=== PATIENT | male | born 1945 | race Caucasian/White ===

== ENCOUNTER → 2018-01-12 08:51 | Outpatient (CLI) | payer MEDICARE, OTHER, SELFPAY ==
[2018-01-12 14:06] LABS: Absolute Lymphocyte Count 1.49 X10^3/ul (0.83-4.51); Absolute Neutrophil Count 2.4 X10^3/uL (2.0-7.7); Basophil# 0.03 X10^3/uL; Basophil% 0.7 % (0-1); Eosinophil# 0.06 X10^3/uL; Eosinophils% 1.3 % (0-5); Hematocrit 48.1 % (40-54); Hemoglobin 16.6 g/dl (13.0-16.5); Lymphocyte # 1.49 X10^3/ul (4.0); Lymphocyte % 32.8 % (19-41); Mean Corp Hgb Conc 34.5 g/gl (32-36); Mean Corpuscular Hgb 32.9 pg (27.0-32.0); Mean Corpuscular Volume 95.4 fL (80-94); Mean Platelet Vol. 11.1 fl (6.2-12.0); Monocyte# 0.53 X10^3/uL; Monocyte% 11.7 % (0-10); Neutrophil # 2.42 X10^3/uL (2.7-7.7); Neutrophil % 53.3 % (47-70); Platelet Count 230 K/mm3 (150-450); RBC Distribution Width CV 13.4 % (11.6-14.6); RBC Distribution Width SD 45.7 fl (35.1-43.9); Red Blood Count 5.04 M/mm3 (4.6-6.2); White Blood Count 4.5 K/mm3 (4.4-11.0)
[2018-01-12 14:14] LABS: POSITIVE COUNT NO; POSITIVE DIFFERENTIAL NO; POSITIVE MORPHOLOGY NO
[2018-01-12 14:41] LABS: ALB/GLOB Ratio 0.8 RATIO (0.9-2.4); AST(SGOT) 24 U/L (15-37); Alanine Aminotransfer ALT/SGPT 36 U/L (16-61); Albumin, Serum 3.5 g/dL (3.2-5.0); Alkaline Phosphatase 57 U/L (45-117); Anion Gap 5 (5-15); BUN 15 mg/dL (7-18); BUN/Creat Ratio 14.9 RATIO (10-20); Calcium,Total 8.5 mg/dL (8.5-10.1); Chloride 102 mmol/L (98-107); Creatinine, Serum 1.01 mg/dL (0.70-1.30); EST Glomerular Filtration Rate 78 mL/min (>60); Est Glom Filt Rate - Afr Amer 94 mL/min (>60); Globulin 4.2 g/dL (2.2-4.2); Glucose 104 mg/dL (74-106); Protein, Total 7.7 g/dL (6.4-8.2); Sodium Level 138 mmol/L (136-145); Thyroid Stim Hormone (TSH) 1.85 uIU/mL (0.358-3.74)
== END ==
PROVIDERS: Family Provider Family Medicine Geriatric Medicine; PCP Family Medicine Geriatric Medicine; Visit Provider Family Medicine Geriatric Medicine
DX: R53.83 Other fatigue (principal); F52.8 Other sexual dysfunction not due to a substance or known physiological condition
CPT/HCPCS: 36415; 80053; 84403; 84443; 85025

== ENCOUNTER → 2018-02-25 12:36 | Outpatient (CLI) | payer MEDICARE, OTHER, SELFPAY ==
--- NOTE | 2018-02-25 12:40 | CDU_ITS ---
Reason For Study: DIZZINESS Rt. Velocities/BP Lt. Velocities/BP Prox CCA 79/14 cm/sec. Prox CCA 75/14 cm/sec. Mid CCA 83/16 cm/sec. Mid CCA 76/13 cm/sec. Dist CCA 84/22 cm/sec. Dist CCA 69/16 cm/sec. Prox ICA 55/13 cm/sec. Prox ICA 111/30 cm/sec. Mid ICA 56/16 cm/sec. Mid ICA 98/15 cm/sec. Dist ICA 71/20 cm/sec. Dist ICA 73/18 cm/sec. Rt. ICA/CCA = .9. Lt. ICA/CCA = 1.5. Prox ECA 78/15 cm/sec. Prox ECA 70/11 cm/sec. Rt. Vert. 32/7 cm/sec. Lt. Vert. 34/11 cm/sec. Right Extracranial There is homogeneous, smooth atherosclerotic plaque noted in the right common carotid artery. There is heterogeneous, irregular atherosclerotic plaque noted in the right internal carotid artery. There is homogeneous, smooth atherosclerotic plaque noted in the right external carotid artery. Antegrade flow is noted in the right vertebral artery. There is heterogeneous, irregular atherosclerotic plaque noted in the right bulb. Left Extracranial There is homogeneous, smooth atherosclerotic plaque noted in the left common carotid artery. There is homogeneous, smooth atherosclerotic plaque noted in the left internal carotid artery. There is homogeneous, smooth atherosclerotic plaque noted in the left external carotid artery. Antegrade flow is noted in the left vertebral artery. There is homogeneous, smooth atherosclerotic plaque noted in the left bulb. Procedure Carotid Duplex [id number]. Exam performed in department. Interpretation Summary Mild (<50%) stenosis right extracranial internal carotid. Mild (<50%) stenosis left extracranial internal carotid. Flow within the vertebral arteries is antegrade bilaterally. Ordering Physician: Carlos Fitzpatrick Referring Physician: MORAIMA REY CHI Performed By: AletaRose paniagua RDCS, RVT
== END ==
PROVIDERS: Family Provider Family Medicine Geriatric Medicine; PCP Family Medicine Geriatric Medicine; Visit Provider Surgery Vascular Surgery
DX: R42 Dizziness and giddiness (principal); G43.909 Migraine, unspecified, not intractable, without status migrainosus; G47.30 Sleep apnea, unspecified; I65.23 Occlusion and stenosis of bilateral carotid arteries; E07.9 Disorder of thyroid, unspecified; H53.9 Unspecified visual disturbance
CPT/HCPCS: 93880

== ENCOUNTER 2018-03-09 11:23 | Day surgery (SDC) | payer MEDICARE, OTHER, SELFPAY ==
--- NOTE | 2018-03-04 15:44 | RAD_ITS ---
STUDY: X-RAY CHEST REASON FOR EXAM: Male, 72 years old. Have a pacer inserted Friday. TECHNIQUE: PA and lateral views of the chest. COMPARISON: April 08, 2017 FINDINGS: The lungs are clear and expanded. There is no demonstrated pleural abnormality. Normal size heart. Normal mediastinum and rajesh. Normal visualized pulmonary arteries. Normal visualized aortic arch and descending thoracic aorta. There are diffuse degenerative changes of the visualized thoracic spine. There are postsurgical changes of the lower cervical spine. Normal visualized ribs, clavicles, and shoulders. There is no demonstrated abnormality of the visualized soft tissue structures of the upper abdomen. RAD/Chest PA and Lateral IMPRESSION: No acute cardiopulmonary process. Electronically Signed: Dinora Yousif MD at 23:22 EDT Tel , Service support ,
[2018-03-04 16:06] LABS: Bacteria 0 SEEN /hpf (None Seen); Mucous, Urine 0 SEEN /hpf (<or=2+); Red Blood Cells-Urine 0 SEEN /hpf (0-5)
[2018-03-04 16:47] LABS: Hematocrit 48.2 % (40-54); Hemoglobin 16.7 g/dl (13.0-16.5); Mean Corp Hgb Conc 34.6 g/gl (32-36); Mean Corpuscular Hgb 32.9 pg (27.0-32.0); Mean Corpuscular Volume 95.1 fL (80-94); Mean Platelet Vol. 10.3 fl (6.2-12.0); Platelet Count 255 K/mm3 (150-450); RBC Distribution Width CV 13.6 % (11.6-14.6); RBC Distribution Width SD 46.6 fl (35.1-43.9); Red Blood Count 5.07 M/mm3 (4.6-6.2); Scan Indicated on CBC? Y/N NO; White Blood Count 6.3 K/mm3 (4.4-11.0)
[2018-03-04 16:51] LABS: Color, Urine Yellow (Yellow); Glucose, Dipstick Normal (Normal); Ketone-Dipstick Negative (Negative); Leukocyte Esterase-Dipstick 25 /ul (Negative); Nitrite-Dipstick Negative (Negative); Occult Blood-Urine Negative /ul (Negative); Protein-Dipstick Negative (Negative); Specific Gravity, Urine 1.015 (1.002-1.030); Urine Bilirubin Dipstick Negative (Negative); Urine Clarity Clear (Clear); Urine Urobilinogen Normal (Normal); Urine pH 6.5 (5.0 - 8.0)
[2018-03-04 17:05] LABS: BUN 14 mg/dL (7-18); BUN/Creat Ratio 14.8 RATIO (10-20); Calcium,Total 8.7 mg/dL (8.5-10.1); Chloride 102 mmol/L (98-107); Creatinine, Serum 0.94 mg/dL (0.70-1.30); EST Glomerular Filtration Rate 84 mL/min (>60); Est Glom Filt Rate - Afr Amer 102 mL/min (>60); Glucose 83 mg/dL (74-106); Potassium 4.2 mmol/L (3.5-5.1); Sodium Level 140 mmol/L (136-145)
[2018-03-04 17:06] LABS: Anion Gap 6 (5-15)
[2018-03-04 18:08] LABS: Squamous Epithelial Cells - UA 0-5 SEEN /hpf (0-5)
[2018-03-04 18:09] LABS: White Blood Cells 0-5 SEEN /hpf (0-5)
[2018-03-06 09:38] VITALS: BMI 27.8
[2018-03-09] VITALS (13 sets, daily range): BP systolic 130–161; BP diastolic 61–95; PULSE 60; RESP 16–18; TEMP 36.2–37.1; O2SAT 94–100
[2018-03-09] MEDS: Acetaminophen 325 MG Tablet PO (15:56)
[2018-03-10] MEDS: Acetaminophen 325 MG Tablet PO ×2 (00:28→10:11)
[2018-03-10 02:20] VITALS: BP 128/74; PULSE 61; RESP 16; TEMP 37.1; O2SAT 95
[2018-03-10 03:11] VITALS: PULSE 60
--- NOTE | 2018-03-10 04:30 | RAD_ITS ---
STUDY: X-RAY CHEST REASON FOR EXAM: Male, 72 years old. Pacemaker insertion TECHNIQUE: Single frontal view of the chest. COMPARISON: 03/10/2018 FINDINGS: There is a RIGHT-sided pacemaker. The leads are in the RIGHT age and RIGHT ventricle. There is suboptimal inspiration. There are NO infiltrates. There is NO pleural effusion or pneumothorax. Normal size heart. Normal mediastinum and rajesh. Normal visualized pulmonary arteries. Normal visualized aortic arch and descending thoracic aorta. Normal visualized thoracic spine. Normal visualized ribs, clavicles, and shoulders. There is no demonstrated abnormality of the visualized soft tissue structures of the upper abdomen. RAD/Chest 1 View IMPRESSION: There is a RIGHT-sided pacemaker. The leads are in the RIGHT age and RIGHT ventricle. There is suboptimal inspiration. There are NO infiltrates. There is NO pleural effusion or pneumothorax. Normal size heart. Electronically Signed: Daniel Fleming MD at 5:14 EDT , Service support ,
[2018-03-10 05:25] VITALS: BP 141/88; PULSE 60; RESP 20; TEMP 36.6; O2SAT 94
--- NOTE | 2018-03-10 05:55 | RAD_ITS ---
STUDY: X-RAY CHEST REASON FOR EXAM: Male, 72 years old. Pacemaker insertion TECHNIQUE: PA and lateral COMPARISON: 03/04/2018 FINDINGS: Pacemaker leads are in proper position. The lungs are clear and expanded. There is NO pneumothorax. Normal size heart. Normal mediastinum and rajesh. Normal visualized pulmonary arteries. Normal visualized aortic arch and descending thoracic aorta. Normal visualized thoracic spine. Normal visualized ribs, clavicles, and shoulders. There is no demonstrated abnormality of the visualized soft tissue structures of the upper abdomen. RAD/Chest PA and Lateral IMPRESSION: Pacemaker leads are in proper position. The lungs are clear and expanded. There is NO pneumothorax. Normal size heart. Electronically Signed: Daniel Fleming MD at 5:18 EDT , Service support ,
[2018-03-10 07:00] VITALS: PULSE 60
--- NOTE | 2018-03-10 08:54 | RAD_ITS ---
STUDY: X-RAY CHEST REASON FOR EXAM: Male, 72 years old. Lead placement verification. TECHNIQUE: AP and lateral views of the chest. COMPARISON: Comparison is made with prior study dated March 10, 2018 at 4:48 AM. FINDINGS: EKG electrodes are seen. A right-sided dual-chamber pacemaker is in situ. One lead is in the right right ventricle and the other lead is in the left ventricle these are unchanged. Minimal increased markings at the lung bases suggestive of bibasilar linear atelectasis. There is no demonstrated pleural abnormality. There is mild cardiac enlargement. A loop recorder device is seen overlying the left upper quadrant. Normal mediastinum and rajesh. Normal visualized pulmonary arteries. There is atherosclerotic tortuosity of the aortic arch and descending thoracic aorta. Normal visualized thoracic spine. Normal visualized ribs, clavicles, and shoulders. There is no demonstrated abnormality of the visualized soft tissue structures of the upper abdomen. RAD/Chest PA and Lateral IMPRESSION: Stable position of the pacemaker leads. Electronically Signed: Lenny Shields MD at 9:17 EDT Tel [phone], Service support ,
[2018-03-10 10:11] VITALS: BP 130/81; PULSE 60; RESP 18; TEMP 36.7; O2SAT 97
--- NOTE | 2018-03-10 11:02 | PCM.DC.PACE ---
Discharge Diet: No Restrictions Discharge Activity: May Not Drive Call your doctor if your incision/area has: Continuous Slow Oozing, Sudden Increased Bleeding, Increased Pain/ Swelling, Increased Redness, Foul Smelling Discharge, Swelling at the incision site Call your doctor if you observe: Fever of 101 or Higher, Shortness of breath, Dizziness, Fainting spells, Swelling in the ankles, Chest pain, Prolonged hiccoughing, Increased palpitations (irregular heartbeat) Change Dressing in (Days):: 3 Remove Dressing in (days):: 3 Cleanse incision/area with: Do not get Incision Wet, Keep Dressing Clean & Dry Additional Dressing/Incision Instructions:: When dressing is removed, wash and dry incision. Keep covered with a light bandage if it is rubbing against your clothing. Do not cover the incision with an airtight bandage. Change the bandage daily. Do not remove steri strips. The strips will fall off on their own. Additional Instructions: Signs and Symptoms to Report to Your Doctor at Once - call your doctor's office or Doctor's Registry ([phone]) Call 911 or go to the nearest Emergency Department if you feel you need urgent care. *Infection (fever, increased redness or swelling at the incision site, drainage from the incision increased pain at the pacemaker site) *Shortness of breath *Dizziness *Fainting spells *Swelling in the ankles *Chest pain *Prolonged hiccoughing *Increased palpitaitons (irregular heartbeat) Medications: Take your pain medication as directed. Refer to your discharge instruction sheet for a list of medications you are to take. Allergies/Adverse Reactions: Allergies Anesthetics - Amide Type Allergy (Verified 04/18/17 15:12) Unknown Medications to take at Discharge Levothyroxine [Synthroid] 125 mcg PO DAILY 09/08/13 Mometasone Furoate [Asmanex 220 mcg Twisthaler] 220 mcg INHALATION BID 03/11/16 Sildenafil Citrate [Viagra] 12.5 mg PO PRN PRN 02/14/17 Aspirin E.C. [Ecotrin] 81 mg PO DAILY@0800 04/21/17 temazepam 15 mg capsule 15 mg PO QHS PRN 03/04/18 testosterone cypionate 100 mg/mL intramuscular oil 100 mg IM Q3W ml 03/04/18 Primary Care Physician: Jose Cisse Chi, MD [Primary Care Provider] - Please Follow Up With: follow up with pacer clinic - see Geri gee Proposed Discharge Date: 03/10/18
--- NOTE | 2018-03-10 11:05 | PCM.PN.CARD ---
Subjectve: Patient seen and evaluated. Appears to be stable. Objective: Vital Signs Temp Pulse Resp BP Pulse Ox 98.1 F 60 18 130/81 H 97 03/10/18 10:11 03/10/18 10:11 03/10/18 10:11 03/10/18 10:11 03/10/18 10:11 Oxygen Delivery Method Room Air Weight: 194 lb Body Mass Index (BMI) 27.8 Intake and Output for Last 24 Hours 03/08/18 03/09/18 03/10/18 23:59 23:59 23:59 Intake Total 330 / 330 325 / 325 Output Total 1000 / 1000 Balance 330 / 330 -675 / -675 General: Awake, Alert, Oriented x 3 HEENT: PERRL, EOMI, Sclera Non Icteric Neck: Supple, Good ROM, No Lymph Node Enlargement Lungs: Clear to auscultation Cardiovascular: Regular Rhythm, Normal S1, Normal S2, No Murmurs, No Rubs, No Gallops Rhythm: EKG: ECHO: Stress Test: Cardiac Cath: PCI: CT Surgery: Holter monitor: EPS: PPM: CXR: Chest CT Scan: Medical Necessity - Tobacco Use Smoking Status: Never smoker Assessment/Plan 1. Status post dual-chamber pacemaker implantation. Pacemaker was interrogated today and is noted to be functioning well. The chest x-ray also demonstrated no evidence of pneumothorax. The ventricular lead was in good position and the atrial lead appeared to have retracted mildly but was noted to be in the atrium with good position. Will discharge patient for outpatient follow-up.
--- NOTE | 2018-03-10 13:10 | PCM.PACRNU ---
Pacer Nurse Hospital Visit Notes: Dual Chamber Pacemaker Evaluation: 1st day post PPM implant check completed at bedside PCU #[id number]. Interrogation shows no MS or VT episodes since implant. Left pectoral pocket/incision DSD intact w/o drainage noted or hematoma noted. Prresenting rhythm shows AAI pacing @ 60 ppm. PRODUCT SCIENTIST=2%, AP=95%. Battery longevity approx >8 yrs. Lead impedances, sensing and pace/sense thresholds remain stable. Programmed rate response on since AP=95%. No other parameter changes made. Counters cleared. Wound Care instructions and left arm restrictions given to pt and . All questions answered. Dr. Aldridge notified of above. Wound check scheduled for . 03/17 @ 2:30pm. Logan Guaman RN - Pacer Check Procedure Procedures: [id number] PM Eval Dual
--- NOTE | 2018-03-13 15:02 | CL.IE_ITS ---
Patient: FAVIAN PHILLIP Study Date: 03/09/2018 Performing: Cecilio Aldridge MD : 1945 Age: 72 Gender: male PROCEDURES PERFORMED [id number] PACER INSERT+DUAL LEADS INDICATIONS Sinoatrial node dysfunction/Sick sinus syndrome PROCEDURE DETAILS The patient was brought to the Catheterization Lab in the postabsorptive nonsedated state. Informed consent was obtained prior to the procedure. . Instrument, sponge, and needle counts were noted to be normal.Local anesthetic was given subcutaneously to the right upper chest area with Lidocaine 2%. Ac cess was achieved and a guidewire was advanced into the right subclavian vein. Incision was made to t he right subclavicular area. A peel-away sheath was inserted into the right subclavian vein 9Fr.. PPM ventricular lead was inserted / positioned to right ventricular. The sheath was then remove d. PPM ventricular lead testing performed. PPM ventricular lead testing performed. A peel-away sheath was inserted into the right subclavian vein 7Fr.. PPM atrial lead was inserted / positioned to the r ight atrial appendage. The sheath was then removed. PPM atrial lead testing performed. The Atrial danae d sutured in place with 3-0 Silk. The Ventricular PM lead sutured in place with 3-0 Silk. Device pock et was irrigated with antibiotic. PPM generator was attached to the lead(s) and inserted into the poc ket. Subcutaneous closure was completed with 3-0 Vicryl. Skin closure was completed with 4-0 Vicryl. Steri-strips applied to right subclavicular incision Estimated Blood Loss: 30 ml's IMPLANTED / EX-PLANTED DEVICES IMPLANTED DEVICE(S): PPM Ventricular lead - Street Sweeper Operator: [employer] Model # 7741 , Serial # [id number] PPM Atrial lead - Street Sweeper Operator: [employer] Model # 7740 , Serial # [id number] PPM Generator - Street Sweeper Operator: [employer] Model # L111 , Serial # [id number] DEVICE PARAMETERS ATRIAL LEAD PARAMETERS: Current- 2.1 (mA) threshold- 1.3 (V) impedence- 635 (OHMS) P wave- 2 (mV) 10V test, no diaphragmatic capture VENTRICULAR LEAD PARAMETERS: R wave- 16.1 (mV) Current- 0.6 (mA) threshold- 0.5 (V) impedence- 848 (OHMS) 10V test, no diaphragmatic capture DEVICE PARAMETERS: Mode- DDD CONCLUSIONS / RECOMMENDATIONS Device Conclusions: Successful implantation of a dual chamber pacemaker Device Recommendations: Follow up with Primary Care Physician PROCEDURE MEDICATIONS Fentanyl 50 mcg IV Versed 1 mg IV Versed 1 mg IV Fentanyl 25 mcg IV Fentanyl 25 mcg IV Versed 1 mg IV Fentanyl 25 mcg IV Oxygen: 2 L/min via nasal cannula Oxygen: 3 L/min via nasal cannula Antibiotic given in appropriate timeframe. Ancef 2 Gm IV @ 03/09/2018 12:51:21 Signed By Cecilio Aldridge MD On 03/13/2018 15:01:42 Cecilio Aldridge MD
== END 2018-03-10 12:00 | disposition home or self-care (01) ==
LOC: CLSP 11:24 → PCU 15:03
PROVIDERS: Family Provider Family Medicine Geriatric Medicine; PCP Family Medicine Geriatric Medicine; Visit Provider Internal Medicine Cardiovascular Disease
DX: I49.5 Sick sinus syndrome (principal); Q23.1 Congenital insufficiency of aortic valve; E78.5 Hyperlipidemia, unspecified; R42 Dizziness and giddiness; E03.9 Hypothyroidism, unspecified; N40.0 Benign prostatic hyperplasia without lower urinary tract symptoms; Z95.818 Presence of other cardiac implants and grafts; Z79.82 Long term (current) use of aspirin
CPT/HCPCS: 33208; 36415; 71045; 71046; 80048; 81001; 85027; 85610; 99152; 99153; J3010; J7030; J7050; C1894

== ENCOUNTER → 2018-03-27 13:06 | Outpatient (CLI) | payer MEDICARE, OTHER, SELFPAY ==
--- NOTE | 2018-03-27 13:08 | RAD_ITS ---
STUDY: SWALLOWING STUDY REASON FOR EXAM: Male, 72 years old. Difficulty swallowing TECHNIQUE: The examination was performed with Speech Pathology in attendance. Under fluoroscopic observation, the patient ingested thin barium, thick barium, barium pudding, and barium coated cracker. Cine loop was created for the exam FLUOROSCOPY TIME: 1:15 minutes/seconds RADIOLOGIST INVOLVEMENT: Radiologist was not present during the procedure, but did review the images. COMPARISON: None. FINDINGS: The following was observed during swallowing of the various mixtures of barium: Thin Barium: There was no evidence of aspiration or laryngeal penetration. Thick Barium: There was no evidence of aspiration or laryngeal penetration. Barium Pudding: There was no evidence of aspiration or laryngeal penetration. Barium Coated Cracker: There was no evidence of aspiration or laryngeal penetration. Though no early pharyngeal penetration was noted on initial swallows, there was some early pharyngeal penetration with sequential swallows. RAD/Swallowing Function w/Video IMPRESSION: No demonstrated early pharyngeal penetration or rima aspiration with individual swallows There was some evidence of early pharyngeal penetration with sequential swallowing The swallow study findings were discussed with the patient by the speech pathologist at the conclusion of the examination. Please see speech pathology report for more information and recommendations. The procedure was performed under the direct supervision of speech therapy Electronically Signed: Aditya Jenkins MD at 8:14 EDT , Service support ,
--- NOTE | 2018-03-27 13:30 | SP.MBSS_ITS ---
PRIMARY / SECONDARY DIAGNOSIS: dysphagia (R13.10) REFERRING PHYSICIAN: Edith Mccann DRY CHARGE PROCESS ATTENDANT-C CURRENT DIET: regular textures, thin liquids DENTITION: WFL MENTAL STATUS: WNL RESPIRATORY STATUS: O2 via room air PREVIOUS MODIFIED BARIUM SWALLOW STUDY: none REASON FOR REFERRAL: Patient is a 72 year old male referred for a modified barium swallow (MBS) study to objectively assess the Patients oropharyngeal swallow function under fluoroscopy secondary to reported intermittent dysphagia during intake of liquids. Patient reports intermittent choking during ingestion of thin liquids, without consistent presentation, reports most recent events occurring during ingestion of larger bolus volumes. Patient reports prior MBS completed following [id number] anterior cervical fusion, with results within normal limits , per Patient report (MBS report not present within EMR). 03/10/2018 CXR revealed stable position of the pacemaker leads. 01/07/2017 MRI revealed involutional changes of the brain, as described above; essentially normal MRI of the brain for patient's age; mild bilateral otomastoiditis. MEDICAL HISTORY: Cryptogenic stroke, status post anterior cervical fusion (C-4 to C-6), obstructive sleep apnea with BiPAP use, bicuspid aortic valve, left carotid artery stenosis, sinus pause, sick sinus syndrome, status post pacemaker placement (3 weeks prior), hyperlipidemia, asthma, benign prostatic hyperplasia , hypothyroidism STUDY FINDINGS: Patient participated in a Modified Barium Swallow (MBS) study on 03/27/2018. Dr. Sanchez was the radiologist present for this evaluation. This study was recorded in the lateral view and images were sent to PACs for storage. The following consistencies were presented to this patient for analysis of oropharyngeal swallow function: thin liquids, pudding, and a regular textured, Stephanie Doone cookie. Results of the MBS are as follows: PENETRATION / ASPIRATION SCALE (KAY): 1 = does not enter airway 2 = enters airway/above vocal folds/ejected 3 = enters airway/above vocal folds/not ejected 4 = enters airway/contacts vocal folds/ejected 5 = enters airway/contacts vocal folds/not ejected 6 = enters airway/below vocal folds/ejected 7 = enters airway/below vocal folds/not ejected despite effort 8 = enters airway/below vocal folds/no effort PENETRATION / ASPIRATION SCALE (SCORE) WITH VIDEOFLOROSCOPIC SCALE SCORE: Thin liquid - 5 mL tsp.: 1 Thin liquids via cup (single sip): 1 Thin liquids via cup (single sip): 1 Thin liquids via cup (single sip): 1 Thin liquids via cup (sequential swallows): 1 Thin liquids via straw (single sip): 1 Pudding via spoon: 1 Regular textured cookie: 1 Thin liquids via straw (sequential swallows): 3 IMPRESSION: DIAGNOSIS: swallow function grossly within functional limits ORAL PHASE CHARACTERIZED BY: LABIAL SEAL: no labial escape TONGUE CONTROL DURING BOLUS MANIPULATION: intermittent posterior escape of less than half of bolus BOLUS PREPARATION / MASTICATION: timely and efficient chewing and mashing BOLUS TRANSPORT / LINGUAL MOTION: brisk tongue motion ORAL RESIDUE: complete oral clearance PHARYNGEAL PHASE CHARACTERIZED BY: INITIATION OF PHARYNGEAL SWALLOW: bolus head in valleculae at first hyoid excursion SOFT PALATE ELEVATION: no bolus between soft palate and pharyngeal wall LARYNGEAL ELEVATION: complete superior movement of thyroid cartilage with complete approximation of arytenoids cartilage to epiglottic petiole ANTERIOR HYOID EXCURSION: complete anterior movement EPIGLOTTIC MOVEMENT: complete epiglottic inversion LARYNGEAL VESTIBULE CLOSURE AT HEIGHT OF SWALLOW: complete laryngeal vestibule closure with no air/contrast in laryngeal vestibule PHARYNGEAL STRIPPING WAVE: pharyngeal stripping wave present / complete PHARYNGOESOPHAGEAL SEGMENT OPENING: complete distension and complete duration with no obstruction of flow TONGUE BASE RETRACTION: no contrast between tongue base and posterior pharyngeal wall PHARYNGEAL RESIDUE: trace residue within or on pharyngeal structures ESOPHAGEAL PHASE CHARACTERIZED BY: ESOPHAGEAL BOLUS CLEARANCE IN THE UPRIGHT POSITION: could not view EFFECTS OF TREATMENT STRATEGIES ATTEMPTED: Reduced bolus size = effective DIET TEXTURE RECOMMENDATIONS: Will recommend a regular textured, thin liquid diet. COMPENSATORY STRATEGIES RECOMMENDED: Reduced bolus volume, seated upright at 90 degrees during PO intake, INTERPRETATION OF RESULTS: Patient presents with swallow function grossly within functional limits. Noted intermittent posterior bolus loss (occurring on 1 occasion) and mild delay in swallow onset timing not wholly uncommon in age matched peers, with findings considered clinically insignificant. Reported intake concerns very likely attributed to bolus volume overload during ingestion of thin liquids, with the likelihood of similar occurrences likely within the non-dysphasic population. RECOMMENDATIONS: Patient able to comprehend and express recommended intake precautions detailed above with sufficient detail to suggest high likelihood of compliance. Provided brief overview of signs and symptoms of aspiration, with recommendations for the Patient to further discuss symptoms with PCP. No further skilled speech- language services warranted at this time targeting dysphagia. ADDITIONAL COMMENTS/RECOMMENDATIONS: Results and recommendations were discussed with the Patient immediately following MBS completion, with the Patient verbalizing understanding and agreement with all recommendations and education provided. IMAGE COUNT: 1120 G-CODES: SWALLOWING G8996 Current Status: SWALLOWING G8997 Goal Status: SWALLOWING G8998 Discharge Status:
== END ==
PROVIDERS: Family Provider Family Medicine Geriatric Medicine; PCP Family Medicine Geriatric Medicine; Visit Provider Nurse Practitioner Acute Care
DX: R13.10 Dysphagia, unspecified (principal)
CPT/HCPCS: 74230; 92611; G8996; G8997; G8998

== ENCOUNTER 2018-05-25 07:54 | Day surgery (SDC) | payer MEDICARE, OTHER, SELFPAY ==
[2018-05-22 10:27] VITALS: BMI 27.8
--- NOTE | 2018-05-25 09:00 | CL.IE_ITS ---
Patient: FAVIAN PHILLIP Study Date: 05/25/2018 Performing: Cecilio Aldridge MD : 1945 Age: 72 Gender: male PROCEDURES PERFORMED [id number] OF LOOP RECORDER INDICATIONS Sinoatrial node dysfunction/Sick sinus syndrome PROCEDURE DETAILS The patient was brought to the Catheterization Lab in the postabsorptive nonsedated state. Informed consent was obtained prior to the procedure. Local anesthetic was given subcutaneously to the left gupta bclavian region with Lidocaine 2%. Incision was made to the left subclavicular area. ICM Reveal LINQ was removed. Skin closure was completed with 3-0 Vicryl. The patient tolerated the procedure well. Estimated Blood Loss: 0 ml's IMPLANTED / EX-PLANTED DEVICES EXPLANTED DEVICE(S): ICM Reveal LINQ - [id number] DEVICE PARAMETERS CONCLUSIONS / RECOMMENDATIONS Device Conclusions: Successful removal of a patient activated loop recorder. Device Recommendations: Follow up with Primary Care Physician PROCEDURE MEDICATIONS Versed 1 mg IV Oxygen: 2 L/min via nasal cannula Signed By Cecilio Aldridge MD On 05/25/2018 08:59:36 Cecilio Aldridge MD
--- NOTE | 2018-05-25 09:03 | PCM.HP.CAR ---
History of Present Illness Date of Admission: 05/25/18 Chief Complaint: Preop evaluation. The patient is a 72 year old M with a previous history of sick sinus syndrome documented after the patient had an implantable loop recorder placed. He had presented with dizziness and previous syncope and this was being investigated. After this was confirmed he had a permanent pacemaker placed. He is now coming in for the loop recorder to be explanted. He has had no symptomatology he denies any neck arm or jaw discomfort suggest angina. [] Past Medical History Allergies/Adverse Reactions: Allergies Anesthetics - Amide Type Allergy (Verified 05/22/18 10:28) Unknown Home Medications: Ambulatory Orders Medication Instructions Recorded Levothyroxine [Synthroid] 125 mcg PO DAILY 09/08/13 Mometasone Furoate [Asmanex 220 220 mcg INHALATION BID 03/11/16 mcg Twisthaler] Sildenafil Citrate [Viagra] 12.5 mg PO PRN PRN 02/14/17 Aspirin E.C. [Ecotrin] 81 mg PO DAILY@0800 04/21/17 temazepam 15 mg capsule 15 mg PO QHS PRN 03/04/18 testosterone cypionate 100 mg/mL 100 mg IM Q3W ml 03/04/18 intramuscular oil Past Medical History (Chronic Problems): Chronic Problems (Last Updated 03/11/18 @ 16:37 by Vandana Guaman) Presence of cardiac pacemaker (Chronic) Hyperlipidemia (Chronic) Bicuspid aortic valve (Chronic) Left carotid artery stenosis (Chronic) MRI 01/07/2017 Hemodynamically significant stenosis of the left carotid bulb with at least 80% diameter narrowing. Sinus pause (Chronic) Sick sinus syndrome (Chronic) Cryptogenic stroke (Chronic) Surgical History: cholecystectomy, - - carpal tunnel, rotator cuff, cervical spinal surgery, turp, tigger finger,colonoscopy - *Family History Maternal History Items: Hypertension, - - crohns colitis, unkown lung disease Paternal History Items: COPD Smoking Status: Never smoker Alcohol: None Drugs: None Review of Systems - Review of Systems General: Denies: Fever, Night Sweats, Fatigue Cardiovascular: Denies: Chest Discomfort, Shortness of Breath, Orthopnea, PND, Peripheral Edema, Palpitations, Lightheadedness, Dizziness, Near Syncope, Syncope Respiratory: Denies: Cough, Sputum Production, Hemoptysis Gastrointestinal: Denies: Hematemesis, Hematochezia, Melena Genitourinary: Denies: Dysuria, Hematuria Skin: Denies: Rash Subjectve: Pleasant gentleman in no apparent distress Objective: Weight: 194 lb Body Mass Index (BMI) 27.8 General: Awake, Alert, Oriented x 3 HEENT: PERRL, EOMI, Sclera Non Icteric Neck: Supple, Good ROM, No Lymph Node Enlargement Lungs: Clear to auscultation Cardiovascular: Regular Rhythm, Normal S1, Normal S2, No Murmurs, No Rubs, No Gallops VTE Information - Inpt Only VTE Present on Admission: No Rhythm: EKG: ECHO: Stress Test: Cardiac Cath: PCI: CT Surgery: Holter monitor: EPS: PPM: CXR: Chest CT Scan: Assessment/Plan 1. Sick sinus syndrome. Status post pacemaker implantation. Patient has a loop recorder implanted and the plan would be to remove the above. The risk benefits alternatives have been explained to him he understands and agrees to proceed. Thank you for allowing me to participate in the care of your patient. Please don't hesitate to call if any issues arise
== END 2018-05-25 11:00 | disposition home or self-care (01) ==
LOC: CLSP 07:55
PROVIDERS: Family Provider Family Medicine Geriatric Medicine; PCP Family Medicine Geriatric Medicine; Visit Provider Internal Medicine Cardiovascular Disease
DX: I49.5 Sick sinus syndrome (principal); Z79.899 Other long term (current) drug therapy; Z79.82 Long term (current) use of aspirin; E78.5 Hyperlipidemia, unspecified; I65.22 Occlusion and stenosis of left carotid artery
CPT/HCPCS: 33284; 99152; J7040

== ENCOUNTER → 2018-07-15 09:26 | Outpatient (CLI) | payer MEDICARE, OTHER, SELFPAY ==
[2018-07-15 12:31] LABS: Absolute Lymphocyte Count 1.76 X10^3/ul (0.83-4.51); Absolute Neutrophil Count 2.5 X10^3/uL (2.0-7.7); Basophil# 0.02 X10^3/uL; Basophil% 0.4 % (0-1); Hematocrit 49.3 % (40-54); Hemoglobin 16.7 g/dl (13.0-16.5); Lymphocyte # 1.76 X10^3/ul (4.0); Lymphocyte % 35.2 % (19-41); Mean Corp Hgb Conc 33.9 g/gl (32-36); Mean Corpuscular Hgb 32.1 pg (27.0-32.0); Mean Corpuscular Volume 94.6 fL (80-94); Mean Platelet Vol. 10.7 fl (6.2-12.0); Monocyte# 0.57 X10^3/uL; Monocyte% 11.4 % (0-10); Neutrophil # 2.54 X10^3/uL (2.7-7.7); Neutrophil % 50.8 % (47-70); Platelet Count 220 K/mm3 (150-450); RBC Distribution Width CV 13.2 % (11.6-14.6); RBC Distribution Width SD 45.9 fl (35.1-43.9); Red Blood Count 5.21 M/mm3 (4.6-6.2)
[2018-07-15 12:40] LABS: POSITIVE COUNT NO; POSITIVE DIFFERENTIAL NO; POSITIVE MORPHOLOGY NO
[2018-07-15 12:50] LABS: Vitamin D,25 Hydroxy 28.7 ng/mL (29.95-100.01)
[2018-07-15 12:54] LABS: ALB/GLOB Ratio 0.9 RATIO (0.9-2.4); AST(SGOT) 38 U/L (15-37); Alanine Aminotransfer ALT/SGPT 61 U/L (16-61); Albumin, Serum 3.6 g/dL (3.2-5.0); Alkaline Phosphatase 72 U/L (45-117); Anion Gap 10 (5-15); BUN 18 mg/dL (7-18); BUN/Creat Ratio 15.9 RATIO (10-20); Calcium,Total 8.5 mg/dL (8.5-10.1); Chloride 105 mmol/L (98-107); Creatinine, Serum 1.13 mg/dL (0.70-1.30); EST Glomerular Filtration Rate 68 mL/min (>60); Est Glom Filt Rate - Afr Amer 82 mL/min (>60); Globulin 4.2 g/dL (2.2-4.2); Glucose 132 mg/dL (74-106); PSA,Total - Annual Screen 1.87 ng/mL (0.00-4.00); Protein, Total 7.8 g/dL (6.4-8.2); Sodium Level 144 mmol/L (136-145); Thyroid Stim Hormone (TSH) 1.56 uIU/mL (0.358-3.74)
[2018-07-16 10:54] LABS: Hep C Antibodies 0.1 s/co ratio (0.0-0.9)
== END ==
PROVIDERS: Family Provider Family Medicine Geriatric Medicine; PCP Family Medicine Geriatric Medicine; Visit Provider Family Medicine Geriatric Medicine
DX: E55.9 Vitamin D deficiency, unspecified (principal); F52.8 Other sexual dysfunction not due to a substance or known physiological condition; R53.83 Other fatigue; Z12.5 Encounter for screening for malignant neoplasm of prostate; Z13.89 Encounter for screening for other disorder
CPT/HCPCS: 36415; 80053; 82306; 84153; 84403; 84443; 85025; 86803; A4216; G0103

== ENCOUNTER → 2018-12-04 11:11 | Outpatient (CLI) | payer MEDICARE, OTHER, SELFPAY ==
[2018-10-08 15:22] VITALS: BMI 27.8
== END ==
PROVIDERS: Family Provider Family Medicine Geriatric Medicine; PCP Family Medicine Geriatric Medicine; Visit Provider Family Medicine Geriatric Medicine
DX: N39.0 Urinary tract infection, site not specified (principal)
CPT/HCPCS: 87077; 87086; 87088; 87186

== ENCOUNTER → 2019-01-13 14:58 | Outpatient (CLI) | payer MEDICARE, OTHER, SELFPAY ==
[2018-10-08 15:22] VITALS: BMI 27.8
[2019-01-13 16:25] LABS: Absolute Lymphocyte Count 1.64 X10^3/ul (0.83-4.51); Absolute Neutrophil Count 2.8 X10^3/uL (2.0-7.7); Basophil# 0.01 X10^3/uL; Basophil% 0.2 % (0-1); Eosinophil# 0.06 X10^3/uL; Eosinophils% 1.2 % (0-5); Hematocrit 48.6 % (40-54); Hemoglobin 16.1 g/dl (13.0-16.5); Lymphocyte # 1.64 X10^3/ul (4.0); Lymphocyte % 32.5 % (19-41); Mean Corp Hgb Conc 33.1 g/gl (32-36); Mean Corpuscular Hgb 31.9 pg (27.0-32.0); Mean Corpuscular Volume 96.2 fL (80-94); Monocyte# 0.54 X10^3/uL; Monocyte% 10.7 % (0-10); Neutrophil # 2.78 X10^3/uL (2.7-7.7); Neutrophil % 55.2 % (47-70); Platelet Count 228 K/mm3 (150-450); RBC Distribution Width CV 13.8 % (11.6-14.6); RBC Distribution Width SD 48.6 fl (35.1-43.9); Red Blood Count 5.05 M/mm3 (4.6-6.2)
[2019-01-13 16:35] LABS: POSITIVE COUNT NO; POSITIVE DIFFERENTIAL NO; POSITIVE MORPHOLOGY NO
[2019-01-13 16:45] LABS: Vitamin D,25 Hydroxy 25.3 ng/mL (29.95-100.01)
[2019-01-13 16:50] LABS: ALB/GLOB Ratio 0.8 RATIO (0.9-2.4); AST(SGOT) 28 U/L (15-37); Alanine Aminotransfer ALT/SGPT 38 U/L (16-61); Albumin, Serum 3.5 g/dL (3.2-5.0); Alkaline Phosphatase 57 U/L (45-117); Anion Gap 7 (5-15); BUN 15 mg/dL (7-18); BUN/Creat Ratio 13.8 RATIO (10-20); Calcium,Total 8.5 mg/dL (8.5-10.1); Chloride 105 mmol/L (98-107); Creatinine, Serum 1.09 mg/dL (0.70-1.30); EST Glomerular Filtration Rate 71 mL/min (>60); Est Glom Filt Rate - Afr Amer 86 mL/min (>60); Globulin 4.2 g/dL (2.2-4.2); Glucose 122 mg/dL (74-106); Potassium 4.2 mmol/L (3.5-5.1); Protein, Total 7.7 g/dL (6.4-8.2); Sodium Level 140 mmol/L (136-145); Thyroid Stim Hormone (TSH) 0.31 uIU/mL (0.358-3.74)
== END ==
PROVIDERS: Family Provider Family Medicine Geriatric Medicine; PCP Family Medicine Geriatric Medicine; Visit Provider Family Medicine Geriatric Medicine
DX: E23.6 Other disorders of pituitary gland (principal); E55.9 Vitamin D deficiency, unspecified; F52.8 Other sexual dysfunction not due to a substance or known physiological condition; R53.83 Other fatigue
CPT/HCPCS: 36415; 80053; 82306; 84403; 84443; 85025

== ENCOUNTER → 2019-01-22 11:27 | Outpatient (CLI) | payer MEDICARE, OTHER, SELFPAY ==
[2018-10-08 15:22] VITALS: BMI 27.8
[2019-01-22 13:29] LABS: T3 Uptake 44 % (33-40); T4 Free Direct 1.37 ng/dL (0.76-1.46)
== END ==
PROVIDERS: Family Provider Family Medicine Geriatric Medicine; PCP Family Medicine Geriatric Medicine; Visit Provider Family Medicine Geriatric Medicine
DX: E03.9 Hypothyroidism, unspecified (principal)
CPT/HCPCS: 36415; 84439; 84479

== ENCOUNTER → 2019-03-23 13:54 | Outpatient (CLI) | payer MEDICARE, OTHER, SELFPAY ==
[2018-10-08 15:22] VITALS: BMI 27.8
--- NOTE | 2019-03-23 13:56 | RAD_ITS ---
STUDY: X-RAY - RIGHT SHOULDER REASON FOR EXAM: Male, 73 years old. Pain, decreased range of motion TECHNIQUE: 4 view(s) of the shoulder. COMPARISON: None. FINDINGS: There is moderate degenerative arthrosis of the glenohumeral articulation. There is degenerative arthrosis of the acromioclavicular joint without inferior osseous spur formation. Normal acromion. Evidence of previous rotator cuff repair with surgical hardware noted in the humeral head. The soft tissue structures are unremarkable. Normal visualized pulmonary apex. RAD/Shoulder min 2 Views IMPRESSION: Degenerative and postsurgical changes, no demonstrated fracture or suspicious osseous lesion. Electronically Signed: Aditya Jenkins MD at 18:00 EDT , Service support ,
--- NOTE | 2019-03-23 13:56 | RAD_ITS ---
STUDY: X-RAY - RIGHT FOOT CLINICAL: Male, 73 years old. Second digit pain. TECHNIQUE: 3 view(s) of the foot. COMPARISON: None. FINDINGS: Normal talus, calcaneus, and tarsal bones. Normal visualized subtalar, talonavicular, calcaneocuboid, tarsal and tarsometatarsal articulations. Normal metatarsi. Normal metatarsophalangeal joint of the great toe. Normal tibial and fibular sesamoid bones. Normal interphalangeal joint of the great toe. Normal phalanges of the great toe. Normal second through fifth metatarsophalangeal joints. Normal interphalangeal joints and phalanges of the lesser toes. The soft tissue structures are unremarkable. RAD/Foot min 3 Views IMPRESSION: Normal x-ray examination of the foot. Electronically Signed: Mehdi Sanchez MD at 15:57 EDT , Service support ,
== END ==
PROVIDERS: Family Provider Family Medicine Geriatric Medicine; PCP Family Medicine Geriatric Medicine; Referring Provider Family Medicine Geriatric Medicine; Visit Provider Family Medicine Geriatric Medicine
DX: M25.519 Pain in unspecified shoulder (principal); M79.609 Pain in unspecified limb
CPT/HCPCS: 73030; 73630

== ENCOUNTER → 2019-04-12 09:48 | Outpatient (CLI) | payer MEDICARE, OTHER, SELFPAY ==
--- NOTE | 2019-04-12 09:52 | CDU_ITS ---
Reason For Study: DIZZINESS Rt. Velocities/BP Lt. Velocities/BP Prox CCA 94/15 cm/sec. Prox CCA 109/16 cm/sec. Mid CCA 71/13 cm/sec. Mid CCA 94/17 cm/sec. Dist CCA 72/16 cm/sec. Dist CCA 72/16 cm/sec. Prox ICA 64/15 cm/sec. Prox ICA 178/51 cm/sec. Mid ICA 72/20 cm/sec. Mid ICA 126/20 cm/sec. Dist ICA 72/21 cm/sec. Dist ICA 72/20 cm/sec. Rt. ICA/CCA = .8. Lt. ICA/CCA = 1.6. Prox ECA 77/0 cm/sec. Lt. Vert. 52/15 cm/sec. Right Extracranial There is homogeneous, smooth atherosclerotic plaque noted in the right common carotid artery. There is heterogeneous, irregular atherosclerotic plaque noted in the right internal carotid artery. There is no significant atherosclerotic plaque noted in the right external carotid artery. Antegrade flow is noted in the right vertebral artery. Left Extracranial There is homogeneous, smooth atherosclerotic plaque noted in the left common carotid artery. There is homogeneous, irregular atherosclerotic plaque noted in the left internal carotid artery. There is no significant atherosclerotic plaque noted in the left external carotid artery. Antegrade flow is noted in the left vertebral artery. Procedure Carotid Duplex [id number]. Exam performed in department. Interpretation Summary Mild (<50%) stenosis right extracranial internal carotid. Moderate (50-69%) stenosis left extracranial internal carotid. Flow within the vertebral arteries is antegrade bilaterally. Ordering Physician: Carlos Fitzpatrick Referring Physician: MORAIMA REY CHI Performed By: [place], RDCS, RVT
== END ==
PROVIDERS: Family Provider Family Medicine Geriatric Medicine; PCP Family Medicine Geriatric Medicine; Referring Provider Surgery Vascular Surgery; Visit Provider Surgery Vascular Surgery
DX: I65.23 Occlusion and stenosis of bilateral carotid arteries (principal); R42 Dizziness and giddiness; G43.909 Migraine, unspecified, not intractable, without status migrainosus; G47.30 Sleep apnea, unspecified; E07.9 Disorder of thyroid, unspecified; H53.9 Unspecified visual disturbance
CPT/HCPCS: 93880

== ENCOUNTER → 2019-07-22 09:50 | Outpatient (CLI) | payer MEDICARE, OTHER, SELFPAY ==
[2018-10-08 15:22] VITALS: BMI 27.8
[2019-07-22 18:04] LABS: Absolute Lymphocyte Count 1.29 X10^3/uL (0.83-4.51); Absolute Neutrophil Count 3.9 X10^3/uL (2.0-7.7); Basophil# 0.02 X10^3/uL; Basophil% 0.3 % (0-1); Eosinophil# 0.03 X10^3/uL; Eosinophils% 0.5 % (0-5); Hematocrit 46.4 % (40-54); Lymphocyte # 1.29 X10^3/ul (4.0); Lymphocyte % 21.9 % (19-41); Mean Corp Hgb Conc 32.3 g/dL (32-36); Mean Corpuscular Hgb 32.5 pg (27.0-32.0); Mean Corpuscular Volume 100.7 fL (80-94); Mean Platelet Vol. 10.2 fl (6.2-12.0); Monocyte# 0.67 X10^3/uL; Monocyte% 11.4 % (0-10); NRBC Flagged by Analyzer 0 % (0-5); Neutrophil # 3.86 X10^3/uL (2.7-7.7); Neutrophil % 65.7 % (47-70); Platelet Count 266 K/mm3 (150-450); RBC Distribution Width CV 14.2 % (11.6-14.6); RBC Distribution Width SD 52.7 fl (35.1-43.9); Red Blood Count 4.61 M/mm3 (4.6-6.2); White Blood Count 5.9 K/mm3 (4.4-11.0)
[2019-07-22 18:12] LABS: AST(SGOT) 28 U/L (15-37); Alanine Aminotransfer ALT/SGPT 35 U/L (16-61); Albumin, Serum 3.8 g/dL (3.2-5.0); Alkaline Phosphatase 62 U/L (45-117); Anion Gap 5 (5-15); BUN 20 mg/dL (7-18); Calcium,Total 8.6 mg/dL (8.5-10.1); Chloride 107 mmol/L (98-107); Creatinine, Serum 1.05 mg/dL (0.70-1.30); EST Glomerular Filtration Rate 74 mL/min (>60); Est Glom Filt Rate - Afr Amer 89 mL/min (>60); Glucose 84 mg/dL (74-106); PSA,Total - Annual Screen 2.96 ng/mL (0.00-4.00); Potassium 4.2 mmol/L (3.5-5.1); Protein, Total 7.8 g/dL (6.4-8.2); Sodium Level 142 mmol/L (136-145); Thyroid Stim Hormone (TSH) 3.12 uIU/mL (0.358-3.74); Vitamin D,25 Hydroxy 21.7 ng/mL (29.95-100.01)
== END ==
PROVIDERS: Family Provider Family Medicine Geriatric Medicine; PCP Family Medicine Geriatric Medicine; Visit Provider Family Medicine Geriatric Medicine
DX: R53.83 Other fatigue (principal); F52.8 Other sexual dysfunction not due to a substance or known physiological condition; E55.9 Vitamin D deficiency, unspecified; Z12.5 Encounter for screening for malignant neoplasm of prostate
CPT/HCPCS: 36415; 80053; 82306; 84153; 84403; 84443; 85025; G0103

== ENCOUNTER → 2019-08-30 14:39 | Outpatient (CLI) | payer MEDICARE, OTHER, SELFPAY ==
[2019-08-12 15:31] VITALS: BMI 24.2
--- NOTE | 2019-08-30 14:42 | CT_ITS ---
STUDY: CT BRAIN WITHOUT CONTRAST REASON FOR EXAM: Male, 73 years old. 5 week history of headaches and dizziness. RADIATION DOSAGE (If Supplied By Facility): CTDIvol = ( 44.99 ) mGy, DLP = ( 863.60 ) mGycm TECHNIQUE: Transaxial CT imaging of the brain was performed without administration of intravenous contrast material. Individualized dose optimization techniques were used for this CT. COMPARISON: Comparison is made with prior study dated April 26, 2016. FINDINGS: Normal soft tissue structures. Normal calvarium. Normal size ventricles and extra-axial spaces for the patient's age. Normal white matter tracts of the cerebral hemispheres. Normal basal ganglia and thalami. Normal brainstem. Normal cerebellum. There is no intracranial hemorrhage. There are no findings of an acute ischemic infarction. Atherosclerotic calcification of the cavernous portions of the internal carotid arteries bilaterally. Normal visualized paranasal sinuses. CT/Brain/Head without Contrast IMPRESSION: Normal unenhanced CT scan of the brain. Electronically Signed: Lenny Shields, at 15:42 EDT , Service support ,
== END ==
PROVIDERS: Family Provider Family Medicine Geriatric Medicine; PCP Family Medicine Geriatric Medicine; Referring Provider Family Medicine Geriatric Medicine; Visit Provider Family Medicine Geriatric Medicine
DX: R51 Headache (principal)
CPT/HCPCS: 70450

== ENCOUNTER → 2019-09-01 13:56 | Outpatient (CLI) | payer MEDICARE, OTHER, SELFPAY ==
[2019-08-12 15:31] VITALS: BMI 24.2
--- NOTE | 2019-09-01 14:00 | ECHOD_ITS ---
Reason For Study: BICUSPID AV Procedure This was a 2D Doppler, Color Flow transthoracic echocardiogram. Exam performed in department. Left Ventricle Normal left ventricle. Left ventricular systolic function is normal. The estimated ejection fraction is 60 %. Stage 1 diastolic dysfunction. No regional wall motion abnormalities noted. Right Ventricle Normal RV size. ICD or pacer leads identified within the right ventricle. Normal systolic function. Atria Normal left atrium. Normal right atrium. Mitral Valve Normal mitral valve. Tricuspid Valve Normal tricuspid valve. Mild tricuspid valve insufficiency. Aortic Valve Bicuspid aortic valve. with a raphe. There is no aortic stenosis. Pulmonic Valve Normal pulmonic valve. Great Vessels Normal aortic root. The pulmonary artery is normal size. Normal inferior vena cava. Pericardium/Pleural No pericardial effusion. MMode/2D Measurements & Calculations LVIDd: 4.3 cm IVSd: 1.1 cm LVOT diam: 2.4 cm LVIDs: 3.1 cm LVPWd: 1.1 cm LVOT area: 4.5 cm2 RVDd: 3.2 cm FS: 29.2 % Ao root diam: 4.2 cm LAV(MOD-bp): 45.8 ml LA A4 area: 18.7 cm2 LAV(MOD-bp) Indexed: 23.8 ml/m2 LAV(MOD-sp2): 39.5 ml LAV(MOD-sp4): 52.8 ml LA dimension(2D): 4.0 cm RA A4 area: 13.0 cm2 Time Measurements MV dec time: 0.30 sec Doppler Measurements & Calculations MV E max paulo: 54.4 cm/sec Lat Peak E' Paulo: 4.7 cm/sec Med Peak E' Paulo: 2.1 cm/sec MV A max paulo: 98.1 cm/sec E/E' lat: 11.6 E/E' med: 25.8 MV E/A: 0.55 Ao V2 max: 180.8 cm/sec LV V1 max: 87.6 cm/sec SV(LVOT): 81.9 ml Ao max P.1 mmHg LV V1 max P.1 mmHg Ao V2 mean: 128.2 cm/sec LV V1 mean P.9 mmHg Ao mean P.4 mmHg LV V1 mean: 65.7 cm/sec Ao V2 VTI: 34.4 cm LV V1 VTI: 18.2 cm JESSICA(I,D): 2.4 cm2 JESSICA(V,D): 2.2 cm2 PA V2 max: 107.7 cm/sec TR max paulo: 181.6 cm/sec TR max P.3 mmHg Interpretation Summary Normal left ventricle. Left ventricular systolic function is normal. The estimated ejection fraction is 60 %. Stage 1 diastolic dysfunction. Bicuspid aortic valve. with a raphe There is no aortic stenosis. Ordering Physician: Cecilio Aldridge Referring Physician: MORAIMA REY CHI Performed By: [place], YENY, RVT
== END ==
PROVIDERS: Family Provider Family Medicine Geriatric Medicine; PCP Family Medicine Geriatric Medicine; Referring Provider Internal Medicine Cardiovascular Disease; Visit Provider Internal Medicine Cardiovascular Disease
DX: Q23.1 Congenital insufficiency of aortic valve (principal)
CPT/HCPCS: 93306

== ENCOUNTER → 2019-10-08 13:23 | Outpatient (CLI) | payer MEDICARE, OTHER, SELFPAY ==
[2019-08-12 15:31] VITALS: BMI 24.2
--- NOTE | 2019-10-08 13:26 | CT_ITS ---
STUDY: CTA HEAD AND NECK WITH CONTRAST REASON FOR EXAM: Male, 73 years old. Disease, prior cervical fusion and pacemaker placement. RADIATION DOSAGE (If Supplied By Facility): CTDIvol = ( 29.52 ) mGy, DLP = ( 1558.89 ) mGycm TECHNIQUE: CT angiography was performed with a multi-detector CT scanner. Data acquisition was obtained from the skull base through the vertex following intravenous administration of IV Isovue 370 100mL. MIP images were reconstructed from the axial data set. Post-processing of the angiographic images was performed, with multiplanar reformation and 3D reconstruction. Individualized dose optimization techniques were used for this CT. COMPARISON: No relevant priors. FINDINGS: Normal bilateral petrous carotid arteries. Normal right cavernous carotid artery with a normal supraclinoid bifurcation. Normal left cavernous carotid artery with a normal supraclinoid bifurcation. Normal right A1 segments of the anterior cerebral artery. Normal left A1 segments of the anterior cerebral artery. Normal intact anterior communicating artery (ACOM). Normal bilateral A2 segments of the anterior cerebral arteries. Normal right M1 and M2 segments of the middle cerebral arteries, with a normal M1 bifurcation. Normal left M1 and M2 segments of the middle cerebral arteries, with a normal M1 bifurcation. Normal right posterior communicating artery (PCOM). Normal left posterior communicating artery (PCOM). Normal bilateral vertebral arteries. Normal basilar artery with a normal basilar bifurcation. The visualized bilateral superior cerebellar (SCA) arteries are normal. Normal bilateral P1, P2 and visualized P3 segments of the posterior cerebral arteries. There is no demonstrated aneurysm of the [place]. There is no demonstrated abnormality of the visualized brain. AORTIC ARCH: Normal visualized aortic arch. Normal origins of the brachiocephalic, left common carotid, and left subclavian arteries. RIGHT CAROTID ARTERIES: Normal right common carotid artery (CCA). There is mild to moderate atherosclerotic plaque formation with minimal narrowing of the right carotid bulb. There is mild atherosclerotic plaque formation of the origin of the right internal carotid artery with less than 50% cross sectional diameter stenosis. Normal visualized cervical portion of the right internal carotid artery. Normal origin of the right external carotid artery (ECA). LEFT CAROTID ARTERIES: Normal left common carotid artery (CCA). Mild noncalcified atherosclerotic plaque at the level of the bulb. Normal origin of the left internal carotid (ICA) artery without a hemodynamically significant stenosis. Normal visualized cervical portion of the left internal carotid artery. Normal origin of the left external carotid artery (ECA). VERTEBRAL ARTERIES: Normal bilateral vertebral arteries. CT/CTA Head AND Neck W/ Contrast IMPRESSION: Mild calcified atherosclerosis in the region of the bulb with mild stenosis (less than 50%). Otherwise normal CTA Head and neck with contrast. Electronically Signed: Unique Albert MD at 7:47 EST , Service support ,
== END ==
PROVIDERS: Family Provider Family Medicine Geriatric Medicine; PCP Family Medicine Geriatric Medicine; Referring Provider Surgery Vascular Surgery; Visit Provider Surgery Vascular Surgery
DX: R42 Dizziness and giddiness (principal); I65.23 Occlusion and stenosis of bilateral carotid arteries; H53.9 Unspecified visual disturbance
CPT/HCPCS: 70496; 70498; Q9967

== ENCOUNTER → 2020-01-25 14:48 | Outpatient (CLI) | payer MEDICARE, OTHER, SELFPAY ==
[2019-08-12 15:31] VITALS: BMI 24.2
[2020-01-25 15:30] LABS: Absolute Lymphocyte Count 1.93 X10^3/uL (0.83-4.51); Basophil# 0.04 X10^3/uL; Basophil% 0.7 % (0-1); Eosinophil# 0.06 X10^3/uL; Hematocrit 45.3 % (40-54); Hemoglobin 14.8 g/dL (13.0-16.5); Lymphocyte # 1.93 X10^3/ul (4.0); Lymphocyte % 33.2 % (19-41); Mean Corp Hgb Conc 32.7 g/dL (32-36); Mean Corpuscular Hgb 31.6 pg (27.0-32.0); Mean Corpuscular Volume 96.6 fL (80-94); Mean Platelet Vol. 11.1 fl (6.2-12.0); Monocyte% 13.7 % (0-10); NRBC Flagged by Analyzer 0 % (0-5); Neutrophil # 2.98 X10^3/uL (2.7-7.7); Neutrophil % 51.2 % (47-70); Platelet Count 225 K/mm3 (150-450); RBC Distribution Width CV 13.6 % (11.6-14.6); Red Blood Count 4.69 M/mm3 (4.6-6.2); White Blood Count 5.8 K/mm3 (4.4-11.0)
[2020-01-25 16:12] LABS: ALB/GLOB Ratio 0.9 RATIO (0.9-2.4); AST(SGOT) 28 U/L (15-37); Alanine Aminotransfer ALT/SGPT 38 U/L (16-61); Albumin, Serum 3.6 g/dL (3.2-5.0); Alkaline Phosphatase 59 U/L (45-117); Anion Gap 4 (5-15); BUN 13 mg/dL (7-18); BUN/Creat Ratio 13.1 RATIO (10-20); Calcium,Total 8.7 mg/dL (8.5-10.1); Chloride 106 mmol/L (98-107); EST Glomerular Filtration Rate 79 mL/min (>60); Est Glom Filt Rate - Afr Amer 95 mL/min (>60); Globulin 3.9 g/dL (2.2-4.2); Glucose 87 mg/dL (74-106); Protein, Total 7.5 g/dL (6.4-8.2); Sodium Level 139 mmol/L (136-145); Thyroid Stim Hormone (TSH) 5.06 uIU/mL (0.358-3.74); Vitamin D,25 Hydroxy 28.2 ng/mL
== END ==
PROVIDERS: PCP Family Medicine Geriatric Medicine; Visit Provider Family Medicine Geriatric Medicine
DX: E23.6 Other disorders of pituitary gland (principal); E55.9 Vitamin D deficiency, unspecified; F52.8 Other sexual dysfunction not due to a substance or known physiological condition; R53.83 Other fatigue
CPT/HCPCS: 36415; 80053; 82306; 84403; 84443; 85025

== ENCOUNTER → 2020-07-27 14:23 | Outpatient (CLI) | payer MEDICARE, OTHER, SELFPAY ==
[2019-08-12 15:31] VITALS: BMI 24.2
[2020-07-27 16:07] LABS: Absolute Lymphocyte Count 1.51 X10^3/uL (0.83-4.51); Absolute Neutrophil Count 1.8 X10^3/uL (2.0-7.7); Basophil# 0.02 X10^3/uL; Basophil% 0.5 % (0-1); Eosinophil# 0.05 X10^3/uL; Eosinophils% 1.2 % (0-5); Hematocrit 41.2 % (40-54); Hemoglobin 13.5 g/dL (13.0-16.5); Lymphocyte # 1.51 X10^3/ul (4.0); Lymphocyte % 36.9 % (19-41); Mean Corp Hgb Conc 32.8 g/dL (32-36); Mean Corpuscular Hgb 31.5 pg (27.0-32.0); Mean Platelet Vol. 10.4 fl (6.2-12.0); Monocyte# 0.71 X10^3/uL; Monocyte% 17.4 % (0-10); NRBC Flagged by Analyzer 0 % (0-5); Neutrophil # 1.79 X10^3/uL (2.7-7.7); Neutrophil % 43.8 % (47-70); Platelet Count 231 K/mm3 (150-450); RBC Distribution Width CV 12.6 % (11.6-14.6); RBC Distribution Width SD 44.8 fl (35.1-43.9); Red Blood Count 4.29 M/mm3 (4.6-6.2); White Blood Count 4.1 K/mm3 (4.4-11.0)
[2020-07-27 16:33] LABS: ALB/GLOB Ratio 0.9 RATIO (0.9-2.4); AST(SGOT) 27 U/L (15-37); Alanine Aminotransfer ALT/SGPT 31 U/L (16-61); Albumin, Serum 3.5 g/dL (3.2-5.0); Alkaline Phosphatase 67 U/L (45-117); Anion Gap 3 (5-15); BUN 15 mg/dL (7-18); BUN/Creat Ratio 14.9 RATIO (10-20); Calcium,Total 8.8 mg/dL (8.5-10.1); Chloride 109 mmol/L (98-107); Creatinine, Serum 1.01 mg/dL (0.70-1.30); EST Glomerular Filtration Rate 77 mL/min (>60); Est Glom Filt Rate - Afr Amer 93 mL/min (>60); Globulin 3.7 g/dL (2.2-4.2); Glucose 85 mg/dL (74-106); Potassium 4.3 mmol/L (3.5-5.1); Protein, Total 7.2 g/dL (6.4-8.2); Sodium Level 144 mmol/L (136-145); Thyroid Stim Hormone (TSH) 0.03 uIU/mL (0.358-3.74)
[2020-07-28 12:39] LABS: Vitamin D,25 Hydroxy 34.5 ng/mL
== END ==
PROVIDERS: PCP Family Medicine Geriatric Medicine; Visit Provider Family Medicine Geriatric Medicine
DX: E03.9 Hypothyroidism, unspecified (principal); R53.83 Other fatigue; E55.9 Vitamin D deficiency, unspecified; F52.8 Other sexual dysfunction not due to a substance or known physiological condition
CPT/HCPCS: 36415; 80053; 82306; 84403; 84443; 85025

== ENCOUNTER → 2020-08-30 | Outpatient (CLI) | payer MEDICARE, OTHER, SELFPAY ==
[2020-08-24 12:50] VITALS: BMI 26.1
--- NOTE | 2020-08-30 08:20 | CT_ITS ---
STUDY: CT CHEST WITH CONTRAST REASON FOR EXAM: Male, 74 years old. DILATED ROOT. HX OF PACER AND ASTHMA RADIATION DOSAGE (If Supplied By Facility): CTDIvol = ( 8.83 ) mGy, DLP = ( 380.34 ) mGycm TECHNIQUE: Transaxial imaging was performed following intravenous administration of IV 100mL Isovue-300. Multiplanar coronal and sagittal images were reformatted. Individualized dose optimization techniques were used for this CT. COMPARISON: None. FINDINGS: Minimal increased markings at the right lung base suggestive of scarring. There is no demonstrated pleural abnormality. There are calcifications of the coronary arteries. A right-sided dual-chamber pacemaker is seen. Normal mediastinum. Normal hilar regions. Normal enhanced pulmonary arteries. There is dilatation of the aortic root measuring 41.1 mm. There are mild degenerative changes of the thoracic spine. There is a 1.5 cm cyst in the left lobe of the liver. Small hiatal hernia. CT/Chest WITH Contrast IMPRESSION: Dilatation of the aortic root measuring 41.1 mm. Mild scarring at the right lung base. Small cyst in the left lobe of the liver. Electronically Signed: Lenny Shields, at 10:30 EDT , Service support ,
[2020-08-30 09:24] LABS: Anion Gap 0 (5-15); BUN 18 mg/dL (7-18); BUN/Creat Ratio 19.3 RATIO (10-20); Calcium,Total 8.6 mg/dL (8.5-10.1); Chloride 104 mmol/L (98-107); Creatinine, Serum 0.94 mg/dL (0.70-1.30); EST Glomerular Filtration Rate 84 mL/min (>60); Est Glom Filt Rate - Afr Amer 102 mL/min (>60); Glucose 82 mg/dL (74-106); Sodium Level 138 mmol/L (136-145)
== END | disposition home or self-care (01) ==
PROVIDERS: PCP Family Medicine Geriatric Medicine; Referring Provider Internal Medicine Cardiovascular Disease; Visit Provider Internal Medicine Cardiovascular Disease
DX: I77.810 Thoracic aortic ectasia (principal)
CPT/HCPCS: 36415; 71260; 80048; Q9967

== ENCOUNTER → 2020-09-21 11:06 | Outpatient (CLI) | payer MEDICARE, OTHER, SELFPAY ==
[2019-08-12 15:31] VITALS: BMI 24.2
[2020-08-24 12:50] VITALS: BMI 26.1
== END ==
PROVIDERS: PCP Family Medicine Geriatric Medicine; Visit Provider Family Medicine Geriatric Medicine
DX: E03.9 Hypothyroidism, unspecified (principal)
CPT/HCPCS: 36415; 84443

== ENCOUNTER → 2020-10-19 17:35 | Outpatient (CLI) | payer MEDICARE, OTHER, SELFPAY ==
[2020-08-24 12:50] VITALS: BMI 26.1
== END ==
PROVIDERS: PCP Family Medicine Geriatric Medicine; Referring Provider Family Medicine Geriatric Medicine; Visit Provider Family Medicine Geriatric Medicine
DX: U07.1 COVID-19 (principal)
CPT/HCPCS: 87633; 87635; C9803; U0003

== ENCOUNTER → 2020-12-14 08:55 | Outpatient (CLI) | payer MEDICARE, OTHER, SELFPAY ==
[2020-08-24 12:50] VITALS: BMI 26.1
--- NOTE | 2020-12-14 08:59 | CDU_ITS ---
Reason For Study: carotid stenosis Rt. Velocities/BP Lt. Velocities/BP Prox CCA 86.5/25.2 cm/sec. Prox CCA 103.4/19.9 cm/sec. Mid CCA 73.4/21.3 cm/sec. Mid CCA 90.3/22.6 cm/sec. Dist CCA 59.1/9.5 cm/sec. Dist CCA 63.0/18.6 cm/sec. Prox ICA 57.8/21.3 cm/sec. Prox ICA 143.3/48.9 cm/sec. Mid ICA 74.7/30.4 cm/sec. Mid ICA 141.1/38.0 cm/sec. Dist ICA 77.3/27.8 cm/sec. Dist ICA 97.4/29.8 cm/sec. Rt. ICA/CCA = 1.1. Lt. ICA/CCA = 1.6. Prox ECA 57.8/8.2 cm/sec. Prox ECA 56.4/10.8 cm/sec. Rt. Vert. 33.0/14.7 cm/sec. Lt. Vert. 53.5/20.6 cm/sec. Right Extracranial There is homogeneous, smooth atherosclerotic plaque noted in the right common carotid artery. There is heterogeneous, irregular atherosclerotic plaque noted in the right internal carotid artery. The right internal carotid artery is very tortuous. There is intimal thickening but no significant atherosclerotic plaque noted in the right external carotid artery. Antegrade flow is noted in the right vertebral artery. Left Extracranial There is homogeneous, smooth atherosclerotic plaque noted in the left common carotid artery. There is heterogeneous, smooth atherosclerotic plaque noted in the left internal carotid artery. There is intimal thickening but no significant atherosclerotic plaque noted in the left external carotid artery. Antegrade flow is noted in the left vertebral artery. Procedure Carotid Duplex [id number]. This is a Carotid Duplex examination using B-mode, color flow and specral Doppler. The exam was diagnostic. Exam performed in department. Interpretation Summary Mild (<50%) stenosis right extracranial internal carotid. Moderate (50-69%) stenosis left extracranial internal carotid. Flow within the vertebral arteries is antegrade bilaterally. Ordering Physician: Carlos Fitzpatrick Performed By: Rogelio Jamison RVT
== END ==
PROVIDERS: PCP Family Medicine Geriatric Medicine; Visit Provider Surgery Vascular Surgery
DX: I65.23 Occlusion and stenosis of bilateral carotid arteries (principal)
CPT/HCPCS: 93880

== ENCOUNTER → 2021-01-25 13:37 | Outpatient (CLI) | payer MEDICARE, OTHER, SELFPAY ==
[2020-08-24 12:50] VITALS: BMI 26.1
[2021-01-25 18:04] LABS: Absolute Lymphocyte Count 1.94 X10^3/uL (0.83-4.51); Absolute Neutrophil Count 2.1 X10^3/uL (2.0-7.7); Basophil# 0.03 X10^3/uL; Basophil% 0.6 % (0-1); Eosinophil# 0.08 X10^3/uL; Eosinophils% 1.6 % (0-5); Hematocrit 42.7 % (40-54); Hemoglobin 14.3 g/dL (13.0-16.5); Lymphocyte # 1.94 X10^3/ul (4.0); Mean Corp Hgb Conc 33.5 g/dL (32-36); Mean Corpuscular Hgb 31.4 pg (27.0-32.0); Mean Corpuscular Volume 93.6 fL (80-94); Mean Platelet Vol. 10.4 fl (6.2-12.0); Monocyte% 16.1 % (0-10); NRBC Flagged by Analyzer 0 % (0-5); Neutrophil # 2.11 X10^3/uL (2.7-7.7); Neutrophil % 42.5 % (47-70); Platelet Count 255 K/mm3 (150-450); RBC Distribution Width CV 13.1 % (11.6-14.6); RBC Distribution Width SD 44.8 fl (35.1-43.9); Red Blood Count 4.56 M/mm3 (4.6-6.2)
[2021-01-25 18:26] LABS: AST(SGOT) 27 U/L (15-37); Alanine Aminotransfer ALT/SGPT 33 U/L (16-61); Albumin, Serum 3.8 g/dL (3.2-5.0); Alkaline Phosphatase 76 U/L (45-117); Anion Gap 6 (5-15); BUN 15 mg/dL (7-18); Chloride 105 mmol/L (98-107); Creatinine, Serum 1.15 mg/dL (0.70-1.30); EST Glomerular Filtration Rate 66 mL/min (>60); Est Glom Filt Rate - Afr Amer 80 mL/min (>60); Globulin 3.9 g/dL (2.2-4.2); Glucose 83 mg/dL (74-106); Potassium 4.5 mmol/L (3.5-5.1); Protein, Total 7.7 g/dL (6.4-8.2); Sodium Level 140 mmol/L (136-145); Thyroid Stim Hormone (TSH) 0.78 uIU/mL (0.358-3.74)
== END ==
PROVIDERS: PCP Family Medicine Geriatric Medicine; Visit Provider Family Medicine Geriatric Medicine
DX: I10 Essential (primary) hypertension (principal); E55.9 Vitamin D deficiency, unspecified; F52.8 Other sexual dysfunction not due to a substance or known physiological condition
CPT/HCPCS: 36415; 80053; 82306; 84403; 84443; 85025

== ENCOUNTER → 2021-02-23 12:29 | Outpatient (CLI) | payer MEDICARE, OTHER, SELFPAY ==
[2020-08-24 12:50] VITALS: BMI 26.1
--- NOTE | 2021-02-23 13:00 | MRI_ITS ---
STUDY: MRI LEFT FOREFOOT WITHOUT CONTRAST REASON FOR EXAM: Ganglion cysts at the medial aspect of the first metatarsophalangeal joint, previously drained. TECHNIQUE: Standardized fat and water weighted pulse sequences were obtained in all 3 orthogonal planes. COMPARISON: None. FINDINGS: Normal metatarsophalangeal joint of the hallux. There is mild bone edema of the tibial sesamoid (inversion recovery sagittal images 6) and fibular sesamoid (inversion recovery sagittal image 9) suggestive of sesamoiditis. There is a bipartite fibular sesamoid. Normal interphalangeal joint of the hallux. Normal proximal and visualized distal phalanges of the great toe. Normal medial and lateral heads of the flexor hallucis brevis tendons. There is mild flexor hallucis longus tenosynovitis (inversion recovery sagittal image 8). Normal second through fifth metatarsophalangeal (MTP) joints. Normal interphalangeal joints of the second through fifth toes. Normal proximal, middle and visualized distal phalanges of the second through fifth toes. There is a small intermetatarsal neuroma at the plantar aspect of the second webspace (T1 series 6 image 11) measuring 0.35 cm in transverse dimension. Normal flexor and extensor tendons of the second through fifth toes. Normal visualized metatarsi. Normal intrinsic muscles of the forefoot. There is a lobulated ganglion cyst at the medial aspect of the joint capsule of the first metatarsophalangeal joint at the level of the distal metatarsal (T2 series 8 images 13-16) measuring 1.0 x 0.6 x 2.5 cm (AP x transverse x length). There is also a small ganglion cyst plantar to the distal first metatarsal diaphysis (inversion recovery sagittal image 7; T2 series 7 image 20) measuring 0.5 cm in AP dimension. There is a ganglion cyst dorsal to the distal talus (inversion recovery sagittal images 13, 14) measuring 1.3 cm in length. There is a pressure lesion in the subcutis adipose space plantar to the first metatarsophalangeal joint (T1 sagittal images 7, 8). There is a pressure lesion in the subcutis adipose space plantar to the fifth metatarsophalangeal joint (T1 sagittal images 24, 25). MRI/Lower Ext/No Jt/w/o IMPRESSION: Ganglion cyst at the medial aspect of the first metatarsophalangeal joint. Small ganglion cyst plantar to the distal first metatarsal diaphysis. Small intermetatarsal neuroma of the second webspace. Mild flexor hallucis longus tenosynovitis. Mild bone edema of the tibial and fibular sesamoids suggestive of sesamoiditis. Ganglion cyst dorsal to the distal talus. Pressure lesions plantar to the first and fifth metatarsophalangeal joints. Electronically Signed: Alfa Rg MD at 14:18 EDT Tel , Service support ,
[2021-02-23 13:10] VITALS: BP 130/84; PULSE 80; RESP 16; O2SAT 94
[2021-02-23 13:24] VITALS: BP 126/85; PULSE 80; RESP 18; O2SAT 93
[2021-02-23 13:35] VITALS: BP 129/90; PULSE 79; RESP 14; O2SAT 94
== END ==
PROVIDERS: PCP Family Medicine Geriatric Medicine; Referring Provider Podiatrist; Visit Provider Podiatrist
DX: M79.9 Soft tissue disorder, unspecified (principal)
CPT/HCPCS: 73718

== ENCOUNTER → 2021-03-06 13:33 | Outpatient (CLI) | payer MEDICARE, OTHER, SELFPAY ==
[2020-08-24 12:50] VITALS: BMI 26.1
[2021-03-06 15:05] LABS: Absolute Lymphocyte Count 1.16 X10^3/uL (0.83-4.51); Absolute Neutrophil Count 3.5 X10^3/uL (2.0-7.7); Basophil# 0.03 X10^3/uL; Basophil% 0.5 % (0-1); Eosinophils% 1.8 % (0-5); Hematocrit 38.7 % (40-54); Lymphocyte # 1.16 X10^3/ul (4.0); Mean Corp Hgb Conc 33.6 g/dL (32-36); Mean Corpuscular Hgb 31.3 pg (27.0-32.0); Mean Platelet Vol. 10.3 fl (6.2-12.0); Monocyte# 0.73 X10^3/uL; Monocyte% 13.2 % (0-10); NRBC Flagged by Analyzer 0 % (0-5); Neutrophil # 3.48 X10^3/uL (2.7-7.7); Neutrophil % 63.1 % (47-70); Platelet Count 213 K/mm3 (150-450); RBC Distribution Width CV 13.1 % (11.6-14.6); RBC Distribution Width SD 44.6 fl (35.1-43.9); Red Blood Count 4.16 M/mm3 (4.6-6.2); White Blood Count 5.5 K/mm3 (4.4-11.0)
[2021-03-06 15:19] LABS: ALB/GLOB Ratio 0.9 RATIO (0.9-2.4); AST(SGOT) 24 U/L (15-37); Alanine Aminotransfer ALT/SGPT 34 U/L (16-61); Albumin, Serum 3.5 g/dL (3.2-5.0); Alkaline Phosphatase 81 U/L (45-117); Anion Gap 4 (5-15); BUN 19 mg/dL (7-18); BUN/Creat Ratio 17.8 RATIO (10-20); Calcium,Total 8.9 mg/dL (8.5-10.1); Chloride 109 mmol/L (98-107); Creatinine, Serum 1.07 mg/dL (0.70-1.30); EST Glomerular Filtration Rate 72 mL/min (>60); Est Glom Filt Rate - Afr Amer 87 mL/min (>60); Globulin 3.9 g/dL (2.2-4.2); Glucose 130 mg/dL (74-106); Potassium 3.8 mmol/L (3.5-5.1); Protein, Total 7.4 g/dL (6.4-8.2); Sodium Level 140 mmol/L (136-145)
== END ==
PROVIDERS: PCP Family Medicine Geriatric Medicine; Visit Provider Family Medicine Geriatric Medicine
DX: Z01.810 Encounter for preprocedural cardiovascular examination (principal)
CPT/HCPCS: 36415; 80053; 85025

== ENCOUNTER 2021-03-30 09:08 | Day surgery (SDC) | payer MEDICARE, OTHER, SELFPAY ==
[2020-08-24 12:50] VITALS: BMI 26.1
[2021-03-30] VITALS (9 sets, daily range): BP systolic 131–162; BP diastolic 73–93; PULSE 57–68; RESP 16–18; TEMP 36.2–36.8; O2SAT 94–100; BMI 27.3
[2021-03-30] MEDS: Lactated Ringers 1,000 ML 100 ML IV (09:52)
--- NOTE | 2021-03-30 10:45 | GANG_PTH ---
PATIENT: FAVIAN PHILLIP LOC: [facility] [place][id number] AGE/SX: 75/M ROOM: RE03/30/[address]: Dr. Elliott Streeter DPM : 1945 BED: DIS: 03/30/2021 SPEC #: [id number] RECD: 03/30/21 14:22 STATUS: VISHAL REBinh #: [id number] GEORGINA: 03/30/21 10:[address]: Elliott Streeter DEPT: SURGICAL PATHOLOGY RECD BY: Ariane Jaramillo ENTERED: 04/02/21 08:02 SP TYPE: GANGLION OTHR DR: Dr. Jose Cisse MD Tissues: GANGLION CYST Procedures: Surgery Specimen Level III HEADER OPERATION: Excision left ankle and foot masses PRE-OP DIAGNOSIS: Ganglion cyst left foot and ankle TISSUE SUBMITTED: Ganglion cysts left foot and ankle MICROSCOPIC DIAGNOSIS Ganglion cysts left foot/ankle, excision: Consistent with ganglion cyst with reactive changes. SJ:chance 04/03/2021 COMMENT Case has been reviewed in consultation with Dr. Coleman who concurs with the above diagnosis. IDC:AM MICROSCOPIC DESCRIPTION Slides are reviewed. GROSS DESCRIPTION Received in fixative is one container labeled with the patient's name and designated ganglion cyst, left foot/ankle. The specimen consists of multiple irregular fragments of light savage soft tissue that in aggregate measure 2.2 x 2 x 0.2 cm. The specimen is totally submitted in one cassette. / AM:chance 04/02/21 TC:5 CPT: 45537
--- NOTE | 2021-03-30 10:48 | PCM.DC ---
Discharge Instructions Outpatient Procedure Reason For Visit: EXCISION MASS ANKLE& FOOT LT Procedure: Podiatry Diet Discharge Diet: Light diet - advance as tolerated Activity Discharge Activity: May Not Drive (until instructed by your surgeon) and Use Crutches Weight Bearing Status: Partial weight bearing (Ok to put weight on heel,but do not put weight on toes on right foot.) Keep extremity elevated above heart level: Operative Extremity Additional Activity Instructions:: Keep the operated foot ELEVATED above the chest at least 50 minutes of every hour using pillows. This will help keep swelling down and will decrease pain. Remain non-weightbearing to the surgical foot at all times. Use walker/crutches as directed. Dressing / Incision Call your doctor if your incision/area has: Continuous Slow Oozing, Sudden Increased Bleeding and Foul Smelling Discharge Call your doctor if you observe: Fever of 101 or Higher, Shortness of breath, Dizziness, Fainting spells, Chest pain, Calf discomfort and Uncontrolled pain Change Dressing in: do not change dressing Remove Dressing in: do not remove dressing Cleanse incision/area with: Do not get Incision Wet and Keep Dressing Clean & Dry Additional Dressing/Incision Instructions:: Keep dressing clean and dry. DO NOT REMOVE THE DRESSING. You may adjust the elastic (Khurram) bandage for comfort. A small amount of spotting of blood is normal and this should not alarm you. Follow Up Care Please Follow Up With: Elliott Streeter DPM When: 1 week, sooner if needed Test Results: Please call Dr. Streeter sooner if needed. You may page or call Dr. Streeter over the weekend. Page through Physician Registry at [phone]. Discharge Plan Admission Attending Provider: Elliott Streeter Primary Care Provider: Jose Cisse Chi Discharge Orders/Prescriptions Prescriptions: New hydrocodone-acetaminophen 5-325 mg tablet 1 tab PO Q8H PRN (Reason: pain (scale score 6-10)) 3 Days Qty: 10 RF: 0 Continued sertraline 100 mg tablet 100 mg PO QHS RF: 0 levothyroxine 137 mcg capsule 137 mcg capsule 125 mcg PO DAILY RF: 0 sildenafil [Viagra] 100 mg tablet 100 mg PO DAILY PRN (Reason: ed) RF: 0 doxepin 75 mg capsule 100 mg PO QHS RF: 0 mometasone 220 MCG inhaler 1 puff INHALATION DAILY RF: 0 omeprazole 40 MG capsule,delayed release(DR/EC) 40 mg PO DAILY RF: 0 albuterol sulfate 1 INHALER inhaler 1 puff INHALATION Q4H PRN PRN (Reason: Sob &/Or Wheezing) RF: 0 metoprolol tartrate 25 mg tablet 12.5 mg PO BID Qty: 90 RF: 4 Referrals: Elliott Streeter DPM [STAFF PHYSICIAN] - In 1 Week (Follow sooner if needed.) Jose Cisse Chi, MD [Primary Care Provider] - Disposition Patient Disposition: Home, self care
--- NOTE | 2021-03-30 10:50 | PCM.DC ---
Discharge Instructions Outpatient Procedure Reason For Visit: EXCISION MASS ANKLE& FOOT LT Diet Discharge Diet: No restrictions Activity Discharge Activity: May Not Drive (until instructed by your surgeon), May not drive while taking narcotic pain medications. and Use Crutches Keep extremity elevated above heart level: Operative Extremity Additional Activity Instructions:: Keep the operated foot ELEVATED above the chest at least 50 minutes of every hour using pillows. This will help keep swelling down and will decrease pain. Remain non-weightbearing to the surgical foot at all times. Use walker/crutches as directed. Dressing / Incision Call your doctor if your incision/area has: Continuous Slow Oozing, Sudden Increased Bleeding and Foul Smelling Discharge Call your doctor if you observe: Fever of 101 or Higher, Shortness of breath, Dizziness, Fainting spells, Chest pain, Calf discomfort and Uncontrolled pain Additional Dressing/Incision Instructions:: Keep dressing clean and dry. DO NOT REMOVE THE DRESSING. You may adjust the elastic (Khurram) bandage for comfort. A small amount of spotting of blood is normal and this should not alarm you. Follow Up Care Please Follow Up With: Elliott Streeter DPM Test Results: Please page Dr. Streeter sooner if needed over weekend at [phone]. Discharge Plan Admission Attending Provider: Elliott Streeter Primary Care Provider: Jose Cisse Chi Instructions Patient Instructions: ED Chest Pain, Noncardiac Discharge Orders/Prescriptions Prescriptions: No Action sertraline 100 mg tablet 100 mg PO QHS RF: 0 levothyroxine 137 mcg capsule 137 mcg capsule 125 mcg PO DAILY RF: 0 sildenafil [Viagra] 100 mg tablet 100 mg PO DAILY PRN (Reason: ed) RF: 0 doxepin 75 mg capsule 100 mg PO QHS RF: 0 mometasone 220 MCG inhaler 1 puff INHALATION DAILY RF: 0 omeprazole 40 MG capsule,delayed release(DR/EC) 40 mg PO DAILY RF: 0 albuterol sulfate 1 INHALER inhaler 1 puff INHALATION Q4H PRN PRN (Reason: Sob &/Or Wheezing) RF: 0 metoprolol tartrate 25 mg tablet 12.5 mg PO BID Qty: 90 RF: 4 Referrals: Jose Cisse Chi, MD [Primary Care Provider] -
[2021-03-30] MEDS: Cefazolin 2 GM in 0.9% Normal Saline 100 ML IV (11:00)
[2021-03-30] MEDS: Bupivacaine Mpf 0.5% 30 ML VIAL (12:00)
--- NOTE | 2021-03-30 12:33 | OP.PCM_ITS ---
Problems Associated Problem List Diagnoses (1) Ganglion cyst of left foot: Report of Operation Date of Procedure: 03/30/21 Pre-Operative Diagnosis: Ganglion cyst, left foot and ankle Post-Operative Diagnosis: Same Surgery/Procedure Performed:: Excision of ganglion cyst from left foot and ankle supervisor hide house: Dr. Martin Type of Anesthesia: Local and MAC Specimen's removed: Excised ganglion cyst from left foot and ankle sent to pathology Estimated Blood Loss (mL): 10mL Description of Procedure: Indications: This is a 75 year-old gentleman, who has masses to the left foot and ankle consistent with ganglion cysts.? Preoperative MRI confirmed the presence of a ganglion cyst to the dorsal talus and also medial and plantar 1st metatarsal phalangeal joint on the left foot.? He has undergone conservative management, however the masses and the symptoms persist.? The cyst at the level of the medial 1st metatarsal phalangeal joint returned after the aspiration and corticosteroid injection. He would like to proceed forward with surgical excision of the cysts. All the risks and potential com plications were discussed with her in great detail.? The procedure was reviewed with him in great detail, reviewing the goals and expectations.? Advised him of all the risks as well as the typical postoperative course, all of his questions were answered and he wanted to proceed forward with surgical intervention as noted above.? The consent forms were reviewed with him and he freely signed them. No guarantees were given nor implied. Operative Procedure: The patient was brought back into the operating room and was placed on to the operating table in the supine position.? The patient was carefully secured to the operating room table with the safety belt around their waist.? A time-out was performed and the patient was properly identified and the surgical plan was confirmed.? The patient did receive 2 mg of intravenous cefazolin for antibiotic prophylaxis.? The patient did receive MAC anesthesia per the anesthesiologist and after the skin was cleansed with 70% isopropyl alcohol, 10 mL of 0.5% bupivacaine plain was given as a regional infiltrative nerve block around the cyst at the level of the left foot 1st metatarsal phalangeal joint and dorsal talus as well.? A well-padded pneumatic tourniquet was applied around the left ankle.? The left foot was scrubbed, prepped, and draped in the usual aseptic fashion. The left foot was exsanguinated using an Esmarch bandage and the pneumatic tourniquet was inflated to 250mmHg. Left 1st metatarsal phalangeal joint mass: There was noted to be a palpable cyst overlying the area.? A linear skin incision was carefully made overlying the the cyst using a 15 blade. Careful blunt dissection was completed down to the cyst.? The cyst was visualized.?It was noted the cyst was growing around the nerves of the medial 1st metatarsal phalangeal joint. The cyst was carefully dissected out. It was noted to be multilobular. It did rupture and there was noted to be a yellow jelly-like synovial fluid consistent with ganglion cyst.? The fluid and the sac of the cyst were carefully removed.? The sac of the cyst was carefully tracked down to its stalk which tracked to the plantar 1st metatarsal at level of the flexor hallucis longus tendon. The cyst and the stalk were excised, passed from the surgical site and sent to pathology.? The joint of the first metatarsal cuboid otherwise was noted to be healthy, viable and all remaining tissue to the area appeared to be healthy and viable as well.? There are no other abnormalities.? The site was flushed out with copious amounts of normal saline solution.?The remaining tissues appeared to be healthy and viable and no further evidence of cyst remained to the site.?The skin was carefully reapproximated using 3-0 Nylon.? Left dorsal talus mass: There was noted to be a cyst to the dorsal talus on MRI. A linear skin incision was carefully made overlying the the cyst using a 15 blade. Careful blunt dissection was completed down to the cyst.? The cyst was visualized, it was small. The cyst was carefully dissected out, it did rupture and there was noted to be a yellow jelly-like synovial fluid consistent with ganglion cyst.? The fluid and the sac of the cyst were carefully removed.? The sac of the cyst was carefully tracked down to its stalk which was to the dorsal talonavicular joint. The cyst was resected, passed from the surgical site and sent to pathology.?All remaining tissue to the area appeared to be healthy and viable as well.? There are no other abnormalities.? The site was flushed out with copious amounts of normal saline solution.?The remaining tissues appeared to be healthy and viable and no further evidence of cyst remained to the site.?The skin was carefully reapproximated using 3-0 Nylon.? An additional 13 mL of 0.5% Bupivacaine plain was given as a local block around the surgical sites for pain control. A dressing was applied, which consisted of Betadine-soaked adaptic, 4 x 4 gauze, Kerlix, and Khurram bandage.? The tourniquet was deflated (total tourniquet time was 37 minutes) and there was immediate return of warmth and perfusion to the foot and to all 5 toes in the foot.? Capillary refill time was less than 2 seconds to all 5 toes with normal temperature gradient present.? Bleeding was controlled. The patient tolerated the above procedure well and the anesthesia well with no complications.? Postoperative orders were placed.? Postoperative instructions were given.? Keep the dressing clean, dry, and intact.? Weightbear on heel with crutch or walker assistance; however, limit weightbearing as much as possible and keep the foot elevated for at least 50 minutes of every hour.? Reviewed mechanical DVT prophylaxis.? Prescription for [place] 1 tablet of the 5 mg/325 mg tablets every 8 hours as needed for pain by mouth was given.?Reviewed possible adverse reactions. He is also going to use extra strength 650mg Tylenol PO q 6 hours prn pain. He is to follow up within 1 week or sooner if needed. Grafts/Implants Used: None Complications None
== END 2021-03-30 13:43 | disposition home or self-care (01) ==
LOC: SDC 09:09 → AC 09:10
PROVIDERS: PCP Family Medicine Geriatric Medicine; Referring Provider Podiatrist; Visit Provider Podiatrist
PROC: (CPT 28090; principal; 2021-03-30 10:30)
DX: M67.472 Ganglion, left ankle and foot (principal); R49.1 Aphonia; J45.909 Unspecified asthma, uncomplicated; Z95.0 Presence of cardiac pacemaker
CPT/HCPCS: 28090; 88304; J2405

== ENCOUNTER 2021-05-28 09:00 | Outpatient (RCR) | payer MEDICARE, OTHER, SELFPAY ==
[2021-03-30 09:36] VITALS: BMI 27.3
--- NOTE | 2021-05-21 13:21 | HP.SP.AD_ITS ---
History - History Date of Eval: 05/21/21 Medical Diagnosis (from RX): Dysphonia (R49.0) Previous speech therapy: No Results: Pt has not received formal speech therapy, however has participated in 3 MBS studies to assess swallowing function 2/2 fusion of C3 and C4 vertebrae. All studies have reported swallowing function to be WFL. Other Relevant Medical History/Diagnoses/Surgery: PMH: asthma, hearing loss, heart attack (pacemaker), sleep apnea (uses BIPAP), thyroid. Pt seen on this date for skilled voice evaluation, referred from Dr. Sofy MD (ENT). Pt reporting hoarseness and vocal fatigue. Results from consultation with ENT revealed a WFL laryngeal exam, however was remarkable for excessive constriction of the supraglottis with false vocal fold adduction suggesting this may account for his voice complaints. Pt also presented with vocal bowing which was described as a potential compensatory mechanism for volume support. 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 Pt reports his hoarseness has been present for about a year, however it seems to have worsen within the past 6 months, following no significant event. Pt reported having COVID-19 in October 2020 where he was not hospitalized or intubated, however is still experiencing loss of taste and smell. Pt reports chronically clearing his throat d/t sensation of phlegm. His voice will become weaker in the evenings, even after a day of not extensively talking (e.g., working outside alone); however Pt did report instances of weakness in the mornings as well. Pt reports lack of breath support and need for increased musculature effort for speech. Medications related to this diagnosis: Levothyroxine, metoprolol, omeprazole, sertraline, asmanex for asthma Smoking Status: Never smoker Hx Smoking: No Hx Tobacco Use: No Hx Smoking Exposure: No - Pain Is pain an issue with your current prescribed condition?: No - Personal Education History: Associate Degree Occupation: Retired Left Hearing Abillity: Use of Hearing Aid Visual Assistive Devices: None Patients Living Arrangements: With Significant Other Patient Allergies - Allergies Allergies No Known Allergies Allergy (Unverified 03/30/21 09:34) Voice Handicap Index (VHI) - VHI VHI Administered: Yes VHI: Patient completed the Voice Handicap Index, which is a 30 item, self administered questionnaire that asks an individual to describe their voice and the effects of their voice on their life. Three subscales cover the areas of functional, emotional, and physical aspects of the voice disorders. Points from the questions can be combined to assign a total score, or they can be combined by subscale. Results for the VHI are as follows: Date: 05/21/21 - VHI Test Functional: Score: 8. Most remarkable responses include speaking with others less often because of his voice (sometimes) and that he feels left out of conversations because of his voice (sometimes). Physical: Score: 33. Most remarkable responses include running out of air when talking (always), sound of voice varying throughout day (always), voice appears creaky and dry (always), straining to produce voice (always), clarity of voice is unpredictable (almost always), uses a great deal of effort to speak (always), voice worsens in the evening (always), and his voice giving out on him in the middle of speaking (almost always). Emotional: Score: 16. Most remarkable responses include his voice problem upsets him (always), he is less outgoing because of his voice problem (almost always), and feeling annoyed when people ask him to repeat himself (always). Total Severity Rating: Moderate (31-60) Subjective Clinical Impression - Adult Clinical Impression Dysphonia: any 'abnormal' vocal quality suggesting an interruption of normal production: Present Hoarseness: excessive 'noise' in the signal creating an unpleasant, rough vocal quality: Present Vocal fatigue: a 'tired' voice or feeling of excessive effort to phonate: Present Voice deterioration: reduction of volume or vocal quality with prolonged use: Present Vocal tension: a tightness of the laryngeal musculature during voicing: Present - Non-Phonatory Behaviors/Respiration Reduced loudness or vocal weakness: Present Limited breath support for speech: Present Clavicular breathing: excessive movement of the chest and shoulders during inspiration: Present Stridor upon inhalation: noise or vibration heard upon inhalation: Present Throat clearing/coughing: Present Objective Voice - Objective data Objective Data: Objective data: Sound pressure level (SPL acoustic correlation of vocal loudness) was measured with a sound level meter at a distance of 40 cm from the patient's mouth. Average conversational loudness is 70-80 dB and sustained phonation duration is 15 to 20 seconds for a typical adult. Sustained Phonatin duration (seconds): 7 seconds - Observational Assessment S/Z Ratio: 0.85 Sustained /s/: 11 Sustained /z/: 13 Greater than 1:4 (indicates dysfunction): No Plan - Plan Plan: Will rx Pt for skilled outpatient speech therapy to address mild-moderate deficits in vocal function characterized by dysphonia, vocal tension, and impaired volitional control of respiration. Pt would benefit from training in identifying instances of vocal abuse, providing vocal hygiene solutions, training in diaphragmatic breathing, and voice facilitation training. Without skilled speech therapy Pt is at risk for continued vocal abuse and feelings of isolation in a variety of social situations. - Recommendations MBS: No Treatment Warranted: Yes - Frequency Frequency: 1x/Week Duration: 4 Weeks - Prognosis Prognosis: Excellent - Goals that are Established: Determination:: Goals will be added/modified as deemed necessary and appropriate. Therapy will be discontinued when results of re-evaluation indicate therapy is no longer needed or lack of progress has been documented. - Goal #1-5 Goal #1: Duayne will establish volitional control of respiration evidenced by utilization of diaphragmatic breathing to sustain ah for 15-20 seconds within 4 weeks with 100% accuracy independently. Goal #2: Duayne will utilize voice facilitation and resonance training to reduce hoarseness occurrences to 15% of the time at the short conversation level with fading cues within 4 weeks. Goal #3: Duayne will demonstrate understanding of behaviors that impact vocal hygiene by charting frequency of instances of unhealthy vocal behaviors (loud talking, throat clearing) as they occur throughout the session/day with 90% acc independently. Education - Patient has Indicated that the Following Identified Educational Needs: None The Patient has indicated that they have no educational or learning abilities that may effect their care.: Yes - Patient Instruction Patient Education: Treatment Plan, Goals Person Taught: Patient Teaching Method: Discussion Response to teaching: Return demonstration, Verbalize understanding
--- NOTE | 2021-09-07 13:18 | HP.SP.DC ---
ST Discharge Summary - Discharged: Discharge: Pt was seen for initial voice evaluation at [facility] on 05/21/21 s/p referral from ENT, Dr. Ham Goetz. Results from consultation with ENT revealed a WFL laryngeal exam, however was remarkable for excessive constriction of the supraglottis with false vocal fold adduction suggesting this may account for his voice complaints. Pt also presented with vocal bowing which was described as a potential compensatory mechanism for volume support. Pt attended 1 additional session to target diaphragmatic breathing, resonance training to reduce hoarseness, and participate in cont?d education and demonstration of vocal hygiene prior to canceling remaining visits. Pt has not rescheduled with this therapist or another for 3 months. Pt discharged from speech therapy caseload on this date, 09/07/21. Thank you for allowing me to participate the care of your Pt. Will reevaluate at Pt?s request following script from physician.
== END 2021-05-28 19:00 | disposition home or self-care (01) ==
LOC: SP 09:00
PROVIDERS: PCP Family Medicine Geriatric Medicine; Referring Provider Otolaryngology; Visit Provider Otolaryngology
DX: R49.0 Dysphonia (principal)
CPT/HCPCS: 92507; 92524

== ENCOUNTER → 2021-07-30 09:47 | Outpatient (CLI) | payer MEDICARE, OTHER, SELFPAY ==
[2021-07-30 10:22] LABS: Absolute Lymphocyte Count 1.45 X10^3/uL (0.83-4.51); Absolute Neutrophil Count 2.4 X10^3/uL (2.0-7.7); Basophil# 0.03 X10^3/uL; Basophil% 0.6 % (0-1); Eosinophil# 0.09 X10^3/uL; Eosinophils% 1.9 % (0-5); Hematocrit 43.3 % (40-54); Hemoglobin 14.3 g/dL (13.0-16.5); Lymphocyte # 1.45 X10^3/ul (0.83-4.51); Lymphocyte % 31.3 % (19-41); Mean Corpuscular Hgb 31.2 pg (27.0-32.0); Mean Corpuscular Volume 94.3 fL (80-94); Mean Platelet Vol. 9.6 fl (6.2-12.0); Monocyte# 0.68 X10^3/uL; Monocyte% 14.7 % (0-10); NRBC Flagged by Analyzer 0 % (0-5); Neutrophil # 2.37 X10^3/uL (2.7-7.7); Neutrophil % 51.3 % (47-70); Platelet Count 234 K/mm3 (150-450); RBC Distribution Width CV 13.1 % (11.6-14.6); RBC Distribution Width SD 45.4 fl (35.1-43.9); Red Blood Count 4.59 M/mm3 (4.6-6.2); White Blood Count 4.6 K/mm3 (4.4-11.0)
[2021-07-30 10:55] LABS: Vitamin D,25 Hydroxy 31.6 ng/mL
[2021-07-30 11:02] LABS: ALB/GLOB Ratio 0.9 RATIO (0.9-2.4); AST(SGOT) 24 U/L (15-37); Alanine Aminotransfer ALT/SGPT 34 U/L (16-61); Albumin, Serum 3.6 g/dL (3.2-5.0); Alkaline Phosphatase 79 U/L (45-117); Anion Gap 3 (5-15); BUN 15 mg/dL (7-18); BUN/Creat Ratio 15.9 RATIO (10-20); Chloride 107 mmol/L (98-107); Creatinine, Serum 0.94 mg/dL (0.70-1.30); EST Glomerular Filtration Rate 83 mL/min (>60); Est Glom Filt Rate - Afr Amer 100 mL/min (>60); Globulin 4.1 g/dL (2.2-4.2); Glucose 92 mg/dL (74-106); Potassium 4.2 mmol/L (3.5-5.1); Protein, Total 7.7 g/dL (6.4-8.2); Sodium Level 141 mmol/L (136-145); Thyroid Stim Hormone (TSH) 0.82 uIU/mL (0.358-3.74)
== END ==
PROVIDERS: PCP Family Medicine Geriatric Medicine; Referring Provider Family Medicine Geriatric Medicine; Visit Provider Family Medicine Geriatric Medicine
DX: E55.9 Vitamin D deficiency, unspecified (principal); F52.8 Other sexual dysfunction not due to a substance or known physiological condition; I10 Essential (primary) hypertension
CPT/HCPCS: 36415; 80053; 82306; 84403; 84443; 85025

== ENCOUNTER → 2021-08-14 11:44 | Outpatient (CLI) | payer MEDICARE, OTHER, SELFPAY ==
--- NOTE | 2021-08-14 09:40 | LES_PTH ---
PATIENT: FAVIAN PHILLIP LOC: [facility] U#:[id number] AGE/SX: 79/M ROOM: RE08/14/[address]: Dr. Jose Cisse MD : 1945 BED: DIS: SPEC #: [id number] RECD: 08/14/21 17:26 STATUS: VISHAL ORELLANA #: [id number] GEORGINA: 08/14/21 09:[address]: Jose Cisse Chi DEPT: SURGICAL PATHOLOGY RECD BY: Ariane Jaramillo Tissues: A - Skin of face, NOS B - Skin of face, NOS Procedures: Surgery Specimen Level IV HEADER OPERATION: Shave biopsies PRE-OP DIAGNOSIS: Lesion of right and left cheek TISSUE SUBMITTED: A ? Right cheek, B ? Left cheek MICROSCOPIC DIAGNOSIS A. Skin lesion of right cheek, shave biopsy: Seborrheic keratosis, mildly inflamed. Solar elastosis. Demodex folliculorum. B. Skin lesion of left cheek, shave biopsy: Basal cell carcinoma. See comment. AM:chance 08/16/2021 COMMENT B. The lesion extends to the deep margins of excision. Clinical correlation is suggested. MICROSCOPIC DESCRIPTION Slides are reviewed. GROSS DESCRIPTION A - Received in fixative is one container labeled with the patient's name and designated right cheek. The specimen consists of a shave biopsy of savage-white skin measuring 0.8 x 0.5 x 0.1 cm. A savage-brown lesion is noted on the surface measuring 0.5 x 0.5 cm. The specimen is inked, serially sectioned and submitted entirely in one cassette. B - Received in fixative is one container labeled with the patient's name and designated left cheek. The specimen consists of a round piece of savage-white skin measuring 0.6 x 0.6 x 0.1 cm. The specimen is inked, bisected and submitted entirely in one cassette. / SJ:chance 08/15/21 TC:0 [facility]: [id number] x2
== END ==
PROVIDERS: PCP Family Medicine Geriatric Medicine; Visit Provider Family Medicine Geriatric Medicine
DX: L98.9 Disorder of the skin and subcutaneous tissue, unspecified (principal)
CPT/HCPCS: 88305

== ENCOUNTER 2021-09-09 10:05 | Emergency (ER) | payer MEDICARE, OTHER, SELFPAY ==
[2021-09-09 10:06] VITALS: BP 170/110; PULSE 61; RESP 15; TEMP 36.8; O2SAT 97; BMI 27.6
[2021-09-09 10:11] VITALS: BP 170/110; PULSE 61; RESP 15; TEMP 36.8; O2SAT 97
--- NOTE | 2021-09-09 10:28 | CT_ITS ---
STUDY: CT ABDOMEN AND PELVIS WITH CONTRAST REASON FOR EXAM: Male, 75 years old. Right lower quadrant abdominal pain -- IV PO Contrast RADIATION DOSAGE (If Supplied By Facility): CTDIvol = ( 16.76 ) mGy, DLP = ( 1141.30 ) mGycm TECHNIQUE: Transaxial images were obtained from the dome of the diaphragm to the symphysis pubis with oral contrast. Oral and amp; IV Gastrografin and amp; 100mL Isovue-300 was administered. Sagittal and coronal images were reconstructed. Individualized dose optimization techniques were used for this CT. COMPARISON: 12/09/2012 FINDINGS: The visualized lung bases are unremarkable. The visualized portions of the heart are within normal limits. 1.2 cm cyst in the lateral segment left lobe of the liver. There is non-visualization of the gallbladder, which may be secondary to either contraction or a prior cholecystectomy. Normal spleen. 1 cm cyst in the tail of the pancreas. Normal bilateral adrenal glands. 3 mm obstructing stone of the mid right ureter with moderate ureteral dilatation, hydronephrosis, and perinephric edema. 5 cm exophytic cyst in the upper pole the left kidney. Normal visualized stomach. Normal small intestine. There are multiple colonic diverticula consistent with diverticulosis. The appendix is visualized and appears normal. Normal abdominal aorta. Normal inferior vena cava. Normal retroperitoneum. Normal urinary bladder. Normal abdominal wall. Normal osseous structures. CT/Abdomen/Pelvis WITH Contrast IMPRESSION: 3 mm obstructing stone of the mid right ureter with moderate ureteral dilatation, hydronephrosis, and perinephric edema. Electronically Signed: Faisal Galindo MD at 12:57 EDT Tel , Service support ,
--- NOTE | 2021-09-09 10:30 | EDS_ITS ---
HPI HPI - GI History of Present Illness Chief Complaint: Abd Pain Abdominal Pain/Flank Pain Onset: Days (2-3) Context: Gradual Onset Timing: Continuous Quality: Aching and Sharp Location: RLQ Worsened by: Nothing Relieved by: Nothing Nausea/Vomiting/Emesis GI Symptom: Positive for Nausea; Negative for Vomiting Diarrhea/Melena/Hematochezia GI Symptom: Negative for Diarrhea, Melena and Hematochezia Associated Symptoms Associated Symptoms: Negative for Dysuria and Hematuria Narrative Narrative: Patient presents with right lower quadrant abdominal pain that became worse this morning. Patient states he has had some vague abdominal pain for the past couple days. Patient states that when he woke up today he noted some aching and sharp pain in his right lower quadrant. Patient states nothing makes it better nothing makes it worse. Patient denies any fevers or chills. Patient admits to nausea but denies any vomiting. Patient denies any diarrhea, melena, or hematochezia. Patient denies any dysuria or hematuria. PFSH PFS Medical History Asthma Bicuspid aortic valve BPH (benign prostatic hyperplasia) Cryptogenic stroke Dilated aortic root Ganglion cyst of left foot Hypothyroidism Left carotid artery stenosis Sick sinus syndrome Sinus pause Home Medications sertraline 100 mg tablet 100 mg PO QHS 08/12/19 [History Last Taken Unknown] doxepin 75 mg capsule 100 mg PO QHS cap 08/24/20 [History Last Taken Unknown] sildenafil 100 mg tablet 100 mg PO DAILY PRN 08/24/20 [History Last Taken Unknown] albuterol sulfate 1 puff INHALATION Q4H PRN PRN 03/23/21 [History Last Taken Unknown] levothyroxine 125 mcg tablet 125 mcg PO DAILY tab 08/23/21 [History Last Taken Unknown] metoprolol tartrate 25 mg tablet 12.5 mg PO BID #90 tab 08/23/21 [Rx Last Taken Unknown] mometasone 1 inh INHALATION BID ea 08/23/21 [History Last Taken Unknown] oxycodone-acetaminophen 1 tab PO Q6H PRN PRN 5 Days #20 tablet 09/09/21 [Rx Last Taken Unknown] Allergy/AdvReac Type Severity Reaction Status Date / Time No Known Allergies Allergy Verified 09/09/21 10:06 Surgical History History of left heart catheterization (04/21/17) History of loop recorder (01/2017) 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) Hx of cholecystectomy Social History Smoking Status: Never smoker ROS ROS ED Constitutional Constitutional ED: Denies chills or fever(s) Eyes Eyes: Denies blurry vision or change in vision ENT ENT ED: Denies rhinorrhea or sore throat Cardiovascular Cardiovascular: Denies chest pain or palpitations Respiratory/Chest Respiratory/Chest: Denies cough or dyspnea Gastrointestinal Gastrointestinal: Reports abdominal pain and nausea; Denies diarrhea or vomiting Genitourinary Genitourinary ED: Denies dysuria or hematuria Musculoskeletal Musculoskeletal: Denies back pain or neck pain Integumentary Denies abscess or rash Neurologic Neurologic: Denies headache(s) or weakness Allergic/Immunologic Allergic/Immunologic ED: Denies mouth swelling or urticaria EXAM Physical Exam Const Vital Signs: 09/09/21 10:06 09/09/21 10:11 09/09/21 12:09 Temperature 98.3 F 98.3 F Temperature Source Temporal Temporal Pulse Rate 61 61 60 Respiratory Rate 15 15 16 Blood Pressure 170/110 H 170/110 H 185/94 H Blood Pressure Mean 130 130 124 Pulse Ox 97 97 96 Oxygen Delivery Method Room Air Room Air Room Air 09/09/21 13:36 Temperature Temperature Source Pulse Rate 60 Respiratory Rate Blood Pressure Blood Pressure Mean Pulse Ox 96 Oxygen Delivery Method Positive well nourished and well developed General Appearance ED: well developed HEENT Reports moist mucous membranes Neck supple and no JVD Resp normal respiratory effort and clear to auscultation bilaterally Cardio regular rate, regular rhythm and no murmurs GI normal to inspection, nondistended, normoactive bowel sounds and non-distended Auscultation: normoactive bowel sounds Palpation: soft and tender RLQ; Negative for guarding Extremity normal to inspection General Extremety ED: Negative for edema or tenderness General Extremity: Negative for edema Neuro oriented x3, CN's II-XII intact bilaterally and no sensory deficits noted Sensorium / Orientation: alert Motor Exam: strength 5/5 throughout Psych mental status grossly normal Skin no rashes or lesions noted MDM MDM MDM Narrative Medical decision making narrative: Patient was given IV fluids, morphine, and Zofran initially. Patient states he is pain returned after this. Patient was given a dose of Dilaudid. CBC was within normal limits. Comprehensive metabolic profile was obtained and was essentially within normal limits. Urinalysis does not show any evidence of urinary tract infection. CT scan of the abdomen and pelvis was obtained. There is a 3 mm obstructing stone of the mid right ureter with moderate hydronephrosis and hydroureter. This was interpreted by the radiologist and reviewed by myself. Patient was given a prescription for Percocet. Patient was instructed drink plenty of fluids. Patient was given referral for urology. Patient was instructed return if worse in any way. Patient understood and was agreeable with the plan. All questions were answered. Lab Data Attestation: I reviewed the patient's lab results. Labs: Laboratory Results - last 24 hr 09/09/21 09/09/21 09/09/21 10:35 10:35 11:03 WBC 6.1 RBC 4.48 L Hgb 14.3 Hct 41.8 MCV 93.3 MCH 31.9 MCHC 34.2 RDW Std Deviation 45.6 H RDW Coeff of Jolene 13.2 Plt Count 240 MPV 9.5 Immature Gran % (Auto) 0.200 Neut % (Auto) 51.3 Lymph % (Auto) 31.6 Marshall % (Auto) 15.3 H Eos % (Auto) 1.1 Baso % (Auto) 0.5 Absolute Neuts (auto) 3.2 Absolute Lymphs (auto) 1.94 Nucleated RBC % 0 Sodium 141 Potassium 4.2 Chloride 109 H Carbon Dioxide 28.0 Anion Gap 4 L BUN 18 Creatinine 1.13 Estim Creat Clear Calc 60.12 Est GFR (MDRD) Af Amer 82 Est GFR (MDRD) Non-Af 68 BUN/Creatinine Ratio 15.9 Glucose 94 Calcium 8.6 Total Bilirubin 0.70 AST 26 ALT 26 Alkaline Phosphatase 75 Total Protein 7.9 Albumin 3.4 Globulin 4.5 H Albumin/Globulin Ratio 0.8 L Lipase 124 Urine Color Yellow Urine Clarity Clear Urine pH 6.0 Ur Specific [place] 1.020 Urine Protein Negative Urine Glucose (UA) Normal Urine Ketones Negative Urine Occult Blood 25 H Urine Nitrite Negative Urine Bilirubin Negative Urine Urobilinogen Normal Ur Leukocyte Esterase Negative Urine RBC 0-5 SEEN Urine WBC 0 SEEN Ur Squamous Epith Cells 5-10 SEEN Urine Bacteria RARE Urine Mucus 0 SEEN Radiography Diagnostic Testing: Clinical Impression(s) from Imaging Studies Abdomen/Pelvis CT 09/09/21 10:28 IMPRESSION: 3 mm obstructing stone of the mid right ureter with moderate ureteral dilatation, hydronephrosis, and perinephric edema. Electronically Signed: Faisal Galindo MD at 12:57 EDT Tel , Service support , Discharge Plan Triage Chief Complaint: Abd Pain ED Provider: Ham Corona Dx/Rx/DC Orders Clinical Impression: Right ureteral calculus Instructions: ED Kidney Stone w/ Colic Prescriptions: New oxycodone-acetaminophen [oxycodone-acetaminophen] 1 TABLET tablet 1 tab PO Q6H PRN PRN (Reason: pain) 5 Days Qty: 20 RF: 0 No Action sertraline 100 mg tablet 100 mg PO QHS RF: 0 sildenafil [Viagra] 100 mg tablet 100 mg PO DAILY PRN (Reason: ed) RF: 0 doxepin 75 mg capsule 100 mg PO QHS RF: 0 levothyroxine 125 mcg tablet 125 mcg PO DAILY RF: 0 metoprolol tartrate 25 mg tablet 12.5 mg PO BID Qty: 90 RF: 4 mometasone 220 mcg/ actuation (60) aerosol powdr breath activated 1 inh INHALATION BID RF: 0 albuterol sulfate 1 INHALER inhaler 1 puff INHALATION Q4H PRN PRN (Reason: Sob &/Or Wheezing) RF: 0 Primary Care Provider: Jose Cisse Chi Referrals: Lior John MD [STAFF PHYSICIAN] - 3-5 Days Jose Cisse Chi, MD [Primary Care Provider] - 5-7 Days Disposition Disposition: Home, Self Care Discharge Date/Time: 09/09/21 13:37
[2021-09-09] MEDS: Ondansetron 4 MG/2 ML Vial IV (10:43)
[2021-09-09] MEDS: Morphine 4 MG/ML Syringe IV (10:43)
[2021-09-09] MEDS: 0.9% Normal Saline 1,000 ML 1000 ML IV (10:43)
[2021-09-09 10:45] LABS: Absolute Lymphocyte Count 1.94 X10^3/uL (0.83-4.51); Absolute Neutrophil Count 3.2 X10^3/uL (2.0-7.7); Basophil# 0.03 X10^3/uL; Basophil% 0.5 % (0-1); Eosinophil# 0.07 X10^3/uL; Eosinophils% 1.1 % (0-5); Hematocrit 41.8 % (40-54); Hemoglobin 14.3 g/dL (13.0-16.5); Lymphocyte # 1.94 X10^3/ul (0.83-4.51); Lymphocyte % 31.6 % (19-41); Mean Corp Hgb Conc 34.2 g/dL (32-36); Mean Corpuscular Hgb 31.9 pg (27.0-32.0); Mean Corpuscular Volume 93.3 fL (80-94); Mean Platelet Vol. 9.5 fl (6.2-12.0); Monocyte# 0.94 X10^3/uL; Monocyte% 15.3 % (0-10); NRBC Flagged by Analyzer 0 % (0-5); Neutrophil # 3.15 X10^3/uL (2.7-7.7); Neutrophil % 51.3 % (47-70); Platelet Count 240 K/mm3 (150-450); RBC Distribution Width CV 13.2 % (11.6-14.6); RBC Distribution Width SD 45.6 fl (35.1-43.9); Red Blood Count 4.48 M/mm3 (4.6-6.2); White Blood Count 6.1 K/mm3 (4.4-11.0)
[2021-09-09 11:02] LABS: ALB/GLOB Ratio 0.8 RATIO (0.9-2.4); AST(SGOT) 26 U/L (15-37); Alanine Aminotransfer ALT/SGPT 26 U/L (16-61); Albumin, Serum 3.4 g/dL (3.2-5.0); Alkaline Phosphatase 75 U/L (45-117); Anion Gap 4 (5-15); BUN 18 mg/dL (7-18); BUN/Creat Ratio 15.9 RATIO (10-20); Calcium,Total 8.6 mg/dL (8.5-10.1); Chloride 109 mmol/L (98-107); Creatinine, Serum 1.13 mg/dL (0.70-1.30); EST Glomerular Filtration Rate 68 mL/min (>60); Est Glom Filt Rate - Afr Amer 82 mL/min (>60); Estimated Creatinine Clearance 60.12 ml/min; Globulin 4.5 g/dL (2.2-4.2); Glucose 94 mg/dL (74-106); Lipase 124 U/L (73-393); Potassium 4.2 mmol/L (3.5-5.1); Protein, Total 7.9 g/dL (6.4-8.2); Sodium Level 141 mmol/L (136-145)
[2021-09-09 11:11] LABS: Mucous, Urine 0 SEEN /hpf (<or=2+); White Blood Cells 0 SEEN /hpf (0-5)
[2021-09-09 11:13] LABS: Color, Urine Yellow (Yellow); Glucose, Dipstick Normal (Normal); Ketone-Dipstick Negative (Negative); Leukocyte Esterase-Dipstick Negative /ul (Negative); Nitrite-Dipstick Negative (Negative); Occult Blood-Urine 25 /ul (Negative); Protein-Dipstick Negative (Negative); Urine Bilirubin Dipstick Negative (Negative); Urine Clarity Clear (Clear); Urine Urobilinogen Normal (Normal)
[2021-09-09 11:21] LABS: Red Blood Cells-Urine 0-5 SEEN /hpf (0-5); Squamous Epithelial Cells - UA 5-10 SEEN /hpf (0-5)
[2021-09-09 11:22] LABS: Bacteria RARE /hpf (None Seen)
[2021-09-09] MEDS: HYDROmorphone 1 MG/ML Syringe 0.5 MG IV (11:41)
[2021-09-09 12:09] VITALS: BP 185/94; PULSE 60; RESP 16; O2SAT 96
[2021-09-09 13:36] VITALS: PULSE 60; O2SAT 96
== END 2021-09-09 13:37 | disposition home or self-care (01) ==
PROVIDERS: Emergency Provider Emergency Medicine; PCP Family Medicine Geriatric Medicine
DX: N13.2 Hydronephrosis with renal and ureteral calculous obstruction (principal); E03.9 Hypothyroidism, unspecified; I77.810 Thoracic aortic ectasia; J45.909 Unspecified asthma, uncomplicated; N40.0 Benign prostatic hyperplasia without lower urinary tract symptoms; Q23.1 Congenital insufficiency of aortic valve; Z79.51 Long term (current) use of inhaled steroids; Z90.49 Acquired absence of other specified parts of digestive tract
CPT/HCPCS: 74177; 80053; 81001; 83690; 85025; 96361; 96374; 96375; 99283; J7030; Q9967; A4216; J2405

== ENCOUNTER → 2021-09-19 10:58 | Outpatient (CLI) | payer MEDICARE, OTHER, SELFPAY ==
--- NOTE | 2021-09-19 11:01 | EKG12_ITS ---
Test Reason : PREOP Blood Pressure : / mmHG Vent. Rate : 060 BPM Atrial Rate : 060 BPM P-R Int : 256 ms QRS Dur : 204 ms QT Int : 506 ms P-R-T Axes : 060 -59 109 degrees QTc Int : 506 ms AV dual-paced rhythm with prolonged AV conduction Abnormal ECG Confirmed by FRANCOISE SHIELDS, CALIN ([id number]), social media editor MARY ANNE PARK ([id number]) on 09/20/2021 7:46:25 AM Referred By: Lior John Confirmed By:CALIN OWUSU MD
[2021-09-19 12:02] LABS: Hematocrit 43.1 % (40-54); Hemoglobin 14.3 g/dL (13.0-16.5); Mean Corp Hgb Conc 33.2 g/dL (32-36); Mean Corpuscular Hgb 31.5 pg (27.0-32.0); Mean Corpuscular Volume 94.9 fL (80-94); Mean Platelet Vol. 10.1 fl (6.2-12.0); Platelet Count 273 K/mm3 (150-450); RBC Distribution Width CV 13.2 % (11.6-14.6); RBC Distribution Width SD 46.2 fl (35.1-43.9); Red Blood Count 4.54 M/mm3 (4.6-6.2); White Blood Count 4.5 K/mm3 (4.4-11.0)
[2021-09-19 12:33] LABS: Anion Gap 3 (5-15); BUN 22 mg/dL (7-18); BUN/Creat Ratio 19.6 RATIO (10-20); Calcium,Total 9.2 mg/dL (8.5-10.1); Chloride 106 mmol/L (98-107); Creatinine, Serum 1.12 mg/dL (0.70-1.30); EST Glomerular Filtration Rate 68 mL/min (>60); Est Glom Filt Rate - Afr Amer 83 mL/min (>60); Glucose 130 mg/dL (74-106); Potassium 4.3 mmol/L (3.5-5.1); Sodium Level 141 mmol/L (136-145)
== END ==
PROVIDERS: PCP Family Medicine Geriatric Medicine; Referring Provider Urology; Visit Provider Urology
DX: Z01.812 Encounter for preprocedural laboratory examination (principal); I49.5 Sick sinus syndrome
CPT/HCPCS: 36415; 80048; 85027; 93005

== ENCOUNTER → 2021-09-21 12:15 | Outpatient (CLI) | payer MEDICARE, OTHER, SELFPAY ==
--- NOTE | 2021-09-21 12:20 | RAD_ITS ---
HISTORY: CALCULUS OF KIDNEY. TECHNIQUE: XR Abdomen 1 View. # of images incl. paperwork: 1. COMPARISON: CT 09/09/2021. FINDINGS: BOWEL GAS PATTERN: Mild gaseous distention and dilatation of small bowel with moderate stool in the colon. FREE AIR: Not assessed on supine view. CALCIFICATIONS: Faint 3 mm calculus at the right L4 level. Pelvic phleboliths again noted. OSSEOUS STRUCTURES: Unremarkable. RAD/Abdomen Single View IMPRESSION: Probable small calculus in the right mid ureter. Mildly dilated and distended small bowel loops with moderate stool in the colon, which can be seen with constipation and ileus. at 1019 Reported and signed by: Elinor Falcon MD Electronically Signed: Elinor Falcon MD at 10:18 EDT Tel , Service support ,
== END ==
PROVIDERS: PCP Family Medicine Geriatric Medicine; Referring Provider Urology; Visit Provider Urology
DX: N20.1 Calculus of ureter (principal)
CPT/HCPCS: 74018

== ENCOUNTER → 2021-09-24 | Outpatient (CLI) | payer MEDICARE, OTHER, SELFPAY ==
[2021-10-01 13:10] LABS: Source NOT PROVIDED
[2021-10-01 13:12] LABS: Ca Oxalate, Dihydrate 10; Ca Oxalate, Monohydrate 90
== END | disposition home or self-care (01) ==
PROVIDERS: PCP Family Medicine Geriatric Medicine; Referring Provider Urology; Visit Provider Urology
DX: N20.1 Calculus of ureter (principal)
CPT/HCPCS: 82360

== ENCOUNTER 2021-12-08 15:18 | Outpatient (CLI) | payer MEDICARE, OTHER, SELFPAY ==
[2021-12-08 15:27] VITALS: BP 128/80; PULSE 59; RESP 16; TEMP 36.4; O2SAT 98; BMI 27.1
[2021-12-08] MEDS: 0.9% Saline Lock 10 ML Syringe IV (15:30)
[2021-12-08 15:55] VITALS: BP 128/76; PULSE 59; RESP 16; TEMP 36.9; O2SAT 98
[2021-12-08 17:02] VITALS: BP 132/98; PULSE 79; RESP 16; TEMP 36.6; O2SAT 98
== END 2021-12-08 23:59 | disposition home or self-care (01) ==
LOC: MS3OUT 15:19 → MS3 15:20
PROVIDERS: PCP Family Medicine Geriatric Medicine; Visit Provider Nurse Practitioner Adult Health
DX: Z23 Encounter for immunization (principal); U07.1 COVID-19
CPT/HCPCS: J7050; M0243; A4216; Q0244

== ENCOUNTER 2022-01-04 11:20 | Emergency (ER) | payer MEDICARE, OTHER, SELFPAY ==
[2022-01-04 11:22] VITALS: BP 145/81; PULSE 59; RESP 14; TEMP 35.7; O2SAT 96; BMI 28.3
--- NOTE | 2022-01-04 11:54 | EX.ED.UPPERE ---
HPI History of Present Illness Chief Complaint: Laceration Informant: patient Narrative Narrative: 76-year-old male presenting to the emergency room chief complaint of finger laceration. Patient was trying to clear the shoot of a snowblower when he sustained a laceration to the left middle finger. He is left-hand dominant. He was wearing a thick wool army glove. Tetanus up-to-date. Not on any blood thinners. [facility] Medical History Asthma Bicuspid aortic valve BPH (benign prostatic hyperplasia) Cryptogenic stroke Dilated aortic root Ganglion cyst of left foot Hypothyroidism Left carotid artery stenosis Sick sinus syndrome Sinus pause Home Medications sertraline 100 mg tablet 100 mg PO QHS 08/12/19 [History Last Taken Unknown] doxepin 75 mg capsule 100 mg PO QHS cap 08/24/20 [History Last Taken Unknown] sildenafil 100 mg tablet 100 mg PO DAILY PRN 08/24/20 [History Last Taken Unknown] albuterol sulfate 1 puff INHALATION Q4H PRN PRN 03/23/21 [History Last Taken Unknown] levothyroxine 125 mcg tablet 125 mcg PO DAILY tab 08/23/21 [History Last Taken Unknown] metoprolol tartrate 25 mg tablet 12.5 mg PO BID #90 tab 08/23/21 [Rx Last Taken Unknown] mometasone 1 inh INHALATION BID ea 08/23/21 [History Last Taken Unknown] Allergy/AdvReac Type Severity Reaction Status Date / Time No Known Allergies Allergy Verified 01/04/22 11:22 Surgical History History of left heart catheterization (04/21/17) History of loop recorder (01/2017) 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) Hx of cholecystectomy Social History (Updated 01/04/22 @ 11:[address] Santy Paez DO) Smoking Status: Never smoker substance use type: does not use ROS ROS ED Constitutional Constitutional ED: Denies chills, fever(s) or weight loss Eyes Eyes: Denies change in vision or diplopia ENT ENT ED: Denies ear pain, rhinorrhea or sore throat Cardiovascular Cardiovascular: Denies chest pain, orthopnea, palpitations or racing heartbeat Respiratory/Chest Respiratory/Chest: Denies cough, dyspnea or orthopnea Gastrointestinal Gastrointestinal: Denies abdominal pain, diarrhea, nausea or vomiting Genitourinary Genitourinary ED: Denies dysuria, hematuria or urinary frequency Musculoskeletal Musculoskeletal: Denies arthralgias or myalgias Integumentary Reports other Details: See HPI ; Denies abscess or rash Neurologic Neurologic: Denies headache(s) or weakness Psychiatric Psychiatric: Denies anxiety, depression, suicidal ideation or suicidal thoughts Endocrine Endocrinology: Denies polydipsia, polyphagia or polyuria Allergic/Immunologic Allergic/Immunologic ED: Denies mouth swelling, tongue swelling or urticaria EXAM Physical Exam Const Vital Signs: 01/04/22 11:22 Temperature 96.2 F L Temperature Source Temporal Pulse Rate 59 L Respiratory Rate 14 Blood Pressure 145/81 H Blood Pressure Mean 102 Pulse Ox 96 Oxygen Delivery Method Room Air Positive well nourished and well developed General Appearance ED: well developed HEENT Reports normocephalic, head/scalp atraumatic and moist mucous membranes normocephalic and atraumatic Eyes PERRL and EOMs intact bilaterally Neck no lymphadenopathy, supple and no JVD Resp normal respiratory effort and clear to auscultation bilaterally Cardio regular rate, regular rhythm and no murmurs GI normal to inspection, nondistended, normoactive bowel sounds and non-tender Palpation: soft Back/Spine no CVA tenderness and normal ROM Extremity Extremity Narrative: There is a 2-1/2 cm linear laceration over the volar medial aspect of the distal left middle finger. No nail involvement. Tendon function normal. General Extremety ED: Negative for edema General Extremity: Negative for edema Neuro oriented x3 and CN's II-XII intact bilaterally Sensorium / Orientation: alert Motor Exam: strength 5/5 throughout Psych mental status grossly normal Mood & Affect: Negative for depressed or tearful Skin no rashes or lesions noted and no wounds Rashes: no rashes MDM MDM MDM Narrative Medical decision making narrative: The wound was contaminated with some of the wall from the glove. This was removed washed with Shur-Clens and explored. Digital block performed using a volar approach. Once adequate anesthesia was obtained the wound was sutured using 5 simple interrupted 4-0 Ethilon sutures dressed with bacitracin and Band-Aid and then Coban. Follow-up 10 days for suture removal Discharge Plan Triage Chief Complaint: Laceration ED Provider: Santy Paez Dx/Rx/DC Orders Clinical Impression: Finger laceration Instructions: ED Laceration, Hand: All Closures Prescriptions: No Action sertraline 100 mg tablet 100 mg PO QHS RF: 0 sildenafil [Viagra] 100 mg tablet 100 mg PO DAILY PRN (Reason: ed) RF: 0 doxepin 75 mg capsule 100 mg PO QHS RF: 0 levothyroxine 125 mcg tablet 125 mcg PO DAILY RF: 0 metoprolol tartrate 25 mg tablet 12.5 mg PO BID Qty: 90 RF: 4 mometasone 220 mcg/ actuation (60) aerosol powdr breath activated 1 inh INHALATION BID RF: 0 albuterol sulfate 1 INHALER inhaler 1 puff INHALATION Q4H PRN PRN (Reason: Sob &/Or Wheezing) RF: 0 Primary Care Provider: Jose Cisse Chi Referrals: Jose Cisse Chi, MD [Primary Care Provider] - 10 Day for suture removal Disposition Disposition: Home, Self Care
== END 2022-01-04 11:56 | disposition home or self-care (01) ==
PROVIDERS: Emergency Provider Emergency Medicine; PCP Family Medicine Geriatric Medicine; Visit Provider Emergency Medicine
DX: S61.213A Laceration without foreign body of left middle finger without damage to nail, initial encounter (principal); W29.8XXA Contact with other powered hand tools and household machinery, initial encounter; Z95.0 Presence of cardiac pacemaker; J45.909 Unspecified asthma, uncomplicated; E03.9 Hypothyroidism, unspecified; Q23.1 Congenital insufficiency of aortic valve
CPT/HCPCS: 12001; 99285

== ENCOUNTER 2022-01-28 08:51 | Outpatient (CLI) | payer MEDICARE, OTHER, SELFPAY ==
[2022-01-28 12:17] LABS: Absolute Lymphocyte Count 1.91 X10^3/uL (0.83-4.51); Absolute Neutrophil Count 2.7 X10^3/uL (2.0-7.7); Basophil# 0.03 X10^3/uL; Basophil% 0.5 % (0-1); Eosinophil# 0.18 X10^3/uL; Eosinophils% 3.1 % (0-5); Hematocrit 42.5 % (40-54); Lymphocyte # 1.91 X10^3/ul (0.83-4.51); Lymphocyte % 33.3 % (19-41); Mean Corp Hgb Conc 32.9 g/dL (32-36); Mean Corpuscular Hgb 30.8 pg (27.0-32.0); Mean Corpuscular Volume 93.4 fL (80-94); Mean Platelet Vol. 10.2 fl (6.2-12.0); Monocyte# 0.89 X10^3/uL; Monocyte% 15.5 % (0-10); NRBC Flagged by Analyzer 0 % (0-5); Neutrophil # 2.71 X10^3/uL (2.7-7.7); Neutrophil % 47.4 % (47-70); Platelet Count 281 K/mm3 (150-450); RBC Distribution Width CV 13.5 % (11.6-14.6); RBC Distribution Width SD 46.1 fl (35.1-43.9); Red Blood Count 4.55 M/mm3 (4.6-6.2); White Blood Count 5.7 K/mm3 (4.4-11.0)
[2022-01-28 12:36] LABS: Vitamin D,25 Hydroxy 31.2 ng/mL
[2022-01-28 12:56] LABS: ALB/GLOB Ratio 0.8 RATIO (0.9-2.4); AST(SGOT) 25 U/L (15-37); Alanine Aminotransfer ALT/SGPT 32 U/L (16-61); Albumin, Serum 3.6 g/dL (3.2-5.0); Alkaline Phosphatase 74 U/L (45-117); Anion Gap 4 (5-15); BUN 20 mg/dL (7-18); BUN/Creat Ratio 18.5 RATIO (10-20); Calcium,Total 9.2 mg/dL (8.5-10.1); Chloride 105 mmol/L (98-107); Creatinine, Serum 1.08 mg/dL (0.70-1.30); EST Glomerular Filtration Rate 71 mL/min (>60); Est Glom Filt Rate - Afr Amer 86 mL/min (>60); Globulin 4.3 g/dL (2.2-4.2); Glucose 94 mg/dL (74-106); Protein, Total 7.9 g/dL (6.4-8.2); Sodium Level 139 mmol/L (136-145); Thyroid Stim Hormone (TSH) 2.86 uIU/mL (0.358-3.74)
== END 2022-01-28 23:59 | disposition home or self-care (01) ==
LOC: POLAB3 08:52
PROVIDERS: PCP Family Medicine Geriatric Medicine; Visit Provider Family Medicine Geriatric Medicine
DX: I10 Essential (primary) hypertension (principal); E55.9 Vitamin D deficiency, unspecified; F52.8 Other sexual dysfunction not due to a substance or known physiological condition
CPT/HCPCS: 36415; 80053; 82306; 84403; 84443; 85025

== ENCOUNTER 2022-02-04 13:51 | Outpatient (CLI) | payer MEDICARE, OTHER, SELFPAY ==
--- NOTE | 2022-02-04 13:55 | ECHOD_ITS ---
Reason For Study: Murmur, Bicuspid AV Procedure This was a 2D Doppler, Color Flow transthoracic echocardiogram. Exam performed in department. Left Ventricle Normal LV size. Mild concentric left ventricular hypertrophy. Left ventricular systolic function is normal. The estimated ejection fraction is 60 %. Stage 1 diastolic dysfunction. No regional wall motion abnormalities noted. Right Ventricle Normal RV size. ICD or pacer leads identified within the right ventricle. Normal systolic function. Aortic Valve Bicuspid aortic valve. Peak aortic valve gradient 17 mmHg. Mean aortic valve gradient 9 mmHg. Mild (1+) aortic valve insufficiency. Great Vessels Normal aortic root. The pulmonary artery is normal size. Normal inferior vena cava. Pericardium/Pleural No pericardial effusion. MMode/2D Measurements & Calculations LVIDd: 3.9 cm IVSd: 1.3 cm LVOT diam: 2.3 cm LVIDs: 2.3 cm LVPWd: 1.3 cm RVDd: 3.6 cm FS: 41.2 % LVOT area: 4.3 cm2 Ao root diam: 4.1 cm LAV(MOD-bp): 38.3 ml LVAd ap4: 28.3 cm2 LAV(MOD-bp) Indexed: 18.5 ml/m2 LVLd ap4: 8.3 cm LAV(MOD-sp2): 47.4 ml EDV(MOD-sp4): 81.6 ml LAV(MOD-sp4): 31.9 ml EDV(sp4-el): 81.7 ml LVAs ap4: 16.0 cm2 LVLs ap4: 7.5 cm ESV(MOD-sp4): 29.5 ml ESV(sp4-el): 28.8 ml EF(MOD-sp4): 63.9 % EF(sp4-el): 64.8 % LVAd ap2: 21.7 cm2 SV(MOD-sp4): 52.2 ml SV(MOD-sp2): 31.2 ml LVLd ap2: 7.3 cm EDV(MOD-sp2): 54.2 ml EDV(sp2-el): 54.6 ml LVAs ap2: 13.3 cm2 LVLs ap2: 6.7 cm ESV(MOD-sp2): 23.0 ml ESV(sp2-el): 22.4 ml EF(MOD-sp2): 57.6 % SV(sp4-el): 52.9 ml LA dimension(2D): 3.4 cm LA A4 area: 14.3 cm2 RA A4 area: 11.3 cm2 Doppler Measurements & Calculations MV E max paulo: 37.4 cm/sec Lat Peak E' Paulo: 5.1 cm/sec Med Peak E' Paulo: 3.7 cm/sec MV A max paulo: 86.1 cm/sec E/E' lat: 7.3 E/E' med: 10.2 MV E/A: 0.43 Ao V2 max: 207.1 cm/sec AI max paulo: 338.0 cm/sec LV V1 max: 93.9 cm/sec Ao max P.2 mmHg AI max P.8 mmHg LV V1 max P.5 mmHg Ao V2 mean: 143.9 cm/sec LV V1 mean P.1 mmHg Ao mean P.2 mmHg AI dec slope: 111.3 cm/sec2 LV V1 mean: 68.9 cm/sec Ao V2 VTI: 37.6 cm AI P1/2t: 889.2 msec LV V1 VTI: 18.1 cm JESSICA(I,D): 2.1 cm2 JESSICA(V,D): 1.9 cm2 SV(LVOT): 77.2 ml PA V2 max: 109.4 cm/sec ECHO/Echo Complete Interpretation Summary Normal LV size. Mild concentric left ventricular hypertrophy. Left ventricular systolic function is normal. The estimated ejection fraction is 60 %. Stage 1 diastolic dysfunction. Bicuspid aortic valve. Mean aortic valve gradient 9 mmHg. Ordering Physician: Cecilio Aldridge Referring Physician: Jose Cisse Chi Performed By: Judy Brar RDCS
== END 2022-02-04 23:59 | disposition home or self-care (01) ==
LOC: CVS 13:54
PROVIDERS: PCP Family Medicine Geriatric Medicine; Referring Provider Internal Medicine Cardiovascular Disease; Visit Provider Internal Medicine Cardiovascular Disease
DX: Q23.1 Congenital insufficiency of aortic valve (principal)
CPT/HCPCS: 93306

== ENCOUNTER 2022-02-25 14:32 | Outpatient (CLI) | payer MEDICARE, OTHER, SELFPAY | END 2022-02-25 23:59 | disposition home or self-care (01) | LOC: LABSPEC 14:35 | PROVIDERS: PCP Family Medicine Geriatric Medicine; Visit Provider Family Medicine Geriatric Medicine | DX: N39.0 Urinary tract infection, site not specified (principal) | CPT/HCPCS: 87086 ==

== ENCOUNTER 2022-02-25 14:33 | Outpatient (CLI) | payer MEDICARE, OTHER, SELFPAY ==
--- NOTE | 2022-02-25 14:40 | RAD_ITS ---
STUDY: X-RAY - LUMBAR SPINE REASON FOR EXAM: Male, 76 years old. LOW BACK PAIN TECHNIQUE: 2 view(s) of the lumbar spine were obtained. COMPARISON: None FINDINGS: Normal lumbar lordosis. There is no substantial scoliosis. There is a normal alignment of the vertebrae from L1 to L4. There is a grade 1 spondylolisthesis at L4-5. There is anatomic alignment between L5 and S1.. There is multilevel endplate spondylosis of the lumbar vertebrae. There is multi-level degenerative disc disease with multi-level disc space narrowing. There is no demonstrated acute fracture. There is a chronic compression fracture affecting the inferior endplate of L3. The soft tissue structures are unremarkable. RAD/Lumbar Spine 2 or 3 Views IMPRESSION: Multilevel degenerative changes without acute abnormality. Chronic compression fracture affecting the inferior endplate of L3 Grade 1 spondylolisthesis at L4-5 Electronically Signed: Aditya Jenkins MD at 10:08 EDT ,
== END 2022-02-25 23:59 | disposition home or self-care (01) ==
PROVIDERS: PCP Family Medicine Geriatric Medicine; Referring Provider Family Medicine Geriatric Medicine; Visit Provider Family Medicine Geriatric Medicine
DX: M54.50 Low back pain, unspecified (principal); N39.0 Urinary tract infection, site not specified
CPT/HCPCS: 72100; 87077; 87086; 87088; 87186

== ENCOUNTER → 2022-07-31 | Outpatient (CLI) | payer MEDICARE, OTHER, SELFPAY ==
[2022-07-31 12:34] LABS: Absolute Lymphocyte Count 1.47 X10^3/uL (0.83-4.51); Absolute Neutrophil Count 2.6 X10^3/uL (2.0-7.7); Basophil# 0.03 X10^3/uL; Basophil% 0.6 % (0-1); Eosinophil# 0.09 X10^3/uL; Eosinophils% 1.7 % (0-5); Hematocrit 42.3 % (40-54); Lymphocyte # 1.47 X10^3/ul (0.83-4.51); Lymphocyte % 28.2 % (19-41); Mean Corp Hgb Conc 33.1 g/dL (32-36); Mean Corpuscular Hgb 31.3 pg (27.0-32.0); Mean Corpuscular Volume 94.4 fL (80-94); Mean Platelet Vol. 10.2 fl (6.2-12.0); Monocyte# 1.05 X10^3/uL; Monocyte% 20.1 % (0-10); NRBC Flagged by Analyzer 0 % (0-5); Neutrophil # 2.57 X10^3/uL (2.7-7.7); Neutrophil % 49.2 % (47-70); Platelet Count 268 K/mm3 (150-450); RBC Distribution Width CV 13.1 % (11.6-14.6); RBC Distribution Width SD 45.5 fl (35.1-43.9); Red Blood Count 4.48 M/mm3 (4.6-6.2); White Blood Count 5.2 K/mm3 (4.4-11.0)
[2022-07-31 12:49] LABS: Vitamin D,25 Hydroxy 37.4 ng/mL
[2022-07-31 13:00] LABS: ALB/GLOB Ratio 0.9 RATIO (0.9-2.4); AST(SGOT) 22 U/L (15-37); Alanine Aminotransfer ALT/SGPT 29 U/L (16-61); Albumin, Serum 3.5 g/dL (3.2-5.0); Alkaline Phosphatase 68 U/L (45-117); Anion Gap 6 (5-15); BUN 15 mg/dL (7-18); BUN/Creat Ratio 15.2 RATIO (10-20); Calcium,Total 8.9 mg/dL (8.5-10.1); Chloride 106 mmol/L (98-107); Creatinine, Serum 0.99 mg/dL (0.70-1.30); EST Glomerular Filtration Rate 79 mL/min (>60); Est Glom Filt Rate - Afr Amer 95 mL/min (>60); Globulin 4.1 g/dL (2.2-4.2); Glucose 91 mg/dL (74-106); Potassium 4.6 mmol/L (3.5-5.1); Protein, Total 7.6 g/dL (6.4-8.2); Sodium Level 141 mmol/L (136-145); Thyroid Stim Hormone (TSH) 0.98 uIU/mL (0.358-3.74)
== END | disposition home or self-care (01) ==
LOC: POLAB3 09:08
PROVIDERS: PCP Family Medicine Geriatric Medicine; Visit Provider Family Medicine Geriatric Medicine
DX: I10 Essential (primary) hypertension (principal); E55.9 Vitamin D deficiency, unspecified; F52.8 Other sexual dysfunction not due to a substance or known physiological condition
CPT/HCPCS: 36415; 80053; 82306; 84403; 84443; 85025

== ENCOUNTER → 2023-02-18 | Outpatient (CLI) | payer MEDICARE, OTHER, SELFPAY ==
--- NOTE | 2023-02-18 13:54 | CDU_ITS ---
Reason For Study: Stenosis Rt. Velocities/BP Lt. Velocities/BP Prox CCA 103.6/16.8 cm/sec. Prox CCA 74.3/14.7 cm/sec. Mid CCA 77.3/20.1 cm/sec. Mid CCA 72.1/17.3 cm/sec. Dist CCA 56.4/15.7 cm/sec. Dist CCA 63.6/17.3 cm/sec. Prox ICA 50.1/15.9 cm/sec. Prox ICA 153.7/55.5 cm/sec. Mid ICA 55.0/19.3 cm/sec. Mid ICA 128.6/29.5 cm/sec. Dist ICA 62.2/14.9 cm/sec. Dist ICA 141.2/44.6 cm/sec. Rt. ICA/CCA = 0.8. Lt. ICA/CCA = 2.1. Prox ECA 57.8/10.6 cm/sec. Prox ECA 74.9/9.7 cm/sec. Rt. Vert. 34.5/11.0 cm/sec. Lt. Vert. 37.4/11.2 cm/sec. Right Extracranial There is homogeneous, smooth atherosclerotic plaque noted in the right common carotid artery. There is heterogeneous, irregular atherosclerotic plaque noted in the right internal carotid artery. The right internal carotid artery is very tortuous. There is intimal thickening but no significant atherosclerotic plaque noted in the right external carotid artery. Antegrade flow is noted in the right vertebral artery. Left Extracranial There is homogeneous, smooth atherosclerotic plaque noted in the left common carotid artery. There is heterogeneous, irregular atherosclerotic plaque noted in the left internal carotid artery. The left internal carotid artery is very tortuous. There is intimal thickening but no significant atherosclerotic plaque noted in the left external carotid artery. Antegrade flow is noted in the left vertebral artery. Procedure Carotid Duplex 98111. This is a Carotid Duplex examination using B-mode, color flow and specral Doppler. The exam was diagnostic. Exam performed in department. VL/Carotid Duplex Ultrasound Interpretation Summary Mild (<50%) stenosis right extracranial internal carotid. Moderate (50-69%) anders nosis left extracranial internal carotid. Flow within the vertebral arteries is antegrade bilaterally. Ordering Physician: Carlos Fitzpatrick Referring Physician: Jose Cisse Chi Performed By: Kenn Avila RVT
== END | disposition home or self-care (01) ==
LOC: CVS 13:51
PROVIDERS: PCP Family Medicine Geriatric Medicine; Visit Provider Surgery Vascular Surgery
DX: I65.23 Occlusion and stenosis of bilateral carotid arteries (principal)
CPT/HCPCS: 93880

== ENCOUNTER → 2023-05-26 | Outpatient (CLI) | payer MEDICARE, OTHER, SELFPAY | END | disposition home or self-care (01) | PROVIDERS: PCP Family Medicine Geriatric Medicine; Visit Provider Family Medicine Geriatric Medicine | DX: N39.0 Urinary tract infection, site not specified (principal) | CPT/HCPCS: 87086 ==

== ENCOUNTER → 2023-08-06 | Outpatient (CLI) | payer MEDICARE, OTHER, SELFPAY ==
[2023-08-06 10:01] LABS: Absolute Lymphocyte Count 1.73 X10^3/uL (0.83-4.51); Basophil# 0.02 X10^3/uL; Basophil% 0.4 % (0-1); Eosinophil# 0.17 X10^3/uL; Eosinophils% 3.8 % (0-5); Hematocrit 40.4 % (40-54); Hemoglobin 13.8 g/dL (13.0-16.5); Lymphocyte # 1.73 X10^3/ul (0.83-4.51); Lymphocyte % 38.3 % (19-41); Mean Corp Hgb Conc 34.2 g/dL (32-36); Mean Corpuscular Hgb 32.4 pg (27.0-32.0); Mean Corpuscular Volume 94.8 fL (80-94); Monocyte# 0.57 X10^3/uL; Monocyte% 12.6 % (0-10); NRBC Flagged by Analyzer 0 % (0-5); Neutrophil # 2.02 X10^3/uL (2.7-7.7); Neutrophil % 44.7 % (47-70); Platelet Count 227 K/mm3 (150-450); RBC Distribution Width CV 13.5 % (11.6-14.6); Red Blood Count 4.26 M/mm3 (4.6-6.2); White Blood Count 4.5 K/mm3 (4.4-11.0)
[2023-08-06 10:34] LABS: ALB/GLOB Ratio 0.8 RATIO (0.9-2.4); AST(SGOT) 22 U/L (15-37); Alanine Aminotransfer ALT/SGPT 26 U/L (16-61); Albumin, Serum 3.4 g/dL (3.2-5.0); Alkaline Phosphatase 68 U/L (45-117); Anion Gap 6 (5-15); BUN 21 mg/dL (7-18); BUN/Creat Ratio 18.4 RATIO (10-20); Calcium,Total 8.6 mg/dL (8.5-10.1); Chloride 105 mmol/L (98-107); Creatinine, Serum 1.14 mg/dL (0.70-1.30); EST Glomerular Filtration Rate 66 mL/min (>60); Est Glom Filt Rate - Afr Amer 80 mL/min (>60); Globulin 4.1 g/dL (2.2-4.2); Glucose 176 mg/dL (74-106); Potassium 3.7 mmol/L (3.5-5.1); Protein, Total 7.5 g/dL (6.4-8.2); Sodium Level 140 mmol/L (136-145); Thyroid Stim Hormone (TSH) 8.97 uIU/mL (0.358-3.74)
[2023-08-06 10:35] LABS: Vitamin D,25 Hydroxy 30.3 ng/mL
== END | disposition home or self-care (01) ==
LOC: POLAB3 09:20
PROVIDERS: PCP Family Medicine Geriatric Medicine; Visit Provider Family Medicine Geriatric Medicine
DX: R53.83 Other fatigue (principal); E55.9 Vitamin D deficiency, unspecified
CPT/HCPCS: 36415; 80053; 82306; 84443; 85025

== ENCOUNTER → 2023-08-27 | Outpatient (CLI) | payer MEDICARE, OTHER, SELFPAY ==
[2023-08-27 17:32] LABS: Absolute Lymphocyte Count 1.65 X10^3/uL (0.83-4.51); Absolute Neutrophil Count 3.8 X10^3/uL (2.0-7.7); Basophil# 0.03 X10^3/uL; Basophil% 0.5 % (0-1); Eosinophil# 0.08 X10^3/uL; Eosinophils% 1.3 % (0-5); Hematocrit 39.9 % (40-54); Hemoglobin 13.6 g/dL (13.0-16.5); Lymphocyte # 1.65 X10^3/ul (0.83-4.51); Mean Corp Hgb Conc 34.1 g/dL (32-36); Mean Corpuscular Hgb 31.6 pg (27.0-32.0); Mean Corpuscular Volume 92.8 fL (80-94); Monocyte# 0.78 X10^3/uL; Monocyte% 12.3 % (0-10); NRBC Flagged by Analyzer 0 % (0-5); Neutrophil % 59.7 % (47-70); Platelet Count 219 K/mm3 (150-450); RBC Distribution Width CV 13.2 % (11.6-14.6); RBC Distribution Width SD 45.1 fl (35.1-43.9); White Blood Count 6.4 K/mm3 (4.4-11.0)
[2023-08-27 17:59] LABS: Erythrocyte Sedimentation Rate 13 mm/hr (0-20)
[2023-08-27 18:20] LABS: AST(SGOT) 28 U/L (15-37); Alanine Aminotransfer ALT/SGPT 34 U/L (16-61); Alkaline Phosphatase 76 U/L (45-117); BUN 11 mg/dL (7-18); BUN/Creat Ratio 9.2 RATIO (10-20); CRP 8.02 mg/L (0.0-3.0); Calcium,Total 9.1 mg/dL (8.5-10.1); Chloride 104 mmol/L (98-107); EST Glomerular Filtration Rate 63 mL/min (>60); Est Glom Filt Rate - Afr Amer 76 mL/min (>60); Glucose 107 mg/dL (74-106); Potassium 4.3 mmol/L (3.5-5.1); Sodium Level 135 mmol/L (136-145)
[2023-08-28 07:50] LABS: Albumin, Serum 3.8 g/dL (3.2-5.0)
[2023-08-28 07:51] LABS: ALB/GLOB Ratio 0.9 RATIO (0.9-2.4); Globulin 4.2 g/dL (2.2-4.2)
[2023-08-28 07:52] LABS: Anion Gap 6 (5-15)
[2023-08-28 13:27] LABS: Hemoglobin A1c 5.7 % (3.8-5.6)
== END | disposition home or self-care (01) ==
LOC: POLAB3 17:00
PROVIDERS: PCP Family Medicine Geriatric Medicine; Visit Provider Family Medicine Geriatric Medicine
DX: G50.9 Disorder of trigeminal nerve, unspecified (principal); R73.9 Hyperglycemia, unspecified
CPT/HCPCS: 36415; 80053; 83036; 85025; 85652; 86140

== ENCOUNTER → 2023-08-28 | Outpatient (CLI) | payer MEDICARE, OTHER, SELFPAY ==
[2023-08-28 17:16] LABS: PSA,Total- Diagnostic 2.17 ng/mL (0.0-4.0)
== END | disposition home or self-care (01) ==
LOC: LAB 15:42
PROVIDERS: PCP Family Medicine Geriatric Medicine; Referring Provider Urology; Visit Provider Urology
DX: N40.1 Benign prostatic hyperplasia with lower urinary tract symptoms (principal)
CPT/HCPCS: 36415; 84153

== ENCOUNTER 2023-11-05 17:26 | Observation (INO) | payer MEDICARE, OTHER, SELFPAY ==
[2023-10-21 09:13] LABS: Thyroid Stim Hormone (TSH) 3.07 uIU/mL (0.358-3.74)
[2023-11-05] VITALS (12 sets, daily range): BP systolic 127–171; BP diastolic 75–112; PULSE 58–65; RESP 16–18; TEMP 36–36.4; O2SAT 94–100; BMI 26.9
[2023-11-05] MEDS: Lactated Ringers 1,000 ML 15 ML IV ×2 (13:41→17:30)
--- NOTE | 2023-11-05 15:15 | PROS_PTH ---
PATIENT: FAVIAN PHILLIP LOC: MS3 U#:[id number] AGE/SX: 77/M [place] [facility] [place]11/05/[address]: Dr. Lior John MD : 1945 BED: 1 DIS: 11/06/2023 SPEC #: [id number] RECD: 11/05/23 18:23 STATUS: VISHAL ORELLANA #: [id number] GEORGINA: 11/05/23 15:[address]: Lior John DEPT: SURGICAL PATHOLOGY RECD BY: Ariane Jaramillo ENTERED: 11/06/23 08:51 SP TYPE: TURP OTHR DR: Dr. Jose Cisse MD Tissues: Prostate, NOS Procedures: Surgery Specimen Level IV HEADER OPERATION: Transurethral resection prostate PRE-OP DIAGNOSIS: Benign prostatic hyperplasia with obstruction TISSUE SUBMITTED: Prostate chips MICROSCOPIC DIAGNOSIS Prostate chips, transurethral resection: Benign prostatic hyperplasia, glandular and stromal type. Moderate chronic inflammation and mild acute inflammation. BETSY:chance 11/07/2023 MICROSCOPIC DESCRIPTION Slides are reviewed. GROSS DESCRIPTION Received is one container labeled with the patient's name and designated prostate chips. The specimen consists of multiple irregular fragments of pink-savage, rubbery, soft tissue that in aggregate weigh 4.6 gm and measure in aggregate 4.5 x 4.0 x 1.0 cm. The entire specimen is submitted in five cassettes. BETSY:chance 11/06/2023 TC:5 CPT: 98718
[2023-11-05] MEDS: Ipratropium/Albuterol Sulfate 3 ML AMPUL.NEB INHALATION (15:19)
--- NOTE | 2023-11-05 15:31 | PCM.HP.STD ---
HPI - General General Date of Admission: 11/05/23 Chief Complaint: BPH with obstruction HPI Narrative FAVIAN PHILLIP, is a 77 M who presents for transurethral resection of the prostate [facility], [facility] Medical History (Updated 10/20/23 @ 10:36 by Stephanie Melo) Alcohol use Anxiety Arthritis Asthma Bicuspid aortic valve BiPAP (biphasic positive airway pressure) dependence BPH (benign prostatic hyperplasia) Cancer Cardiology follow-up encounter COVID-19 (12/2021) Cryptogenic stroke Depression Dilated aortic root Ganglion cyst of left foot History of echocardiogram History of pain when walking History of stress test History of trigger finger History of trigger finger Hypertension Hypothyroidism Injury of head and neck Left carotid artery stenosis Migraine headache Non-smoker Prostate disease Sick sinus syndrome Sinus pause Syncope Wears glasses Wears hearing aid Home Medications sertraline 100 mg tablet 125 mg PO QHS 08/12/19 [History Last Taken Unknown] sildenafil 100 mg tablet (Viagra) 100 mg PO DAILY PRN ed 08/24/20 [History Last Taken Unknown] albuterol sulfate 90 mcg/actuation aerosol inhaler 1 puff inhalation Q4H PRN PRN Sob &/Or Wheezing 03/23/21 [History Last Taken Unknown] mometasone 220 mcg/actuation(60 doses) breath activated powder inhaler 1 inh inhalation BID 08/23/21 [History Last Taken Unknown] doxepin 50 mg capsule 50 mg PO QHS 08/22/22 [History Last Taken Unknown] finasteride 5 mg tablet 5 mg PO DAILY 09/04/23 [History Last Taken Unknown] levothyroxine 125 mcg tablet 137 mcg PO DAILY 09/04/23 [History Last Taken 11/05/23] metoprolol tartrate 25 mg tablet 12.5 mg (1/2 x 25 mg) PO BID #90 tabs 09/04/23 [Rx Last Taken 11/05/23] prazosin 2 mg capsule 2 mg PO QHS 10/20/23 [History Last Taken Unknown] Allergy/AdvReac Type Severity Reaction Status Date / Time No Known Allergies Allergy Verified 11/05/23 13:45 Surgical History (Updated 10/20/23 @ 10:36 by Stephanie Melo) History of carpal tunnel surgery of left wrist History of carpal tunnel surgery of right wrist History of left heart catheterization (04/21/17) History of loop recorder (01/2017) 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) Hx of arthroscopic knee surgery Hx of cholecystectomy Hx of foot surgery Hx of fusion of cervical spine Hx of repair of left rotator cuff Hx of repair of right rotator cuff Social History Smoking Status: Never smoker substance use type: does not use Vital Signs Vital Signs Vital Signs: 11/05/23 13:42 11/05/23 13:42 11/05/23 15:19 Temperature 96.9 F L Temperature Source Temporal Pulse Rate 58 L 60 Respiratory Rate 16 16 Respiratory Pattern Normal Normal Blood Pressure 154/94 H Blood Pressure Mean 114 Blood Pressure Source Monitor Blood Pressure Position Semi-Fowlers Blood Pressure Location Right Arm Pulse Ox 100 Oxygen Delivery Method Room Air Weight Weight: 85 kg Body Mass Index (BMI) 26.9
[2023-11-05] MEDS: Cefazolin 2 GM in 0.9% Normal Saline (100mL Bag) 100 ML IV (16:01)
--- NOTE | 2023-11-05 16:44 | DCINST_ITS ---
Discharge Instructions Diet Discharge Diet: No restrictions Activity Discharge Activity: Return to Normal Activity and May Not Drive (while taking narcotic pain medications.) Dressing / Incision Call your doctor if you observe: Fever of 101 or Higher Follow Up Care Please Follow Up With: Lior John MD When: Call [phone] for an appointment Test Results: Test results from this visit will be discussed in further detail at your follow- up appointment, if applicable. Discharge Plan Admission Attending Provider: Lior John Primary Care Provider: Jose Cisse Chi Discharge Orders/Prescriptions Prescriptions: No Action sertraline 100 mg tablet 125 mg PO QHS sildenafil [Viagra] 100 mg tablet 100 mg PO DAILY PRN (Reason: ed) Rx Instructions: administer 30 minutes to 4 hours before activity levothyroxine 125 mcg tablet 137 mcg PO DAILY doxepin 50 mg capsule 50 mg PO QHS finasteride 5 mg tablet 5 mg PO DAILY metoprolol tartrate 25 mg tablet 12.5 mg PO BID Qty: 90 4RF mometasone 220 mcg/ actuation (60) aerosol powdr breath activated 1 inh INHALATION BID albuterol sulfate 1 INHALER inhaler 1 puff INHALATION Q4H PRN PRN (Reason: Sob &/Or Wheezing) prazosin 2 mg capsule 2 mg PO QHS Other Ambulatory Orders: 12 Lead EKG (Routine) Timeframe: [id number] Location: None Selected Ordered By: Dr. Ham Abreu Referrals / Follow Up: Jose Cisse Chi, MD [Primary Care Provider] - Disposition Disposition (needs filled in before D/C Order can be placed): Home, Self Care
--- NOTE | 2023-11-05 16:44 | OP.PCM_ITS ---
Report of Operation Date of Procedure: 11/05/23 Pre-Operative Diagnosis: BPH with obstruction regrowth Post-Operative Diagnosis: Same Surgery/Procedure Performed:: Transurethral resection of the prostate and regrowth of tissue Description of Surgical Findings:: Patient was taken back to the operative room at the smooth induction of general anesthesia he was placed in dorsolithotomy position. The penis and testicles were prepped and draped in usual sterile fashion went in the bladder with a 24 [place] noncontinuous flow Olympus bipolar resectoscope identified the verumontanum he had significant bilateral hypertrophy causing obstruction I then used a resectoscope to resect the right lobe of the tissue left lobe of the tissue I then switched over to the Olympus bipolar button and smooth out the resection I then did a flow test he had an adequate flow looked back to the sphincter had a nice sphincter was intact got all the chips out of the bladder and then put a three-way catheter in the bladder for continuous irrigation we will keep him overnight for irrigation minimal blood loss and patient's anesthetic is currently being reversed. Surgeon: Lior John Type of Anesthesia: General Drains: 22fr [address] way Admit VTE Documentation VTE Present on Admission: No VTE Mechan Device Prophylaxis: SCD's VTE Pharm Prophylaxis ordered?: No
[2023-11-05] MEDS: Doxazosin 1 MG Tablet 2 MG PO (21:17)
[2023-11-05] MEDS: Ciprofloxacin 500 MG Tablet PO (21:17)
[2023-11-05] MEDS: Metoprolol Tartrate 25 MG Tablet 12.5 MG PO (21:18)
[2023-11-05] MEDS: Sertraline 50 MG Tablet 125 MG PO (21:18)
[2023-11-05] MEDS: 0.9% Normal Saline (1000mL) 1,000 ML 75 ML IV (21:19)
[2023-11-05] MEDS: DOXEPIN HCL 50 MG CAPSULE PO (21:19)
[2023-11-06 02:47] VITALS: BP 109/64; PULSE 64; RESP 16; TEMP 36.5; O2SAT 98
[2023-11-06] MEDS: Levothyroxine 137 MCG Tablet PO (05:32)
[2023-11-06 06:38] VITALS: BP 131/71; PULSE 60; RESP 16; TEMP 36.5; O2SAT 96
--- NOTE | 2023-11-06 07:26 | PCM.PN.GU ---
Subjective Subjective Status post transurethral resection of the prostate, doing well we can remove his Ayers catheter and he can go home today after he urinates Objective Data Objective Data Vital Signs: Vital Signs Temp Pulse Resp BP Pulse Ox O2 Del Method O2 Flow Rate 97.7 F L 60 16 131/71 H 96 Room Air 2 11/06/23 06:38 11/06/23 06:38 11/06/23 06:38 11/06/23 06:38 11/06/23 06:38 11/06/23 06:38 11/06/23 02:47 Oxygen Flow Rate (L/min) 2 Oxygen Delivery Method Room Air Weight: 85 kg Body Mass Index (BMI) 26.9 Intake & Output: Intake and Output for Last 24 Hours 11/04/23 11/05/23 11/06/23 23:59 23:59 23:59 Intake Total 1165.25 / 1165.25 300 / 300 Output Total 1100 / 1100 Balance 65.25 / 65.25 300 / 300
[2023-11-06 07:50] VITALS: BP 128/71; PULSE 61; RESP 18; TEMP 36.4; O2SAT 94
[2023-11-06 07:54] VITALS: PULSE 60
[2023-11-06] MEDS: Metoprolol Tartrate 25 MG Tablet 12.5 MG PO (07:54)
[2023-11-06] MEDS: Finasteride 5 MG Tablet PO (07:55)
[2023-11-06] MEDS: Ciprofloxacin 500 MG Tablet PO (10:36)
--- NOTE | 2023-11-06 11:04 | CASEMGMT ---
MAISHA PULIDO NOTE: Pt being discharged home. MAISHA PULIDO to room. Pt resting in bed. Introduced self and role. Pt states he lives w/his . He states he has been OOB and is ambulating well. He denies having any discharge planning needs or concerns. Maria De Jesus RIOSN MAISHA PULIDO
--- NOTE | 2023-11-06 11:10 | CASEMGMT ---
Social Work SW met with pt to discuss advance directives.? Pt confirms he has completed a living will and health care POA naming his Lala Morales.? Pt notified that documents are not on file at [facility] and SW requested they be brought in for scanning into the EMR.? JANNET Hernandez
[2023-11-06 12:10] VITALS: BP 114/62; PULSE 59; RESP 18; TEMP 36.6; O2SAT 96
--- NOTE | 2023-11-06 14:59 | PHA.DC.MR.R ---
Pharmacy [place] Med Reconciliation Pharmacy Service has performed discharge medication reconciliation for this patient. No new medications at time of discharge medication review. Medications reviewed are from previously reported home medications. The patient's discharge medication list was reviewed for discrepancies and discrepancies were resolved. Medications at Discharge Home Medications sertraline 100 mg tablet 125 mg PO QHS 08/12/19 sildenafil 100 mg tablet (Viagra) 100 mg PO DAILY PRN ed 08/24/20 albuterol sulfate 90 mcg/actuation aerosol inhaler 1 puff inhalation Q4H PRN PRN Sob &/Or Wheezing 03/23/21 mometasone 220 mcg/actuation(60 doses) breath activated powder inhaler 1 inh inhalation BID 08/23/21 doxepin 50 mg capsule 50 mg PO QHS 08/22/22 finasteride 5 mg tablet 5 mg PO DAILY 09/04/23 levothyroxine 125 mcg tablet 137 mcg PO DAILY 09/04/23 metoprolol tartrate 25 mg tablet 12.5 mg (1/2 x 25 mg) PO BID #90 tabs 09/04/23 prazosin 2 mg capsule 2 mg PO QHS 10/20/23
== END 2023-11-06 12:27 | disposition home or self-care (01) ==
LOC: SDC 11-06 02:56 → MS3 11-06 02:56
PROVIDERS: Anesthesiology; Admitting Provider Urology; PCP Family Medicine Geriatric Medicine; Referring Provider Urology; Visit Provider Urology
PROC: 0VT08ZZ Resection of Prostate, Via Natural or Artificial Opening Endoscopic (ICD-10-PCS; CPT 52601; principal; 2023-11-05 15:05)
DX: N40.1 Benign prostatic hyperplasia with lower urinary tract symptoms (principal); N13.8 Other obstructive and reflux uropathy; J45.909 Unspecified asthma, uncomplicated; I10 Essential (primary) hypertension; Z79.899 Other long term (current) drug therapy; Z79.890 Hormone replacement therapy; E03.9 Hypothyroidism, unspecified
CPT/HCPCS: 52601; 00914; 36415; 84443; 88305; 93005; 94640; 96360; 96361; 99221; J7030; J7120; G0378; J2405

== ENCOUNTER → 2024-03-03 | Outpatient (CLI) | payer MEDICARE, OTHER, SELFPAY ==
[2024-03-03 14:52] LABS: Absolute Lymphocyte Count 1.97 X10^3/uL (0.83-4.51); Absolute Neutrophil Count 2.9 X10^3/uL (2.0-7.7); Basophil# 0.04 X10^3/uL; Basophil% 0.7 % (0-1); Eosinophil# 0.08 X10^3/uL; Eosinophils% 1.4 % (0-5); Hematocrit 42.1 % (40-54); Hemoglobin 13.8 g/dL (13.0-16.5); Lymphocyte # 1.97 X10^3/ul (0.83-4.51); Lymphocyte % 33.5 % (19-41); Mean Corp Hgb Conc 32.8 g/dL (32-36); Mean Corpuscular Hgb 30.5 pg (27.0-32.0); Mean Corpuscular Volume 92.9 fL (80-94); Mean Platelet Vol. 10.1 fl (6.2-12.0); Monocyte# 0.92 X10^3/uL; Monocyte% 15.6 % (0-10); NRBC Flagged by Analyzer 0 % (0-5); Neutrophil # 2.86 X10^3/uL (2.7-7.7); Neutrophil % 48.6 % (47-70); Platelet Count 238 K/mm3 (150-450); RBC Distribution Width CV 13.2 % (11.6-14.6); Red Blood Count 4.53 M/mm3 (4.6-6.2); White Blood Count 5.9 K/mm3 (4.4-11.0)
[2024-03-03 15:14] LABS: AST(SGOT) 27 U/L (15-37); Alanine Aminotransfer ALT/SGPT 35 U/L (16-61); Albumin, Serum 3.8 g/dL (3.2-5.0); Alkaline Phosphatase 70 U/L (45-117); Anion Gap 5 (5-15); BUN 15 mg/dL (7-18); BUN/Creat Ratio 13.9 RATIO (10-20); Chloride 108 mmol/L (98-107); Creatinine, Serum 1.08 mg/dL (0.70-1.30); EST Glomerular Filtration Rate 71 mL/min (>60); Est Glom Filt Rate - Afr Amer 85 mL/min (>60); Glucose 72 mg/dL (74-106); Potassium 4.6 mmol/L (3.5-5.1); Protein, Total 7.8 g/dL (6.4-8.2); Sodium Level 142 mmol/L (136-145); Thyroid Stim Hormone (TSH) 1.24 uIU/mL (0.358-3.74)
== END | disposition home or self-care (01) ==
LOC: POLAB3 14:01
PROVIDERS: PCP Family Medicine Geriatric Medicine; Visit Provider Family Medicine Geriatric Medicine
DX: E03.9 Hypothyroidism, unspecified (principal); E55.9 Vitamin D deficiency, unspecified; R53.83 Other fatigue
CPT/HCPCS: 36415; 80053; 82306; 84443; 85025

== ENCOUNTER → 2024-06-29 | Outpatient (CLI) | payer MEDICARE, OTHER, SELFPAY ==
--- NOTE | 2024-06-29 12:51 | ST.MBS ---
Modified Barium Swallow Patient Information Study Date: 06/29/24 Study Time: 13:00 Direct Billable Minutes: 84 Total Minutes procedure & reportin Diagnosis: Dysphagia R13.10 Referring Physician: Jose Cisse Chi Reason for Referral: Objectively assess swallow function, assess risk for aspiration, and determine recommendations for least restrictive diet textures and compensatory strategies to improve safety of swallow. Medical History: PMH: Sick sinus syndrome, Hx of permanent cardiac pacemaker placement, L carotid artery stenosis, COVID 19, Cryptogenic stroke, Dizziness, Skin cancer, Alcohol use, Injury of head and neck, Non-smoker, SLY, BiPAP dependence, HTN, Asthma (See EMR for full PMH). Surgical History: Hx of fusion of cervical spine (See EMR for full surgical history). Patient was referred for MBSS by PCP due to sensation of food becoming caught in his throat and not wanting to go down, as well as occ coughing with food and drink. He also senses that food is trying to come up periodically, but he hasn't vomited. He also has had significant reflux symptoms, including heartburn, gagging, sensation of food coming up, and acid in his throat. He has been started on meds to manage GERD. Recent referral to GI; however, he has had difficulty getting in with Dr. Ambriz's office. Pt has hx of OP ST services at rehab to address dysphonia. He was seen for initial evaluation (05/21/2021) and 1 follow-up session prior to not returning for additional ST services. Of note, discharge summary described an ENT examination of the patient?s larynx, which was deemed WNL; however, he did have excessive constriction of the supraglottis with false vocal fold adduction, as well as vocal bowing. He was instructed in resonance training, diaphragmatic breathing, and education re: vocal hygiene strategies during brief ST POC. 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 [employer]OM[employer] C[employer] strongly encouraged follow-up ST to address continued dysphonia as the patient reports having continued strain speaking, as well as difficulty maintaining voice for extended conversation. Current Diet Ordered: Regular textures / Thin liquids Dentition: WNL and Natural Teeth Mental Status: WNL Respiratory Status: Oxygenating on Room Air Penetration-Aspiration Scale Penetration-Aspiration Scale: OBJECTIVE ASSESSMENT OF SWALLOW FUNCTION (QUANTITATIVE ? PER TRIAL): PENETRATION / ASPIRATION SCALE (KAY): 1 = does not enter airway 2 = enters airway/above vocal folds/ejected 3 = enters airway/above vocal folds/not ejected 4 = enters airway/contacts vocal folds/ejected 5 = enters airway/contacts vocal folds/not ejected 6 = enters airway/below vocal folds/ejected 7 = enters airway/below vocal folds/not ejected despite effort 8 = enters airway/below vocal folds/no effort VIDEOFLOROSCOPIC SCALE SCORE (KAY): Grade I = aspiration of material that has penetrated into the laryngeal vestibule, intact cough reflex Grade II = aspiration < 10 % of the bolus, intact cough reflex Grade III = aspiration of < 10 % of the bolus, reduced cough reflex or aspiration of > 10 % of the bolus, intact cough reflex Grade IV = aspiration of > 10 % of the bolus, reduced cough reflex Penetration-Aspiration Scale Score Thin Liquid via teaspoon: Result: 1= does not enter airway Thin Liquid via teaspoon Trial 2: Result: 1= does not enter airway Thin Liquid via large single sip: cup: Result: 1= does not enter airway [place] Thick Liquid via large single sip: cup: Result: 1= does not enter airway Pudding via teaspoon: Result: 1= does not enter airway Comment: Esophageal screen - Retention of pudding in the lower esophagus with retrograde flow. Thin Liquid via sequential sips:straw: Result: 1= does not enter airway Comment: Esophageal screen - Liquid wash fully cleared esophageal retention of pudding. 1/2 Cookie: Result: 1= does not enter airway Comment: Esophageal screen - Retention in the mid and lower esophagus with retrograde flow. Liquid wash provided during esophageal screen, which mostly cleared esophageal retention of cookie. Oral Phase Labial Seal: Interlabial escape, no progression to anterior lip Tongue Control During Bolus Hold: Posterior escape of greater than half of bolus Bolus Preparation/Mastication: Timely and efficient chewing and mashing Bolus Transport/Lingual Motion: Brisk tongue motion Oral Residue: Residue collection on oral structures Pharyngeal Phase Initiation of Pharyngeal Swallow: Bolus head in pyriforms Soft Palate Elevation: Trace column of contrast/air between soft palate and pharyngeal wall Laryngeal Elevation: Comp. Superior move thyroid cart w/comp. apprx arytenoid cart-epig pet Anterior Hyoid Excursion: Partial anterior movement Epiglottic Movement: Complete inversion Laryngeal Vestibule Closure at Height of Swallow: Complete; no air/contrast in laryngeal vestibule Pharyngeal Stripping Wave: Present - complete Pharyngoesophageal Segment Opening: Parital distension and partial duration; parital obstruction of flow Tongue Base Retraction: Trace column of contrast between tongue base & post. pharyngeal wall Pharyngeal Residue: Collection of residue within or on pharyngeal structures Esophageal Phase Esophageal Clearance: Esophageal retention w/ retrograde flow through pharyngoesophageal seg Diagnosis/Impression Diagnosis: Oropharyngeal swallow WNL; Esophageal dysphagia R13.14 Impression: Oropharyngeal swallow function grossly WNL. He did have posterior loss of >1/2 of liquid boluses and swallow onset in the pyriforms; however, this occurred with large and sequential sips. Also during these large and sequential sips he had small collections (trace-mild) oral and pharyngeal residues, which fully cleared with independent use of a second swallow as needed. AUT[employer] CUT [employer] SAW[employer]ER attributed these trace-mild residues to large bolus sizes. No laryngeal penetration or aspiration during the study. The esophageal phase is primarily marked by... -Retention of cookie and pudding with retrograde flow. Liquid washes effectively cleared majority of barium cookie and pudding from the esophagus. -Trace retention of liquids in the UES with retrograde flow to the pyriform sinuses. Recommendations Diet: Regular Textures and Thin Liquids Comment: If sensation of retention or regurgitation despite use of strategies, STOP meal and resume at a later time to allow time for esophageal clearance of food/drink. Compensatory Strategies: Small Bites, Small Sips, Slow Rate, Alternate bites/solids and sips/liquids (Take a sip after every 1-2 bites), Sitting upright and Remain sitting upright for 30 minutes after PO intake Recommend Repeat Modified Barium Swallow: No Need for Skilled Speech Therapy Services: Yes Comment: No dysphagia therapy recommended; however, [employer] C[employer] did recommend returning to OP ST to address persisting dysphonia. Recommended Referrals: GI Consult (AUTOMATIC LOG CUT [employer]WYER encouraged the patient to continue pursuing GI consult to manage esophageal dysphagia.) Education Completed: 1. Described result of evaluation. Status Active ST Patient: Active Contact Information [facility] Speech Therapy:: Kay Veronica M.A. [facility]-[employer]OM[employer] LOG CUT [employer]WYER? Speech-Language Pathologist?? [facility] [address] [place] [address]? [email or web address]?? [phone]
== END | disposition home or self-care (01) ==
PROVIDERS: PCP Family Medicine Geriatric Medicine; Referring Provider Family Medicine Geriatric Medicine; Visit Provider Family Medicine Geriatric Medicine
DX: K22.2 Esophageal obstruction (principal)
CPT/HCPCS: 74230; 92611

== ENCOUNTER → 2024-07-01 | Outpatient (CLI) | payer MEDICARE, OTHER, SELFPAY ==
--- NOTE | 2024-07-01 07:50 | RAD_ITS ---
STUDY: X-RAY - ESOPHAGUS (BARIUM SWALLOW) WITH FLUOROSCOPY REASON FOR EXAM: Male, 78 years old. Esophageal obstruction TECHNIQUE: 99 fluoroscopic view(s) of the esophagus were obtained following swallowing of barium. FLUOROSCOPY TIME (if supplied): (42 seconds) minutes/seconds. 7.9 mGy. COMPARISON: Comparison is made with prior study dated March 27, 2018. FINDINGS: There is no demonstrated esophageal foreign body. Mild narrowing in the midportion of the esophagus. Correlation with endoscopy is recommended. Normal gastroesophageal junction, without a demonstrated hiatal hernia. There is evidence of gastroesophageal reflux. The patient ingested a 12 mm tablet at bedtime without any difficulty. Normal visualized aortic arch and descending thoracic aorta. Normal visualized pulmonary parenchyma. Normal visualized osseous structures of the thorax. RAD/Esophagus Dual Contrast IMPRESSION: Gastroesophageal reflux. Mild narrowing in the midportion of the esophagus. Correlation with endoscopy is recommended. Electronically Signed: Lenny Shields MD at 10:44 EDT ,
== END | disposition home or self-care (01) ==
LOC: RAD 07:46
PROVIDERS: PCP Family Medicine Geriatric Medicine; Referring Provider Family Medicine Geriatric Medicine; Visit Provider Family Medicine Geriatric Medicine
DX: K22.2 Esophageal obstruction (principal)
CPT/HCPCS: 74221

== ENCOUNTER 2024-07-23 12:46 | Day surgery (SDC) | payer MEDICARE, OTHER, SELFPAY ==
[2024-07-23] VITALS (9 sets, daily range): BP systolic 83–152; BP diastolic 60–84; PULSE 60; RESP 14–18; TEMP 36–36.7; O2SAT 91–99; BMI 28.1
--- NOTE | 2024-07-23 12:45 | EGD_PTH ---
PATIENT: FAVIAN PHILLIP LOC: EN U#:[id number] AGE/SX: 78/M ROOM: RE07/23/[address]: Dr. Leonardo Corral DO : 1945 BED: DIS: 07/23/2024 SPEC #: [id number] RECD: 07/23/24 16:47 STATUS: VISHAL REBinh #: [id number] GEORGINA: 07/23/24 12:[address]: Leonardo Corral DEPT: SURGICAL PATHOLOGY RECD BY: Edgar Carrera ENTERED: 07/26/24 09:11 SP TYPE: EGD BIOPSY OT DR: Dr. Jose Cisse MD Tissues: Esophagus, NOS Procedures: Special Stain Group I Surgery Specimen Level IV Alcian Blue/PAS (control) HEADER OPERATION: EGD with biopsy, dilation PRE-OP DIAGNOSIS: Dysphagia TISSUE SUBMITTED: Distal esophagus biopsy MICROSCOPIC DIAGNOSIS Distal esophagus, biopsy: Gastroesophageal junction mucosa with mild chronic inflammation. Focal changes of reflux. No evidence of goblet cell metaplasia. See comment. JEANNA/ 07/27/2024 COMMENT Alcian blue/PAS stain with matched control is used in the evaluation of the specimen. MICROSCOPIC DESCRIPTION Slides are reviewed. GROSS DESCRIPTION Received in fixative is one container labeled with the patient's name and designated Distal esophagus biopsy. The specimen consists of multiple irregular fragments of light savage soft tissue that in aggregate measure 1.5 x 0.5 x 0.1 cm. The specimen is totally submitted in one cassette. 07/26/2024 TC:3 CPT:95182,75119
[2024-07-23] MEDS: Lactated Ringers 1,000 ML 15 ML IV (13:12)
--- NOTE | 2024-07-23 13:29 | HP.PCM_ITS ---
History and Physical Date of Admission: 07/23/24 nausea/ abdominal discomfort Details: FAVIAN PHILLIP, is a 78 M who presents to the office today for establishment with [facility] for nausea, dysphagia and abdominal discomfort. Over the past month he has had severe nausea with each time he is eating. He was seen by his PCP who put him on pantoprazole 40 mg daily which has relieved most of his discomfort. He denies ever having an EGD done in the past. 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 He also has diarrhea once every two weeks but this is not bothersome to him. He has not noticed any specific food triggers. Any food will cause nausea but he has not vomited. He has had colonoscopys with Dr. Ambriz which has says have been normal besides a few polyps in the past. His last one did not have any polyps. He denies weight loss, fevers, constipation, abdominal pain or melena. ROS Const Constitutional: Positive for fatigue, weakness and weight change; No fever(s) ENT ENT: Positive for difficulty swallowing Gastro GI: Positive for bloating, heartburn, difficulty swallowing, excessive flatus and nausea/dyspepsia; No abdominal pain, belching, change in bowel habits, change in stool character, coffee ground emesis, constipation, cramping, diarrhea, feeling full early, incontinent of stools, Vomiting blood/hematemesis, Blood in stool, loose stools, Black,tarry stools, pain with swallowing, vomiting or other Musc Musculoskeletal: Positive for numbness and tingling; No joint pain Skin Skin: No yellowing of the eye or itchy eyes Neuro Neurology: Positive for weakness, numbness and tingling Psych Psychiatric: No anxiety and Positive for depression Endo Endocrine: Positive for fatigue and weight change Aller/Imm Allergy/Immunologic: No itchy eyes Braden/Lymp Hematologic/Lymphatic: Positive for easy bruising; No easy bleeding Exam Const General: cooperative and comfortable Nutritional Appearance: average body habitus and well nourished [facility] Head: normal to inspection Ears: hearing grossly normal bilaterally Nose: external nose normal Face and sinus: normal facial exam Mouth: oral mucosae normal Throat: posterior oropharynx normal Eyes General: appearance normal, both eyes and all related structures Neck Neck: normal visual inspection Chest Chest palpation & inspection: normal inspection of the chest and normal palpation of entire chest wall Resp Effort & Inspection: normal respiratory effort Auscultation: Bilateral: Clear to Auscultation Cardio Palpation: normal PMI Rate: regular rate Rhythm: regular rhythm GI Inspection: normal to inspection Auscultation: normal bowel sounds Percussion: normal to percussion Palpation: no hepatosplenomegaly Skin General: no rashes or lesions noted Neuro General: patient alert Extrem General: normal to inspection Psych Affect: normal affect Assessment and Plan Assessment and Plan (1) Dysphagia: Status: Acute Plan: Patient is here to establish care for nausea and discomfort over the past month. Differential diagnosis for nausea includes GERD, esophagitis, or gastroparesis. -We will scheduled him for EGD -Ordered gastric emptying study to rule out a gastric motility issue -He will continue to take pantoprazole daily -He does not wish to take any other medications at this time -Recommended as needed famotidine -He will f/u after EGD Orders: Orders Gastric Emptying Study Today R11.0 - Nausea I have examined the patient and the H&P has been reviewed. There are no clinical changes since date of exam.
--- NOTE | 2024-07-23 13:34 | PRE.ANES_ITS ---
ASA Classification* ASA Classification ASA Classification: 3 Assessment & Plan Anesthesia* Anesthesia Assessment Anesthesia Assessment: Discussed sedation and/or anesthesia options, risks, benefits, and alternatives with patient/parents/legal guardian/POA. Questions invited. The patient/parents/legal guardian/POA seems to understand and agrees to proceed with anesthesia plan. Reviewed the physical assessment, medical history, allergy history and patient home medications list prior to surgery/procedure/anesthetic and documented any changes. Performed airway and anesthesia risk assessments. Anesthesia Type Anesthesia Type: MAC Anesthesia Focused Assessment* Temperature: 96.8 F Pulse Rate: 60 Blood Pressure: 152/84 Respiratory Rate: 18 Pulse Ox: 96 Airway Assessment Mouth opens: >3 cm Mallampati Score: II Focused Labs Anesthesia Preop lab: CBC WBC 5.9 K/mm3 (4.4-11.0) 03/03/24 14:02 RBC 4.53 M/mm3 (4.6-6.2) L 03/03/24 14:02 Hgb 13.8 g/dL (13.0-16.5) 03/03/24 14:02 Hct 42.1 % (40-54) 03/03/24 14:02 Plt Count 238 K/mm3 (150-450) 03/03/24 14:02 CHEMISTRY Potassium 4.6 mmol/L (3.5-5.1) 03/03/24 14:02 Sodium 142 mmol/L (136-145) 03/03/24 14:02 Magnesium 1.8 mg/dL (1.8-2.4) 03/10/16 23:55 BUN 15 mg/dL (7-18) 03/03/24 14:02 Creatinine 1.08 mg/dL (0.70-1.30) 03/03/24 14:02 Glucose 72 mg/dL (74-106) L 03/03/24 14:02 TSH 1.24 uIU/mL (0.358-3.74) 03/03/24 14:02 COAG PT 13.0 SECONDS (11.7-14.9) 03/04/18 16:05 Pre-Assessment Diagnosis/Proposed Procedure Planned Operative Procedure(s): EGD Anesthesia History 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 When Was Last Pacemaker Check 03/07/21 03/23/21 12:46 QUESTION #4 FULL TEXT: You/Your Family Experience fever (hyperthermia) with Anesthesia Last Oral Intake Last Oral intake: Last Oral Intake NPO since 00:00 07/23/24 13:13 Meds taken in AM with sips of Yes 07/23/24 13:13 water? Meds patient instructed to take am of surgery PONV PONV - chemical engineering technologist: PONV - chemical engineering technologist Female No 07/22/24 08:30 HX of Motion Sickness No 07/22/24 08:30 HX of N/V After Surgery No 07/22/24 08:30 Non-Smoker Yes 07/22/24 08:30 Duration of Surgery greater No 07/22/24 08:30 than 60 minutes Number of Risk Factors 1 07/22/24 08:30 PONV Score Low Risk 07/22/24 08:30 Height & Weight Height & Weight: Anesthesia: Height & Weight Height 5 ft 10 in 07/23/24 13:13 Weight: 88.904 kg 07/23/24 13:13 Body Mass Index (BMI) 28.1 07/23/24 13:13 Respiratory Assessment Respiratory Assessment - chemical engineering technologist: Respiratory Tract Infection Hx - chemical engineering technologist Hx Respiratory Tract Infection No 07/22/24 08:30 STOP Sleep Apnea STOP Sleep Apnea - chemical engineering technologist: STOP Sleep Apnea - chemical engineering technologist Hx Hypertension Yes: CONTROLLED WITH MED 07/22/24 08:30 Hx Sleep Apnea Yes 07/22/24 08:30 CPAP No 07/22/24 08:30 BIPAP Yes 07/22/24 08:30 Do you snore loudly (louder than talking or can be heard Do you often feel tired/ fatigued/ sleepy during daytime? Has anyone observed you stop breathing during sleep? STOP Results Positive 07/22/24 08:30 QUESTION #5 FULL TEXT : Do you snore loudly (louder than talking or can be heard through closed doors)? 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 Specify any problems Hx of Preganancy in last 3 N/A 07/22/24 08:30 Months Nurse Filling Out Transfusion DSCHRIBER 07/22/24 08:30 & Questions: Date: 07/22/24 07/22/24 08:30 Time: 08:32 07/22/24 08:30 Patient unable to answer at this time (ie. confused, unrespo /Reproduction History /Reproductive History - chemical engineering technologist: /Reproductive Hx- chemical engineering technologist Hx Now No 07/22/24 08:30 Gestational Age (in weeks): EDC: Hx Hx Para Hx Section SAB No 07/22/24 08:30 Active Medications Active Medications: Current Medications Generic Name Dose Route Start Last Admin Trade Name Freq PRN Reason Stop Dose Admin Lactated Ringer's 1,000 mls @ 15 mls/hr 07/23/24 13:00 07/23/24 13:12 IV 15 mls/hr .Q48H MICHELLE Administration PFSH Medical History (Updated 07/22/24 @ 08:37 by Stephanie Melo) Gastric reflux Shortness of breath on exertion Wears hearing aid Wears glasses Cancer Depression Anxiety Alcohol use Arthritis Injury of head and neck Syncope Non-smoker BiPAP (biphasic positive airway pressure) dependence History of pain when walking Hypertension History of stress test History of echocardiogram Cardiology follow-up encounter History of trigger finger History of trigger finger COVID-19 (12/2021) Ganglion cyst of left foot Dilated aortic root Bicuspid aortic valve Left carotid artery stenosis Hypothyroidism BPH (benign prostatic hyperplasia) Asthma Sinus pause Sick sinus syndrome Cryptogenic stroke Home Medications ?Medication ?Instructions ?Recorded ?Last Taken ?Type sertraline 100 mg tablet 150 mg PO QHS 08/12/19 07/22/24 History sildenafil 100 mg tablet (Viagra) 100 mg PO DAILY PRN ed 08/24/20 Unknown History albuterol sulfate 90 mcg/actuation 1 puff inhalation Q4H PRN PRN Sob 03/23/21 Unknown History aerosol inhaler &/Or Wheezing doxepin 50 mg capsule 50 mg PO QHS 08/22/22 07/22/24 History finasteride 5 mg tablet 5 mg PO DAILY 09/04/23 07/22/24 History levothyroxine 125 mcg tablet 137 mcg PO DAILY 09/04/23 07/23/24 History metoprolol tartrate 25 mg tablet 12.5 mg (1/2 x 25 mg) PO BID #90 09/04/23 07/23/24 Rx tabs prazosin 2 mg capsule 2 mg PO QHS 10/20/23 07/22/24 History fluticasone fur. 200 mcg-umeclid 1 inh inhalation QHS 07/22/24 07/23/24 History 62.5 mcg-vilant 25 mcg inhalat.powder (Trelegy Ellipta) pantoprazole 40 mg tablet,delayed 40 mg PO BID 07/22/24 07/23/24 History release Allergy/AdvReac Type Severity Reaction Status Date / Time No Known Allergies Allergy Verified 07/23/24 13:08 Surgical History (Updated 07/22/24 @ 08:37 by Stephanie Melo) Hx of transurethral resection of prostate Hx of foot surgery Hx of fusion of cervical spine Hx of arthroscopic knee surgery History of carpal tunnel surgery of right wrist History of carpal tunnel surgery of left wrist Hx of repair of right rotator cuff Hx of repair of left rotator cuff History of loop recorder (01/2017) 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
--- NOTE | 2024-07-23 14:31 | PCM.POST.ANE ---
Anesthesia: Postop Eval I Current Vital Signs Temperature: 97.2 F Pulse Rate: 60 Blood Pressure: 83/60 Respiratory Rate: 14 Pulse Ox: 94 Oxygen Delivery Method: Nasal Cannula Oxygen Flow Rate (L/min): 3 Assessment Airway patent: Yes Spontaneous unlabored respirations: Yes Mental status: Asleep nausea: No Vomiting: No Anesthesia Complication: No Fluid Hydration Crystalloid volume administer (ml): 400 Total IV fluid infused: 400 Progress Note Anesthesia document: Postop Eval 1 completed: Yes
--- NOTE | 2024-07-23 14:36 | OP.CCLET_ITS ---
07/23/2024 Jose Cisse MD [address] [place] [address] Re : Upper GI endoscopy procedure for Will Morales Dear Dr. Cisse This procedure was performed on Tuesday, July 23, 2024. My impressions and recommendations are as follows: Impressions : - LA Grade C reflux esophagitis with no bleeding. Biopsied. - Benign-appearing esophageal stenosis. Dilated. - Small hiatal hernia. - Bile gastritis. - Normal second portion of the duodenum. Recommendations : - Discharge patient to home. - Resume previous diet. - Continue present medications. - Await pathology results. - Gastric emptying study My findings are described in the full procedure note, which is enclosed. If I can be of further assistance, please feel free to contact me at . Sincerely, Leonardo Corral, 07/23/2024 2:36:08 PM This report has been signed electronically.
--- NOTE | 2024-07-23 14:36 | OP.EGD_ITS ---
Patient Name: Will Morales Procedure Date: 07/23/2024 2:02 PM Date of : 1945 Age: 78 Procedure: Upper GI endoscopy Indications: Dysphagia Providers: Leonardo Corral DO Medicines: Monitored Anesthesia Care Patient Profile: This is a 78 year old male. Refer to note in patient chart for documentation of history and physical. Patient has symptoms of dysphagia with both liquids and solids. Complications: No immediate complications. Procedure: Pre-Anesthesia Assessment: - Prior to the procedure, a History and Physical was performed, and patient medications and allergies were reviewed. The patient is competent. The risks and benefits of the procedure and the sedation options and risks were discussed with the patient. All questions were answered and informed consent was obtained. Patient identification and proposed procedure were verified by the physician in the pre-procedure area. Mental Status Examination: alert and oriented. Airway Examination: normal oropharyngeal airway and neck mobility. Respiratory Examination: clear to auscultation. CV Examination: normal. Prophylactic Antibiotics: The patient does not require prophylactic antibiotics. Prior Anticoagulants: The patient has taken no anticoagulant or antiplatelet agents. ASA Grade Assessment: III - A patient with severe systemic disease. After reviewing the risks and benefits, the patient was deemed in satisfactory condition to undergo the procedure. The anesthesia plan was to use monitored anesthesia care (MAC). Immediately prior to administration of medications, the patient was re-assessed for adequacy to receive sedatives. The heart rate, respiratory rate, oxygen saturations, blood pressure, adequacy of pulmonary ventilation, and response to care were monitored throughout the procedure. The physical status of the patient was re-assessed after the procedure. After obtaining informed consent, the endoscope was passed under direct vision. Throughout the procedure, the patient's blood pressure, pulse, and oxygen saturations were monitored continuously. The Endoscope was introduced through the mouth, and advanced to the second part of duodenum. The upper GI endoscopy was accomplished without difficulty. The patient tolerated the procedure well. Scope In: 2:13:31 PM Scope Out: 2:19:09 PM Total Procedure Duration Time 0 hours 5 minutes 38 seconds Findings: LA Grade C (one or more mucosal breaks continuous between tops of 2 or more mucosal folds, less than 75% circumference) esophagitis with no bleeding was found 38 to 42 cm from the incisors. Biopsies were taken with a cold forceps for histology. Verification of patient identification for the specimen was done. Estimated blood loss was minimal. One benign-appearing, intrinsic moderate stenosis was found 40 to 43 cm from the incisors. This stenosis measured 4 cm (in length). The stenosis was traversed. A guidewire was placed and the scope was withdrawn. Dilation was performed with a Savary dilator with no resistance at 60 Fr. The dilation site was examined and showed moderate improvement in luminal narrowing. Estimated blood loss was minimal. A small hiatal hernia was present. Diffuse mild inflammation characterized by erythema was found in the gastric body. The second portion of the duodenum was normal. Impression: - LA Grade C reflux esophagitis with no bleeding. Biopsied. - Benign-appearing esophageal stenosis. Dilated. - Small hiatal hernia. - Bile gastritis. - Normal second portion of the duodenum. Recommendation: - Discharge patient to home. - Resume previous diet. - Continue present medications. - Await pathology results. - Gastric emptying study Procedure Code(s): --- Professional --- 85566, Esophagogastroduodenoscopy, flexible, transoral; with insertion of guide wire followed by passage of dilator(s) through esophagus over guide wire 11437, 59,51, Esophagogastroduodenoscopy, flexible, transoral; with biopsy, single or multiple CPT copyright 2021 [employer]. All rights reserved. The codes documented in this report are preliminary and upon medical biller coder review may be revised to meet current compliance requirements. Leonardo Corral DO 07/23/2024 2:36:08 PM This report has been signed electronically. Number of Addenda: 0 Note Initiated On: 07/23/2024 2:02 PM
--- NOTE | 2024-07-23 17:21 | PCM.POSTANE2 ---
Anesthesia Postop Eval I Sum Postop Eval Completion status Anesthesia document: Postop Eval 1 completed: Yes Anesthesia Postop Eval I Summary Anesthesia Postop Eval I Summary: Anesthesia Postop Eval I: Assessment Summary Airway patent Yes 07/23/24 14:32 [email or web address] Spontaneous unlabored Yes 07/23/24 14:32 [email or web address] respirations Mental status Asleep 07/23/24 14:32 [email or web address] nausea No 07/23/24 14:32 [email or web address] Vomiting No 07/23/24 14:32 [email or web address] Anesthesia Postop Eval I: Fluid Summary Crystalloid volume administer 400 07/23/24 14:32 [email or web address] (ml) Colloids volume administered ( ml) Blood Product volume administered (ml) Total IV fluid infused 400 07/23/24 14:32 [email or web address] Anesthesia Postop Eval I: Summary Notes Anesthesia Complication No 07/23/24 14:32 [email or web address] Anesthesia Complication Comment: Post-operative progress note Anesthesia: Postop Eval II Evaluation Mental status: Awake and Calm Pain Level: 0 nausea: No Vomiting: No Complications Anesthesia Complication: No
== END 2024-07-23 15:24 | disposition home or self-care (01) ==
LOC: EN 12:46 → AC 12:47
PROVIDERS: PCP Family Medicine Geriatric Medicine; Referring Provider Internal Medicine Gastroenterology; Visit Provider Internal Medicine Gastroenterology
PROC: 0DJ08ZZ Inspection of Upper Intestinal Tract, Via Natural or Artificial Opening Endoscopic (ICD-10-PCS; CPT 43235; principal; 2024-07-23 12:40)
DX: K21.00 Gastro-esophageal reflux disease with esophagitis, without bleeding (principal); K44.9 Diaphragmatic hernia without obstruction or gangrene; K22.2 Esophageal obstruction; R13.10 Dysphagia, unspecified; K29.70 Gastritis, unspecified, without bleeding; R11.0 Nausea
CPT/HCPCS: 43248; 43239; 88305; 88312; C1769; J2405

== ENCOUNTER → 2024-07-27 | Outpatient (CLI) | payer MEDICARE, OTHER, SELFPAY ==
--- NOTE | 2024-07-27 11:33 | NM_ITS ---
CLINICAL: 78-year-old male with history of chronic nausea. SEMI-SOLID PHASE 99m Tc SULFUR COLLOID GASTRIC EMPTYING STUDY COMPARISON: None available FINDINGS: The patient was administered 1.1 mCi of 99m Tc sulfur colloid mixed with oatmeal and consumed per os. Image acquisitions in the anterior-posterior projections were obtained for 60 minutes. There is prompt visualization of the stomach. There is no gastroesophageal reflux identified. Zero kinetics are maintained throughout the duration of the acquisitions. The T ? raw data emptying was calculated to be 8.91 minutes, (Normal: 12-56 minutes). NM/Gastric Emptying Study IMPRESSION: 1. There is accelerated semi-solid phase gastric emptying compared to normal controls with zero order kinetics throughout all components of the examination. (Susana et al, J Nucl Med Tech 38: 186, 2010). Electronically Signed: Faisal Anne DO at 10:59 EDT ,
== END | disposition home or self-care (01) ==
LOC: NM 11:33
PROVIDERS: PCP Family Medicine Geriatric Medicine; Referring Provider Student in an Organized Health Care Education/Training Program; Visit Provider Student in an Organized Health Care Education/Training Program
DX: R11.0 Nausea (principal)
CPT/HCPCS: 78264; A9541

== ENCOUNTER → 2024-08-09 | Outpatient (CLI) | payer MEDICARE, OTHER, SELFPAY ==
[2024-08-09 13:39] LABS: Absolute Lymphocyte Count 1.78 X10^3/uL (0.83-4.51); Absolute Neutrophil Count 3.1 X10^3/uL (2.0-7.7); Basophil# 0.04 X10^3/uL; Basophil% 0.7 % (0-1); Eosinophil# 0.12 X10^3/uL; Eosinophils% 2.1 % (0-5); Hematocrit 41.5 % (40-54); Hemoglobin 13.6 g/dL (13.0-16.5); Lymphocyte # 1.78 X10^3/ul (0.83-4.51); Lymphocyte % 30.5 % (19-41); Mean Corp Hgb Conc 32.8 g/dL (32-36); Mean Corpuscular Hgb 30.2 pg (27.0-32.0); Mean Corpuscular Volume 92.2 fL (80-94); Mean Platelet Vol. 10.1 fl (6.2-12.0); Monocyte# 0.82 X10^3/uL; Monocyte% 14.1 % (0-10); NRBC Flagged by Analyzer 0 % (0-5); Neutrophil # 3.06 X10^3/uL (2.7-7.7); Neutrophil % 52.4 % (47-70); Platelet Count 245 K/mm3 (150-450); RBC Distribution Width SD 44.2 fl (35.1-43.9); White Blood Count 5.8 K/mm3 (4.4-11.0)
[2024-08-09 14:14] LABS: Vitamin D,25 Hydroxy 30.3 ng/mL
[2024-08-09 14:21] LABS: ALB/GLOB Ratio 0.8 RATIO (0.9-2.4); AST(SGOT) 28 U/L (15-37); Alanine Aminotransfer ALT/SGPT 27 U/L (16-61); Albumin, Serum 3.4 g/dL (3.2-5.0); Alkaline Phosphatase 82 U/L (45-117); Anion Gap 5 (5-15); BUN 14 mg/dL (7-18); BUN/Creat Ratio 12.7 RATIO (10-20); Calcium,Total 9.1 mg/dL (8.5-10.1); Chloride 107 mmol/L (98-107); EST Glomerular Filtration Rate 69 mL/min (>60); Est Glom Filt Rate - Afr Amer 84 mL/min (>60); Globulin 4.1 g/dL (2.2-4.2); Glucose 100 mg/dL (74-106); Potassium 4.1 mmol/L (3.5-5.1); Protein, Total 7.5 g/dL (6.4-8.2); Sodium Level 141 mmol/L (136-145)
== END | disposition home or self-care (01) ==
PROVIDERS: PCP Family Medicine Geriatric Medicine; Visit Provider Family Medicine Geriatric Medicine
DX: R53.83 Other fatigue (principal); E55.9 Vitamin D deficiency, unspecified
CPT/HCPCS: 36415; 80053; 82306; 84443; 85025

== ENCOUNTER → 2024-09-06 | Outpatient (CLI) | payer MEDICARE, OTHER, SELFPAY ==
--- NOTE | 2024-09-06 13:14 | CT_ITS ---
INDICATION: ASTHMA, SOB, DYSPNEA EXAMINATION: CT CHEST WITHOUT CONTRAST - CT Chest W/O Contrast Injection TECHNIQUE: Helically acquired images were obtained of the chest. The protocol utilizes one or more of the following dose reduction techniques: automated exposure control, adjustment of mA and/or kV according to patient size,and/or use of iterative reconstruction technique. IV Contrast dosage and agent: None. RADIATION DOSAGE (If Supplied By Facility): CTDIvol = ( 10.68 ) mGy, DLP = ( 318.24 ) mGycm COMPARISON: CT scan of the abdomen and pelvis of 09/09/2021 FINDINGS: LUNGS, PLEURA AND LARGE AIRWAYS: Mild stranding/scarring in the lower lungs and right middle lobe unchanged prior examination. The lungs are otherwise clear. No focal infiltrate is seen. No pleural effusion or thickening. No pneumothorax. THYROID: No thyroid lesions. HEART AND PERICARDIUM: Heart size is normal. No pericardial effusion. Right-sided cardiac pacer device wires are seen. CORONARY ARTERIES: Coronary artery calcification is seen. VESSELS: Borderline dilatation of the ascending thoracic aorta. Otherwise no evidence of aneurysm. MEDIASTINUM AND KAYLIE: No mediastinal or hilar adenopathy. Esophagus is unremarkable. No hiatal hernia. UPPER ABDOMEN: Liver cyst and partially visualized left renal cyst unchanged. No acute process BONES: No suspicious lytic or blastic abnormality. CT/Chest without Contrast IMPRESSION: 1. No mass, adenopathy or focal acute pulmonary infiltrate. 2. Mild lower lung stranding likely scarring. Electronically Signed: Jeremy Herron MD at 13:59 EDT ,
== END | disposition home or self-care (01) ==
LOC: CT 13:13
PROVIDERS: PCP Family Medicine Geriatric Medicine; Referring Provider Internal Medicine Pulmonary Disease; Visit Provider Internal Medicine Pulmonary Disease
DX: J45.40 Moderate persistent asthma, uncomplicated (principal); R06.02 Shortness of breath
CPT/HCPCS: 71250

== ENCOUNTER → 2024-11-26 | Outpatient (CLI) | payer MEDICARE, OTHER, SELFPAY ==
--- NOTE | 2024-11-26 10:45 | ECHOD_ITS ---
Reason For Study: SLEEP APNEA Procedure This was a 2D Doppler, Color Flow transthoracic echocardiogram. Myocardial strain analysis was performed in this exam to aid in the assessment of cardiac function. Exam performed in department. Left Ventricle Normal LV size. Moderate eccentric left ventricular hypertrophy. Left ventricular systolic function is normal. The estimated ejection fraction is 62 %. Right Ventricle Normal RV size. ICD or pacer leads identified within the right ventricle. Normal systolic function. Atria Normal left atrium. Normal right atrium. Mitral Valve Normal mitral valve. Tricuspid Valve Normal tricuspid valve. Aortic Valve Mild focal aortic valve calcification. Probable bicuspid. Peak aortic valve gradient 22 mmHg. Mean aortic valve gradient 13 mmHg. Mild (1+) aortic valve insufficiency. Pulmonic Valve Normal pulmonic valve. Great Vessels Calcified aortic root. Mildly dilated aortic root. The pulmonary artery is normal size. Normal inferior vena cava. Pericardium/Pleural No pericardial effusion. MMode/2D Measurements & Calculations LVIDd: 4.9 cm IVSd: 1.6 cm LVOT diam: 2.1 cm LVIDs: 3.4 cm LVPWd: 1.3 cm LVOT area: 3.3 cm2 RVDd: 3.9 cm FS: 31.1 % asc Aorta Diam: 4.0 cm LAV(MOD-bp): 55.8 ml LVAd ap4: 24.6 cm2 LAV(MOD-bp) Indexed: 26.8 ml/m2 LVLd ap4: 7.8 cm LAV(MOD-sp2): 56.7 ml EDV(MOD-sp4): 65.2 ml LAV(MOD-sp4): 46.9 ml EDV(sp4-el): 65.8 ml LVAs ap4: 14.3 cm2 LVLs ap4: 7.0 cm ESV(MOD-sp4): 25.0 ml ESV(sp4-el): 24.6 ml EF(MOD-sp4): 61.6 % EF(sp4-el): 62.6 % LVAd ap2: 22.1 cm2 SV(MOD-sp4): 40.2 ml SV(MOD-sp2): 31.5 ml LVLd ap2: 7.7 cm SI(MOD-sp4): 19.3 ml/m2 SI(MOD-sp2): 15.1 ml/m2 EDV(MOD-sp2): 54.2 ml EDV(sp2-el): 53.9 ml LVAs ap2: 12.5 cm2 LVLs ap2: 6.4 cm ESV(MOD-sp2): 22.7 ml ESV(sp2-el): 21.0 ml EF(MOD-sp2): 58.1 % SV(sp4-el): 41.2 ml Ao sinus diam: 4.[address] Junction: 3.7 cm LA dimension(2D): 4.2 cm LA A4 area: 16.9 cm2 RA A4 area: 11.2 cm2 TAPSE: 1.9 cm Time Measurements MV dec time: 0.31 sec Doppler Measurements & Calculations MV E max paulo: 47.2 cm/sec Lat Peak E' Paulo: 5.5 cm/sec Med Peak E' Paulo: 4.6 cm/sec MV A max paulo: 101.0 cm/sec E/E' lat: 8.5 E/E' med: 10.2 MV E/A: 0.47 MV dec slope: 151.2 cm/sec2 Ao V2 max: 237.8 cm/sec LV V1 max: 105.6 cm/sec Ao max P.7 mmHg LV V1 max P.5 mmHg Ao V2 mean: 176.8 cm/sec LV V1 mean P.7 mmHg Ao mean P.6 mmHg LV V1 mean: 77.0 cm/sec Ao V2 VTI: 48.7 cm LV V1 VTI: 25.4 cm AV (velocity ratio): 0.52 JESSICA(I,D): 1.7 cm2 JESSICA(V,D): 1.5 cm2 SV(LVOT): 84.7 ml PA V2 max: 91.6 cm/sec TR max paulo: 239.8 cm/sec TR max P.0 mmHg ECHO/Echo Complete Interpretation Summary Normal LV size. Left ventricular systolic function is normal. Mild focal aortic valve calcification. Mean aortic valve gradient 13 mmHg. The global longitudinal strain is moderately abnormal. The global longitudinal strain = -14.5% (abnormal). Ordering Physician: Pino Strange V Referring Physician: Jose Cisse Chi Performed By: Chika Hameed RDCS
== END | disposition home or self-care (01) ==
LOC: CVS 10:43
PROVIDERS: PCP Family Medicine Geriatric Medicine; Referring Provider Internal Medicine Pulmonary Disease; Visit Provider Internal Medicine Pulmonary Disease
DX: G47.31 Primary central sleep apnea (principal)
CPT/HCPCS: 93306

== ENCOUNTER → 2025-02-07 | Outpatient (CLI) | payer MEDICARE, OTHER, SELFPAY ==
[2025-02-07 13:40] LABS: Absolute Lymphocyte Count 1.81 X10^3/uL (0.83-4.51); Absolute Neutrophil Count 2.7 X10^3/uL (2.0-7.7); Basophil# 0.04 X10^3/uL; Basophil% 0.7 % (0-1); Eosinophil# 0.12 X10^3/uL; Eosinophils% 2.1 % (0-5); Hematocrit 42.9 % (40-54); Hemoglobin 14.5 g/dL (13.0-16.5); Lymphocyte # 1.81 X10^3/ul (0.83-4.51); Lymphocyte % 32.1 % (19-41); Mean Corp Hgb Conc 33.8 g/dL (32-36); Mean Corpuscular Hgb 30.7 pg (27.0-32.0); Mean Corpuscular Volume 90.9 fL (80-94); Monocyte# 0.92 X10^3/uL; Monocyte% 16.3 % (0-10); NRBC Flagged by Analyzer 0 % (0-5); Neutrophil # 2.73 X10^3/uL (2.7-7.7); Neutrophil % 48.4 % (47-70); Platelet Count 260 K/mm3 (150-450); RBC Distribution Width CV 13.1 % (11.6-14.6); RBC Distribution Width SD 43.7 fl (35.1-43.9); Red Blood Count 4.72 M/mm3 (4.6-6.2); White Blood Count 5.6 K/mm3 (4.4-11.0)
[2025-02-07 14:27] LABS: ALB/GLOB Ratio 1.1 RATIO (0.9-2.4); AST(SGOT) 28 U/L (<=37); Alanine Aminotransfer ALT/SGPT 23 U/L (<=46); Albumin, Serum 4.2 g/dL (3.4-4.8); Alkaline Phosphatase 84 U/L (40-129); Anion Gap 10 (5-15); BUN 17 mg/dL (4-19); BUN/Creat Ratio 16.5 RATIO (10-20); Calcium,Total 9.7 mg/dL (7.6-11.0); Carbon Dioxide 27.3 mmol/L (21.0-32.0); Chloride 105 mmol/L (98-108); Creatinine, Serum 1.05 mg/dL (0.70-1.20); EST Glomerular Filtration Rate 73 (>60); Globulin 3.7 g/dL (2.2-4.2); Glucose 74 mg/dL (70-99); Potassium 4.2 mmol/L (3.3-5.1); Protein, Total 7.8 g/dL (5.9-8.4); Sodium Level 142 mmol/L (133-145); Total Bilirubin 0.71 mg/dL (0.00-1.30)
[2025-02-07 14:29] LABS: Thyroid Stim Hormone (TSH) 0.537 uIU/mL (0.300-4.200); Vitamin D,25 Hydroxy 24.9 ng/mL (30-100)
== END | disposition home or self-care (01) ==
PROVIDERS: PCP Family Medicine Geriatric Medicine; Visit Provider Family Medicine Geriatric Medicine
DX: R53.83 Other fatigue (principal); E55.9 Vitamin D deficiency, unspecified
CPT/HCPCS: 36415; 80053; 82306; 84443; 85025

== ENCOUNTER → 2025-03-23 | Outpatient (CLI) | payer MEDICARE, OTHER, SELFPAY ==
--- NOTE | 2025-03-23 08:03 | CDU_ITS ---
Reason For Study Reason For Study: Stenosis Rt. Velocities/BP Lt. Velocities/BP Prox CCA 82.8/15.7 cm/sec. Prox CCA 75.3/15.1 cm/sec. Mid CCA 74.0/14.6 cm/sec. Mid CCA 67.9/16.3 cm/sec. Dist CCA 63.0/15.7 cm/sec. Dist CCA 53.1/15.7 cm/sec. Prox ICA 60.2/15.9 cm/sec. Prox ICA 304.8/101.2 cm/sec. Mid ICA 137.5/35.3 cm/sec. Mid ICA 109.1/27.8 cm/sec. Dist ICA 88.8/27.4 cm/sec. Dist ICA 61.7/17.1 cm/sec. Rt. ICA/CCA = 1.9. Lt. ICA/CCA = 4.9. Prox ECA 65.5/7.8 cm/sec. Prox ECA 66.3/9.1 cm/sec. Rt. Vert. 49.5/13.9 cm/sec. Lt. Vert. 55.6/11.4 cm/sec. Right Extracranial There is homogeneous, smooth atherosclerotic plaque noted in the right common carotid artery. There is heterogeneous, irregular atherosclerotic plaque noted in the right internal carotid artery. The atherosclerotic plaque causes acoustic shadowing. The right internal carotid artery is very tortuous. There is no significant atherosclerotic plaque noted in the right external carotid artery. Antegrade flow is noted in the right vertebral artery. Left Extracranial There is homogeneous, smooth atherosclerotic plaque noted in the left common carotid artery. There is heterogeneous, irregular atherosclerotic plaque noted in the left internal carotid artery. The left internal carotid artery is very tortuous. There is intimal thickening but no significant atherosclerotic plaque noted in the left external carotid artery. Procedure Carotid Duplex [id number]. This is a Carotid Duplex examination using B-mode, color flow and specral Doppler. Exam performed in department. Preliminary report given to Dr. Fitzpatrick. VL/Carotid Duplex Ultrasound Interpretation Summary Moderate (50-69%) stenosis right extracranial internal carotid. Severe (>70%) s tenosis left extracranial internal carotid. Patent and antegrade vertebrals bilaterally. Ordering Physician: Carlos Fitzpatrick Referring Physician: Jose Cisse Chi Performed By: Karolina Butt RVT
== END | disposition home or self-care (01) ==
LOC: CVS 08:02
PROVIDERS: PCP Family Medicine Geriatric Medicine; Referring Provider Surgery Vascular Surgery; Visit Provider Surgery Vascular Surgery
DX: I65.23 Occlusion and stenosis of bilateral carotid arteries (principal)
CPT/HCPCS: 93880

== ENCOUNTER → 2025-04-04 | Outpatient (CLI) | payer MEDICARE, OTHER, SELFPAY ==
[2025-04-04 11:22] LABS: PSA,Total- Diagnostic 0.54 ng/mL (0.00-4.00)
== END | disposition home or self-care (01) ==
LOC: LAB 09:23
PROVIDERS: PCP Family Medicine Geriatric Medicine; Referring Provider Nurse Practitioner; Visit Provider Nurse Practitioner
DX: Z12.5 Encounter for screening for malignant neoplasm of prostate (principal)
CPT/HCPCS: 36415; 84153

== ENCOUNTER → 2025-04-14 | Outpatient (CLI) | payer MEDICARE, OTHER, SELFPAY ==
--- NOTE | 2025-04-14 10:10 | PR.HP_ITS ---
History of Present Illness General Arrival date:: 04/14/25 Arrival time:: 10:10 Date of Referral:: 03/03/25 Date of Evaluation: 04/14/25 Referring Physician: Dr. Strange Primary Diagnosis: Dyspnea, asthma History of Present Pulmonary Event [facility] Breathless Scale: When is the patient short of breath? Y/N Grade: Description of Breathlessness: 0 I only get breathless with strenuous exercise. 1 I get short of breath when hurrying on level ground or walking up a slight hill. 2 On level ground, I walk slower than people of the same age because of breathless, or have to stop for breath when walking at my own pace. 3 I stop for breath after walking 100 yards or after a few minutes on level ground. 4 I am too breathless to leave the house or I am breathless when dressing. Respiratory Problems: Yes Retain Secretions, Fatigue, Wheezing, Hoarseness, Anxiety, Dyspnea with Activity and Cough with Secretions; No Limited Range of Motion, Chest Pain, Able to Speak in Full Sentences, Dizziness, Ankle Swelling, Panic, Dyspnea at Rest or Dyspnea Lying Down Flat Medications Home Medications sertraline 100 mg tablet 150 mg PO QHS 08/12/19 sildenafil 100 mg tablet (Viagra) 100 mg PO DAILY PRN ed 08/24/20 doxepin 50 mg capsule 50 mg PO QHS 08/22/22 fluticasone fur. 200 mcg-umeclid 62.5 mcg-vilant 25 mcg inhalat.powder (Trelegy Ellipta) 1 inh inhalation QHS 07/22/24 pantoprazole 40 mg tablet,delayed release 40 mg PO BID 07/22/24 metoprolol tartrate 25 mg tablet 12.5 mg (1/2 x 25 mg) PO BID Patient has been out of med, please fill FAHAD #90 tabs 10/05/24 levothyroxine 125 mcg tablet 150 mcg PO DAILY 10/15/24 Allergies Allergies No Known Allergies Allergy (Verified 10/15/24 10:32) Secretions Thick:: Yes Amount/Day:: 2 TSP Cough:: Yes AM: Yes Sleep Disorder Evaluation Hx of Sleep Apnea: Yes Do you snore loudly (louder than talking or can be heard through closed doors)?: No Do you often feel tired/ fatigued/ sleepy during daytime?: No Has anyone observed you stop breathing during sleep?: No History of Hypertension (for STOP score): No STOP Results: Negative Medical Utilization Medical Utilization Number of hospital visits in the last year?: 0 Do you see your physician on a regular schedule?: Yes Advanced Directives Advanced Directives 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 Living Will: Yes Advance Directives Information Provided: No Advance Directives on File: Yes DNR Order?:: No Past Medical History Covid-19 Screening Physicial Symptoms Other Clinical Concerns Exposure Risk Pertinent Comorbidities 65 years or older:: Yes Has a chronic lung disease or moderate to severe asthma:: Yes Medical History Medical History Alcohol use Anxiety Arthritis Asthma Bicuspid aortic valve BiPAP (biphasic positive airway pressure) dependence BPH (benign prostatic hyperplasia) Cancer Cardiology follow-up encounter COVID-19 (12/2021) Cryptogenic stroke Depression Dilated aortic root Ganglion cyst of left foot Gastric reflux History of echocardiogram History of pain when walking History of stress test History of trigger finger History of trigger finger Hypertension Hypothyroidism Injury of head and neck Left carotid artery stenosis Non-smoker Shortness of breath on exertion Sick sinus syndrome Sinus pause Syncope Wears glasses Wears hearing aid Surgical History Surgical History History of carpal tunnel surgery of left wrist History of carpal tunnel surgery of right wrist History of left heart catheterization (04/21/17) History of loop recorder (01/2017) 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) Hx of arthroscopic knee surgery Hx of cholecystectomy Hx of foot surgery Hx of fusion of cervical spine Hx of repair of left rotator cuff Hx of repair of right rotator cuff Hx of transurethral resection of prostate Social History Smoking History Smoking Status: Never smoker Hx Smoking Exposure: Yes (father smoked) Alcohol Use Alcohol Usage: Yes (occas.) Occupation Occupation (List type of work in comments):: Retired Functioning ADL/IADL Current Ability Current Ability: Independent: Self-Care (e.g.,grooming, dressing, & bathing), Independent: Ambulation, Independent: Transfer and Independent: Household tasks (e.g., light meal prep, laundry, shopping) Pt Functioning Prior to Problem Prior Functioning: Self-Care (e.g.,grooming, dressing, & bathing): Independent, Ambulation: Independent, Transfer: Independent and Household tasks (e.g., light meal prep, laundry, shopping): Independent Social Environment Status Marital Status: Current Living Arrangements Living Environment:: Spouse Children How many children do you have?: 2 Do any of your children live nearby?: Yes Safety Do you feel safe in your surroundings?: Yes Assistance Do you need any assistance at home?: no Review of Systems Review of Systems Review of Systems Respiratory: Reports Cough, SOB upon Exertion, Sputum production, Wheezing, Appetite, Normal, Fatigue, PVD and Sleep, Normal; Denies Hemoptysis, Pleuritic Pain, SOB at Rest, Dizziness/Lightheadedness or Sexual changes Pain Is Patient Pain Free?: No Pain Location: other (arthritis RLE) Pain Level: 01/10 Risk Factor Assessment Chief Complaint Chief Complaint: Dyspnea, Asthma Vital Signs Pulse Rate: 60 Pulse Rhythm: Regular Pulse Ox: 91 Blood Pressure: 160/84 Obesity Height: 5 ft 10 in Weight:: 195 lb Weight in Pounds: 195.0 lbs Body Mass Index (BMI): 27.9 Physical Activity Physical Inactivity: Recreational activity Risk Stratification Risk Guidelines: Lowest Risk: Risk Factor for Smoking, Moderate Risk: Risk Factor for Dyslipidemia, Risk Factor for Diabetes, Risk Factor for Obesity, Risk Factor for Hypertension and Risk Factor for Sedentary Lifestyle and Highest Risk: Risk Factor for Depression For Smoking Smoking Risk Guidelines For Dyslipidemia Dyslipidemia Risk Guidelines For Diabetes Mellitus Diabetes Risk Guidelines For Obesity/Overweight Obesity/Overweight Risk Guidelines For Hypertension Hypertension Risk Guidelines For Sedentary Lifestyle Sedentary Lifestyle Risk Guidelines For Depression Depression Risk Guidelines Motivation Motivation to Participate On a scale of 1 to 10, how prepared are you to commit to attending program?: 9 What do you see as barriers to successfully being able to complete the program?: nothing What do you see as the benefits of succesfully completing the program? In other words, what do you hope to get out of participating in the program?: nothing Are there issues you are dealing with that will interfere with completing the program?: no Do you have a spouse or signficant other, family or friends who will help support you to complete the program?: yes
--- NOTE | 2025-04-14 10:14 | PR.ITP_ITS ---
General Information2 General Information Admitting Diagnosis: Dyspnea, asthma Personal Learning Style/Barriers Personal Learning Style:: Audio/Visual Barriers to Learning: None Stage of change r/t lifestyle modifications: Contemplation Education/Goals CA Patient Goals: Increase muscle strength: Initial Assessment, Experience less dyspnea: Initial Assessment, Improve energy level: Initial Assessment, Participate in home exercise: Initial Assessment, Improve knowledge of lung disease: Initial Assessment and Improve my quality of life: Initial Assessment Exercise - Initial Assessment Visit Date of Eval: 04/14/25 (initial eval ) Problem/Goals Problems: Deconditioning Goals:: Aerobic exercise 30-60 mins x 12 weeks [36 sessions] Physician Prescribed Exercise Modalities: Treadmill, Rower, Schwinn Airdyne AD-7, SciFit Stepper, [employer] Pro- II Ergometer and IsogenicaFit Lateral Manager Image Frequency (days/week): 3 Duration (Minutes):: 30-45 Intensity: 60-80% of age predicted maximum heart rate reserve Current METSs:: 2 Target HR:: 114 (86-114) Resting Blood Pressure: 160/84 EKG Type: AV duel-paced rhythm w/ prolonged AV conduction Plan Plan and Plan to Review:: Benefits of exercise, Core components of exercise, How to measure dyspnea level, How to monitor dyspnea level, Exercise intensity, Exercise safety guideline, Home exercise guidelines and Carolyn: 3-4/11-13 Home Exercise Mode: Walking and Other Nutrition/Wt Mgmt - Initial Visit Date of Eval: 04/14/25 (initial eval ) Weight Management Admit Height:: 5 ft 10 in Admit Weight:: 195 lb Admit BMI:: 27.9 Intervention Referral to dietitian:: No Will attend diet classes:: Yes Intervention/Plan: Instruct on ideal BMI & set weight loss goal w/patient, Assist pt to ID & incorporate diet changes for weight loss by S9, Refer to Structured Weight Loss program as appropriate, Encourage goal of using 250- 300dcal per session for weight loss and Other additional plan/interventions Plan Nutrition Plan: Yes: Review BMI or WC & identify target wt & strategies for wt control, Yes: Nutrition education class:, Yes: Medication education class [Prednisone]:, Yes: Weight control education class:, Yes: Education re: Need for ongoing weight monitoring, Yes: Food diary: and Yes: Physical activity log: Nutrition/Wt Mgmt - 30-Day Weight Management Height: 5 ft 10 in Weight:: 195 lb BMI: 27.9 Nutrition/Wt Mgmt - 60-Day Weight Management Height: 5 ft 10 in Weight:: 195 lb BMI: 27.9 Nutrition/Wt Mgmt - 90-Day Weight Management Height: 5 ft 10 in Weight:: 195 lb BMI: 27.9 Nutrition/Wt Mgmt - Final Weight Management Height: 5 ft 10 in Weight:: 195 lb BMI: 27.9 Psychosocial - Initial Assess Visit Date of Eval: 04/14/25 (initial eval ) Problems/Goals History of Emotional Disorders: Depression (Pt is on meds and does to counseling at the [place]) Psychosocial Goals: 1. Patient is free from overwhelming symtoms of depression (or anxiety, 2. Identifies personal stressors & states the strategies for managing, 3. Identifies activities to decrease isolation and/or symptoms of, 4. Improved psychosocial coping skills., 5. Verbalizes coping strategies., 6. Adequate treatment of depression. and 7. Improved Q.O.L. Psychosocial Test Tool Used:: Pulmonary QOL and PHQ-9 Questionnaire PHQ-9 Score: 5 Referral to Behavioral Health PS - Interventions: Yes: Attend Stress Management Classes Intervention/Plan: See List Interventions/Plan:: Assess stressors,coping strategies & signs of derpression on admission, Instruct/assist pt to develop coping & personal stress Mgt strategies, Refer to Behavioral Health if appropriate, Refer to Physician if appropriate, Instruct patient to recognize signs & symptoms of depression, Instruct patient to recog and Other additional plan/intervention Psychosocial - 30-Day Problems/Goals History of Emotional Disorders: Depression (Pt is on meds and does to counseling at the [place]) Psychosocial Goals: 1. Patient is free from overwhelming symtoms of depression (or anxiety, 2. Identifies personal stressors & states the strategies for managing, 3. Identifies activities to decrease isolation and/or symptoms of, 4. Improved psychosocial coping skills., 5. Verbalizes coping strategies., 6. Adequate treatment of depression. and 7. Improved Q.O.L. Psychosocial Test Tool Used:: Pulmonary QOL and PHQ-9 Questionnaire PHQ-9 Score: 5 Referral to Behavioral Health PS - Interventions: Yes: Attend Stress Management Classes Plan Interventions/Plan:: Assess stressors,coping strategies & signs of derpression on admission, Instruct/assist pt to develop coping & personal stress Mgt st rategies, Refer to Behavioral Health if appropriate, Refer to Physician if appropriate, Instruct patient to recognize signs & symptoms of depression, Instruct patient to recog and Other additional plan/intervention Psychosocial - 60-Day Problems/Goals History of Emotional Disorders: Depression (Pt is on meds and does to counseling at the [place]) Psychosocial Goals: 1. Patient is free from overwhelming symtoms of depression (or anxiety, 2. Identifies personal stressors & states the strategies for kam ging, 3. Identifies activities to decrease isolation and/or symptoms of, 4. Improved psychosocial coping skills., 5. Verbalizes coping strategies., 6. Adequate treatment of depression. and 7. Improved Q.O.L. Psychosocial Test Tool Used:: Pulmonary QOL and PHQ-9 Questionnaire PHQ-9 Score: 5 Referral to Behavioral Health PS - Interventions: Yes: Attend Stress Management Classes Plan Interventions/Plan:: Assess stressors,coping strategies & signs of derpression on admission, Instruct/assist pt to develop coping & personal stress Mgt strategies, Refer to Behavioral Health if appropriate, Refer to Physician if appropriate, Instruct patient to recognize signs & symptoms of depression, Instruct patient to recog and Other additional plan/intervention Psychosocial - 90-Day Problems/Goals History of Emotional Disorders: Depression (Pt is on meds and does to counseling at the [place]) Psychosocial Goals: 1. Patient is free from overwhelming symtoms of depression (or anxiety, 2. Identifies personal stressors & states the strategies for managing, 3. Identifies activities to decrease isolation and/or symptoms of, 4. Improved psychosocial coping skills., 5. Verbalizes coping strategies., 6. Adequate treatment of depression. and 7. Improved Q.O.L. Psychosocial Test Tool Used:: Pulmonary QOL and PHQ-9 Questionnaire PHQ-9 Score: 5 Referral to Behavioral Health PS - Interventions: Yes: Attend Stress Management Classes Plan Interventions/Plan:: Assess stressors,coping strategies & signs of derpression on admission, Instruct/assist pt to develop coping & personal stress Mgt strategies, Refer to Behavioral Health if appropriate, Refer to Physician if appropriate, Instruct patient to recognize signs & symptoms of depression, Instruct patient to recog and Other additional plan/intervention Psychosocial - Final Assess Problems/Goals History of Emotional Disorders: Depression (Pt is on meds and does to counseling at the [place]) Psychosocial Goals: 1. Patient is free from overwhelming symtoms of depression (or anxiety, 2. Identifies personal stressors & states the strategies for managing, 3. Identifies activities to decrease isolation and/or symptoms of, 4. Improved psychosocial coping skills., 5. Verbalizes coping strategies., 6. Adequate treatment of depression. and 7. Improved Q.O.L. Psychosocial Test Tool Used:: Pulmonary QOL and PHQ-9 Questionnaire PHQ-9 Score: 5 Referral to Behavioral Health PS - Interventions: Yes: Attend Stress Management Classes Plan Interventions/Plan:: Assess stressors,coping strategies & signs of derpression on admission, Instruct/assist pt to develop coping & personal stress Mgt strategies, Refer to Behavioral Health if appropriate, Refer to Physician if appropriate, Instruct patient to recognize signs & symptoms of depression, Instruct patient to recog and Other additional plan/intervention Oxygen & Oxygen Titration Init Visit Date of Eval: 04/14/25 (initial eval ) Initial Assessment Oxygen on Admission: None Patient Reports:: Prod cough daily <1 Tbsp and Rare respiratory infections Goal Oxygen & Oxygen Tritration Goals: Effective hypoxemia control and Uses O2 as Rx'd/safely Plans Plan: Monitor SpO2 rest & with exercise, Recommend appropriate FiO2 to Pt/MD, Assist to contact DME for O2, Train appropriate O2 use at rest, Train appropriate O2 use with exercise and Train O2 safety & systems Reviewed prescribed medications:: Purpose, Schedule, Side effects and Importance of compliance Instruct correct technique/timing & care:: MDI, DPI, Nebulizer and Return demo use of inhaler Bronchial Hygiene Plan: Controlled cough, CPT, Vibratory PEP device, VEST, Role of exercise in secretion clearance, NS Nasal spray, Hydration, Hand hygiene, Evaluate sputum, When to call MD, Signs/symptoms to report:, Influenza/Pneumovax vaccines and Cleaning of respiratory equipment Core Components - Initial Visit Date of Eval: 04/14/25 (initial eval ) Hypertension BP: 160/84 [place] [employer] Hypertension Guidelines Outcomes/Goals: Able to verbalize/achieve optimal blood pressure <130/80 and Incorporates diet changes & exercise for blood pressure control by [place] Tobacco - Initial Assessment Tobacco Program Goals Tobacco Use: Non-smoker Exacerbation Mgmt & Airway Clearance Problems:: Poor knowledge of O2 use/safety Hypoxemia Goals:: Hypoxemia managed Bronchial Hygiene Problems:: Respiratory infection Prevention/Management Goals: Pt demonstrates effective cough, effective secretion clearance. and Pt describes signs and symptoms of infection. Patient Reports:: Prod cough daily <1 Tbsp and Rare respiratory infections Plan: Monitor SpO2 rest & with exercise, Recommend appropriate FiO2 to Pt/MD, Assist to contact DME for O2, Train appropriate O2 use at rest, Train appropriate O2 use with exercise and Train O2 safety & systems Instruct correct technique/timing & care:: MDI, DPI, Nebulizer and Return demo use of inhaler Bronchial Hygiene Plan: Controlled cough, CPT, Vibratory PEP device, VEST, Role of exercise in secretion clearance, NS Nasal spray, Hydration, Hand hygiene, Evaluate sputum, When to call MD, Signs/symptoms to report:, Influenza/Pneumovax vaccines and Cleaning of respiratory equipment Medication Interventions/plans: Instruct on medication effects & side effects, Review medication list w/patient every two weeks and Instruct importance of taking meds as ordered & assist problem solving Medication Goals: Adherence to prescribed medications and Correct tech nique/timing & care of MDI, DPI, nebulizer, and spacer. Does pt report taking home meds as prescribed?: Yes Medications: Yes: MDI and Yes: DPI Reviewed prescribed medications:: Purpose, Schedule, Side effects and Importance of compliance Diabetes Diabetes:: No Referral to dietitian:: No Will attend diet classes:: Yes Core Components - 30 DAYS Hypertension Resting Blood Pressure:: 160/84 [place] [employer] Hypertension Guidelines Outcomes/Goals: Able to verbalize/achieve optimal blood pressure <130/80 and Incorporates diet changes & exercise for blood pressure control by [place] Tobacco - 30-Day Tobacco Program Goals Tobacco Use: Non-smoker Diabetes Diabetes:: No Core Components - 60 DAYS Hypertension Resting Blood Pressure:: 160/84 [place] [employer] Hypertension Guidelines Outcomes/Goals: Able to verbalize/achieve optimal blood pressure <130/80 and Incorporates diet changes & exercise for blood pressure control by [place] Tobacco - 60-Day Tobacco Program Goals Tobacco Use: Non-smoker Diabetes Diabetes:: No Core Components - 90 DAYS Hypertension Resting Blood Pressure:: 160/84 [place] [employer] Hypertension Guidelines Outcomes/Goals: Able to verbalize/achieve optimal blood pressure <130/80 and Incorporates diet changes & exercise for blood pressure control by [place] Tobacco - 90-Day Tobacco Program Goals Tobacco Use: Non-smoker Diabetes Diabetes:: No Core Components - Final Hypertension Resting Blood Pressure:: 160/84 [place] [employer] Hypertension Guidelines Outcomes/Goals: Able to verbalize/achieve optimal blood pressure <130/80 and Incorporates diet changes & exercise for blood pressure control by [place] Tobacco - Final Tobacco Program Goals Tobacco Use: Non-smoker Diabetes Diabetes:: No Patient Health Questionnaire PHQ-9 Screening Initial Assessment: 1. Little interest or pleasure in doing things: Not at all 2. Feeling down, depressed, or hopeless: Not at all 3. Trouble falling or staying asleep, or sleeping too much: Not at all 4. Feeling tired or having little energy: More than half the days 5. Poor appetite or overeating: Several days 6. Feeling bad about yourself -- or that you are a failure or have let yourself or your family down: Not at all 7. Trouble concentrating on things, such as reading the newspaper or watching television: Several days 8. Moving or speaking so slowly that other people could have noticed. Or the opposite - being so fidgety or restless that you have been moving around a lot more than usual: Several days 9. Thoughts that you would be better off , or of hurting yourself in some way: Not at all How difficult have these problems made it for you to do your work, take care of things at home, or get along with other people?: Not difficult at all Total Score: 5 Knowledge Questionaire (BCKQ) Information Information: [place] COPD Knowledge Questionnaire (BCKQ) This questionnaire is designed to find out what you know about your lung problem. It should be completed without help form anyone else. This usually takes between 10 and 20 minutes. Your answers will help us to find out what information you need to help you to understand and manage your lung condition. [place] which you think is the correct answer. COPD Assessment Test [CAT] Questions Never cough = 0, Cough all the time = 5: 3 No phlegm = 0, Chest full of phlegm = 5: 3 No chest tightness = 0, Chest very tight = 5: 3 No breathless w/exertion = 0, Very breathless w/exertion = 5: 4 No limitations w/activity = 0, Very limited w/activity = 5: 1 Confident leaving home = 0, Not at all confident = 5: 0 Sleep soundly = 0, Don't sleep soundly = 5: 1 Lots of energy = 0, No energy at all = 5: 3 Total CAT score:: 18 Nutrition Survey Nutrition Survey Instructions Scoring Instructions Nutrition Survey Initial: Have you lost >10 lbs over the past 2 months without trying?: No Are you following a special diet at home for diabetes, low fat, or low salt?: No Are you interested in meeting with a dietitian for help understanding your diet?: No Do you eat less than 3 meals a day?: Yes Do you eat fatty meats (gore, sausage, ribs, etc), fried foods, desserts, large amounts of salad dressings, margarine, butter, or cheese most days?: Yes Do you have food allergies? [Enter types in comment field]: No Do you eat in restaurants more than 3 times a week?: Yes Do you season food with salt, seasoning salt, or garlic salt?: No Do you used canned, boxed, frozen meals, or soups, seasoning packets?: Yes Total Score:: 4
[2025-04-14 10:32] VITALS: BP 160/84; PULSE 60; O2SAT 91
[2025-04-14 11:22] VITALS: BP 160/84; BMI 27.9
[2025-04-14 11:23] VITALS: BMI 27.9
== END | disposition home or self-care (01) ==
PROVIDERS: PCP Family Medicine Geriatric Medicine; Referring Provider Internal Medicine Pulmonary Disease; Visit Provider Internal Medicine Pulmonary Disease
DX: R06.00 Dyspnea, unspecified (principal); J45.909 Unspecified asthma, uncomplicated

== ENCOUNTER 2025-04-22 10:00 | Outpatient (RCR) | payer MEDICARE, OTHER, SELFPAY ==
[2025-04-14 11:22] VITALS: BMI 27.9
== END 2025-04-30 23:59 ==
LOC: PR 10:00
PROVIDERS: PCP Family Medicine Geriatric Medicine; Referring Provider Internal Medicine Pulmonary Disease; Visit Provider Internal Medicine Pulmonary Disease
DX: R06.00 Dyspnea, unspecified (principal); J45.909 Unspecified asthma, uncomplicated
CPT/HCPCS: 97150; G0239

== ENCOUNTER 2025-05-27 10:00 | Outpatient (RCR) | payer MEDICARE, OTHER, SELFPAY ==
[2025-04-14 11:22] VITALS: BMI 27.9
--- NOTE | 2025-05-12 07:35 | PR.ITP_ITS ---
Exercise - Initial Assessment Visit Session Number:: 5 Physician Prescribed Exercise Modalities: Treadmill, [employer] Airdyne AD-7 and Sci[employer] Stepper Current METSs:: 3.4 Target HR:: 114 (86-114) Current RPD:: 2 Maximum Exercise HR:: 108 Resting Blood Pressure: 134/70 Maximum Exercise Blood Pressure: 140/70 Minimum SpO2 with exercise: 91 EKG Type: AV duel paced with prolonged AV conduction, rare PAC's Nutrition/Wt Mgmt - Initial Visit Session Number:: 5 Weight Management Admit Height:: 5 ft 10 in Admit Weight:: 195 lb Admit BMI:: 27.9 Nutrition/Wt Mgmt - 30-Day Visit Date of Eval: 05/12/25 Session Number:: 5 Weight Management Height: 5 ft 10 in Weight:: 195 lb BMI: 27.9 Weight Goals Progress:: Progressing (Pt will attend nutrition class. Low sodium heart healthy diet to be encourqed) Nutrition/Wt Mgmt - 60-Day Visit Session Number:: 5 Weight Management Height: 5 ft 10 in Weight:: 195 lb BMI: 27.9 Nutrition/Wt Mgmt - 90-Day Visit Session Number:: 5 Weight Management Height: 5 ft 10 in Weight:: 195 lb BMI: 27.9 Nutrition/Wt Mgmt - Final Visit Session Number:: 5 Weight Management Height: 5 ft 10 in Weight:: 195 lb BMI: 27.9 Psychosocial - Initial Assess Visit Session Number:: 5 Problems/Goals History of Emotional Disorders: Depression Psychosocial Goals: 1. Patient is free from overwhelming symtoms of depression (or anxiety, 2. Identifies personal stressors & states the strategies for managing, 3. Identifies activities to decrease isolation and/or symptoms of, 4. Improved psychosocial coping skills., 5. Verbalizes coping strategies., 6. Adequate treatment of depression. and 7. Improved Q.O.L. Psychosocial Test Tool Used:: PHQ-9 Questionnaire PHQ-9 Score: 5 Referral to Behavioral Health PS - Interventions: Yes: Attend Stress Management Classes Intervention/Plan: See List Interventions/Plan:: Assess stressors,coping strategies & signs of derpression on admission, Instruct/assist pt to develop coping & personal stress Mgt strategies, Refer to Behavioral Health if appropriate, Refer to Physician if appropriate, Instruct patient to recognize signs & symptoms of depression and Instruct patient to recog Comments:: Pt is on meds for depression and is in counseling at the [facility] - 30-Day Visit Date of Eval: 05/12/25 Session Number:: 5 Problems/Goals History of Emotional Disorders: Depression Psychosocial Goals: 1. Patient is free from overwhelming symtoms of depression (or anxiety, 2. Identifies personal stressors & states the strategies for managing, 3. Identifies activities to decrease isolation and/or symptoms of, 4. Improved psychosocial coping skills., 5. Verbalizes coping strategies., 6. Adequate treatment of depression. and 7. Improved Q.O.L. Psychosocial Test Tool Used:: PHQ-9 Questionnaire PHQ-9 Score: 5 Referral to [facility] PS - Interventions: Yes: Attend Stress Management Classes Plan Interventions/Plan:: Assess stressors,coping strategies & signs of derpression on admission, Instruct/assist pt to develop coping & personal stress Mgt strategies, Refer to Behavioral Health if appropriate, Refer to Physician if appropriate, Instruct patient to recognize signs & symptoms of depression and Instruct patient to recog Comments:: Pt is on meds for depression and is in counseling at the [facility] - 60-Day Visit Session Number:: 5 Problems/Goals History of Emotional Disorders: Depression Psychosocial Goals: 1. Patient is free from overwhelming symtoms of depression (or anxiety, 2. Identifies personal stressors & states the strategies for managi ng, 3. Identifies activities to decrease isolation and/or symptoms of, 4. Improved psychosocial coping skills., 5. Verbalizes coping strategies., 6. Adequate treatment of depression. and 7. Improved Q.O.L. Psychosocial Test Tool Used:: PHQ-9 Questionnaire PHQ-9 Score: 5 Referral to Behavioral Health PS - Interventions: Yes: Attend Stress Management Classes Plan Interventions/Plan:: Assess stressors,coping strategies & signs of derpression on admission, Instruct/assist pt to develop coping & personal stress Mgt strategies, Refer to Behavioral Health if appropriate, Refer to Physician if appropriate, Instruct patient to recognize signs & symptoms of depression and Instruct patient to recog Comments:: Pt is on meds for depression and is in counseling at the [facility] - 90-Day Visit Session Number:: 5 Problems/Goals History of Emotional Disorders: Depression Psychosocial Goals: 1. Patient is free from overwhelming symtoms of depression (or anxiety, 2. Identifies personal stressors & states the strategies for managing, 3. Identifies activities to decrease isolation and/or symptoms of, 4. Improved psychosocial coping skills., 5. Verbalizes coping strategies., 6. Adequate treatment of depression. and 7. Improved Q.O.L. Psychosocial Test Tool Used:: PHQ-9 Questionnaire PHQ-9 Score: 5 Referral to Behavioral Health PS - Interventions: Yes: Attend Stress Management Classes Plan Interventions/Plan:: Assess stressors,coping strategies & signs of derpression on admission, Instruct/assist pt to develop coping & personal stress Mgt strategies, Refer to Behavioral Health if appropriate, Refer to Physician if appropriate, Instruct patient to recognize signs & symptoms of depression and Instruct patient to recog Comments:: Pt is on meds for depression and is in counseling at [facility] - Final Assess Visit Session Number:: 5 Problems/Goals History of Emotional Disorders: Depression Psychosocial Goals: 1. Patient is free from overwhelming symtoms of depression (or anxiety, 2. Identifies personal stressors & states the strategies for managing, 3. Identifies activities to decrease isolation and/or symptoms of, 4. Improved psychosocial coping skills., 5. Verbalizes coping strategies., 6. Adequate treatment of depression. and 7. Improved Q.O.L. Psychosocial Test Tool Used:: PHQ-9 Questionnaire PHQ-9 Score: 5 Referral to Behavioral Health PS - Interventions: Yes: Attend Stress Management Classes Plan Interventions/Plan:: Assess stressors,coping strategies & signs of derpression on admission, Instruct/assist pt to develop coping & personal stress Mgt strategies, Refer to Behavioral Health if appropriate, Refer to Physician if appropriate, Instruct patient to recognize signs & symptoms of depression and In struct patient to recog Comments:: Pt is on meds for depression and is in counseling at [facility] Init Visit Session Number:: 5 Initial Assessment SpO2:: 91 Oxygen & Oxygen Titration 30D Visit Date of Eval: 05/12/25 Session Number:: 5 Reassessment Reassessment- 30 Days: Demonstrate knowledge of O2 Rx at rest & w/exercise Breath Sounds:: Clear SpO2:: 91 Oxygen & Oxygen Titration 60D Visit Date of Eval: 05/12/25 Session Number:: 5 Reassessment Breath Sounds:: Clear SpO2:: 91 Oxygen & Oxygen Titration 90D Visit Date of Eval: 05/12/25 Session Number:: 5 Reassessment Breath Sounds:: Clear SpO2:: 91 Oxygen & Oxygen Titration SHANNAN Visit Date of Eval: 05/12/25 Session Number:: 5 Reassessment Breath Sounds:: Clear SpO2:: 91 Core Components - Initial Visit Session Number:: 5 Hypertension BP: 134/70 [place] [employer] Hypertension Guidelines Blood Pressure: 140/70 Outcomes/Goals: Able to verbalize/achieve optimal blood pressure <130/80 and Incorporates diet changes & exercise for blood pressure control by DC Tobacco - Initial Assessment Tobacco Program Goals Tobacco Use: Non-smoker Diabetes Diabetes:: No Core Components - 30 DAYS Visit Date of Eval: 05/12/25 Session Number:: 5 Hypertension Resting Blood Pressure:: 134/70 [place] [employer] Hypertension Guidelines Peak Exercise Blood Pressure:: 140/70 Outcomes/Goals: Able to verbalize/achieve optimal blood pressure <130/80 and Incorporates diet changes & exercise for blood pressure control by DC Interventions/plan: Instruct on optimal blood pressure, hypertension & medicat ions, Instruct on effects of sodium, alcohol, stress, exercise &hypertension and Other additional plan/interventions 30 day Reassessments:: Progressing Reassessment Notes & Comments:: Pt's BP's are within AHA normal limits on some days. Will continue to monitor and report to pt's physician if necessary. Tobacco - 30-Day Tobacco Program Goals Tobacco Use: Non-smoker Exacerbation Mgmt & Airway Clearance Reassessment: Demonstrates knowledge of O2 Rx at rest and Demonstrates knowledge of O2 Rx with exercise Bronchial Hygiene Plan: Yes: Pt demonstrates correctly for effective cough Medication Medication list reviewed:: Yes Taking medications 100% of the time:: Met (Pt taking meds as prescribed.) Diabetes Diabetes:: No Core Components - 60 DAYS Visit Session Number:: 5 Hypertension Resting Blood Pressure:: 134/70 [place] [employer] Hypertension Guidelines Peak Exercise Blood Pressure:: 140/70 Outcomes/Goals: Able to verbalize/achieve optimal blood pressure <130/80 and Incorporates diet changes & exercise for blood pressure control by DC Interventions/plan: Instruct on optimal blood pressure, hypertension & medications, Instruct on effects of sodium, alcohol, stress, exercise &hypertension and Other additional plan/interventions 60 day Reassessments:: Progressing Reassessment Notes & Comments:: Pt's BP's are within AHA normal limits on some days. Will continue to monitor and report to pt's physician if necessary. Tobacco - 60-Day Tobacco Program Goals Tobacco Use: Non-smoker Exacerbation Mgmt & Airway Clearance Reassessment: Demonstrates knowledge of O2 Rx at rest and Demonstrates knowledge of O2 Rx with exercise Bronchial Hygiene Plan: Yes: Pt demonstrates correctly for effective cough Medication Taking medications 100% of the time:: Met (Pt taking meds as prescribed.) Diabetes Diabetes:: No Core Components - 90 DAYS Visit Session Number:: 5 Hypertension Resting Blood Pressure:: 134/70 [place] [employer] Hypertension Guidelines Peak Exercise Blood Pressure:: 140/70 Outcomes/Goals: Able to verbalize/achieve optimal blood pressure <130/80 and Incorporates diet changes & exercise for blood pressure control by DC Interventions/plan: Instruct on optimal blood pressure, hypertension & medications, Instruct on effects of sodium, alcohol, stress, exercise &hypertension and Other additional plan/interventions 90 day Reassessments:: Progressing Reassessment Notes & Comments:: Pt's BP's are within AHA normal limits on some days. Will continue to monitor and report to pt's physician if necessary. Tobacco - 90-Day Tobacco Program Goals Tobacco Use: Non-smoker Exacerbation Mgmt & Airway Clearance Bronchial Hygiene Plan: Yes: Pt demonstrates correctly for effective cough Diabetes Diabetes:: No Core Components - Final Visit Session Number:: 5 Hypertension Resting Blood Pressure:: 134/70 [place] [employer] Hypertension Guidelines Peak Exercise Blood Pressure:: 140/70 Outcomes/Goals: Able to verbalize/achieve optimal blood pressure <130/80 and Incorporates diet changes & exercise for blood pressure control by DC Tobacco - Final Tobacco Program Goals Tobacco Use: Non-smoker Exacerbation Mgmt & Airway Clearance Bronchial Hygiene Plan: Yes: Pt demonstrates correctly for effective cough Diabetes Diabetes:: No Patient Health Questionnaire PHQ-9 Screening 30-Day Re-eval Assessment: 1. Little interest or pleasure in doing things: Not at all 2. Feeling down, depressed, or hopeless: Not at all 3. Trouble falling or staying asleep, or sleeping too much: Not at all 4. Feeling tired or having little energy: More than half the days 5. Poor appetite or overeating: Several days 6. Feeling bad about yourself -- or that you are a failure or have let yourself or your family down: Not at all 7. Trouble concentrating on things, such as reading the newspaper or watch ing television: Several days 8. Moving or speaking so slowly that other people could have noticed. Or the opposite - being so fidgety or restless that you have been moving around a lot more than usual: Several days 9. Thoughts that you would be better off , or of hurting yourself in some way: Not at all How difficult have these problems made it for you to do your work, take care of things at home, or get along with other people?: Not difficult at all Total Score: 5 Knowledge Questionaire (BCKQ) Information Information: [facility] COPD Knowledge Questionnaire (BCKQ) This questionnaire is designed to find out what you know about your lung problem. It should be completed without help form anyone else. This usually takes between 10 and 20 minutes. Your answers will help us to find out what information you need to help you to understand and manage your lung condition. [place] [employer] [place] which you think is the correct answer. Self-Efficacy 6-Item Scale 30-Day Re-eval Assessment: We would like to know how confident you are in doing certain activities. Please select your confidence level for: Fatigue Select Number: 10 Physical Discomfort or Pain Select Number: 10 Emotional Distress Select Number: 10 Other Symptoms or Health Problems Select Number: 10 Different Tasks and Activities Select Number: 10 Medication Select Number: 10 Total Score:: 10 Nutrition Survey Nutrition Survey Instructions Scoring Instructions
[2025-05-12 07:46] VITALS: BP 134/70; BP 140/70; O2SAT 91; BMI 27.9
== END 2025-05-30 23:59 ==
LOC: PR 10:00
PROVIDERS: PCP Family Medicine Geriatric Medicine; Referring Provider Internal Medicine Pulmonary Disease; Visit Provider Internal Medicine Pulmonary Disease
DX: N39.0 Urinary tract infection, site not specified (principal)
CPT/HCPCS: 87077; 87086; 87088; 87186; 97150; G0239

== ENCOUNTER 2025-06-13 10:00 | Outpatient (RCR) | payer MEDICARE, OTHER, SELFPAY ==
[2025-05-12 07:46] VITALS: BMI 27.9
--- NOTE | 2025-06-09 08:34 | PR.ITP_ITS ---
Exercise - Initial Assessment Visit Session Number:: 15 Physician Prescribed Exercise Modalities: Treadmill, Rower, Schwinn Airdyne AD-7, SciFit Stepper, SciFit Pro- II Ergometer and SciFit Lateral Exit Booth Agent Target HR:: 114 Target RPE 12-16:: 12-16 Current RPD:: 11 Maximum Exercise HR:: 96 Resting Blood Pressure: 122/68 Maximum Exercise Blood Pressure: 140/80 Minimum SpO2 with exercise: 94 EKG Type: AV dual paced Nutrition/Wt Mgmt - Initial Visit Session Number:: 15 Weight Management Admit Height:: 5 ft 10 in Admit Weight:: 198 lb Admit BMI:: 28.4 Nutrition/Wt Mgmt - 30-Day Visit Date of Eval: 06/09/25 Session Number:: 15 Weight Management Height: 5 ft 10 in Weight:: 198 lb BMI: 28.4 Nutrition/Wt Mgmt - 60-Day Visit Date of Eval: 06/09/25 Session Number:: 15 Weight Management Weight Assessment:: WC <40 male and Wt stable Height: 5 ft 10 in Weight:: 198 lb BMI: 28.4 Weight Goals Progress:: Progressing (pt attending exercise classes and encouraged to follow healthy diet and exercise outside of class, pt weighing in every friday) Nutrition/Wt Mgmt - 90-Day Visit Session Number:: 15 Weight Management Weight Assessment:: WC <40 male and Wt stable Height: 5 ft 10 in Weight:: 198 lb BMI: 28.4 Weight Goals Progress:: Progressing (pt attending exercise classes and encouraged to follow healthy diet and exercise outside of class, pt weighing in every friday) Nutrition/Wt Mgmt - Final Visit Session Number:: 15 Weight Management Height: 5 ft 10 in Weight:: 198 lb BMI: 28.4 Psychosocial - Initial Assess Visit Session Number:: 15 Problems/Goals History of Emotional Disorders: Depression (Pt is taking medications and undergoes counseling [facility]) Psychosocial Goals: 1. Patient is free from overwhelming symtoms of depression (or anxiety, 2. Identifies personal stressors & states the strategies for managing, 3. Identifies activities to decrease isolation and/or symptoms of, 4. Improved psychosocial coping skills., 5. Verbalizes coping strategies., 6. Adequate treatment of depression. and 7. Improved Q.O.L. Psychosocial Test Tool Used:: Pulmonary QOL and PHQ-9 Questionnaire PHQ-9 Score: 5 Referral to Behavioral Health PS - Interventions: Yes: Attend Stress Management Classes Intervention/Plan: See List Interventions/Plan:: Assess stressors,coping strategies & signs of derpression on admission, Instruct/assist pt to develop coping & personal stress Mgt strategies, Refer to Behavioral Health if appropriate, Refer to Physician if appropriate and Instruct patient to recognize signs & symptoms of depression Psychosocial - 30-Day Visit Date of Eval: 06/09/25 Session Number:: 15 Problems/Goals History of Emotional Disorders: Depression (Pt is taking medications and undergoes counseling at [facility]) Psychosocial Goals: 1. Patient is free from overwhelming symtoms of depression (or anxiety, 2. Identifies personal stressors & states the strategies for managing, 3. Identifies activities to decrease isolation and/or symptoms of, 4. Improved psychosocial coping skills., 5. Verbalizes coping strategies., 6. Adequate treatment of depression. and 7. Improved Q.O.L. Psychosocial Test Tool Used:: Pulmonary QOL and PHQ-9 Questionnaire PHQ-9 Score: 5 Referral to Behavioral Health PS - Interventions: Yes: Attend Stress Management Classes Plan Interventions/Plan:: Assess stressors,coping strategies & signs of derpression on admission, Instruct/assist pt to develop coping & personal stress Mgt s trategies, Refer to Behavioral Health if appropriate, Refer to Physician if appropriate and Instruct patient to recognize signs & symptoms of depression Psychosocial - 60-Day Visit Date of Eval: 06/09/25 Session Number:: 15 Problems/Goals History of Emotional Disorders: Depression (Pt is taking medications and undergoes counseling at [facility]) Psychosocial Goals: 1. Patient is free from overwhelming symtoms of depression (or anxiety, 2. Identifies personal stressors & states the strategies for managing, 3. Identifies activities to decrease isolation and/or symptoms of, 4. Improved psychosocial coping skills., 5. Verbalizes coping strategies., 6. Adequate treatment of depression. and 7. Improved Q.O.L. Psychosocial Test Tool Used:: Pulmonary QOL and PHQ-9 Questionnaire PHQ-9 Score: 5 Referral to Behavioral Health PS - Interventions: Yes: Attend Stress Management Classes Plan Interventions/Plan:: Assess stressors,coping strategies & signs of derpression on admission, Instruct/assist pt to develop coping & personal stress Mgt strategies, Refer to Behavioral Health if appropriate, Refer to Physician if appropriate and Instruct patient to recognize signs & symptoms of depression Psychosocial - -Day Visit Session Number:: 15 Problems/Goals History of Emotional Disorders: Depression (Pt is taking medications and underg oes counseling [facility]) Psychosocial Goals: 1. Patient is free from overwhelming symtoms of depression (or anxiety, 2. Identifies personal stressors & states the strategies for managing, 3. Identifies activities to decrease isolation and/or symptoms of, 4. Improved psychosocial coping skills., 5. Verbalizes coping strategies., 6. Adequate treatment of depression. and 7. Improved Q.O.L. Psychosocial Test Tool Used:: Pulmonary QOL and PHQ-9 Questionnaire PHQ-9 Score: 5 Referral to Behavioral Health PS - Interventions: Yes: Attend Stress Management Classes Plan Interventions/Plan:: Assess stressors,coping strategies & signs of derpression on admission, Instruct/assist pt to develop coping & personal stress Mgt strategies, Refer to Behavioral Health if appropriate, Refer to Physician if appropriate and Instruct patient to recognize signs & symptoms of depression Psychosocial - Final Assess Visit Session Number:: 15 Problems/Goals History of Emotional Disorders: Depression (Pt is taking medications and undergoes counseling at [facility]) Psychosocial Goals: 1. Patient is free from overwhelming symtoms of depression (or anxiety, 2. Identifies personal stressors & states the strategies for managing, 3. Identifies activities to decrease isolation and/or symptoms of, 4. Improved psychosocial coping skills., 5. Verbalizes coping strategies., 6. Adequate treatment of depression. and 7. Improved Q.O.L. Psychosocial Test Tool Used:: Pulmonary QOL and PHQ-9 Questionnaire PHQ-9 Score: 5 Referral to Behavioral Health PS - Interventions: Yes: Attend Stress Management Classes Plan Interventions/Plan:: Assess stressors,coping strategies & signs of derpression on admission, Instruct/assist pt to develop coping & personal stress Mgt strategies, Refer to Behavioral Health if appropriate, Refer to Physician if appropriate and Instruct patient to recognize signs & symptoms of depression Oxygen & Oxygen Titration Init Visit Session Number:: 15 Initial Assessment SpO2:: 94 Oxygen & Oxygen Titration 30D Visit Date of Eval: 06/09/25 Session Number:: 15 Reassessment Breath Sounds:: Clear SpO2:: 94 Oxygen & Oxygen Titration 60D Visit Date of Eval: 06/09/25 Session Number:: 15 Reassessment Reassessment- 60 Days: Demonstrate knowledge of O2 Rx at rest & w/exercise Breath Sounds:: Clear SpO2:: 94 Oxygen & Oxygen Titration 90D Visit Date of Eval: 06/09/25 Session Number:: 15 Reassessment Breath Sounds:: Clear SpO2:: 94 Oxygen & Oxygen Titration SHANNAN Visit Date of Eval: 06/09/25 Session Number:: 15 Reassessment Breath Sounds:: Clear SpO2:: 94 Core Components - Initial Visit Session Number:: 15 Hypertension Hypertension Diagnosis:: Hypertension ICD-10 I10 BP: 142/78 [place] [employer] Hypertension Guidelines Blood Pressure: 140/80 Outcomes/Goals: Able to verbalize/achieve optimal blood pressure <130/80 and I ncorporates diet changes & exercise for blood pressure control by DC Tobacco - Initial Assessment Tobacco Program Goals Tobacco Use: Non-smoker Diabetes Diabetes:: No Core Components - 30 DAYS Visit Date of Eval: 06/09/25 Session Number:: 15 Hypertension Hypertension Diagnosis:: Hypertension ICD-10 I10 Resting Blood Pressure:: 142/78 [place] [employer] Hypertension Guidelines Peak Exercise Blood Pressure:: 140/80 Outcomes/Goals: Able to verbalize/achieve optimal blood pressure <130/80 and Incorporates diet changes & exercise for blood pressure control by DC Interventions/plan: Instruct on optimal blood pressure, hypertension & medications and Instruct on effects of sodium, alcohol, stress, exercise &hypertension 30 day Reassessments:: Progressing Reassessment Notes & Comments:: Pt taking medications as prescribed, pt trying to adhere to low sodium diet and healthy lifestyle Tobacco - 30-Day Tobacco Program Goals Tobacco Use: Non-smoker Exacerbation Mgmt & Airway Clearance Reassessment: Demonstrates knowledge of O2 Rx at rest and Demonstrates knowledge of O2 Rx with exercise Medication Taking medications 100% of the time:: Met (pt taking medications as prescribed) Diabetes Diabetes:: No Core Components - 60 DAYS Visit Date of Eval: 06/09/25 Session Number:: 15 Hypertension Hypertension Diagnosis:: Hypertension ICD-10 I10 Resting Blood Pressure:: 142/78 [place] [employer] Hypertension Guidelines Peak Exercise Blood Pressure:: 140/80 Outcomes/Goals: Able to verbalize/achieve optimal blood pressure <130/80 and Incorporates diet changes & exercise for blood pressure control by DC Interventions/plan: Instruct on optimal blood pressure, hypertension & medications and Instruct on effects of sodium, alcohol, stress, exercise &hypertension 60 day Reassessments:: Progressing Reassessment Notes & Comments:: Pt taking medications as prescribed, pt trying to adhere to low sodium diet and healthy lifestyle Tobacco - 60-Day Tobacco Program Goals Tobacco Use: Non-smoker Exacerbation Mgmt & Airway Clearance Reassessment: Demonstrates knowledge of O2 Rx at rest and Demonstrates knowledge of O2 Rx with exercise Medication Taking medications 100% of the time:: Met Taking medications 100% of the time:: Met (pt taking medications as prescribed) Diabetes Diabetes:: No Core Components - 90 DAYS Visit Session Number:: 15 Hypertension Hypertension Diagnosis:: Hypertension ICD-10 I10 Resting Blood Pressure:: 142/78 [place] [employer] Hypertension Guidelines Peak Exercise Blood Pressure:: 140/80 Outcomes/Goals: Able to verbalize/achieve optimal blood pressure <130/80 and Incorporates diet changes & exercise for blood pressure control by DC Interventions/plan: Instruct on optimal blood pressure, hypertension & medications and Instruct on effects of sodium, alcohol, stress, exercise &hypertension 90 day Reassessments:: Progressing Reassessment Notes & Comments:: Pt taking medications as prescribed, pt trying to adhere to low sodium diet and healthy lifestyle Tobacco - 90-Day Tobacco Program Goals Tobacco Use: Non-smoker Diabetes Diabetes:: No Core Components - Final Visit Session Number:: 15 Hypertension Hypertension Diagnosis:: Hypertension ICD-10 I10 Resting Blood Pressure:: 142/78 [place] [employer] Hypertension Guidelines Peak Exercise Blood Pressure:: 140/80 Outcomes/Goals: Able to verbalize/achieve optimal blood pressure <130/80 and Incorporates diet changes & exercise for blood pressure control by DC Tobacco - Final Tobacco Program Goals Tobacco Use: Non-smoker Diabetes Diabetes:: No Patient Health Questionnaire PHQ-9 Screening 60-Day Re-eval Assessment: 1. Little interest or pleasure in doing things: Not at all 2. Feeling down, depressed, or hopeless: Not at all 3. Trouble falling or staying asleep, or sleeping too much: Not at all 4. Feeling tired or having little energy: More than half the days 5. Poor appetite or overeating: Several days 6. Feeling bad about yourself -- or that you are a failure or have let yourself or your family down: Not at all 7. Trouble concentrating on things, such as reading the newspaper or watching television: Several days 8. Moving or speaking so slowly that other people could have noticed. Or the opposite - being so fidgety or restless that you have been moving around a lot more than usual: Several days 9. Thoughts that you would be better off , or of hurting yourself in some way: Not at all How difficult have these problems made it for you to do your work, take care of things at home, or get along with other people?: Not difficult at all Total Score: 5 Knowledge Questionaire (BCKQ) Information Information: [facility] COPD Knowledge Questionnaire (BCKQ) This questionnaire is designed to find out what you know about your lung problem. It should be completed without help form anyone else. This usually takes between 10 and 20 minutes. Your answers will help us to find out what information you need to help you to understand and manage your lung condition. Ernie the [place] which you think is the correct answer. Self-Efficacy 6-Item Scale 60-Day Re-eval Assessment: We would like to know how confident you are in doing certain activities. Please select your confidence level for: Fatigue Select Number: 10 Physical Discomfort or Pain Select Number: 10 Emotional Distress Select Number: 10 Other Symptoms or Health Problems Select Number: 10 Different Tasks and Activities Select Number: 10 Medication Select Number: 10 Total Score:: 10 Nutrition Survey Nutrition Survey Instructions Scoring Instructions
[2025-06-09 08:48] VITALS: BP 122/68; BP 140/80; BP 142/78; O2SAT 94; BMI 28.4
== END 2025-06-30 23:59 ==
LOC: PR 10:00
PROVIDERS: PCP Family Medicine Geriatric Medicine; Referring Provider Internal Medicine Pulmonary Disease; Visit Provider Internal Medicine Pulmonary Disease
DX: N39.0 Urinary tract infection, site not specified (principal)
CPT/HCPCS: 97150; G0239

== ENCOUNTER 2025-07-29 09:30 | Outpatient (RCR) | payer MEDICARE, OTHER, SELFPAY ==
[2025-06-09 08:48] VITALS: BMI 28.4
--- NOTE | 2025-07-08 07:12 | PCM.PR.TP ---
Exercise - Initial Assessment Visit Session Number:: 17 Physician Prescribed Exercise Modalities: Treadmill, Schwinn Airdyne AD-7 and SciFit Stepper Current METSs:: 4.4 Target HR:: 114 (86-114) Current RPD:: 2-3 Maximum Exercise HR:: 106 Resting Blood Pressure: 152/72 Maximum Exercise Blood Pressure: 154/68 Minimum SpO2 with exercise: 91 (room air) EKG Type: AV dual paced rhythm with prolonged AV conduction. Nutrition/Wt Mgmt - Initial Visit Session Number:: 17 Weight Management Admit Height:: 5 ft 10 in Admit Weight:: 198 lb Admit BMI:: 28.4 Nutrition/Wt Mgmt - 30-Day Visit Date of Eval: 07/08/25 Session Number:: 17 Weight Management Height: 5 ft 10 in Weight:: 198 lb BMI: 28.4 Nutrition/Wt Mgmt - 60-Day Visit Session Number:: 17 Weight Management Height: 5 ft 10 in Weight:: 198 lb BMI: 28.4 Weight Goals Progress:: Progressing (Pt will attend nutrition class. Heart healthy low sodium diet encouraged. Encourage pt to keep a food diary.) Nutrition/Wt Mgmt - 90-Day Visit Date of Eval: 07/08/25 Session Number:: 17 Weight Management Height: 5 ft 10 in Weight:: 198 lb BMI: 28.4 Weight Goals Progress:: Progressing (Pt will attend nutrition class. Heart healthy low sodium diet encouraged. Encourage pt to keep a food diary.) Nutrition/Wt Mgmt - Final Visit Session Number:: 17 Weight Management Height: 5 ft 10 in Weight:: 198 lb BMI: 28.4 Psychosocial - Initial Assess Visit Session Number:: 17 Problems/Goals History of Emotional Disorders: Depression (Pt is on meds for depression and in [facility]) Psychosocial Goals: 1. Patient is free from overwhelming symtoms of depression (or anxiety, 2. Identifies personal stressors & states the strategies for managing, 3. Identifies activities to decrease isolation and/or symptoms of, 4. Improved psychosocial coping skills., 5. Verbalizes coping strategies., 6. Adequate treatment of depression. and 7. Improved Q.O.L. Psychosocial Test Tool Used:: PHQ-9 Questionnaire PHQ-9 Score: 5 Referral to Behavioral Health PS - Interventions: Yes: Attend Stress Management Classes Intervention/Plan: See List Interventions/Plan:: Assess stressors,coping strategies & signs of derpression on admission, Instruct/assist pt to develop coping & personal stress Mgt strategies, Refer to Behavioral Health if appropriate, Refer to Physician if appropriate, Instruct patient to recognize signs & symptoms of depression and Instruct patient to recog Comments:: Pt to attend stress [facility] Psychosocial - 30-Day Visit Date of Eval: 07/08/25 Session Number:: 17 Problems/Goals History of Emotional Disorders: Depression (Pt is on meds for depression and in counseling at the [facility]) Psychosocial Goals: 1. Patient is free from overwhelming symtoms of depression (or anxiety, 2. Identifies personal stressors & states the strategies for managing, 3. Identifies activities to decrease isolation and/or symptoms of, 4. Improved psychosocial coping skills., 5. Verbalizes coping strategies., 6. Adequate treatment of depression. and 7. Improved Q.O.L. Psychosocial Test Tool Used:: PHQ-9 Questionnaire PHQ-9 Score: 5 Referral to Behavioral Health PS - Interventions: Yes: Attend Stress Management Classes Plan Interventions/Plan:: Assess stressors,coping strategies & signs of derpression on admission, Instruct/assist pt to develop coping & personal stress Mgt strategies, Refer to Behavioral Health if appropriate, Refer to Physician if appropriate, Instruct patient to recognize signs & symptoms of depression and Instruct patient to recog Comments:: Pt to attend [facility] Psychosocial - 60-Day Visit Session Number:: 17 Problems/Goals History of Emotional Disorders: Depression (Pt is on meds for depression and in counseling at [facility]) Psychosocial Goals: 1. Patient is free from overwhelming symtoms of depression (or anxiety, 2. Identifies personal stressors & states the strategies for managing, 3. Identifies activities to decrease isolation and/or symptoms of, 4. Improved psychosocial coping skills., 5. Verbalizes coping strategies., 6. Adequate treatment of depression. and 7. Improved Q.O.L. Psychosocial Test Tool Used:: PHQ-9 Questionnaire PHQ-9 Score: 5 Referral to Behavioral Health PS - Interventions: Yes: Attend Stress Management Classes Plan Interventions/Plan:: Assess stressors,coping strategies & signs of derpression on admission, Instruct/assist pt to develop coping & personal stress Mgt strategies, Refer to Behavioral Health if appropriate, Refer to Physician if appropriate, Instruct patient to recognize signs & symptoms of depression and Instruct patient to recog Comments:: Pt to attend stress [facility] Psychosocial - 90-Day Visit Date of Eval: 07/08/25 Session Number:: 17 Problems/Goals History of Emotional Disorders: Depression (Pt is on meds for depression and in counseling at [facility]) Psychosocial Goals: 1. Patient is free from overwhelming symtoms of depression (or anxiety, 2. Identifies personal stressors & states the strategies for managing, 3. Identifies activities to decrease isolation and/or symptoms of, 4. Improved psychosocial coping skills., 5. Verbalizes coping strategies., 6. Adequate treatment of depression. and 7. Improved Q.O.L. Psychosocial Test Tool Used:: PHQ-9 Questionnaire PHQ-9 Score: 5 Referral to Behavioral Health PS - Interventions: Yes: Attend Stress Management Classes Plan Interventions/Plan:: Assess stressors,coping strategies & signs of derpression on admission, Instruct/assist pt to develop coping & personal stress Mgt strategies, Refer to Behavioral Health if appropriate, Refer to Physician if appropriate, Instruct patient to recognize signs & symptoms of depression and Instruct patient to recog Comments:: Pt to attend stress management [facility] Psychosocial - Final Assess Visit Session Number:: 17 Problems/Goals History of Emotional Disorders: Depression (Pt is on meds for depression and in counseling at [facility]) Psychosocial Goals: 1. Patient is free from overwhelming symtoms of depression (or anxiety, 2. Identifies personal stressors & states the strategies for managing, 3. Identifies activities to decrease isolation and/or symptoms of, 4. Improved psychosocial coping skills., 5. Verbalizes coping strategies., 6. Adequate treatment of depression. and 7. Improved Q.O.L. Psychosocial Test Tool Used:: PHQ-9 Questionnaire PHQ-9 Score: 5 Referral to Behavioral Health PS - Interventions: Yes: Attend Stress Management Classes Plan Interventions/Plan:: Assess stressors,coping strategies & signs of derpression on admission, Instruct/assist pt to develop coping & personal stress Mgt strategies, Refer to Behavioral Health if appropriate, Refer to Physician if appropriate, Instruct patient to recognize signs & symptoms of depression and Instruct patient to recog Comments:: Pt to attend stress management [facility] Oxygen & Oxygen Titration Init Visit Session Number:: 17 Initial Assessment SpO2:: 91 (room air) Oxygen & Oxygen Titration 30D Visit Date of Eval: 07/08/25 Session Number:: 17 Reassessment SpO2:: 91 (room air) Oxygen & Oxygen Titration 60D Visit Date of Eval: 07/08/25 Session Number:: 17 Reassessment SpO2:: 91 (room air) Oxygen & Oxygen Titration 90D Visit Date of Eval: 07/08/25 Session Number:: 17 Reassessment Oxygen & Oxygen Titration 90 days: None SpO2:: 91 (room air) Oxygen & Oxygen Titration SHANNAN Visit Date of Eval: 07/08/25 Session Number:: 17 Reassessment SpO2:: 91 (room air) Core Components - Initial Visit Session Number:: 17 Hypertension BP: 152/72 [place] [employer] Hypertension Guidelines Blood Pressure: 154/68 Outcomes/Goals: Able to verbalize/achieve optimal blood pressure <130/80 and Incorporates diet changes & exercise for blood pressure control by DC Tobacco - Initial Assessment Tobacco Program Goals Tobacco Use: Non-smoker Gave Education Materials For:: Tobacco Triggers, Pulmonary Disease, Risk Factors, Breathing Techniques, Medical Compliance, Pulmonary A&P, Exacerbation Signs & Symptoms and Stress & Relaxation Diabetes Diabetes:: No Core Components - 30 DAYS Visit Date of Eval: 07/08/25 Session Number:: 17 Hypertension Resting Blood Pressure:: 152/72 [place] [employer] Hypertension Guidelines Peak Exercise Blood Pressure:: 154/68 Outcomes/Goals: Able to verbalize/achieve optimal blood pressure <130/80 and Incorporates diet changes & exercise for blood pressure control by DC Interventions/plan: Instruct on optimal blood pressure, hypertension & medications and Instruct on effects of sodium, alcohol, stress, exercise &hypertension 30 day Reassessments:: Progressing (Pt BP was more elevated than usual at his most recent session. Will continue to monitor.) Tobacco - 30-Day Tobacco Program Goals Tobacco Use: Non-smoker Gave Education Materials For:: Tobacco Triggers, Pulmonary Disease, Risk Factors, Breathing Techniques, Medical Compliance, Pulmonary A&P, Exacerbation Signs & Symptoms and Stress & Relaxation Exacerbation Mgmt & Airway Clearance Bronchial Hygiene Plan: Yes: Pt demonstrates correctly for effective cough, Yes: Pt demo correct for CPT, Yes: Pt demo correct for device, Yes: Pt demo correct for NS nasal spray, Yes: Pt demo correct for sputum management, Yes: Pt demo correct for improved hydration, Yes: Pt demo correct for hand hygiene, Yes: Pt demo correct for evalute sputum, Yes: Pt demo correct for verbalize when to call MD and Yes: Pt demo correct for cleaning of respiratory equipment Medication Medication reassessment: Yes: Pt demonstrates correct technique timing for MDI, Yes: Pt demonstrates correct technique timing for DPI, Yes: Pt demonstrates correct technique timing for NEB and Yes: Pt demonstrates correct technique timing for spacer Diabetes Diabetes:: No Core Components - 60 DAYS Visit Session Number:: 17 Hypertension Resting Blood Pressure:: 152/72 [place] [employer] Hypertension Guidelines Peak Exercise Blood Pressure:: 154/68 Outcomes/Goals: Able to verbalize/achieve optimal blood pressure <130/80 and Incorporates diet changes & exercise for blood pressure control by DC Interventions/plan: Instruct on optimal blood pressure, hypertension & medications and Instruct on effects of sodium, alcohol, stress, exercise &hypertension 60 day Reassessments:: Progressing (Pt BP was more elevated than usual at his most recent session. Will continue to monitor.) Tobacco - 60-Day Tobacco Program Goals Tobacco Use: Non-smoker Gave Education Materials For:: Tobacco Triggers, Pulmonary Disease, Risk Factors, Breathing Techniques, Medical Compliance, Pulmonary A&P, Exacerbation Signs & Symptoms and Stress & Relaxation Exacerbation Mgmt & Airway Clearance Bronchial Hygiene Plan: Yes: Pt demonstrates correctly for effective cough, Yes: Pt demo correct for CPT, Yes: Pt demo correct for device, Yes: Pt demo correct for NS nasal spray, Yes: Pt demo correct for sputum management, Yes: Pt demo correct for improved hydration, Yes: Pt demo correct for hand hygiene, Yes: Pt demo correct for evalute sputum, Yes: Pt demo correct for verbalize when to call MD and Yes: Pt demo correct for cleaning of respiratory equipment Medication Medication reassessment: Yes: Pt demonstrates correct technique timing for MDI, Yes: Pt demonstrates correct technique timing for DPI, Yes: Pt demonstrates correct technique timing for NEB and Yes: Pt demonstrates correct technique timing for spacer Diabetes Diabetes:: No Core Components - 90 DAYS Visit Date of Eval: 07/08/25 Session Number:: 17 Hypertension Resting Blood Pressure:: 152/72 [place] [employer] Hypertension Guidelines Peak Exercise Blood Pressure:: 154/68 Outcomes/Goals: Able to verbalize/achieve optimal blood pressure <130/80 and Incorporates diet changes & exercise for blood pressure control by DC Interventions/plan: Instruct on optimal blood pressure, hypertension & medications and Instruct on effects of sodium, alcohol, stress, exercise &hypertension 90 day Reassessments:: Progressing (Pt BP was more elevated than usual at his most recent session. Will continue to monitor.) Tobacco - 90-Day Tobacco Program Goals Tobacco Use: Non-smoker Gave Education Materials For:: Tobacco Triggers, Pulmonary Disease, Risk Factors, Breathing Techniques, Medical Compliance, Pulmonary A&P, Exacerbation Signs & Symptoms and Stress & Relaxation Exacerbation Mgmt & Airway Clearance Reassessment: Demonstrates knowledge of O2 Rx at rest and Demonstrates knowledge of O2 Rx with exercise Bronchial Hygiene Plan: Yes: Pt demonstrates correctly for effective cough, Yes: Pt demo correct for CPT, Yes: Pt demo correct for device, Yes: Pt demo correct for NS nasal spray, Yes: Pt demo correct for sputum management, Yes: Pt demo correct for improved hydration, Yes: Pt demo correct for hand hygiene, Yes: Pt demo correct for evalute sputum, Yes: Pt demo correct for verbalize when to call MD and Yes: Pt demo correct for cleaning of respiratory equipment Medication Medication list reviewed:: Yes Taking medications 100% of the time:: Met Medication reassessment: Yes: Pt demonstrates correct technique timing for MDI, Yes: Pt demonstrates correct technique timing for DPI, Yes: Pt demonstrates correct technique timing for NEB and Yes: Pt demonstrates correct technique timing for spacer Diabetes Diabetes:: No Core Components - Final Visit Session Number:: 17 Hypertension Resting Blood Pressure:: 152/72 [place] [employer] Hypertension Guidelines Peak Exercise Blood Pressure:: 154/68 Outcomes/Goals: Able to verbalize/achieve optimal blood pressure <130/80 and Incorporates diet changes & exercise for blood pressure control by DC Tobacco - Final Tobacco Program Goals Tobacco Use: Non-smoker Exacerbation Mgmt & Airway Clearance Bronchial Hygiene Plan: Yes: Pt demonstrates correctly for effective cough, Yes: Pt demo correct for CPT, Yes: Pt demo correct for device, Yes: Pt demo correct for NS nasal spray, Yes: Pt demo correct for sputum management, Yes: Pt demo correct for improved hydration, Yes: Pt demo correct for hand hygiene, Yes: Pt demo correct for evalute sputum, Yes: Pt demo correct for verbalize when to call MD and Yes: Pt demo correct for cleaning of respiratory equipment Medication Medication reassessment: Yes: Pt demonstrates correct technique timing for MDI, Yes: Pt demonstrates correct technique timing for DPI, Yes: Pt demonstrates correct technique timing for NEB and Yes: Pt demonstrates correct technique timing for spacer Diabetes Diabetes:: No Patient Health Questionnaire PHQ-9 Screening 90-Day Re-eval Assessment: 1. Little interest or pleasure in doing things: Not at all 2. Feeling down, depressed, or hopeless: Not at all 3. Trouble falling or staying asleep, or sleeping too much: Not at all 4. Feeling tired or having little energy: More than half the days 5. Poor appetite or overeating: Several days 6. Feeling bad about yourself -- or that you are a failure or have let yourself or your family down: Not at all 7. Trouble concentrating on things, such as reading the newspaper or watching television: Several days 8. Moving or speaking so slowly that other people could have noticed. Or the opposite - being so fidgety or restless that you have been moving around a lot more than usual: Several days 9. Thoughts that you would be better off , or of hurting yourself in some way: Not at all How difficult have these problems made it for you to do your work, take care of things at home, or get along with other people?: Not difficult at all Total Score: 5 Knowledge Questionaire (BCKQ) Information Information: [place] COPD Knowledge Questionnaire (BCKQ) This questionnaire is designed to find out what you know about your lung problem. It should be completed without help form anyone else. This usually takes between 10 and 20 minutes. Your answers will help us to find out what information you need to help you to understand and manage your lung condition. Ernie the egegik which you think is the correct answer. Nutrition Survey Nutrition Survey Instructions Scoring Instructions
--- NOTE | 2025-07-08 07:12 | PCM.PR.TP ---
Exercise - Initial Assessment Visit Session Number:: 17 Physician Prescribed Exercise Modalities: Treadmill, [employer] Airdyne AD-7 and Sci[employer] Stepper Current METSs:: 4.4 Target HR:: 114 (86-114) Current RPD:: 2-3 Maximum Exercise HR:: 106 Resting Blood Pressure: 152/72 Maximum Exercise Blood Pressure: 154/68 Minimum SpO2 with exercise: 91 (room air) EKG Type: AV dual paced rhythm with prolonged AV conduction. Nutrition/Wt Mgmt - Initial Visit Session Number:: 17 Weight Management Admit Height:: 5 ft 10 in Admit Weight:: 198 lb Admit BMI:: 28.4 Nutrition/Wt Mgmt - 30-Day Visit Date of Eval: 07/08/25 Session Number:: 17 Weight Management Height: 5 ft 10 in Weight:: 198 lb BMI: 28.4 Nutrition/Wt Mgmt - 60-Day Visit Session Number:: 17 Weight Management Height: 5 ft 10 in Weight:: 198 lb BMI: 28.4 Weight Goals Progress:: Progressing (Pt will attend nutrition class. Heart healthy low sodium diet encouraged. Encourage pt to keep a food diary.) Nutrition/Wt Mgmt - 90-Day Visit Date of Eval: 07/08/25 Session Number:: 17 Weight Management Height: 5 ft 10 in Weight:: 198 lb BMI: 28.4 Weight Goals Progress:: Progressing (Pt will attend nutrition class. Heart healthy low sodium diet encouraged. Encourage pt to keep a food diary.) Nutrition/Wt Mgmt - Final Visit Session Number:: 17 Weight Management Height: 5 ft 10 in Weight:: 198 lb BMI: 28.4 Psychosocial - Initial Assess Visit Session Number:: 17 Problems/Goals History of Emotional Disorders: Depression (Pt is on meds for depression and in counseling at the [facility]) Psychosocial Goals: 1. Patient is free from overwhelming symtoms of depression (or anxiety, 2. Identifies personal stressors & states the strategies for managing, 3. Identifies activities to decrease isolation and/or symptoms of, 4. Improved psychosocial coping skills., 5. Verbalizes coping strategies., 6. Adequate treatment of depression. and 7. Improved Q.O.L. Psychosocial Test Tool Used:: PHQ-9 Questionnaire PHQ-9 Score: 5 Referral to Behavioral Health PS - Interventions: Yes: Attend Stress Management Classes Intervention/Plan: See List Interventions/Plan:: Assess stressors,coping strategies & signs of derpression on admission, Instruct/assist pt to develop coping & personal stress Mgt strategies, Refer to Behavioral Health if appropriate, Refer to Physician if appropriate, Instruct patient to recognize signs & symptoms of depression and Instruct patient to recog Comments:: Pt to attend stress [facility] Psychosocial - 30-Day Visit Date of Eval: 07/08/25 Session Number:: 17 Problems/Goals History of Emotional Disorders: Depression (Pt is on meds for depression and in counseling at the [place]) Psychosocial Goals: 1. Patient is free from overwhelming symtoms of depression (or anxiety, 2. Identifies personal stressors & states the strategies for managing, 3. Identifies activities to decrease isolation and/or symptoms of, 4. Improved psychosocial coping skills., 5. Verbalizes coping strategies., 6. Adequate treatment of depression. and 7. Improved Q.O.L. Psychosocial Test Tool Used:: PHQ-9 Questionnaire PHQ-9 Score: 5 Referral to Behavioral Health PS - Interventions: Yes: Attend Stress Management Classes Plan Interventions/Plan:: Assess stressors,coping strategies & signs of derpression on admission, Instruct/assist pt to develop coping & personal stress Mgt strategies, Refer to Behavioral Health if appropriate, Refer to Physician if appropriate, Instruct patient to recognize signs & symptoms of depression and Instruct patient to recog Comments:: Pt to attend [facility] Psychosocial - 60-Day Visit Session Number:: 17 Problems/Goals History of Emotional Disorders: Depression (Pt is on meds for depression and in counseling at the [place]) Psychosocial Goals: 1. Patient is free from overwhelming symtoms of depression (or anxiety, 2. Identifies personal stressors & states the strategies for managing, 3. Identifies activities to decrease isolation and/or symptoms of, 4. Improved psychosocial coping skills., 5. Verbalizes coping strategies., 6. Adequate treatment of depression. and 7. Improved Q.O.L. Psychosocial Test Tool Used:: PHQ-9 Questionnaire PHQ-9 Score: 5 Referral to Behavioral Health PS - Interventions: Yes: Attend Stress Management Classes Plan Interventions/Plan:: Assess stressors,coping strategies & signs of derpression on admission, Instruct/assist pt to develop coping & personal stress Mgt strategies, Refer to Behavioral Health if appropriate, Refer to Physician if appropriate, Instruct patient to recognize signs & symptoms of depression and Instruct patient to recog Comments:: Pt to attend stress [facility] Psychosocial - 90-Day Visit Date of Eval: 07/08/25 Session Number:: 17 Problems/Goals History of Emotional Disorders: Depression (Pt is on meds for depression and in counseling at the [place]) Psychosocial Goals: 1. Patient is free from overwhelming symtoms of depression (or anxiety, 2. Identifies personal stressors & states the strategies for managing, 3. Identifies activities to decrease isolation and/or symptoms of, 4. Improved psychosocial coping skills., 5. Verbalizes coping strategies., 6. Adequate treatment of depression. and 7. Improved Q.O.L. Psychosocial Test Tool Used:: PHQ-9 Questionnaire PHQ-9 Score: 5 Referral to Behavioral Health PS - Interventions: Yes: Attend Stress Management Classes Plan Interventions/Plan:: Assess stressors,coping strategies & signs of derpression on admission, Instruct/assist pt to develop coping & personal stress Mgt strategies, Refer to Behavioral Health if appropriate, Refer to Physician if appropriate, Instruct patient to recognize signs & symptoms of depression and Instruct patient to recog Comments:: Pt to attend stress management [facility] Psychosocial - Final Assess Visit Session Number:: 17 Problems/Goals History of Emotional Disorders: Depression (Pt is on meds for depression and in counseling at the [place]) Psychosocial Goals: 1. Patient is free from overwhelming symtoms of depression (or anxiety, 2. Identifies personal stressors & states the strategies for managing, 3. Identifies activities to decrease isolation and/or symptoms of, 4. Improved psychosocial coping skills., 5. Verbalizes coping strategies., 6. Adequate treatment of depression. and 7. Improved Q.O.L. Psychosocial Test Tool Used:: PHQ-9 Questionnaire PHQ-9 Score: 5 Referral to Behavioral Health PS - Interventions: Yes: Attend Stress Management Classes Plan Interventions/Plan:: Assess stressors,coping strategies & signs of derpression on admission, Instruct/assist pt to develop coping & personal stress Mgt strategies, Refer to Behavioral Health if appropriate, Refer to Physician if appropriate, Instruct patient to recognize signs & symptoms of depression and Instruct patient to recog Comments:: Pt to attend stress management [facility] Oxygen & Oxygen Titration Init Visit Session Number:: 17 Initial Assessment SpO2:: 91 (room air) Oxygen & Oxygen Titration 30D Visit Date of Eval: 07/08/25 Session Number:: 17 Reassessment SpO2:: 91 (room air) Oxygen & Oxygen Titration 60D Visit Date of Eval: 07/08/25 Session Number:: 17 Reassessment SpO2:: 91 (room air) Oxygen & Oxygen Titration 90D Visit Date of Eval: 07/08/25 Session Number:: 17 Reassessment Oxygen & Oxygen Titration 90 days: None SpO2:: 91 (room air) Oxygen & Oxygen Titration SHANNAN Visit Date of Eval: 07/08/25 Session Number:: 17 Reassessment SpO2:: 91 (room air) Core Components - Initial Visit Session Number:: 17 Hypertension BP: 152/72 [place] [employer] Hypertension Guidelines Blood Pressure: 154/68 Outcomes/Goals: Able to verbalize/achieve optimal blood pressure <130/80 and Incorporates diet changes & exercise for blood pressure control by DC Tobacco - Initial Assessment Tobacco Program Goals Tobacco Use: Non-smoker Gave Education Materials For:: Tobacco Triggers, Pulmonary Disease, Risk Factors, Breathing Techniques, Medical Compliance, Pulmonary A&P, Exacerbation Signs & Symptoms and Stress & Relaxation Diabetes Diabetes:: No Core Components - 30 DAYS Visit Date of Eval: 07/08/25 Session Number:: 17 Hypertension Resting Blood Pressure:: 152/72 [place] [employer] Hypertension Guidelines Peak Exercise Blood Pressure:: 154/68 Outcomes/Goals: Able to verbalize/achieve optimal blood pressure <130/80 and Incorporates diet changes & exercise for blood pressure control by DC Interventions/plan: Instruct on optimal blood pressure, hypertension & medications and Instruct on effects of sodium, alcohol, stress, exercise &hypertension 30 day Reassessments:: Progressing (Pt BP was more elevated than usual at his most recent session. Will continue to monitor.) Tobacco - 30-Day Tobacco Program Goals Tobacco Use: Non-smoker Gave Education Materials For:: Tobacco Triggers, Pulmonary Disease, Risk Factors, Breathing Techniques, Medical Compliance, Pulmonary A&P, Exacerbation Signs & Symptoms and Stress & Relaxation Exacerbation Mgmt & Airway Clearance Bronchial Hygiene Plan: Yes: Pt demonstrates correctly for effective cough, Yes: Pt demo correct for CPT, Yes: Pt demo correct for device, Yes: Pt demo correct for NS nasal spray, Yes: Pt demo correct for sputum management, Yes: Pt demo correct for improved hydration, Yes: Pt demo correct for hand hygiene, Yes: Pt demo correct for evalute sputum, Yes: Pt demo correct for verbalize when to call MD and Yes: Pt demo correct for cleaning of respiratory equipment Medication Medication reassessment: Yes: Pt demonstrates correct technique timing for MDI, Yes: Pt demonstrates correct technique timing for DPI, Yes: Pt demonstrates correct technique timing for NEB and Yes: Pt demonstrates correct technique timing for spacer Diabetes Diabetes:: No Core Components - 60 DAYS Visit Session Number:: 17 Hypertension Resting Blood Pressure:: 152/72 [place] [employer] Hypertension Guidelines Peak Exercise Blood Pressure:: 154/68 Outcomes/Goals: Able to verbalize/achieve optimal blood pressure <130/80 and Incorporates diet changes & exercise for blood pressure control by DC Interventions/plan: Instruct on optimal blood pressure, hypertension & medications and Instruct on effects of sodium, alcohol, stress, exercise &hypertension 60 day Reassessments:: Progressing (Pt BP was more elevated than usual at his most recent session. Will continue to monitor.) Tobacco - 60-Day Tobacco Program Goals Tobacco Use: Non-smoker Gave Education Materials For:: Tobacco Triggers, Pulmonary Disease, Risk Factors, Breathing Techniques, Medical Compliance, Pulmonary A&P, Exacerbation Signs & Symptoms and Stress & Relaxation Exacerbation Mgmt & Airway Clearance Bronchial Hygiene Plan: Yes: Pt demonstrates correctly for effective cough, Yes: Pt demo correct for CPT, Yes: Pt demo correct for device, Yes: Pt demo correct for NS nasal spray, Yes: Pt demo correct for sputum management, Yes: Pt demo correct for improved hydration, Yes: Pt demo correct for hand hygiene, Yes: Pt demo correct for evalute sputum, Yes: Pt demo correct for verbalize when to call MD and Yes: Pt demo correct for cleaning of respiratory equipment Medication Medication reassessment: Yes: Pt demonstrates correct technique timing for MDI, Yes: Pt demonstrates correct technique timing for DPI, Yes: Pt demonstrates correct technique timing for NEB and Yes: Pt demonstrates correct technique timing for spacer Diabetes Diabetes:: No Core Components - 90 DAYS Visit Date of Eval: 07/08/25 Session Number:: 17 Hypertension Resting Blood Pressure:: 152/72 [place] [employer] Hypertension Guidelines Peak Exercise Blood Pressure:: 154/68 Outcomes/Goals: Able to verbalize/achieve optimal blood pressure <130/80 and Incorporates diet changes & exercise for blood pressure control by DC Interventions/plan: Instruct on optimal blood pressure, hypertension & medications and Instruct on effects of sodium, alcohol, stress, exercise &hypertension 90 day Reassessments:: Progressing (Pt BP was more elevated than usual at his most recent session. Will continue to monitor.) Tobacco - 90-Day Tobacco Program Goals Tobacco Use: Non-smoker Gave Education Materials For:: Tobacco Triggers, Pulmonary Disease, Risk Factors, Breathing Techniques, Medical Compliance, Pulmonary A&P, Exacerbation Signs & Symptoms and Stress & Relaxation Exacerbation Mgmt & Airway Clearance Reassessment: Demonstrates knowledge of O2 Rx at rest and Demonstrates knowledge of O2 Rx with exercise Bronchial Hygiene Plan: Yes: Pt demonstrates correctly for effective cough, Yes: Pt demo correct for CPT, Yes: Pt demo correct for device, Yes: Pt demo correct for NS nasal spray, Yes: Pt demo correct for sputum management, Yes: Pt demo correct for improved hydration, Yes: Pt demo correct for hand hygiene, Yes: Pt demo correct for evalute sputum, Yes: Pt demo correct for verbalize when to call MD and Yes: Pt demo correct for cleaning of respiratory equipment Medication Medication list reviewed:: Yes Taking medications 100% of the time:: Met Medication reassessment: Yes: Pt demonstrates correct technique timing for MDI, Yes: Pt demonstrates correct technique timing for DPI, Yes: Pt demonstrates correct technique timing for NEB and Yes: Pt demonstrates correct technique timing for spacer Diabetes Diabetes:: No Core Components - Final Visit Session Number:: 17 Hypertension Resting Blood Pressure:: 152/72 [place] [employer] Hypertension Guidelines Peak Exercise Blood Pressure:: 154/68 Outcomes/Goals: Able to verbalize/achieve optimal blood pressure <130/80 and Incorporates diet changes & exercise for blood pressure control by DC Tobacco - Final Tobacco Program Goals Tobacco Use: Non-smoker Exacerbation Mgmt & Airway Clearance Bronchial Hygiene Plan: Yes: Pt demonstrates correctly for effective cough, Yes: Pt demo correct for CPT, Yes: Pt demo correct for device, Yes: Pt demo correct for NS nasal spray, Yes: Pt demo correct for sputum management, Yes: Pt demo correct for improved hydration, Yes: Pt demo correct for hand hygiene, Yes: Pt demo correct for evalute sputum, Yes: Pt demo correct for verbalize when to call MD and Yes: Pt demo correct for cleaning of respiratory equipment Medication Medication reassessment: Yes: Pt demonstrates correct technique timing for MDI, Yes: Pt demonstrates correct technique timing for DPI, Yes: Pt demonstrates correct technique timing for NEB and Yes: Pt demonstrates correct technique timing for spacer Diabetes Diabetes:: No Patient Health Questionnaire PHQ-9 Screening 90-Day Re-eval Assessment: 1. Little interest or pleasure in doing things: Not at all 2. Feeling down, depressed, or hopeless: Not at all 3. Trouble falling or staying asleep, or sleeping too much: Not at all 4. Feeling tired or having little energy: More than half the days 5. Poor appetite or overeating: Several days 6. Feeling bad about yourself -- or that you are a failure or have let yourself or your family down: Not at all 7. Trouble concentrating on things, such as reading the newspaper or watching television: Several days 8. Moving or speaking so slowly that other people could have noticed. Or the opposite - being so fidgety or restless that you have been moving around a lot more than usual: Several days 9. Thoughts that you would be better off , or of hurting yourself in some way: Not at all How difficult have these problems made it for you to do your work, take care of things at home, or get along with other people?: Not difficult at all Total Score: 5 Knowledge Questionaire (BCKQ) Information Information: [place] COPD Knowledge Questionnaire (BCKQ) This questionnaire is designed to find out what you know about your lung problem. It should be completed without help form anyone else. This usually takes between 10 and 20 minutes. Your answers will help us to find out what information you need to help you to understand and manage your lung condition. [employer] [place] which you think is the correct answer. Nutrition Survey Nutrition Survey Instructions Scoring Instructions
[2025-07-08 07:26] VITALS: BP 152/72; BP 154/68; O2SAT 91; BMI 28.4
== END 2025-07-31 23:59 ==
LOC: PR 09:30
PROVIDERS: PCP Family Medicine Geriatric Medicine; Referring Provider Internal Medicine Pulmonary Disease; Visit Provider Internal Medicine Pulmonary Disease
DX: R06.00 Dyspnea, unspecified
CPT/HCPCS: 97150; G0239

== ENCOUNTER 2025-08-03 07:43 | Outpatient (RCR) | payer MEDICARE, OTHER, SELFPAY ==
[2025-07-08 07:26] VITALS: BMI 28.4
--- NOTE | 2025-08-05 08:08 | PR.ITP_ITS ---
Exercise - Initial Assessment Visit Session Number:: 24 Physician Prescribed Exercise Modalities: Treadmill, Schwinn Airdyne AD-7 and Sci[employer] Stepper Current METSs:: 5 Resting Blood Pressure: 124/70 Maximum Exercise Blood Pressure: 172/80 Minimum SpO2 with exercise: 95 EKG Type: AV dual paced with prolonged av conduction, rare ectopy Nutrition/Wt Mgmt - Initial Visit Session Number:: 24 Weight Management Admit Height:: 5 ft 10 in Admit Weight:: 189 lb Admit BMI:: 27.1 Nutrition/Wt Mgmt - 30-Day Visit Date of Eval: 08/05/25 Session Number:: 24 Weight Management Height: 5 ft 10 in Weight:: 189 lb BMI: 27.1 Nutrition/Wt Mgmt - 60-Day Visit Session Number:: 24 Weight Management Height: 5 ft 10 in Weight:: 189 lb BMI: 27.1 Nutrition/Wt Mgmt - 90-Day Visit Session Number:: 24 Weight Management Height: 5 ft 10 in Weight:: 189 lb BMI: 27.1 Nutrition/Wt Mgmt - Final Visit Date of Eval: 08/05/25 Session Number:: 24 Weight Management Final Weight Assessment: Wt stable Height: 5 ft 10 in Weight:: 189 lb BMI: 27.1 Weight Goals Progress:: Progressing (pt showing weight loss trend with weekly weigh ins during rehab) Psychosocial - Initial Assess Visit Session Number:: 24 Problems/Goals History of Emotional Disorders: Depression (PT is on medication for his depression and is in counseling [facility]) Psychosocial Goals: 1. Patient is free from overwhelming symtoms of depression (or anxiety, 2. Identifies personal stressors & states the strategies for managing, 3. Identifies activities to decrease isolation and/or symptoms of, 4. Improved psychosocial coping skills., 5. Verbalizes coping strategies., 6. Adequate treatment of depression. and 7. Improved Q.O.L. Psychosocial Test Tool Used:: PHQ-9 Questionnaire PHQ-9 Score: 5 Referral to Behavioral Health PS - Interventions: Yes: Attend Stress Management Classes Intervention/Plan: See List Interventions/Plan:: Assess stressors,coping strategies & signs of derpression on admission, Instruct/assist pt to develop coping & personal stress Mgt strategies, Refer to Behavioral Health if appropriate, Refer to Physician if duncan ropriate and Instruct patient to recognize signs & symptoms of depression Psychosocial - 30-Day Visit Date of Eval: 08/05/25 Session Number:: 24 Problems/Goals History of Emotional Disorders: Depression (PT is on medication for his depression and is in counseling at [facility]) Psychosocial Goals: 1. Patient is free from overwhelming symtoms of depression (or anxiety, 2. Identifies personal stressors & states the strategies for managing, 3. Identifies activities to decrease isolation and/or symptoms of, 4. Improved psychosocial coping skills., 5. Verbalizes coping strategies., 6. Adequate treatment of depression. and 7. Improved Q.O.L. Psychosocial Test Tool Used:: PHQ-9 Questionnaire PHQ-9 Score: 5 Referral to Behavioral [facility] PS - Interventions: Yes: Attend Stress Management Classes Plan Interventions/Plan:: Assess stressors,coping strategies & signs of derpression on admission, Instruct/assist pt to develop coping & personal stress Mgt strategies, Refer to Behavioral Health if appropriate, Refer to Physician if appropriate and Instruct patient to recognize signs & symptoms of depression Psychosocial - 60-Day Visit Session Number:: 24 Problems/Goals History of Emotional Disorders: Depression (PT is on medication for his depression and is in counseling at [facility]) Psychosocial Goals: 1. Patient is free from overwhelming symtoms of depression (or anxiety, 2. Identifies personal stressors & states the strategies for managing, 3. Identifies activities to decrease isolation and/or symptoms of, 4. Improved psychosocial coping skills., 5. Verbalizes coping strategies., 6. Adequate treatment of depression. and 7. Improved Q.O.L. Psychosocial Test Tool Used:: PHQ-9 Questionnaire PHQ-9 Score: 5 Referral to Behavioral Health PS - Interventions: Yes: Attend Stress Management Classes Plan Interventions/Plan:: Assess stressors,coping strategies & signs of derpression on admission, Instruct/assist pt to develop coping & personal stress Mgt strategies, Refer to Behavioral Health if appropriate, Refer to Physician if appropriate and Instruct patient to recognize signs & symptoms of depression Psychosocial - 90-Day Visit Session Number:: 24 Problems/Goals History of Emotional Disorders: Depression (PT is on medication for his depression and is in counseling at [facility]) Psychosocial Goals: 1. Patient is free from overwhelming symtoms of depression (or anxiety, 2. Identifies personal stressors & states the strategies for managing, 3. Identifies activities to decrease isolation and/or symptoms of, 4. Improved psychosocial coping skills., 5. Verbalizes coping strategies., 6. Adequate treatment of depression. and 7. Improved Q.O.L. Psychosocial Test Tool Used:: PHQ-9 Questionnaire PHQ-9 Score: 5 Referral to Behavioral Health PS - Interventions: Yes: Attend Stress Management Classes Plan Interventions/Plan:: Assess stressors,coping strategies & signs of derpression on admission, Instruct/assist pt to develop coping & personal stress Mgt strategies, Refer to Behavioral Health if appropriate, Refer to Physician if appropriate and Instruct patient to recognize signs & symptoms of depression Psychosocial - Final Assess Visit Date of Eval: 08/05/25 Session Number:: 24 Problems/Goals History of Emotional Disorders: Depression (PT is on medication for his depression and is in counseling at [facility]) Psychosocial Goals: 1. Patient is free from overwhelming symtoms of depression (or anxiety, 2. Identifies personal stressors & states the strategies for managing, 3. Identifies activities to decrease isolation and/or symptoms of, 4. Improved psychosocial coping skills., 5. Verbalizes coping strategies., 6. Adequate treatment of depression. and 7. Improved Q.O.L. Psychosocial Test Tool Used:: PHQ-9 Questionnaire PHQ-9 Score: 5 Referral to Behavioral Health PS - Interventions: Yes: Attend Stress Management Classes Plan Interventions/Plan:: Assess stressors,coping strategies & signs of derpression on admission, Instruct/assist pt to develop coping & personal stress Mgt strategies, Refer to Behavioral Health if appropriate, Refer to Physician if appropriate and Instruct patient to recognize signs & symptoms of depression Oxygen & Oxygen Titration Init Visit Session Number:: 24 Initial Assessment SpO2:: 95 Oxygen & Oxygen Titration 30D Visit Date of Eval: 08/05/25 Session Number:: 24 Reassessment SpO2:: 95 Oxygen & Oxygen Titration 60D Visit Date of Eval: 08/05/25 Session Number:: 24 Reassessment SpO2:: 95 Oxygen & Oxygen Titration 90D Visit Date of Eval: 08/05/25 Session Number:: 24 Reassessment SpO2:: 95 Oxygen & Oxygen Titration SHANNAN Visit Date of Eval: 08/05/25 Session Number:: 24 Reassessment Oxygen & Oxygen Titration Final: None SpO2:: 95 Core Components - Initial Visit Session Number:: 24 Hypertension BP: 124/70 [place] [employer] Hypertension Guidelines Blood Pressure: 172/80 Outcomes/Goals: Able to verbalize/achieve optimal blood pressure <130/80 and Incorporates diet changes & exercise for blood pressure control by DC Comment: BP WNL. Tobacco - Initial Assessment Tobacco Program Goals Tobacco Use: Non-smoker Diabetes Diabetes:: No Core Components - 30 DAYS Visit Date of Eval: 08/05/25 Session Number:: 24 Hypertension Resting Blood Pressure:: 124/70 [place] [employer] Hypertension Guidelines Peak Exercise Blood Pressure:: 172/80 Outcomes/Goals: Able to verbalize/achieve optimal blood pressure <130/80 and Incorporates diet changes & exercise for blood pressure control by DC Comment: BP WNL. Tobacco - 30-Day Tobacco Program Goals Tobacco Use: Non-smoker Exacerbation Mgmt & Airway Clearance Bronchial Hygiene Plan: Yes: Pt demonstrates correctly for effective cough, Yes: Pt demo correct for CPT, Yes: Pt demo correct for device, Yes: Pt demo correct for NS nasal spray, Yes: Pt demo correct for sputum management, Yes: Pt demo correct for improved hydration, Yes: Pt demo correct for hand hygiene, Yes: Pt demo correct for evalute sputum, Yes: Pt demo correct for verbalize when to call MD and Yes: Pt demo correct for cleaning of respiratory equipment Medication Medication reassessment: Yes: Pt demonstrates correct technique timing for MDI, Yes: Pt demonstrates correct technique timing for DPI, Yes: Pt demonstrates correct technique timing for NEB and Yes: Pt demonstrates correct technique timing for spacer Diabetes Diabetes:: No Core Components - 60 DAYS Visit Session Number:: 24 Hypertension Resting Blood Pressure:: 124/70 [place] [employer] Hypertension Guidelines Peak Exercise Blood Pressure:: 172/80 Outcomes/Goals: Able to verbalize/achieve optimal blood pressure <130/80 and Incorporates diet changes & exercise for blood pressure control by DC Comment: BP WNL. Tobacco - 60-Day Tobacco Program Goals Tobacco Use: Non-smoker Exacerbation Mgmt & Airway Clearance Bronchial Hygiene Plan: Yes: Pt demonstrates correctly for effective cough, Yes: Pt demo correct for CPT, Yes: Pt demo correct for device, Yes: Pt demo correct for NS nasal spray, Yes: Pt demo correct for sputum management, Yes: Pt demo correct for improved hydration, Yes: Pt demo correct for hand hygiene, Yes: Pt demo correct for evalute sputum, Yes: Pt demo correct for verbalize when to call MD and Yes: Pt demo correct for cleaning of respiratory equipment Medication Medication reassessment: Yes: Pt demonstrates correct technique timing for MDI, Yes: Pt demonstrates correct technique timing for DPI, Yes: Pt demonstrates correct technique timing for NEB and Yes: Pt demonstrates correct technique timing for spacer Diabetes Diabetes:: No Core Components - 90 DAYS Visit Session Number:: 24 Hypertension Resting Blood Pressure:: 124/70 [place] [employer] Hypertension Guidelines Peak Exercise Blood Pressure:: 172/80 Outcomes/Goals: Able to verbalize/achieve optimal blood pressure <130/80 and Incorporates diet changes & exercise for blood pressure control by DC Comment: BP WNL. Tobacco - 90-Day Tobacco Program Goals Tobacco Use: Non-smoker Exacerbation Mgmt & Airway Clearance Bronchial Hygiene Plan: Yes: Pt demonstrates correctly for effective cough, Yes: Pt demo correct for CPT, Yes: Pt demo correct for device, Yes: Pt demo correct for NS nasal spray, Yes: Pt demo correct for sputum management, Yes: Pt demo correct for improved hydration, Yes: Pt demo correct for hand hygiene, Yes: Pt demo correct for evalute sputum, Yes: Pt demo correct for verbalize when to call MD and Yes: Pt demo correct for cleaning of respiratory equipment Medication Medication reassessment: Yes: Pt demonstrates correct technique timing for MDI, Yes: Pt demonstrates correct technique timing for DPI, Yes: Pt demonstrates correct technique timing for NEB and Yes: Pt demonstrates correct technique timing for spacer Diabetes Diabetes:: No Core Components - Final Visit Date of Eval: 08/05/25 Session Number:: 24 Hypertension Resting Blood Pressure:: 124/70 [place] [employer] Hypertension Guidelines Peak Exercise Blood Pressure:: 172/80 Outcomes/Goals: Able to verbalize/achieve optimal blood pressure <130/80 and Incorporates diet changes & exercise for blood pressure control by DC Comment: BP WNL. Tobacco - Final Tobacco Program Goals Tobacco Use: Non-smoker Exacerbation Mgmt & Airway Clearance Final Assessment: Demonstrates knowledge of O2 Rx at rest, Demonstrates knowledge of O2 Rx with exercise and Using O2 as prescribed Bronchial Hygiene Plan: Yes: Pt demonstrates correctly for effective cough, Yes: Pt demo correct for CPT, Yes: Pt demo correct for device, Yes: Pt demo correct for NS nasal spray, Yes: Pt demo correct for sputum management, Yes: Pt demo correct for improved hydration, Yes: Pt demo correct for hand hygiene, Yes: Pt demo correct for evalute sputum, Yes: Pt demo correct for verbalize when to call MD and Yes: Pt demo correct for cleaning of respiratory equipment Medication Taking medications 100% of the time:: Met Medication reassessment: Yes: Pt demonstrates correct technique timing for MDI, Yes: Pt demonstrates correct technique timing for DPI, Yes: Pt demonstrates correct technique timing for NEB and Yes: Pt demonstrates correct technique timing for spacer Diabetes Diabetes:: No Patient Health Questionnaire PHQ-9 Screening Discharge Assessment: 1. Little interest or pleasure in doing things: Not at all 2. Feeling down, depressed, or hopeless: Not at all 3. Trouble falling or staying asleep, or sleeping too much: Not at all 4. Feeling tired or having little energy: More than half the days 5. Poor appetite or overeating: Several days 6. Feeling bad about yourself -- or that you are a failure or have let yourself or your family down: Not at all 7. Trouble concentrating on things, such as reading the newspaper or watching television: Several days 8. Moving or speaking so slowly that other people could have noticed. Or the opposite - being so fidgety or restless that you have been moving around a lot more than usual: Several days 9. Thoughts that you would be better off , or of hurting yourself in some way: Not at all How difficult have these problems made it for you to do your work, take care of things at home, or get along with other people?: Not difficult at all Total Score: 5 Knowledge Questionaire (BCKQ) Information Information: [place] COPD Knowledge Questionnaire (BCKQ) This questionnaire is designed to find out what you know about your lung problem. It should be completed without help form anyone else. This usually takes between 10 and 20 minutes. Your answers will help us to find out what information you need to help you to understand and manage your lung condition. Ernie the venetie which you think is the correct answer. Self-Efficacy 6-Item Scale Discharge Assessment: We would like to know how confident you are in doing certain activities. Please select your confidence level for: Fatigue Select Number: 10 Physical Discomfort or Pain Select Number: 10 Emotional Distress Select Number: 10 Other Symptoms or Health Problems Select Number: 10 Different Tasks and Activities Select Number: 10 Medication Select Number: 10 Total Score:: 10 Nutrition Survey Nutrition Survey Instructions Scoring Instructions Nutrition Survey Discharge: Have you lost >10 lbs over the past 2 months without trying?: No Are you following a special diet at home for diabetes, low fat, or low salt?: No Are you interested in meeting with a dietitian for help understanding your diet?: No Do you eat less than 3 meals a day?: Yes Do you eat fatty meats (gore, sausage, ribs, etc), fried foods, desserts, large amounts of salad dressings, margarine, butter, or cheese most days?: Yes Do you have food allergies? [Enter types in comment field]: No Do you eat in restaurants more than 3 times a week?: Yes Do you season food with salt, seasoning salt, or garlic salt?: No Do you used canned, boxed, frozen meals, or soups, seasoning packets?: Yes Total Score:: 4
[2025-08-05 08:18] VITALS: BP 124/70; BP 172/80; O2SAT 95; BMI 27.1
--- NOTE | 2025-08-15 08:58 | PCM.PR.TP ---
Exercise - Initial Assessment Visit Session Number:: 24 Physician Prescribed Exercise Modalities: Treadmill, [employer] Airdyne AD-7 and [employer] Stepper Current METSs:: 6.4 Resting Blood Pressure: 124/70 Maximum Exercise Blood Pressure: 172/80 Minimum SpO2 with exercise: 95 EKG Type: AV dual paced rhythm w/prolonged AV conduction and rare ectopy. Nutrition/Wt Mgmt - Initial Visit Session Number:: 24 Weight Management Admit Height:: 5 ft 10 in Admit Weight:: 189 lb Admit BMI:: 27.1 Nutrition/Wt Mgmt - 30-Day Visit Date of Eval: 08/15/25 Session Number:: 24 Weight Management Height: 5 ft 10 in Weight:: 189 lb BMI: 27.1 Nutrition/Wt Mgmt - 60-Day Visit Session Number:: 24 Weight Management Height: 5 ft 10 in Weight:: 189 lb BMI: 27.1 Nutrition/Wt Mgmt - 90-Day Visit Session Number:: 24 Weight Management Height: 5 ft 10 in Weight:: 189 lb BMI: 27.1 Nutrition/Wt Mgmt - Final Visit Date of Eval: 08/15/25 Session Number:: 24 Weight Management Height: 5 ft 10 in Weight:: 189 lb BMI: 27.1 Weight Goals Progress:: Goal met (Pt has attended nutrition class) Psychosocial - Initial Assess Visit Session Number:: 24 Problems/Goals History of Emotional Disorders: Depression (Pt is on meds for depression and in counseling at [facility]) Psychosocial Test Tool Used:: PHQ-9 Questionnaire PHQ-9 Score: 5 Referral to Behavioral Health PS - Interventions: Yes: Attend Stress Management Classes Intervention/Plan: See List Interventions/Plan:: Assess stressors,coping strategies & signs of derpression on admission, Instruct/assist pt to develop coping & personal stress Mgt strategies, Refer to Behavioral Health if appropriate, Refer to Physician if appropriate, Instruct patient to recognize signs & symptoms of depression and Instruct patient to recog Comments:: Pt has attended stress management class Psychosocial - 30-Day Visit Date of Eval: 08/15/25 Session Number:: 24 Problems/Goals History of Emotional Disorders: Depression (Pt is on meds for depression and in counseling at the [facility]) Psychosocial Test Tool Used:: PHQ-9 Questionnaire PHQ-9 Score: 5 Referral to Behavioral Health PS - Interventions: Yes: Attend Stress Management Classes Plan Interventions/Plan:: Assess stressors,coping strategies & signs of derpression on admission, Instruct/assist pt to develop coping & personal stress Mgt strategies, Refer to Behavioral Health if appropriate, Refer to Physician if appropriate, Instruct patient to recognize signs & symptoms of depression and Instruct patient to recog Comments:: Pt has attended stress management class Psychosocial - 60-Day Visit Session Number:: 24 Problems/Goals History of Emotional Disorders: Depression (Pt is on meds for depression and in counseling at the [facility]) Psychosocial Test Tool Used:: PHQ-9 Questionnaire PHQ-9 Score: 5 Referral to Behavioral Health PS - Interventions: Yes: Attend Stress Management Classes Plan Interventions/Plan:: Assess stressors,coping strategies & signs of derpression on admission, Instruct/assist pt to develop coping & personal stress Mgt strategies, Refer to Behavioral Health if appropriate, Refer to Physician if appropriate, Instruct patient to recognize signs & symptoms of depression and Instruct patient to recog Comments:: Pt has attended stress management class Psychosocial - 90-Day Visit Session Number:: 24 Problems/Goals History of Emotional Disorders: Depression (Pt is on meds for depression and in counseling at the [facility]) Psychosocial Test Tool Used:: PHQ-9 Questionnaire PHQ-9 Score: 5 Referral to Behavioral Health PS - Interventions: Yes: Attend Stress Management Classes Plan Interventions/Plan:: Assess stressors,coping strategies & signs of derpression on admission, Instruct/assist pt to develop coping & personal stress Mgt strategies, Refer to Behavioral Health if appropriate, Refer to Physician if appropriate, Instruct patient to recognize signs & symptoms of depression and Instruct patient to recog Comments:: Pt has attended stress management class Psychosocial - Final Assess Visit Date of Eval: 08/15/25 Session Number:: 24 Problems/Goals History of Emotional Disorders: Depression (Pt is on meds for depression and in counseling at the [facility]) Psychosocial Test Tool Used:: PHQ-9 Questionnaire PHQ-9 Score: 5 Referral to Behavioral Health PS - Interventions: Yes: Attend Stress Management Classes Plan Interventions/Plan:: Assess stressors,coping strategies & signs of derpression on admission, Instruct/assist pt to develop coping & personal stress Mgt strategies, Refer to Behavioral Health if appropriate, Refer to Physician if appropriate, Instruct patient to recognize signs & symptoms of depression and Instruct patient to recog Comments:: Pt has attended stress management class Oxygen & Oxygen Titration Init Visit Session Number:: 24 Initial Assessment SpO2:: 95 Oxygen & Oxygen Titration 30D Visit Date of Eval: 08/15/25 Session Number:: 24 Reassessment Breath Sounds:: Clear SpO2:: 95 Oxygen & Oxygen Titration 60D Visit Date of Eval: 08/15/25 Session Number:: 24 Reassessment Breath Sounds:: Clear SpO2:: 95 Oxygen & Oxygen Titration 90D Visit Date of Eval: 08/15/25 Session Number:: 24 Reassessment Breath Sounds:: Clear SpO2:: 95 Oxygen & Oxygen Titration SHANNAN Visit Date of Eval: 08/15/25 Session Number:: 24 Reassessment Oxygen & Oxygen Titration Final: None Breath Sounds:: Clear SpO2:: 95 Core Components - Initial Visit Session Number:: 24 Hypertension BP: 124/70 [employer] Hypertension Guidelines Blood Pressure: 172/80 Outcomes/Goals: Able to verbalize/achieve optimal blood pressure <130/80 and Incorporates diet changes & exercise for blood pressure control by DC Tobacco - Initial Assessment Tobacco Program Goals Do you have family support?: Yes Tobacco Use: Non-smoker Diabetes Diabetes:: No Core Components - 30 DAYS Visit Date of Eval: 08/15/25 Session Number:: 24 Hypertension Resting Blood Pressure:: 124/70 [employer] Hypertension Guidelines Peak Exercise Blood Pressure:: 172/80 Outcomes/Goals: Able to verbalize/achieve optimal blood pressure <130/80 and Incorporates diet changes & exercise for blood pressure control by DC Tobacco - 30-Day Tobacco Program Goals Do you have family support?: Yes Tobacco Use: Non-smoker Exacerbation Mgmt & Airway Clearance Bronchial Hygiene Plan: Yes: Pt demonstrates correctly for effective cough, Yes: Pt demo correct for CPT, Yes: Pt demo correct for device, Yes: Pt demo correct for NS nasal spray, Yes: Pt demo correct for sputum management, Yes: Pt demo correct for improved hydration, Yes: Pt demo correct for hand hygiene, Yes: Pt demo correct for evalute sputum, Yes: Pt demo correct for verbalize when to call MD and Yes: Pt demo correct for cleaning of respiratory equipment Medication Medication reassessment: Yes: Pt demonstrates correct technique timing for MDI, Yes: Pt demonstrates correct technique timing for DPI, Yes: Pt demonstrates correct technique timing for NEB and Yes: Pt demonstrates correct technique timing for spacer Diabetes Diabetes:: No Core Components - 60 DAYS Visit Session Number:: 24 Hypertension Resting Blood Pressure:: 124/70 [employer] Hypertension Guidelines Peak Exercise Blood Pressure:: 172/80 Outcomes/Goals: Able to verbalize/achieve optimal blood pressure <130/80 and Incorporates diet changes & exercise for blood pressure control by DC Tobacco - 60-Day Tobacco Program Goals Do you have family support?: Yes Tobacco Use: Non-smoker Exacerbation Mgmt & Airway Clearance Bronchial Hygiene Plan: Yes: Pt demonstrates correctly for effective cough, Yes: Pt demo correct for CPT, Yes: Pt demo correct for device, Yes: Pt demo correct for NS nasal spray, Yes: Pt demo correct for sputum management, Yes: Pt demo correct for improved hydration, Yes: Pt demo correct for hand hygiene, Yes: Pt demo correct for evalute sputum, Yes: Pt demo correct for verbalize when to call MD and Yes: Pt demo correct for cleaning of respiratory equipment Medication Medication reassessment: Yes: Pt demonstrates correct technique timing for MDI, Yes: Pt demonstrates correct technique timing for DPI, Yes: Pt demonstrates correct technique timing for NEB and Yes: Pt demonstrates correct technique timing for spacer Diabetes Diabetes:: No Core Components - 90 DAYS Visit Session Number:: 24 Hypertension Resting Blood Pressure:: 124/70 [place] Hypertension Guidelines Peak Exercise Blood Pressure:: 172/80 Outcomes/Goals: Able to verbalize/achieve optimal blood pressure <130/80 and Incorporates diet changes & exercise for blood pressure control by DC Tobacco - 90-Day Tobacco Program Goals Do you have family support?: Yes Tobacco Use: Non-smoker Exacerbation Mgmt & Airway Clearance Bronchial Hygiene Plan: Yes: Pt demonstrates correctly for effective cough, Yes: Pt demo correct for CPT, Yes: Pt demo correct for device, Yes: Pt demo correct for NS nasal spray, Yes: Pt demo correct for sputum management, Yes: Pt demo correct for improved hydration, Yes: Pt demo correct for hand hygiene, Yes: Pt demo correct for evalute sputum, Yes: Pt demo correct for verbalize when to call MD and Yes: Pt demo correct for cleaning of respiratory equipment Medication Medication reassessment: Yes: Pt demonstrates correct technique timing for MDI, Yes: Pt demonstrates correct technique timing for DPI, Yes: Pt demonstrates correct technique timing for NEB and Yes: Pt demonstrates correct technique timing for spacer Diabetes Diabetes:: No Core Components - Final Visit Date of Eval: 08/15/25 Session Number:: 24 Hypertension Resting Blood Pressure:: 124/70 [place] Hypertension Guidelines Peak Exercise Blood Pressure:: 172/80 Outcomes/Goals: Able to verbalize/achieve optimal blood pressure <130/80 and Incorporates diet changes & exercise for blood pressure control by DC Tobacco - Final Tobacco Program Goals Do you have family support?: Yes Tobacco Use: Non-smoker Exacerbation Mgmt & Airway Clearance Final Assessment: Demonstrates knowledge of O2 Rx with exercise Bronchial Hygiene Plan: Yes: Pt demonstrates correctly for effective cough, Yes: Pt demo correct for CPT, Yes: Pt demo correct for device, Yes: Pt demo correct for NS nasal spray, Yes: Pt demo correct for sputum management, Yes: Pt demo correct for improved hydration, Yes: Pt demo correct for hand hygiene, Yes: Pt demo correct for evalute sputum, Yes: Pt demo correct for verbalize when to call MD and Yes: Pt demo correct for cleaning of respiratory equipment Medication Medication list reviewed:: Yes Taking medications 100% of the time:: Met Medication reassessment: Yes: Pt demonstrates correct technique timing for MDI, Yes: Pt demonstrates correct technique timing for DPI, Yes: Pt demonstrates correct technique timing for NEB and Yes: Pt demonstrates correct technique timing for spacer Diabetes Diabetes:: No Patient Health Questionnaire PHQ-9 Screening Discharge Assessment: 1. Little interest or pleasure in doing things: Not at all 2. Feeling down, depressed, or hopeless: Not at all 3. Trouble falling or staying asleep, or sleeping too much: Not at all 4. Feeling tired or having little energy: More than half the days 5. Poor appetite or overeating: Several days 6. Feeling bad about yourself -- or that you are a failure or have let yourself or your family down: Not at all 7. Trouble concentrating on things, such as reading the newspaper or watching television: Several days 8. Moving or speaking so slowly that other people could have noticed. Or the opposite - being so fidgety or restless that you have been moving around a lot more than usual: Several days 9. Thoughts that you would be better off , or of hurting yourself in some way: Not at all How difficult have these problems made it for you to do your work, take care of things at home, or get along with other people?: Not difficult at all Total Score: 5 Knowledge Questionaire (BCKQ) Information Information: [place] COPD Knowledge Questionnaire (BCKQ) This questionnaire is designed to find out what you know about your lung problem. It should be completed without help form anyone else. This usually takes between 10 and 20 minutes. Your answers will help us to find out what information you need to help you to understand and manage your lung condition. [place] which you think is the correct answer. Self-Efficacy 6-Item Scale Discharge Assessment: We would like to know how confident you are in doing certain activities. Please select your confidence level for: Fatigue Select Number: 10 Physical Discomfort or Pain Select Number: 10 Emotional Distress Select Number: 10 Other Symptoms or Health Problems Select Number: 10 Different Tasks and Activities Select Number: 10 Medication Select Number: 10 Total Score:: 10
[2025-08-15 09:09] VITALS: BP 124/70; BP 172/80; O2SAT 95; BMI 27.1
== END 2025-08-30 23:59 ==
LOC: PR 07:43
PROVIDERS: PCP Family Medicine Geriatric Medicine; Referring Provider Internal Medicine Pulmonary Disease; Visit Provider Internal Medicine Pulmonary Disease
DX: R06.00 Dyspnea, unspecified
CPT/HCPCS: 97150; G0239

== ENCOUNTER → 2025-08-10 | Outpatient (CLI) | payer MEDICARE, OTHER, SELFPAY ==
[2025-08-05 08:18] VITALS: BMI 27.1
[2025-08-10 15:53] LABS: Hematocrit 38.1 % (40-54); Hemoglobin 12.9 g/dL (13.0-16.5); Immature Granulocytes Count 0.010 X10^3/uL (0.0-0.0); Mean Corp Hgb Conc 33.9 g/dL (32-36); Mean Corpuscular Volume 92.5 fL (80-94); Mean Platelet Vol. 10.2 fl (6.2-12.0); NRBC Flagged by Analyzer 0 % (0-5); Platelet Count 268 K/mm3 (150-450); RBC Distribution Width CV 13.1 % (11.6-14.6); RBC Distribution Width SD 44.4 fl (35.1-43.9); Red Blood Count 4.12 M/mm3 (4.6-6.2); White Blood Count 5.5 K/mm3 (4.4-11.0)
[2025-08-10 16:36] LABS: Vitamin D,25 Hydroxy 25.2 ng/mL (30-100)
[2025-08-10 16:54] LABS: AST(SGOT) 31 U/L (<=37); Alanine Aminotransfer ALT/SGPT 18 U/L (<=46); Albumin, Serum 4.1 g/dL (3.4-4.8); Alkaline Phosphatase 85 U/L (40-129); Anion Gap 8 (5-15); BUN 20 mg/dL (4-19); BUN/Creat Ratio 19.5 RATIO (10-20); Calcium,Total 9.0 mg/dL (7.6-11.0); Carbon Dioxide 25.7 mmol/L (21.0-32.0); Chloride 106 mmol/L (98-108); Globulin 3.3 g/dL (2.2-4.2); Glucose 97 mg/dL (70-99); Potassium 4.5 mmol/L (3.3-5.1)
[2025-08-10 23:38] LABS: Xtra Tube Kwok EXTRA TUBE
== END | disposition home or self-care (01) ==
LOC: POLAB3 15:38
PROVIDERS: PCP Family Medicine Geriatric Medicine; Visit Provider Family Medicine Geriatric Medicine
DX: E55.9 Vitamin D deficiency, unspecified (principal); R53.83 Other fatigue; E03.9 Hypothyroidism, unspecified
CPT/HCPCS: 36415; 80053; 82306; 84443; 85025

== ENCOUNTER → 2025-09-14 | Outpatient (CLI) | payer MEDICARE, OTHER, SELFPAY ==
[2025-08-05 08:18] VITALS: BMI 27.1
[2025-08-15 09:09] VITALS: BMI 27.1
[2025-09-14 17:22] LABS: Hematocrit 39.1 % (40-54); Hemoglobin 13.3 g/dL (13.0-16.5); Immature Granulocytes Count 0.010 X10^3/uL (0.0-0.0); Mean Corp Hgb Conc 34.0 g/dL (32-36); Mean Corpuscular Volume 90.1 fL (80-94); Mean Platelet Vol. 10.1 fl (6.2-12.0); NRBC Flagged by Analyzer 0 % (0-5); Platelet Count 272 K/mm3 (150-450); RBC Distribution Width CV 13.1 % (11.6-14.6); RBC Distribution Width SD 43.4 fl (35.1-43.9); Red Blood Count 4.34 M/mm3 (4.6-6.2); White Blood Count 6.1 K/mm3 (4.4-11.0)
[2025-09-14 18:44] LABS: Vitamin B12 330 pg/mL (180-914)
[2025-09-14 19:04] LABS: AST(SGOT) 34 U/L (<=37); Alanine Aminotransfer ALT/SGPT 24 U/L (<=46); Albumin, Serum 4.2 g/dL (3.4-4.8); Alkaline Phosphatase 81 U/L (40-129); Anion Gap 10 (5-15); BUN 19 mg/dL (4-19); BUN/Creat Ratio 18.7 RATIO (10-20); Calcium,Total 9.5 mg/dL (7.6-11.0); Carbon Dioxide 26.4 mmol/L (21.0-32.0); Chloride 104 mmol/L (98-108); Globulin 3.8 g/dL (2.2-4.2); Glucose 90 mg/dL (70-99); Potassium 4.0 mmol/L (3.3-5.1)
[2025-09-15 00:45] LABS: Xtra Tube Kwok EXTRA TUBE
[2025-09-16 15:08] LABS: PROEL- A/G Ratio 0.9 (0.7-1.7); PROEL- Albumin 3.5 g/dL (2.9-4.4); PROEL- Alpha-1 Globulin 0.2 g/dL (0.0-0.4); PROEL- Alpha-2 Globulin 0.6 g/dL (0.4-1.0); PROEL- Beta Globulin 1.2 g/dL (0.7-1.3); PROEL- Gamma Globulin 1.8 g/dL (0.4-1.8); PROEL- Globulin, Total 3.9 g/dL (2.2-3.9); PROEL- TOTAL PROTEIN 7.4 g/dL (6.0-8.5); PROEL-M-Spike Not Observed g/dL (Not Observed)
== END | disposition home or self-care (01) ==
LOC: POLAB3 16:45
PROVIDERS: PCP Family Medicine Geriatric Medicine; Visit Provider Family Medicine Geriatric Medicine
DX: E03.9 Hypothyroidism, unspecified (principal); R53.83 Other fatigue; Z13.89 Encounter for screening for other disorder; E87.1 Hypo-osmolality and hyponatremia
CPT/HCPCS: 36415; 80053; 82607; 84165; 84443; 85025

== ENCOUNTER → 2025-10-05 | Outpatient (CLI) | payer MEDICARE, OTHER, SELFPAY ==
[2025-08-15 09:09] VITALS: BMI 27.1
--- OUTSIDE RECORDS SUMMARY | 2025-10-05 06:52 | XMS RPT_ITS | CCD ---
Author Organization [facility] Care Team Providers Care Clam Bed Worker Name Role Phone Jose Rey Chi Primary Care Provider Betito, Dr. Jose Smith Primary Care Provider [phone] Cecilio Aldridge Attending Provider [phone] Cecilio Aldridge Referring Provider [phone] Jose Rey Chi Referring Provider Vandana Guaman Attending Provider Unavailable Dr. Jose Rey Chi Primary Care Provider Dr. Cecilio Aldridge Attending Provider [phone] Cecilio Aldridge Referring Provider [phone] ELEANOR WASHBURN Referring Unavailabl e PROVIDER, UNKNOWN Attending Unavailable PROVIDER, UNKNOWN Admitting Unavailable Dr. Jose Rey Chi Primary Care Provider Dr. Cecilio Aldridge Attending Provider [phone] Cecilio Aldridge Referring Provider [phone] Jose Rey Chi Primary Care Provider Dr. Cecilio Aldridge Attending Provider [phone] Cecilio Aldridge Referring Provider [phone] Jose Rey Chi Primary Care Provider Dr. Cecilio Aldridge Attending Provider Dr. Cecilio Aldridge Referring Provider Betito SHIELDS, Dr. Jose Smith Primary Care Provider [phone] Dr. Cecilio Aldridge MD Attending Provider Luis Carlos SHIELDS, Dr. Hernandes Referring Provider Alie SHIELDS, Dr. Pino Matias Attending Provider Alie SHIELDS, Dr. Pino Matias Referring Provider Betito SHIELDS, Dr. Jose Smith Attending Provider Betito SHIELDS, Dr. Jose Smith Primary Care Provider [phone] Luis Carlos SHIELDS, Dr. Hernandes Attending Provider Tati SHIELDS, Dr. Larry Mike Attending Provider Tati SHIELDS, Dr. Larry Mike Referring Provider [place], Dominique Attending Provider [place], Dominique Referring Provider Alie SHIELDS, Dr. Pino Matias Attending Provider Alie SHIELDS, Dr. Pino Matias Referring Provider [phone] Betito SHIELDS, Dr. Jose Smith Primary Care Provider [phone] Luis Carlos SHIELDS, Dr. Hernandes Attending Provider [phone] BETITO SHIELDS, DR ESPOSITO Primary Care Physician BETITO SHIELDS, DR ESPOSITO Primary Care Unavailable TATI SHIELDS, LARRY Mike Attending Unavailable Betito SHIELDS, Dr. Jose Smith Primary Care Provider [phone] TATI SHIELDS, LARRY Mike Attending Unavailable BETITO SHIELDS, DR ESPOSITO Primary Care Unavailable TATI SHIELDS, LARRY Mike Admitting Unavailable TATI SHIELDS, LARRY Mike Consulting Unavailable LARRY FITZPATRICK MD Attending Unavailable BETITO SHIELDS, DR ESPOSITO Primary Care Unavailable YOANDY CASTILLO MD Consulting Unavailabl e Betito SHIELDS, Dr. Jose Smith Primary Care Provider [phone] Luis Carlos SHIELDS, Dr. Hernandes Attending Provider Luis Carlos SHIELDS, Dr. Hernandes Referring Provider Betito SHIELDS, Dr. Jose Smith Primary Care Physician [phone] Alie SHIELDS, Dr. Pino Matias Attending Physician [phone] Alie SHIELDS, Dr. Pino Matias Referring Provider Luis Carlos SHIELDS, Dr. Hernandes Attending Physician Betito SHIELDS, Dr. Jose Smith Attending Physician Betito SHIELDS, Dr. Jose Smith Referring Provider Vandana Guaman Attending Physician Unavailable Betito, Jose Chi Primary Care Unavailable Luis Carlos Cecilio Attending Unavailable Betito, Jose Chi Referring Unavailable Betito, Jose Chi Attending Unavailable Betito, Jose Chi Primary Care Unavailable Betito, Jose Chi Referring Unavailable Betito, Jose Chi Attending Unavailable Betito, Jose Chi Primary Care Unavailable Betito, Jose Chi Primary Care Unavailable Sibilia, Pino V Referring Unavailable Sibilia, Pino V Attending Unavailable Betito, Jose Chi Attending Unavailable Betito, Jose Chi Primary Care Unavailable Sibilia, Pino V Attending Unavailable Sibilia, Ipno V Referring Unavailable Betito, Jose Chi Primary Care Unavailable Betito, Jose Chi Primary Care Unavailable Sibilia, Pino V Attending Unavailable Sibilia, Pino V Referring Unavailable Betito, Jose Chi Primary Care Unavailable Sibilia, Pino V Attending Unavailable Sibilia, Pino V Referring Unavailable Sibilia, Pino V Attending Unavailable Sibilia, Pino V Referring Unavailable Betito, Jose Chi Primary Care Unavailable Sibilia, Pino V Referring Unavailable Betito, Jose Chi Primary Care Unavailable Sibilia, Pino V Attending Unavailable Sibilia, Pino V Attending Unavailable Sibilia, Pino V Referring Unavailable Betito, Jose Chi Primary Care Unavailable Betito, Jose Chi Primary Care Unavailable Betito, Jose Chi Attending Unavailable [place], Dominique Referring Unavailable [place], Dominique Attending Unavailable Betito, Jose Chi Primary Care Unavailable Betito, Jose Chi Attending Unavailable Betito, Jose Chi Primary Care Unavailable Betito, Jose Chi Primary Care Unavailable Larry Fitzpatrick Referring Unavailable Larry Fitzpatrick Attending Unavailable Sibilia, Pino V Attending Unavailable Sibilia, Pino V Referring Unavailable Betito, Jose Chi Primary Care Unavailable Betito, Jose Chi Primary Care Unavailable Luisc Arlos, [place] Attending Unavailable Betito, Jose Chi Primary Care Unavailable Luis Carlos, Cecilio Attending Unavailable Luis Carlos, Cecilio Referring Unavailable Betito, Jose Chi Primary Care Unavailable Luis Carlos, [place] Attending Unavailable Luis Carlos, [place] Attending Unavailable Luis Carlos, [place] Referring Unavailable Betito, Jsoe Chi Primary Care Unavailable Betito, Jose Chi Primary Care Unavailable Luis Carlos, [place] Referring Unavailable Luis CarlosGustabo almanzaril Attending Unavailable Jose Rey Chi Referring Unavailable Betito, Jose Chi Primary Care Unavailable Luis CarlosIvonne almanzal Attending Unavailable Betito, Jose Chi Primary Care Unavailable Luis Carlos, [place] Referring Unavailable Luis CarlosGustabo almanzaril Attending Unavailable Betito, Jose Chi Primary Care Unavailable Luis CarlosIvonne almanzal Attending Unavailable Medications Current Medications Medication Drug Class(es) Dates Sig (Normalized) Sig (Original) albuterol MDI (90 mcg/inh) CFC free inhalation aerosol (2 sources) Start: 06-14-2025 take 2 puff(s) by inhalation every four hours as needed for wheezing albuterol MDI (90 mcg/inh) CFC free inhalation aerosol 2 puff(s), Inhalation, q4h, PRN as needed for wheezing, # 8.5 gram(s), 0 Refill(s) Start Date: 06/14/25 Status: Ordered Quantity: 8.5 Unit: g Repeat number: 1 Breztri Aerosphere 160 mcg-9 mcg-4.8 mcg/inh inhalation aerosol (2 sources) Start: 06-14-2025 Breztri Aerosphere 160 mcg-9 mcg-4.8 mcg/inh inhalation aerosol Dose = 2 puff(s), Inhalation, BID, not to exceed 4 inhalations/day, # 5.9 gram(s), 0 Refill(s) Start Date: 06/14/25 Status: Ordered Quantity: 5.9 Unit: g Repeat number: 1 doxepin hydrochloride 50 mg oral capsule (20 sources) Tricyclic Antidepressant Start: 08-22-2022 take 1 capsule by mouth at bedtime Start: 08-24-2020 End: 08-22-2022 Doxepin 75 mg capsule Discon tinued 100 mg PO AT BEDTIME August 24, 2020 12:00am August 22, 2022 1:30pm Start: 08-24-2020 End: 08-22-2022 take 100 mg by mouth at bedtime Doxepin Discontinued 1 00 MG PO AT BEDTIME August 24, 2020 12:00am August 22, 2022 1:30pm fluticasone (1 source) Corticosteroid Start: 02-28-2016 Flovent HFA In halation, 0 Refill(s) Start Date: 02/28/16 Status: Ordered Repeat number: 1 Qlosyownhma-Mdualgjba-Vlm anter (13 sources) Start: 07-22-2024 Start: 07-22-2024 Fluticasone-Um eclidin-Vilanter (Trelegy Ellipta) 200-62.5-25 mcg blister with device Active 1 NMA INHALATION AT BEDTIME July 22, 2024 12:00am levothyroxine sodium 0.15 mg oral tablet (20 sources) l-Thyroxine Start: 06-14-2025 levothyroxine 150 mcg (0.15 mg) oral tablet Dose : 150 mcg = 1 tab(s), Oral, qAM, # 60 tab(s), 0 Refill(s) Start Date: 06/14/25 Status: Ordered Quantity: 60.0 Unit: tab(s) Repeat number: 1 Start: 10-15-2024 Start: 09-04-2023 End: 10-15-2024 Levothyroxine 125 mcg tablet Discontinued 137 ug PO DAILY September 04, 2023 9:00am October 15, 2024 11:34am Start: 09-04-2023 take 137 ug by mouth once daily Levothyroxine Active 137 MCG PO DAILY September 04, 2023 9:00am Start: 08-23-2021 End: 09-04-2023 take 1 tablet by mouth once daily Levothyroxine 125 mcg tablet Discontinued 125 ug PO DAILY August 23, 2021 12:00am September 04, 2023 9:02am Start: 08-12-2019 End: 08-23-2021 Levothyroxine 137 mcg capsul e Discontinued 125 ug PO DAILY August 12, 2019 12:00am August 23, 2021 1:14pm Start: 02-28-2016 levothyroxine 125 mcg (0.125 mg) oral tablet Dose : 125 mcg = 1 tab(s), Oral, qDay, 0 Refill(s) Start Date: 02/28/16 Status: Ordered Repeat number: 1 Start: 09-08-2013 End: 08-12-2019 Levothyroxine 150 MCG tablet Discontinued 125 ug PO DAILY September 08, 2013 12:00am August 12, 2019 3:43pm Start: 09-08-2013 End: 08-12-2019 take 125 ug by mouth once daily Levothyroxine Discontinued 125 MCG PO DAILY September 08, 2013 12:00am August 12, 2019 3:43pm Lopressor 25mg--USE metoprolol tartrate 25 mg oral tablet (2 sources) Start: 06-14-2025 Lopressor 25mg --USE metoprolol tartrate 25 mg oral tablet Dose : 12.5 mg = 0.5 tab(s), Oral, BID, 0 Refill(s) Start Date: 06/14/25 Status: Ordered Repeat number: 1 Multiple Vitamins oral tablet (3 sources) Start: 03-04-2016 take 1 tablet by mouth once daily in the morning Multiple Vitamins oral tablet Dose = 1 tab(s), Oral, qAM, 0 Refill(s) Start Date: 03/04/16 Status: Ordered Repeat number: 1 Start: 03-04-2016 take 1 tablet by paris th once daily Multiple Vitamins oral tablet Dose = 1 tab(s), Oral, qDay, 0 Refill(s) Start Date: 03/04/16 Status: Ordered Repeat number: 1 pantoprazole 40 mg delayed release oral tablet (15 sources) Proton Pump Inhibitor Start: 07-22-2024 take 1 tablet by mouth twice daily sertraline 100 mg oral tablet (20 sources) Serotonin Reuptake Inhibitor Start: 06-14-2025 sertraline 100 mg oral tablet Dose : 100 mg = 1 tab(s), Oral, qHS, # 30 tab(s), 0 Refill(s) Start Date: 06/14/25 Status: Ordered Quantity: 30.0 Unit: tab(s) Repeat number: 1 Start: 08-12-2019 Start: 08-12-2019 take 125 mg by mouth at bedtim e Sertraline Active 125 MG PO AT BEDTIME August 12, 2019 12:00am Start: 08-12-2019 take 100 mg by mouth at bedtim e Sertraline Active 100 MG PO AT BEDTIME August 12, 2019 12:00am sildenafil 100 mg oral table t (20 sources) Phosphodiesterase 5 Inhibitor Start: 08-24-2020 Start: 02-14-2017 End: 08-24-2020 Sildenafil 25 MG tablet Disc ontinued 12.5 mg PO NEEDED as needed for ed February 14, 2017 12:00am August 24, 2020 12:53pm Start: 02-14-2017 End: 08-24-2020 Sildenafil Discontinued 12.5 MG PO NEEDED February 14, 2017 12:00am August 24, 2020 12:53pm Completed/Discontinued Medications Medication Drug Class(es) Dates Sig (Normalized) Sig (Original) acetaminophen 325 mg / HYDROcodone bitartrate 5 mg oral tablet (20 sources) Opioid Agonist Start: 03-30-2021 End: 08-23-2021 Hydrocodone-Acetami nophen 5-325 mg tablet Discontinued 1 {tbl} PO Q8H as needed for pain (scale score 6-10) 10 3 0 March 30, 2021 August 23, 2021 1:13pm Ganglion cyst of left foot Ganglion, left ankle and foot Start: 03-30-2021 End: 08-23-2021 take 1 tablet by mouth every eight hours Hydrocodone-Acetaminophen Discontinued 1 TABLET PO Q8H 10 3 March 30, 2021 August 23, 2021 1:13pm [id number] 200 actuat albuterol 0.09 mg/actuat metered dose inhaler (20 sources) beta2-Adrenergic Agonist Start: 03-23-2021 End: 10-15-2024 Albuterol Sulfate 1 INHALER inhaler Discontinued 1 NMA INHALATION EVERY 4 HOURS NEEDED as needed for Sob &/Or Wheezing March 23, 2021 12:00am October 15, 2024 11:32am Start: 03-23-2021 take 1 puff(s) by in halation every four hours as needed Albuterol Sulfate Active 1 PUFF INHALATION EVERY 4 HOURS NEEDED March 23, 2021 12:00am finasteride 5 mg oral tablet (14 sources) 5-alpha Reductase Inhibitor Start: 09-04-2023 End: 10-15-2024 take 1 tablet by mouth once daily Finasteride 5 mg tablet Discontinued 5 mg PO DAILY September 04, 2023 12:00am October 15, 2024 11:33am metoprolol tartrate 25 mg oral tablet (20 sources) beta-Adrenergic Jessica Start: 06-17-2025 End: 06-17-2025 take 1 tablet by mouth in the morning Metoprolol Tartrate 25 mg oral tablet Start: 06/17/25 8:00:00 AM EDT, Dose = 12.5 mg, = 1 EA, Oral, 0, 06/16/25 11:41:00 EDT Start Date: 06/17/25 Stop Date: 06/17/25 Status: Completed Repeat number: 1 Start: 06-16-2025 End: 06-16-2025 take 1 tablet by mouth in the evening Metoprolol Tartrate 25 mg oral tablet Start: 06/16/25 5:00:00 PM EDT, Dose = 12.5 mg, = 1 EA, Oral, 0, 06/16/25 11:41:00 EDT Start Date: 06/16/25 Stop Date: 06/16/25 Status: Completed Repeat number: 1 Start: 08-12-2019 End: 10-05-2024 Metoprolol Tartrate 25 mg ta blet Discontinued 12.5 mg PO TWICE A DAY 90 0 September 15, 2024 8:10am October 05, 2024 11:11am Start: 08-12-2019 End: 09-04-2023 take 12.5 mg by mouth twice daily Metoprolol Tartrate Discontinued 12.5 MG PO TWICE A DAY 90 August 27, 2019 10:19am August 23, 2021 1:15pm Start: 09-30-2018 End: 08-12-2019 take 1 tablet by mouth twice daily Metoprolol Tartrate 25 mg tablet Discontinued 25 mg PO TWICE A DAY 60 6 September 30, 2018 12:00am August 12, 2019 3:44pm 60 actuat mometasone furoate 0.22 mg/actuat dry powder inhaler (20 sources) Corticosteroid Start: 08-23-2021 End: 07-22-2024 Mometasone 220 mcg/ actuation (60) aerosol powdr breath activated Discontinued 1 NMA INHALATION TWICE A DAY August 23, 2021 1:14pm July 22, 2024 8:29am Start: 08-23-2021 Mometasone Act brittany 1 INH INHALATION TWICE A DAY August 23, 2021 1:14pm Start: 08-23-2021 Mometasone Act brittany 1 INH INHALATION TWICE A DAY August 23, 2021 1:14pm Start: 03-11-2016 End: 08-23-2021 Mometasone 220 MCG inhaler Discontinued 1 NMA INHALATION DAILY March 11, 2016 12:00am August 23, 2021 1:15pm Start: 03-11-2016 End: 09-23-2021 take 1 puff(s) by inhalation once daily Mometasone Discontinued 1 PUFF INHALATION DAILY March 11, 2016 12:00am August 23, 2021 1:15pm Start: 03-04-2016 Asmanex HFA In halation, BID, 0 Refill(s) Start Date: 03/04/16 Status: Ordered Repeat number: 1 Mometasone 220 mcg/ actuation (60) aerosol powdr breath activated (9 sources) Start: 08-23-2021 End: 07-22-2024 Mometasone 220 mcg/ actuation (60) aerosol powdr breath activated Discontinued 1 NMA INHALATION TWICE A DAY August 23, 2021 1:14pm July 22, 2024 8:29am omeprazole 40 mg delayed release oral capsule (20 sources) Proton Pump Inhibitor Start: 03-23-2021 End: 08-23-2021 take 1 capsule by mouth once daily Omeprazole 40 MG capsule,delayed release(DR/EC) Discontinued 40 mg PO DAILY March 23, 2021 12:00am August 23, 2021 1:13pm prazosin 2 mg oral capsule (14 sources) alpha-Adrenergic Jessica Start: 10-20-2023 End: 10-15-2024 take 1 capsule by mouth at bedtime Prazosin 2 mg capsule Discontinued 2 mg PO AT BEDTIME October 20, 2023 1:00am October 15, 2024 11:34am temazepam 15 mg oral capsule (20 sources) Benzodiazepine Start: 02-28-2016 End: 08-24-2020 take 1 capsule by mouth at bedtime as needed Temazepam 15 mg capsule Discontinued 15 mg PO AT BEDTIME as needed for Insomnia March 04, 2018 12:00am August 24, 2020 12:54pm testosterone cypionate 100 mg/ml injectable solution (20 sources) Androgen Start: 03-04-2018 End: 08-24-2020 Testosterone Cypionate 100 mg/mL oil Discontinued 100 mg IM every 3 weeks March 04, 2018 2:24pm August 24, 2020 12:55pm Start: 03-04-2018 End: 08-24-2020 Testosterone Cypionate Disco ntinued 100 MG IM every 3 weeks March 04, 2018 2:24pm August 24, 2020 12:55pm Start: 02-14-2017 End: 03-04-2018 Testosterone Cypionate 100 M G/ML oil Discontinued 100 mg IM Q21D February 14, 2017 12:00am March 04, 2018 2:25pm Start: 02-14-2017 End: 03-04-2018 Testosterone Cypionate Disco ntinued 100 MG IM Q21D February 14, 2017 12:00am March 04, 2018 2:25pm Problems Active Problems Problem Classification Problem Date Documented Da te Episodic/Chronic Acute cerebrovascular disease (20 sources) Cerebral infarction, unspecified; Translations: [Stroke of unknown etiology] 08-23-2021 Chronic Anxiety disorders (1 source) Anxiety disorder, unspecified; Translations: [Anxiety disorder, unspecified] Onset: 5 Chronic Aortic; peripheral; and visceral artery aneurysms (20 sources) Aortic root dilatation; Translations: [Thoracic aortic ectasia] 08-23-2020 Chronic Asthma (1 source) Unspecified asthma, uncomplicated; Translations: [Unspecified asthma, uncomplicated] Onset: 5 Chronic Calculus of urinary tract (20 sources) Ureteric stone; Translations: [Calculus of ureter] 09-17-2021 Episodic Cardiac and circulatory congenital anomalies (20 sources) Bicuspid aortic valve; Translations: [Congenital insufficiency of aortic valve] Onset: 5 05-25-2018 Chronic Cardiac dysrhythmias (20 sources) Sick sinus syndrome; Translations: [Sick sinus syndrome] Onset: 5 Chronic Cardiac dysrhythmias (20 sources) Sinus bradycardia; Translations: [Bradycardia, unspecified] 05-25-2018 Episodic Conditions associated with dizziness or vertigo (20 sources) Dizziness; Translations: [Dizziness and giddiness] 08-11-2019 Episodic Conduction disorders (20 sources) First degree atrioventricular block; Translations: [Atrioventricular block, first degree] Onset: 8 Chronic Comment on above: 03/09/2018 Diverticulosis and diverticulitis (1 source) Diverticulosis of colon; Translations: [Diverticulosis of colon] Onset: 0 09-14-2010 Esophageal disorders (20 sources) Erosive esophagitis; Translations: [Ulcer of esophagus without bleeding] Onset: 5 07-01-2024 Chronic Essential hypertension (1 source) Essential (primary) hypertension; Translations: [Essential (primary) hypertension] Onset: 5 Chronic Genitourinary symptoms and ill-defined conditions (20 sources) Retention of urine; Translations: [Retention of urine, unspecified] 05-25-2018 Episodic Inflammatory conditions of male genital organs (20 sources) Prostatitis; Translations: [Inflammatory disease of prostate, unspecified] 05-25-2018 Episodic Mood disorders (1 source) Mood disorders; Translations: [Depression, unspecified] Onset: 5 Nausea and vomiting (13 sources) Nausea; Translations: [Nausea] 07-07-2024 Episodic Nonspecific chest pain (20 sources) Chest pain; Translations: [Chest pain, unspecified] 05-25-2018 Episodic Nutritional deficiencies (1 source) Vitamin D deficiency, unspecified; Translations: [Vitamin D deficiency, unspecified] Onset: 5 Chronic Occlusion or stenosis of precerebral arteries (20 sources) Left carotid artery stenosis; Translations: [Occlusion and stenosis of left carotid artery] Onset: 5 08-23-2021 Chronic Comment on above: Mild (<50%) stenosis right extracranial internal carotid. Moderate (50-69%) stenosis leftextracranial internal carotid. 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) use of aspirin] Onset: 5 Episodic Other and unspecified benign neoplasm (3 sources) Polyp of colon 02-28-2016 Episodic Other circulatory disease (1 source) Personal history of transient ischemic attack (TIA), and cerebral infarction without residual deficits; Translations: [Personal history of transient ischemic attack (TIA), and cerebral infarction without residual deficits] Onset: 5 Episodic Other connective tissue disease (20 sources) Ganglion cyst of left foot; Translations: [Ganglion, left ankle and foot] 08-23-2021 Episodic Other connective tissue disease (1 source) Arthrodesis status; Translations: [Arthrodesis status] Onset: 5 Episodic Other connective tissue disease (1 source) Muscle weakness (generalized); Translations: [Muscle weakness (generalized)] Onset: 5 Episodic Other gastrointestinal disorders (13 sources) Heartburn; Translations: [Heartburn] 07-01-2024 Episodic Other gastrointestinal disorders (13 sources) Dysphagia; Translations: [Dysphagia, unspecified] 07-01-2024 Episodic Other nervous system disorders (13 sources) Loss of sense of smell; Translations: [Anosmia] 07-01-2024 Episodic Residual codes; unclassified (1 source) Obstructive sleep apnea (adult) (pediatric); Translations: [Obstructive sleep apnea (adult) (pediatric)] Onset: 5 Chronic Residual codes; unclassified (1 source) Central sleep apnea in conditions classified elsewhere; Translations: [Central sleep apnea in conditions classified elsewhere] Onset: 5 Chronic Thyroid disorders (5 sources) Hypothyroidism; Translations: [Hypothyroidism, unspecified] Onset: 5 02-28-2016 Chronic Unclassified (3 sources) Age more than 65 years; Translations: [Over 65 years old] Urinary tract infections (2 sources) Urinary tract infection, site not specified; Translations: [Urinary tract infection, site not specified] Onset: 5 Episodic Past or Other Problems Problem Classification Problem Date Documented Da te Episodic/Chronic Biliary tract disease (2 sources) Gallstone; Translations: [Chronic cholecystitis] Onset: 10-01-2010 10-01-2010 Episodic Malaise and fatigue (1 source) Other fatigue; Translations: [Other fatigue] Onset: 02-17-2025 Episodic Other gastrointestinal disorders (1 source) Alteration in bowel elimination; Translations: [Change in bowel habits] Onset: 09-11-2010 09-11-2010 Episodic Other gastrointestinal disorders (1 source) Diarrhea; Translations: [Diarrhea] Onset: 09-14-2010 09-14-2010 Episodic Other lower respiratory disease (2 sources) Dyspnea, unspecified; Translations: [Dyspnea, unspecified] Onset: 12-18-2022 Episodic Other screening for suspected conditions (not mental disorders or infectious disease) (1 source) Encounter for screening for malignant neoplasm of prostate; Translations: [Encounter for screening for malignant neoplasm of prostate] Onset: 04-07-2025 Episodic Viral infection (20 sources) Disease caused by 2019-nCoV; Translations: [COVID-19] Onset: 12-01-2021 08-21-2022 Episodic Results Test Name Value Interpretation Reference Range Tello Miller 09-16 Albumin [Mass/Vol] 3.5 g/dL Normal 2.9-4.4 [facility] Comment on above: Performed By: #### L [id number], L100.0100, L501.9520, L506.1001 #### [facility] [address] [place], [address] Albumin/Globulin [Mass ratio] 0.9 {ratio} Normal 0.7-1.7 [facility] Comment on above: Performed By: #### L [id number], L100.0100, [id number], L506.1001 #### [facility] [address] [place], [address] ALPHA-1 GLOBUL 0.2 g/dL Normal 0.0-0.4 [facility] Comment on above: Performed By: #### L [id number], L100.0100, [id number], L506.1001 #### [facility] [address] [place], [address] ALPHA-2 GLOBUL 0.6 g/dL Normal 0.4-1.0 [facility] Comment on above: Performed By: #### L [id number], L100.0100, [id number], L506.1001 #### [facility] [address] [place], [address] BETA GLOBULIN 1.2 g/dL Normal 0.7-1.3 [facility] Comment on above: Performed By: #### L [id number], L100.0100, [id number], L506.1001 #### [facility] [address] [place], [address] GAMMA GLOBULIN 1.8 g/dL Normal 0.4-1.8 [facility] Comment on above: Performed By: #### L [id number], L100.0100, [id number], L506.1001 #### [facility] [address] [place], [address] Globulin (S) [Mass/Vol] 3.9 g/dL Normal 2.2-3.9 [facility] Comment on above: Performed By: #### L [id number], L100.0100, [id number], [id number] #### [facility] [address] [place], [address] INTERPRETATION Comment Normal . [facility] Comment on above: Result Comment: Prot ein electrophoresis scan will follow via computer, mail, or print color matcher delivery. Performed By: #### L [id number], L100.0100, [id number], [id number] #### [facility] [address] [place], [address] M-SPIKE Not Observed Normal Not Observed [facility] [facility] Comment on above: Performed By: #### L 500.4050, L100.0100, L501.9520, L506.1001 #### [facility] [address] [place], [address] NOTE: Comment Normal . [facility] Comment on above: Result Comment: The SPE pattern appears unremarkable. Evidence of monoclonal protein is not apparent. Performed at: [address] [id number] Acid Mixer: Yoandy Olivas PhD, Phone: [phone] Performed By: #### L 500.4050, L100.0100, L501.9520, L506.1001 #### [facility] [address] [place], [address] Protein [Mass/Vol] 7.4 g/dL Normal 6.0-8.5 [facility] Comment on above: Performed By: #### L 500.4050, L100.0100, L501.9520, L506.1001 #### [facility] [address] [place], [address] CBC W/Diff, Automatedon 10-2024 Absolute Lymph 1.85 X10 3/uL Normal 0.83-4.51 [facility] Comment on above: Performed By: #### L 500.4050, L100.0100, L501.9520, L506.1001 #### [facility] [address] [place], [address] Absolute Neut 3.4 X10 3/uL Normal 2.0-7.7 [facility] Comment on above: Performed By: #### L 500.4050, L100.0100, L501.9520, L506.1001 #### [facility] [address] [place], [address] Basophils/100 WBC (Bld) 0.7 % Normal 0-1 [facility] Comment on above: Performed By: #### L 500.4050, L100.0100, L501.9520, L506.1001 #### [facility] [address] [place], [address] Eosinophils/100 WBC (Bld) 2.3 % Normal 0-5 [facility] Comment on above: Performed By: #### L 500.4050, L100.0100, L501.9520, L506.1001 #### [facility] [address] [place], [address] Erythrocyte distribution width (RBC) [Ratio] 13.1 % Normal 11.6-14.6 [facility] Comment on above: Performed By: #### L 500.4050, L100.0100, L501.9520, L506.1001 #### [facility] [address] [place], [address] Hematocrit (Bld) [Volume fraction] 39.1 % Low 40-54 [facility] Comment on above: Performed By: #### L 500.4050, L100.0100, L501.9520, L506.1001 #### [facility] [address] [place], [address] Hemoglobin (Bld) [Mass/Vol] 13.3 g/dL Normal 13.0-16.5 [facility] Comment on above: Performed By: #### L 500.4050, L100.0100, L501.9520, L506.1001 #### [facility] [address] [place], [address] IG% 0.200 Normal 0.0-0.9 [facility] Comment on above: Result Comment: IG% - Immature Granulocytes (promyelocytes, myelocytes and metamyelocytes) > 1% indicates that a LEFT SHIFT is Present. Performed By: #### L 500.4050, L100.0100, L501.9520, L506.1001 #### [facility] [address] [place], [address] Lymphocytes/100 WBC (Bld) 30.2 % Normal 19-41 [facility] Comment on above: Performed By: #### L 500.4050, L100.0100, L501.9520, L506.1001 #### [facility] [address] [place], [address] MCH (RBC) [Entitic mass] 30.6 pg Normal 27.0-32.0 [facility] Comment on above: Performed By: #### L 500.4050, L100.0100, L501.9520, L506.1001 #### [facility] [address] [place], [address] MCHC (RBC) [Mass/Vol] 34.0 g/dL Normal 32-36 [facility] Comment on above: Performed By: #### L 500.4050, L100.0100, L501.9520, L506.1001 #### [facility] [address] [place], [address] MCV (RBC) [Entitic vol] 90.1 fL Normal 80-94 [facility] Comment on above: Performed By: #### L 500.4050, L100.0100, L501.9520, L506.1001 #### [facility] [address] [place], [address] Monocytes/100 WBC (Bld) 11.4 % High 0-10 [facility] Comment on above: Performed By: #### L 500.4050, L100.0100, L501.9520, L506.1001 #### [facility] [address] [place], [address] Neutrophils/100 WBC (Bld) 55.2 % Normal 47-70 [facility] Comment on above: Performed By: #### L 500.4050, L100.0100, L501.9520, L506.1001 #### [facility] [address] [place], [address] Nucleated RBC (Bld) [#/Vol] 0 10*3/uL Normal 0-5 [facility] Comment on above: Performed By: #### L 500.4050, L100.0100, L501.9520, L506.1001 #### [facility] [address] [place], [address] Platelet mean volume (Bld) [Entitic vol] 10.1 fL Normal 6.2-12.0 [facility] Comment on above: Performed By: #### L 500.4050, L100.0100, L501.9520, L506.1001 #### [facility] [address] [place], [address] Platelets (Bld) [#/Vol] 272 10*3/uL Normal 150-450 [facility] Comment on above: Performed By: #### L 500.4050, L100.0100, L501.9520, L506.1001 #### [facility] [address] [place], [address] RBC (Bld) [#/Vol] 4.34 10*6/uL Low 4.6-6.2 [facility] Comment on above: Performed By: #### L 500.4050, L100.0100, L501.9520, L506.1001 #### [facility] [address] [place], [address] RDW SD 43.4 fl Normal 35.1-43.9 [facility] Comment on above: Performed By: #### L 500.4050, L100.0100, L501.9520, L506.1001 #### [facility] [address] [place], [address] WBC (Bld) [#/Vol] 6.1 10*3/uL Normal 4.4-11.0 [facility] Comment on above: Performed By: #### L 500.4050, L100.0100, L501.9520, L506.1001 #### [facility] [address] [place], [address] Comprehensive Metabolic [facility] 09-14-2025 Albumin [Mass/Vol] 4.2 g/dL Normal 3.4-4.8 [facility] Comment on above: Performed By: #### L 500.4050, L100.0100, L501.9520, L506.1001 #### [facility] [address] [place], [address] Albumin/Globulin [Mass ratio] 1.1 {ratio} Normal 0.9-2.4 [facility] Comment on above: Performed By: #### L 500.4050, L100.0100, L501.9520, L506.1001 #### [facility] [address] [place], [address] ALK PHOS 81 U/L Normal 40-129 [facility] Comment on above: Performed By: #### L 500.4050, L100.0100, L501.9520, L506.1001 #### [facility] [address] [place], [address] ALT [Catalytic activity/Vol] 24 U/L Normal <=46 [facility] Comment on above: Performed By: #### L 500.4050, L100.0100, L501.9520, L506.1001 #### [facility] [address] [place], [address] AST [Catalytic activity/Vol] 34 U/L Normal <=37 [facility] Comment on above: Result Comment: Hemo lysis present, Results??could be affected. ?? Performed By: #### L 500.4050, L100.0100, L501.9520, L506.1001 #### [facility] [address] [place], [address] Bilirubin [Mass/Vol] 0.67 mg/dL Normal 0.00-1.30 [facility] Comment on above: Performed By: #### L 500.4050, L100.0100, L501.9520, L506.1001 #### [facility] [address] [place], [address] BUN/CRE 18.7 RATIO Normal 10-20 [facility] Comment on above: Performed By: #### L 500.4050, L100.0100, L501.9520, L506.1001 #### [facility] [address] [place], [address] Calcium [Mass/Vol] 9.5 mg/dL Normal 7.6-11.0 [facility] Comment on above: Performed By: #### L 500.4050, L100.0100, L501.9520, L506.1001 #### [facility] [address] [place], [address] Chloride [Moles/Vol] 104 mmol/L Normal 98-108 [facility] Comment on above: Performed By: #### L 500.4050, L100.0100, L501.9520, L506.1001 #### [facility] [address] [place], [address] CO2 [Moles/Vol] 26.4 mmol/L Normal 21.0-32.0 [facility] Comment on above: Performed By: #### L 500.4050, L100.0100, L501.9520, L506.1001 #### [facility] [address] [place], [address] Creatinine [Mass/Vol] 0.99 mg/dL Normal 0.70-1.20 [facility] Comment on above: Performed By: #### L 500.4050, L100.0100, L501.9520, L506.1001 #### [facility] [address] [place], [address] GAP 10 Normal 5-15 [facility] Comment on above: Performed By: #### L 500.4050, L100.0100, L501.9520, L506.1001 #### [facility] [address] [place], [address] GFR/1.73 sq M.predicted among non-blacks MDRD (S/P/Bld) [Vol rate/Area] 79 mL/min/{1.73_m2} Normal >60 [facility] Comment on above: Result Comment: mL/m in/1.73m2 CKD-EPI Creatinine Equation (2020) Performed By: #### L 500.4050, L100.0100, L501.9520, L506.1001 #### [facility] [address] [place], [address] Globulin (S) [Mass/Vol] 3.8 g/dL Normal 2.2-4.2 [facility] Comment on above: Performed By: #### L 500.4050, L100.0100, L501.9520, L506.1001 #### [facility] [address] [place], [address] Glucose [Mass/Vol] 90 mg/dL Normal 70-99 [facility] Comment on above: Performed By: #### L 500.4050, L100.0100, L501.9520, L506.1001 #### [facility] [address] [place], [address] Potassium [Moles/Vol] 4.0 mmol/L Normal 3.3-5.1 [facility] Comment on above: Result Comment: Hemo lysis present, Results??could be affected. ?? Performed By: #### L 500.4050, L100.0100, L501.9520, L506.1001 #### [facility] [address] [place], [address] Sodium [Moles/Vol] 141 mmol/L Normal 133-145 [facility] Comment on above: Performed By: #### L 500.4050, L100.0100, L501.9520, L506.1001 #### [facility] [address] [place], [address] T PROT 8.0 g/dL Normal 5.9-8.4 [facility] Comment on above: Performed By: #### L 500.4050, L100.0100, L501.9520, L506.1001 #### [facility] [address] [place], [address] Urea nitrogen [Mass/Vol] 19 mg/dL Normal 4-19 [facility] Comment on above: Performed By: #### L 500.4050, L100.0100, L501.9520, L506.1001 #### [facility] [address] [place], [address] Thyroid Stim Hormone (TSH)on 09-14-2025 TSH 0.286 uIU/mL Low 0.300-4.200 [facility] Comment on above: Performed By: #### L 500.4050, L100.0100, L501.9520, L506.1001 #### [facility] [address] [place], [address] Vitamin B12on 09-14-2025 Cobalamin (Vitamin B12) [Mass/Vol] 330 pg/mL Normal 180-914 [facility] Comment on above: Performed By: #### L 500.4050, L100.0100, L501.9520, L506.1001 #### [facility] [address] [place], [address] Pacemaker Checkon 08-22-2025 Pacemaker Check [facility] [place] [facility] [address] [place] [address] Pacemaker Check Date of Service: 08/22/251803 MR#: [id number] Acct: [id number] Name: FAVIAN PHILLIP Rep #: [id number] : 1945 From: Vandana Guaman Age/Sex: 79/M [place] [facility] [place] Signed Billing Codes PM Device Codes: 72470 PM Dev Prog Eval, Dual Assessment and Plan Assessment and Plan (1) Sick sinus syndrome: Status: Chronic (2) History of permanent cardiac pacemaker placement: Status: Chronic Comment: 03/09/2018 08/22/251803 Date Vandana Maxwell Signature: Date (if applicable) CC: Normal [facility] [place] [facility] [place] anon 08-15-2025 [place] [facility] Pulmonary Rehab Reports [address] [place] [address] [place] MR#: [id number] Acct: [id number] Name: FAVIAN PHILLIP Rep #: [id number] : 1945 79 From: Rogelio Jamison BS, RVT PCP: Dr. Jose Rey MD Exercise - Initial Assessment Visit Session Number:: 24 Physician Prescribed Exercise Modalities: Treadmill, LYFE Kitchen AD-7 and SciFit Stepper Current METSs:: 6.4 Resting Blood Pressure: 124/70 Maximum Exercise Blood Pressure: 172/80 Minimum SpO2 with exercise: 95 EKG Type: AV dual paced rhythm w/prolonged AV conduction and rare ectopy. Nutrition/Wt Mgmt - Initial Visit Session Number:: 24 Weight Management Admit Height:: 5 ft 10 in Admit Weight:: 189 lb Admit BMI:: 27.1 Nutrition/Wt Mgmt - 30-Day Visit Date of Eval: 08/15/25 Session Number:: 24 Weight Management Height: 5 ft 10 in Weight:: 189 lb BMI: 27.1 Nutrition/Wt Mgmt - 60-Day Visit Session Number:: 24 Weight Management Height: 5 ft 10 in Weight:: 189 lb BMI: 27.1 Nutrition/Wt Mgmt - 90-Day Visit Session Number:: 24 Weight Management Height: 5 ft 10 in Weight:: 189 lb BMI: 27.1 Nutrition/Wt Mgmt - Final Visit Date of Eval: 08/15/25 Session Number:: 24 Weight Management Height: 5 ft 10 in Weight:: 189 lb BMI: 27.1 Weight Goals Progress:: Goal met (Pt has attended nutrition class) Psychosocial - Initial Assess Visit Session Number:: 24 Problems/Goals History of Emotional Disorders: Depression (Pt is on meds for depression and in counseling at the [facility]) Psychosocial Test Tool Used:: PHQ-9 Questionnaire PHQ-9 Score: 5 Referral to Behavioral Health PS - Interventions: Yes: Attend Stress Management Classes Intervention/Plan: See List Interventions/Plan:: Assess stressors,coping strategies signs of derpression on admission, Instruct/assist pt to develop coping personal stress Mgt strategies, Refer to Behavioral Health if appropriate, Refer to Physician if appropriate, Instruct patient to recognize signs symptoms of depression and Instruct patient to recog Comments:: Pt has attended stress management class Psychosocial - 30-Day Visit Date of Eval: 08/15/25 Session Number:: 24 Problems/Goals History of Emotional Disorders: Depression (Pt is on meds for depression and in counseling at the [facility]) Psychosocial Test Tool Used:: PHQ-9 Questionnaire PHQ-9 Score: 5 Referral to Behavioral Health PS - Interventions: Yes: Attend Stress Management Classes Plan Interventions/Plan:: Assess stressors,coping strategies signs of derpression on admission, Instruct/assist pt to develop coping personal stress Mgt strategies, Refer to Behavioral Health if appropriate, Refer to Physician if appropriate, Instruct patient to recognize signs symptoms of depression and Instruct patient to recog Comments:: Pt has attended stress management class Psychosocial - 60-Day Visit Session Number:: 24 Problems/Goals History of Emotional Disorders: Depression (Pt is on meds for depression and in counseling at the [facility]) Psychosocial Test Tool Used:: PHQ-9 Questionnaire PHQ-9 Score: 5 Referral to Behavioral Health PS - Interventions: Yes: Attend Stress Management Classes Plan Interventions/Plan:: Assess stressors,coping strategies signs of derpression on admission, Instruct/assist pt to develop coping personal stress Mgt strategies, Refer to Behavioral Health if appropriate, Refer to Physician if appropriate, Instruct patient to recognize signs symptoms of depression and Instruct patient to recog Comments:: Pt has attended stress management class Psychosocial - 90-Day Visit Session Number:: 24 Problems/Goals History of Emotional Disorders: Depression (Pt is on meds for depression and in counseling at the [facility]) Psychosocial Test Tool Used:: PHQ-9 Questionnaire PHQ-9 Score: 5 Referral to Behavioral Health PS - Interventions: Yes: Attend Stress Management Classes Plan Interventions/Plan:: Assess stressors,coping strategies signs of derpression on admission, Instruct/assist pt to develop coping personal stress Mgt strategies, Refer to Behavioral Health if appropriate, Refer to Physician if appropriate, Instruct patient to recognize signs symptoms of depression and Instruct patient to recog Comments:: Pt has attended stress management class Psychosocial - Final Assess Visit Date of Eval: 08/15/25 Session Number:: 24 Problems/Goals History of Emotional Disorders: Depression (Pt is on meds for depression and in counseling at the [facility]) Psychosocial Test Tool Used:: PHQ-9 Questionnaire PHQ-9 Score: 5 Referral to Behavioral Health PS - Interventions: Yes: Attend Stress Management Classes Plan Interventions/Plan:: Assess stressors,coping strategies signs of derpression on admission, Instruct/assist pt to develop coping personal stre (more content not included)... Normal [facility] Absolute lymphocyte countOrd ered By: Jose Rey on 08-10-2025 Lymphocytes Auto (Unsp spec) [#/Vol] 1.93 10*3/uL 0.83-4.51 [facility] Absolute neutrophil countOrd ered By: Jose Rey on 08-10-2025 Neutrophils (Bld) [#/Vol] 2.6 10*3/uL 2.0-7.7 [facility] Anion gap in Serum or Plasma Ordered By: Jose Rey on 08-10-2025 Anion gap [Moles/Vol] 8 mmol/L 5- [facility] Automated lymphocyte count a s percentage of total leukocytesOrdered By: Jose Rey on 08-10-2025 Lymphocytes/100 WBC Auto (Unsp spec) 34.9 % - [facility] BUN/creatinine ratioOrdered By: [facility] on 08-10-2025 Urea nitrogen/Creatinine [Mass ratio] 19.5 mg/mg 10- [facility] Basophil percentageOrdered B y: Jose Rey on 08-10-2025 Basophils/100 WBC (Bld) 0.5 % 0-1 [facility] Bilirubin, totalOrdered By: Jose Rey on 08-10-2025 Bilirubin [Mass/Vol] 0.64 mg/dL 0.00-1.30 [facility] CBC W/Diff, Automatedon 08-01 Absolute Lymph 1.93 X10 3/uL Normal 0.83-4.51 [facility] Comment on above: Performed By: #### L 500.4050, L100.0100, L501.9520, L506.1001 #### [facility] [address] [place], [address] Absolute Neut 2.6 X10 3/uL Normal 2.0-7.7 [facility] Comment on above: Performed By: #### L 500.4050, L100.0100, L501.9520, L506.1001 #### [facility] [address] [place], [address] Basophils/100 WBC (Bld) 0.5 % Normal 0-1 [facility] Comment on above: Performed By: #### L 500.4050, L100.0100, L501.9520, L506.1001 #### [facility] [address] [place], [address] Eosinophils/100 WBC (Bld) 2.2 % Normal 0-5 [facility] Comment on above: Performed By: #### L 500.4050, L100.0100, L501.9520, L506.1001 #### [facility] [address] [place], [address] Erythrocyte distribution width (RBC) [Ratio] 13.1 % Normal 11.6-14.6 [facility] Comment on above: Performed By: #### L 500.4050, L100.0100, L501.9520, L506.1001 #### [facility] [address] [place], [address] Hematocrit (Bld) [Volume fraction] 38.1 % Low 40-54 [facility] Comment on above: Performed By: #### L 500.4050, L100.0100, L501.9520, L506.1001 #### [facility] [address] [place], [address] Hemoglobin (Bld) [Mass/Vol] 12.9 g/dL Low 13.0-16.5 [facility] Comment on above: Performed By: #### L 500.4050, L100.0100, L501.9520, L506.1001 #### [facility] [address] [place], [address] IG% 0.200 Normal 0.0-0.9 [facility] Comment on above: Result Comment: IG% - Immature Granulocytes (promyelocytes, myelocytes and metamyelocytes) > 1% indicates that a LEFT SHIFT is Present. Performed By: #### L 500.4050, L100.0100, L501.9520, L506.1001 #### [facility] [address] [place], [address] Lymphocytes/100 WBC (Bld) 34.9 % Normal 19-41 [facility] Comment on above: Performed By: #### L 500.4050, L100.0100, L501.9520, L506.1001 #### [facility] [address] [place], [address] MCH (RBC) [Entitic mass] 31.3 pg Normal 27.0-32.0 [facility] Comment on above: Performed By: #### L 500.4050, L100.0100, L501.9520, L506.1001 #### [facility] [address] [place], [address] MCHC (RBC) [Mass/Vol] 33.9 g/dL Normal 32-36 [facility] Comment on above: Performed By: #### L 500.4050, L100.0100, L501.9520, L506.1001 #### [facility] [address] [place], [address] MCV (RBC) [Entitic vol] 92.5 fL Normal 80-94 [facility] Comment on above: Performed By: #### L 500.4050, L100.0100, L501.9520, L506.1001 #### [facility] [address] [place], [address] Monocytes/100 WBC (Bld) 15.6 % High 0-10 [facility] Comment on above: Performed By: #### L 500.4050, L100.0100, L501.9520, L506.1001 #### [facility] [address] [place], [address] Neutrophils/100 WBC (Bld) 46.6 % Low 47-70 [facility] Comment on above: Performed By: #### L 500.4050, L100.0100, L501.9520, L506.1001 #### [facility] [address] [place], [address] Nucleated RBC (Bld) [#/Vol] 0 10*3/uL Normal 0-5 [facility] Comment on above: Performed By: #### L 500.4050, L100.0100, L501.9520, L506.1001 #### [facility] [address] [place], [address] Platelet mean volume (Bld) [Entitic vol] 10.2 fL Normal 6.2-12.0 [facility] Comment on above: Performed By: #### L 500.4050, L100.0100, L501.9520, L506.1001 #### [facility] [address] [place], [address] Platelets (Bld) [#/Vol] 268 10*3/uL Normal 150-450 [facility] Comment on above: Performed By: #### L 500.4050, L100.0100, L501.9520, L506.1001 #### [facility] [address] [place], [address] RBC (Bld) [#/Vol] 4.12 10*6/uL Low 4.6-6.2 [facility] Comment on above: Performed By: #### L 500.4050, L100.0100, L501.9520, L506.1001 #### [facility] [address] [place], [address] RDW SD 44.4 fl High 35.1-43.9 [facility] Comment on above: Performed By: #### L 500.4050, L100.0100, L501.9520, L506.1001 #### [facility] [address] [place], [address] WBC (Bld) [#/Vol] 5.5 10*3/uL Normal 4.4-11.0 [facility] Comment on above: Performed By: #### L 500.4050, L100.0100, L501.9520, L506.1001 #### [facility] [address] [place], [address] Carbon dioxide, total [Moles /volume] in Central venous bloodOrdered By: Jose Rey on 08-10-2025 CO2 [Moles/Vol] 25.7 mmol/L 21.0-32.0 [facility] Chloride assayOrdered By: Aris Rey on 08-10-2025 Chloride [Moles/Vol] 106 mmol/L 98-108 [facility] Comprehensive Metabolic Prof ilon 08-10-2025 Albumin [Mass/Vol] 4.1 g/dL Normal 3.4-4.8 [facility] Comment on above: Performed By: #### L 500.4050, L100.0100, L501.9520, L506.1001 #### [facility] [address] [place], [address] Albumin/Globulin [Mass ratio] 1.2 {ratio} Normal 0.9-2.4 [facility] Comment on above: Performed By: #### L 500.4050, L100.0100, L501.9520, L506.1001 #### [facility] [address] [place], [address] ALK PHOS 85 U/L Normal 40-129 [facility] Comment on above: Performed By: #### L 500.4050, L100.0100, L501.9520, L506.1001 #### [facility] [address] [place], [address] ALT [Catalytic activity/Vol] 18 U/L Normal <=46 [facility] Comment on above: Performed By: #### L 500.4050, L100.0100, L501.9520, L506.1001 #### [facility] [address] [place], [address] AST [Catalytic activity/Vol] 31 U/L Normal <=37 [facility] Comment on above: Result Comment: Hemo lysis present, Results??could be affected. ?? Performed By: #### L 500.4050, L100.0100, L501.9520, L506.1001 #### [facility] [address] [place], [address] Bilirubin [Mass/Vol] 0.64 mg/dL Normal 0.00-1.30 [facility] Comment on above: Performed By: #### L 500.4050, L100.0100, L501.9520, L506.1001 #### [facility] [address] [place], [address] BUN/CRE 19.5 RATIO Normal 10-20 [facility] Comment on above: Performed By: #### L 500.4050, L100.0100, L501.9520, L506.1001 #### [facility] [address] [place], [address] Calcium [Mass/Vol] 9.0 mg/dL Normal 7.6-11.0 [facility] Comment on above: Performed By: #### L 500.4050, L100.0100, L501.9520, L506.1001 #### [facility] [address] [place], [address] Chloride [Moles/Vol] 106 mmol/L Normal 98-108 [facility] Comment on above: Performed By: #### L 500.4050, L100.0100, L501.9520, L506.1001 #### [facility] [address] [place], [address] CO2 [Moles/Vol] 25.7 mmol/L Normal 21.0-32.0 [facility] Comment on above: Performed By: #### L 500.4050, L100.0100, L501.9520, L506.1001 #### [facility] [address] [place], [address] Creatinine [Mass/Vol] 1.01 mg/dL Normal 0.70-1.20 [facility] Comment on above: Performed By: #### L 500.4050, L100.0100, L501.9520, L506.1001 #### [facility] [address] [place], [address] GAP 8 Normal 5-15 [facility] Comment on above: Performed By: #### L 500.4050, L100.0100, L501.9520, L506.1001 #### [facility] [address] [place], [address] GFR/1.73 sq M.predicted among non-blacks MDRD (S/P/Bld) [Vol rate/Area] 77 mL/min/{1.73_m2} Normal >60 [facility] Comment on above: Result Comment: mL/m in/1.73m2 CKD-EPI Creatinine Equation (2020) Performed By: #### L 500.4050, L100.0100, L501.9520, L506.1001 #### [facility] [address] [place], [address] Globulin (S) [Mass/Vol] 3.3 g/dL Normal 2.2-4.2 [facility] Comment on above: Performed By: #### L 500.4050, L100.0100, L501.9520, L506.1001 #### [facility] [address] [place], [address] Glucose [Mass/Vol] 97 mg/dL Normal 70-99 [facility] Comment on above: Performed By: #### L 500.4050, L100.0100, L501.9520, L506.1001 #### [facility] [address] [place], [address] Potassium [Moles/Vol] 4.5 mmol/L Normal 3.3-5.1 [facility] Comment on above: Result Comment: Hemo lysis present, Results??could be affected. ?? Performed By: #### L 500.4050, L100.0100, L501.9520, L506.1001 #### [facility] [address] [place], [address] Sodium [Moles/Vol] 140 mmol/L Normal 133-145 [facility] Comment on above: Performed By: #### L 500.4050, L100.0100, L501.9520, L506.1001 #### [facility] [address] [place], [address] T PROT 7.4 g/dL Normal 5.9-8.4 [facility] Comment on above: Performed By: #### L 500.4050, L100.0100, L501.9520, L506.1001 #### [facility] [address] [place], [address] Urea nitrogen [Mass/Vol] 20 mg/dL High 4-19 [facility] Comment on above: Performed By: #### L 500.4050, L100.0100, L501.9520, L506.1001 #### [facility] [address] [place], [address] Eosinophil percentageOrdered By: Jose Rey on 08-10-2025 Eosinophils/100 WBC (Bld) 2.2 % 0-5 [facility] Erythrocyte distribution wid th ratioOrdered By: Jose Betito on 08-10-2025 Erythrocyte distribution width (RBC) [Ratio] 13.1 % 11.6-14.6 [facility] Erythrocyte distribution wid th standard deviationOrdered By: [facility] on 08-10-2025 Erythrocyte distribution width (RBC) [Ratio] 44.4 fl High 35.1-43.9 [facility] Glomerular filtration rate ( GFR) estimation/1.73 sq m using serum, plasma, or whole bOrdered By: Jose Betito on 08-10-2025 GFR/1.73 sq M.predicted among non-blacks MDRD (S/P/Bld) [Vol rate/Area] 77 mL/min/{1.73_m2} >60 [facility] Comment on above: mL/min/1.73m2 CKD-EP I Creatinine Equation (2020) Hematocrit Auto (Bld) [Volum e fraction]Ordered By: Jose eRy on 08-10-2025 Hematocrit (Bld) [Volume fraction] 38.1 % Low 40-54 [facility] Hemoglobin measurementOrdere d By: Jose Rey on 08-10-2025 Hemoglobin (Bld) [Mass/Vol] 12.9 g/dL Low 13.0-16.5 [facility] Immature granulocytes/100 WB C Auto (Bld)Ordered By: Jose Rey on 08-10-2025 Immature granulocytes/100 WBC (Bld) 0.200 % 0.0-0.9 [facility] Comment on above: IG% - Immature Granu locytes (promyelocytes, myelocytes and metamyelocytes) > 1% indicates that a LEFT SHIFT is Present. Laboratory - Chemistry and C hemistry - challengeOrdered By: Jose Betito 08-10-2025 AST [Catalytic activity/Vol] 31 U/L <38 [facility] Comment on above: Hemolysis present, R esults could be affected. MCV (mean corpuscular volume ) determinationOrdered By: Jose Rey on 08-10-2025 MCV (RBC) [Entitic vol] 92.5 fL 80-94 [facility] Mean corpuscular hemoglobin (MCH) determinationOrdered By: Jose Rey on 08-10-2025 MCH (RBC) [Entitic mass] 31.3 pg 27.0-32.0 [facility] Mean corpuscular hemoglobin concentration (MCHC) determinationOrdered By: Jose Rey on 08-10-2025 MCHC (RBC) [Mass/Vol] 33.9 g/dL 32-36 [facility] Mean platelet volume determi nationOrdered By: Jose Rey on 08-10-2025 Platelet mean volume (Bld) [Entitic vol] 10.2 fL 6.2-12.0 [facility] Monocyte percentageOrdered B y: Jose Rey on 08-10-2025 Monocytes/100 WBC (Bld) 15.6 % High 0-10 [facility] Neutrophil percentageOrdered By: Jose Rey on 08-10-2025 Neutrophils/100 WBC (Bld) 46.6 % Low 47-70 [facility] Nucleated red blood cell per centageOrdered By: Jose Rey on 08-10-2025 Nucleated RBC/100 WBC (Bld) [Ratio] 0 % 0-5 [facility] Platelet countOrdered By: Aris Rey on 08-10-2025 Platelets (Bld) [#/Vol] 268 10*3/uL 150-450 [facility] Potassium measurement (mass/ volume)Ordered By: Jose Rey on 08-10-2025 Potassium (Unsp spec) [Mass/Vol] 4.5 mmol/L 3.3-5.1 [facility] Comment on above: Hemolysis present, R esults could be affected. RBC Auto (Bld) [#/Vol]Ordere d By: Jose Rey on 08-10-2025 RBC (Bld) [#/Vol] 4.12 10*6/uL Low 4.6-6.2 [facility] Serum creatinine measurement (mass/volume)Ordered By: Jose Rey on 08-10-2025 Creatinine [Mass/Vol] 1.01 mg/dL 0.70-1.20 [facility] Serum globulin measurementOr dered By: Jose Rey on 08-10-2025 Globulin (S) [Mass/Vol] 3.3 g/dL 2.2-4.2 [facility] Serum glucose measurement (m ass/volume)Ordered By: Jose Rey on 08-10-2025 Glucose [Mass/Vol] 97 mg/dL 70-99 [facility] Serum or plasma alanine carbajal otransferase (ALT) measurementOrdered By: Jose Rey on 08-10-2025 ALT [Catalytic activity/Vol] 18 U/L <47 [facility] Serum or plasma albumin juana urement (mass/volume)Ordered By: Jose Rey on 08-10-2025 Albumin [Mass/Vol] 4.1 g/dL 3.4-4.8 [facility] Serum or plasma albumin/glob ulin mass ratioOrdered By: Jose Rey 08-10-2025 Albumin/Globulin [Mass ratio] 1.2 {ratio} 0.9-2.4 [facility] Serum or plasma alkaline katie sphatase measurementOrdered By: Jose Rey 08-10-2025 ALP [Catalytic activity/Vol] 85 U/L 40-129 [facility] Serum or plasma calcium juana urement (mass/volume)Ordered By: Jose Rey 08-10-2025 Calcium [Mass/Vol] 9.0 mg/dL 7.6-11.0 [facility] Serum or plasma urea nitroge n measurement (mass/volume)Ordered By: Jose Rey 08-10-2025 Urea nitrogen [Mass/Vol] 20 mg/dL High 4-19 [facility] Sodium levelOrdered By: Jose Rey on 08-10-2025 Sodium [Moles/Vol] 140 mmol/L 133-145 [facility] TSH DL <= 0.005 mIU/L QnOrde red By: Jose Rey on 08-10-2025 TSH Qn 0.068 uIU/mL Low 0.300-4.200 [facility] Thyroid Stim Hormone (TSH)on 08-10-2025 TSH 0.068 uIU/mL Low 0.300-4.200 [facility] Comment on above: Performed By: #### L 500.4050, L100.0100, L501.9520, L506.1001 #### [facility] [address] [place], [address] Total proteinOrdered By: Jose Rey on 08-10-2025 Protein [Mass/Vol] 7.4 g/dL 5.9-8.4 [facility] Vitamin D,25 Hydroxyon 08-10 Vitamin D 25-OH 25.2 ng/mL Low 30-100 [facility] Comment on above: Result Comment: Jayda min D Status Deficiency: <20 ng/mL (50nmol/L) Insufficiency: 20-30 ng/mL (50-75 nmol/L) Sufficiency: 30-100 ng/mL (75-250 nmol/L) Toxicity: >100 ng/mL (>250 nmol/L) Performed By: #### L 500.4050, L100.0100, L501.9520, L506.1001 #### [facility] [address] [place], [address] White blood cell (WBC) count Ordered By: Jose Rey on 08-10-2025 WBC (Bld) [#/Vol] 5.5 10*3/uL 4.4-11.0 [facility] [place] anon 08-05-2025 [place] [facility] Pulmonary Rehab Reports [address] [facility] [address] [place] Treatment Plan MR#: [id number] Acct: [id number] Name: FAVIAN PHILLIP Rep #: [id number] : 1945 79 From: Jaqueline Ramirez PCP: Dr. Jose Rey MD Exercise - Initial Assessment Visit Session Number:: 24 Physician Prescribed Exercise Modalities: Treadmill, Schwinn Airdyne AD-7 and SciFit Stepper Current METSs:: 5 Resting Blood Pressure: 124/70 Maximum Exercise Blood Pressure: 172/80 Minimum SpO2 with exercise: 95 EKG Type: AV dual paced with prolonged av conduction, rare ectopy Nutrition/Wt Mgmt - Initial Visit Session Number:: 24 Weight Management Admit Height:: 5 ft 10 in Admit Weight:: 189 lb Admit BMI:: 27.1 Nutrition/Wt Mgmt - 30-Day Visit Date of Eval: 08/05/25 Session Number:: 24 Weight Management Height: 5 ft 10 in Weight:: 189 lb BMI: 27.1 Nutrition/Wt Mgmt - 60-Day Visit Session Number:: 24 Weight Management Height: 5 ft 10 in Weight:: 189 lb BMI: 27.1 Nutrition/Wt Mgmt - 90-Day Visit Session Number:: 24 Weight Management Height: 5 ft 10 in Weight:: 189 lb BMI: 27.1 Nutrition/Wt Mgmt - Final Visit Date of Eval: 08/05/25 Session Number:: 24 Weight Management Final Weight Assessment: Wt stable Height: 5 ft 10 in Weight:: 189 lb BMI: 27.1 Weight Goals Progress:: Progressing (pt showing weight loss trend with weekly weigh ins during rehab) Psychosocial - Initial Assess Visit Session Number:: 24 Problems/Goals History of Emotional Disorders: Depression (PT is on medication for his depression and is [facility]) Psychosocial Goals: 1. Patient is free from overwhelming symtoms of depression (or anxiety, 2. Identifies personal stressors states the strategies for managing, 3. Identifies activities to decrease isolation and/or symptoms of, 4. Improved psychosocial coping skills., 5. Verbalizes coping strategies., 6. Adequate treatment of depression. and 7. Improved Q.O.L. Psychosocial Test Tool Used:: PHQ-9 Questionnaire PHQ-9 Score: 5 Referral to Behavioral Health PS - Interventions: Yes: Attend Stress Management Classes Intervention/Plan: See List Interventions/Plan:: Assess stressors,coping strategies signs of derpression on admission, Instruct/assist pt to develop coping personal stress Mgt strategies, Refer to Behavioral Health if appropriate, Refer to Physician if appropriate and Instruct patient to recognize signs symptoms of depression Psychosocial - 30-Day Visit Date of Eval: 08/05/25 Session Number:: 24 Problems/Goals History of Emotional Disorders: Depression (PT is on medication for his depression and is in counseling at [facility]) Psychosocial Goals: 1. Patient is free from overwhelming symtoms of depression (or anxiety, 2. Identifies personal stressors states the strategies for managing, 3. Identifies activities to decrease isolation and/or symptoms of, 4. Improved psychosocial coping skills., 5. Verbalizes coping strategies., 6. Adequate treatment of depression. and 7. Improved Q.O.L. Psychosocial Test Tool Used:: PHQ-9 Questionnaire PHQ-9 Score: 5 Referral to Behavioral Health PS - Interventions: Yes: Attend Stress Management Classes Plan Interventions/Plan:: Assess stressors,coping strategies signs of derpression on admission, Instruct/assist pt to develop coping personal stress Mgt strategies, Refer to Behavioral Health if appropriate, Refer to Physician if appropriate and Instruct patient to recognize signs symptoms of depression Psychosocial - 60-Day Visit Session Number:: 24 Problems/Goals History of Emotional Disorders: Depression (PT is on medication for his depression and is in counseling at [facility]) Psychosocial Goals: 1. Patient is free from overwhelming symtoms of depression (or anxiety, 2. Identifies personal stressors states the strategies for managing, 3. Identifies activities to decrease isolation and/or symptoms of, 4. Improved psychosocial coping skills., 5. Verbalizes coping strategies., 6. Adequate treatment of depression. and 7. Improved Q.O.L. Psychosocial Test Tool Used:: PHQ-9 Questionnaire PHQ-9 Score: 5 Referral to Behavioral Health PS - Interventions: Yes: Attend Stress Management Classes Plan Interventions/Plan:: Assess stressors,coping strategies signs of derpression on admission, Instruct/assist pt to develop coping personal stress Mgt strategies, Refer to Behavioral Health if appropriate, Refer to Physician if appropriate and Instruct patient to recognize signs symptoms of depression Psychosocial - 90-Day Visit Session Number:: 24 Problems/Goals History of Emotional Disorders: Depression (PT is on medication for his depression and is in counseling at [facility]) Psychosocial Goals: 1. Patient is free from overwhelming symtoms of depression (or anxiety, 2. Identifies perso (more content not included)... Normal [facility] [place] anon 07-08-2025 [place] [facility] Pulmonary Rehab Reports [address] [place] [address] [place] MR#: [id number] Acct: [id number] Name: FAVIAN PHILLIP Rep #: [id number] : 1945 79 From: Rogelio Jamison BS, RVT PCP: Dr. Jose Rey MD Exercise - Initial Assessment Visit Session Number:: 17 Physician Prescribed Exercise Modalities: Treadmill, Schwinn Airdyne AD-7 and SciFit Stepper Current METSs:: 4.4 Target HR:: 114 (86-114) Current RPD:: 2-3 Maximum Exercise HR:: 106 Resting Blood Pressure: 152/72 Maximum Exercise Blood Pressure: 154/68 Minimum SpO2 with exercise: 91 (room air) EKG Type: AV dual paced rhythm with prolonged AV conduction. Nutrition/Wt Mgmt - Initial Visit Session Number:: 17 Weight Management Admit Height:: 5 ft 10 in Admit Weight:: 198 lb Admit BMI:: 28.4 Nutrition/Wt Mgmt - 30-Day Visit Date of Eval: 07/08/25 Session Number:: 17 Weight Management Height: 5 ft 10 in Weight:: 198 lb BMI: 28.4 Nutrition/Wt Mgmt - 60-Day Visit Session Number:: 17 Weight Management Height: 5 ft 10 in Weight:: 198 lb BMI: 28.4 Weight Goals Progress:: Progressing (Pt will attend nutrition class. Heart healthy low sodium diet encouraged. Encourage pt to keep a food diary.) Nutrition/Wt Mgmt - 90-Day Visit Date of Eval: 07/08/25 Session Number:: 17 Weight Management Height: 5 ft 10 in Weight:: 198 lb BMI: 28.4 Weight Goals Progress:: Progressing (Pt will attend nutrition class. Heart healthy low sodium diet encouraged. Encourage pt to keep a food diary.) Nutrition/Wt Mgmt - Final Visit Session Number:: 17 Weight Management Height: 5 ft 10 in Weight:: 198 lb BMI: 28.4 Psychosocial - Initial Assess Visit Session Number:: 17 Problems/Goals History of Emotional Disorders: Depression (Pt is on meds for depression and in counseling at [facility]) Psychosocial Goals: 1. Patient is free from overwhelming symtoms of depression (or anxiety, 2. Identifies personal stressors states the strategies for managing, 3. Identifies activities to decrease isolation and/or symptoms of, 4. Improved psychosocial coping skills., 5. Verbalizes coping strategies., 6. Adequate treatment of depression. and 7. Improved Q.O.L. Psychosocial Test Tool Used:: PHQ-9 Questionnaire PHQ-9 Score: 5 Referral to Behavioral Health PS - Interventions: Yes: Attend Stress Management Classes Intervention/Plan: See List Interventions/Plan:: Assess stressors,coping strategies signs of derpression on admission, Instruct/assist pt to develop coping personal stress Mgt strategies, Refer to Behavioral Health if appropriate, Refer to Physician if appropriate, Instruct patient to recognize signs symptoms of depression and Instruct patient to recog Comments:: Pt to attend stress management [facility] Psychosocial - 30-Day Visit Date of Eval: 07/08/25 Session Number:: 17 Problems/Goals History of Emotional Disorders: Depression (Pt is on meds for depression and in counseling at the [facility]) Psychosocial Goals: 1. Patient is free from overwhelming symtoms of depression (or anxiety, 2. Identifies personal stressors states the strategies for managing, 3. Identifies activities to decrease isolation and/or symptoms of, 4. Improved psychosocial coping skills., 5. Verbalizes coping strategies., 6. Adequate treatment of depression. and 7. Improved Q.O.L. Psychosocial Test Tool Used:: PHQ-9 Questionnaire PHQ-9 Score: 5 Referral to Behavioral Health PS - Interventions: Yes: Attend Stress Management Classes Plan Interventions/Plan:: Assess stressors,coping strategies signs of derpression on admission, Instruct/assist pt to develop coping personal stress Mgt strategies, Refer to Behavioral Health if appropriate, Refer to Physician if appropriate, Instruct patient to recognize signs symptoms of depression and Instruct patient to recog Comments:: Pt to attend stress management [facility] Psychosocial - 60-Day Visit Session Number:: 17 Problems/Goals History of Emotional Disorders: Depression (Pt is on meds for depression and in counseling at the [facility]) Psychosocial Goals: 1. Patient is free from overwhelming symtoms of depression (or anxiety, 2. Identifies personal stressors states the strategies for managing, 3. Identifies activities to decrease isolation and/or symptoms of, 4. Improved psychosocial coping skills., 5. Verbalizes coping strategies., 6. Adequate treatment of depression. and 7. Improved Q.O.L. Psychosocial Test Tool Used:: PHQ-9 Questionnaire PHQ-9 Score: 5 Referral to Behavioral Health PS - Interventions: Yes: Attend Stress Management Classes Plan Interventions/Plan:: Assess stressors,coping strategies signs of derpression on admission, Instruct/assist pt to develop coping personal stress Mgt strategies, Refer to Behavioral Health if appropriate, Refer to Physician if appropriate, I (more content not included)... [facility] Final Surgical Pathology Rep [facility] 06-20-2025 Final Surgical Pathology Report . Pathology Reports Accession: Collected Date/Time: Received Date/Time: Pathologist: [id number] 06/16/2025 12:46 EDT 06/17/2025 07:01 VIVEKT SATHYA SHAVER MD Final Surgical Pathology Report DIAGNOSIS: LEFT CAROTID, ENDARTERECTOMY SPECIMEN: - PARTIALLY CALCIFIED ATHEROSCLEROTIC PLAQUE AND INTIMAL TISSUE IDENTIFIED CLINICAL INFORMATION: Procedure: LEFT CAROTID ENDARTERECTOMY Preoperative diagnosis: LEFT CAROTID ARTERY STENOSIS Postoperative diagnosis: LEFT CAROTID ARTERY STENOSIS SPECIMEN: A LEFT CAROTID ARTERY PLAQUE GROSS DESCRIPTION: All parts labelled with patient name and [id number] Received in formalin and designated "L carotid artery plaque" is a savage bifurcated cylindrical portion of tissue that has been previously incised longitudinally, 2.7 x 1.5 x 1.0 cm. Cut section reveals that approximately 75% of the tissue contains a savage soft plaque.. RS-1 Alice Resendiz, Pathologists ' Bilingual Secretary (ASCP) Performed by Alice Resendiz MICROSCOPIC DESCRIPTION: The microscopic examination is performed, except in the case of Gross Only. Verified by Pathology Report verified by [facility] SATHYA SHAVER Sign out Date: 06/20/2025 15:09 Performing Lab: [address] Pathology Dept Disclaimer If ancillary studies were utilized, the following Laboratory Developed Test (LDT) disclaimer will apply: Under CLIA requirements, [facility]ology Laboratory is qualified to perform high complexity testing. For all ancillary stains, positive and negative controls stain appropriately. Performance characteristics of immunohistochemical and chromogenic in-situ hybridization tests have been determined by [facility] Laboratory. These tests are used for clinical purposes, They should not be regarded as investigational or for research. Normal [facility] .Auto Diffon 06-17-2025 Basophil, Absolute 0.0 10 3/mcL Normal 0.0-0.3 [facility] Comment on above: Performed By: #### A ERNESTO, ADIFF, CBC, GFR, BMP #### [place] [address] Basophils/100 WBC (Bld) 0.5 % Normal 0.0-2.5 [facility] Comment on above: Performed By: #### A ERNESTO, ADIFF, CBC, GFR, BMP #### [address] [address] Eosinophil, Absolute 0.0 10 3/mcL Normal 0.0-0.7 [facility] Comment on above: Performed By: #### A ERNESTO, ADIFF, CBC, GFR, BMP #### [address] [address] Eosinophils/100 WBC (Bld) 0.0 % Normal 0.0-6.0 [facility] Comment on above: Performed By: #### A ERNESTO, ADIFF, CBC, GFR, BMP #### [address] [address] Lymphocyte, Absolute 1.0 10 3/mcL Normal 0.9-4.3 [facility] Comment on above: Performed By: #### A ERNESTO, ADIFF, CBC, GFR, BMP #### [address] [address] Lymphocytes/100 WBC (Bld) 14.5 % Low 20.0-40.0 [facility] Comment on above: Performed By: #### A ERNESTO, ADIFF, CBC, GFR, BMP #### [address] [address] Monocyte, Absolute 0.8 10 3/mcL Normal 0.1-1.4 [facility] Comment on above: Performed By: #### A ERNESTO, ADIFF, CBC, GFR, BMP #### [address] [address] Monocytes/100 WBC (Bld) 12.2 % Normal 2.0-13.0 [facility] Comment on above: Performed By: #### A ERNESTO, ADIFF, CBC, GFR, BMP #### [address] [address] Neutrophils/100 WBC (Bld) 72.8 % Normal 50.0-75.0 [facility] Comment on above: Performed By: #### A ERNESTO, ADIFF, CBC, GFR, BMP #### [address] [address] .GFRon 06-17-2025 Estimated Glomerular Filtration Rate 77 ml/min/1.73sqm Normal [facility] Comment on above: Result Comment: Stages of Chronic Kidney Disease (CKD) Stage Description eGFR(ml/min/1.73 sq.m.) CKD 1 Normal kidney function or >=90 normal kindney function with possible kidney damage (ex. Proteinuria) CKD 2 Kidney damage with mild loss 60-89 of kidney function CKD 3a Mild to moderate loss of kidney 45-59 function CKD 3b Moderate to severe loss of 30-44 of kindey function CKD 4 Severe loss of kidney function 15-29 CKD 5 Kidney failure <15 Note: (go live 2025) the eGFR calculation was updated to the 2020 CKD-EPI creatinine equation without a race factor to calculate the eGFR results. Performed By: #### A ERNESTO, ADIFF, CBC, GFR, BMP #### [address] [address] .NEUABSon 06-17-2025 Neutrophil, Absolute 4.9 10 3/mcL Normal 2.3-8.1 [facility] Comment on above: Performed By: #### A ERNESTO, ADIFF, CBC, GFR, BMP #### [address] [address] BMPon 06-17-2025 BUN/Creatinine Ratio 12.9 ratio Normal 10.0-22.0 [facility] Comment on above: Performed By: #### A ERNESTO, ADIFF, CBC, GFR, BMP #### [address] [address] Calcium [Mass/Vol] 8.3 mg/dL Low 8.7-10.4 [facility] Comment on above: Performed By: #### A ERNESTO, ADIFF, CBC, GFR, BMP #### [address] [address] Chloride [Moles/Vol] 105 mmol/L Normal 98-110 [facility] Comment on above: Performed By: #### A ERNESTO, ADIFF, CBC, GFR, BMP #### [address] [address] CO2 [Moles/Vol] 26 mmol/L Normal 22-32 [facility] Comment on above: Performed By: #### A ERNESTO, ADIFF, CBC, GFR, BMP #### [address] [address] Creatinine [Mass/Vol] 1.01 mg/dL Normal 0.60-1.[address] [facility] Comment on above: Result Comment: Test ing performed on iSTAR Medical analyzer using enzymatic creatinine methodology. Performed By: #### A ERNESTO, ADIFF, CBC, GFR, BMP #### [address] [address] Electrolyte Balance 9.0 mEq/L Normal 4.0-15.0 [facility] Comment on above: Performed By: #### A ERNESTO, ADIFF, CBC, GFR, BMP #### [address] [address] Glucose [Mass/Vol] 176 mg/dL High 82-115 [facility] Comment on above: Performed By: #### A ERNESTO, ADIFF, CBC, GFR, BMP #### [address] [address] Potassium [Moles/Vol] 4.5 mmol/L Normal 3.5-5.[address] [facility] Comment on above: Performed By: #### A ERNESTO, ADIFF, CBC, GFR, BMP #### [address] [address] Sodium [Moles/Vol] 140 mmol/L Normal 136-145 [facility] Comment on above: Performed By: #### A ERNESTO, ADIFF, CBC, GFR, BMP #### [place] [id number] Urea nitrogen [Mass/Vol] 13.0 mg/dL Normal 8.0-22.0 [facility] Comment on above: Performed By: #### A ERNESTO, ADIFF, CBC, GFR, BMP #### [address] [address] CBCon 06-17-2025 Erythrocyte distribution width (RBC) [Ratio] 14.0 % Normal 11.5-15.5 [facility] Comment on above: Performed By: #### A ERNESTO, ADIFF, CBC, GFR, BMP #### [address] [address] Hematocrit (Bld) [Volume fraction] 36.5 % Low 40.0-52.0 [facility] Comment on above: Performed By: #### A ERNESTO, ADIFF, CBC, GFR, BMP #### [place] [address] Hgb 12.6 G/dL Low 13.0-17.5 [facility] Comment on above: Performed By: #### A ERNESTO, ADIFF, CBC, GFR, BMP #### [place] [address] MCH (RBC) [Entitic mass] 31.0 pg Normal 27.0-33.0 [facility] Comment on above: Performed By: #### A ERNESTO, ADIFF, CBC, GFR, BMP #### [place] [address] MCHC 34.6 G/dL Normal 32.0-36.0 [facility] Comment on above: Performed By: #### A ERNESTO, ADIFF, CBC, GFR, BMP #### [place] [address] MCV (RBC) [Entitic vol] 89.5 fL Normal 81.0-100.0 [facility] Comment on above: Performed By: #### A ERNESTO, ADIFF, CBC, GFR, BMP #### [place] [address] Platelet 218 10 3/mcL Normal 150-450 [facility] Comment on above: Performed By: #### A ERNESTO, ADIFF, CBC, GFR, BMP #### [place] [address] Platelet mean volume (Bld) [Entitic vol] 8.6 fL Normal 6.4-10.5 [facility] Comment on above: Performed By: #### A ERNESTO, ADIFF, CBC, GFR, BMP #### [place] [address] RBC 4.08 10 6/mcL Low 4.50-6.00 [facility] Comment on above: Performed By: #### A ERNESTO, ADIFF, CBC, GFR, BMP #### [address] [address] WBC 6.8 10 3/mcL Normal 4.5-10.8 [facility] Comment on above: Performed By: #### A ERNESTO, VINOD, CBC, GFR, BMP #### [address] [address] LABORATORYOrdered By: SYSTEM SYSTEM on 06-17-2025 Basophils (Bld) [#/Vol] 0.0 103/mcL Normal 0.0 - 0.3 10^3/mcL AH Workflow SS Basophils/100 WBC (Bld) 0.5 % Normal 0.0 - 2.5 % AH Workflow SS Calcium [Mass/Vol] 8.3 mg/dL Low 8.7 - 10. 4 mg/dL ADM SS Chloride [Moles/Vol] 105 mmol/L Normal 98 - 11 0 mEq/L AH ADM SS CO2 [Moles/Vol] 26 mmol/L Normal 22 - 32 mEq/L AH ADM SS Creatinine [Mass/Vol] 1.01 mg/dL Normal 0.60 - 1.40 mg/dL AH ADM SS Comment on above: Interpretive Data: T esting performed on iSTAR Medical analyzer using enzymatic creatinine methodology. Electrolyte Balance 9.0 mEq/L Normal 4.0 - 15 .0 mEq/L AH ADM SS Eosinophils (Bld) [#/Vol] 0.0 103/mcL Normal 0.0 - 0.7 10^3/mcL AH Workflow SS Eosinophils/100 WBC (Bld) 0.0 % Normal 0.0 - 6.0 % AH Workflow SS Erythrocyte distribution width (RBC) [Ratio] 14.0 % Normal 11.5 - 15.5 % AH Workflow SS Estimated Glomerular Filtration Rate 77 ml/min/1.73sqm Invalid Interpretation Code AH ADM SS Comment on above: Interpretive Data: Stages of Chronic Kidney Disease (CKD) Stage Description eGFR(ml/min/1.73 sq.m.) CKD 1 Normal kidney function or >=90 normal kindney function with possible kidney damage (ex. Proteinuria) CKD 2 Kidney damage with mild loss 60-89 of kidney function CKD 3a Mild to moderate loss of kidney 45-59 function CKD 3b Moderate to severe loss of 30-44 of kindey function CKD 4 Severe loss of kidney function 15-29 CKD 5 Kidney failure <15 Note: (go live 2025) the eGFR calculation was updated to the 2020 CKD-EPI creatinine equation without a race factor to calculate the eGFR results. Glucose [Mass/Vol] 176 mg/dL High 82 - 115 mg/dL AH ADM SS Hematocrit (Bld) [Volume fraction] 36.5 % Low 40.0 - 52.0 % AH Workflow SS Hemoglobin (Bld) [Mass/Vol] 12.6 G/dL Low 13.0 - 17.5 G/dL AH Workflow SS Lymphocytes (Bld) [#/Vol] 1.0 103/mcL Normal 0.9 - 4.3 10^3/mcL AH Workflow SS Lymphocytes/100 WBC (Bld) 14.5 % Low 20.0 - 40.0 % AH Workflow SS MCH (RBC) [Entitic mass] 31.0 pg Normal 27.0 - 33.0 pg AH Workflow SS MCHC 34.6 G/dL Normal 32.0 - 36.0 G/dL AH Workflow SS MCV (RBC) [Entitic vol] 89.5 fL Normal 81.0 - 100.0 fL AH Workflow SS Monocytes (Bld) [#/Vol] 0.8 103/mcL Normal 0.1 - 1.4 10^3/mcL AH Workflow SS Monocytes/100 WBC (Bld) 12.2 % Normal 2.0 - 13.0 % AH Workflow SS Neutrophils (Bld) [#/Vol] 4.9 103/mcL Normal 2.3 - 8.1 10^3/mcL AH Workflow SS Neutrophils/100 WBC (Bld) 72.8 % Normal 50.0 - 75.0 % AH Workflow SS Platelet mean volume (Bld) [Entitic vol] 8.6 fL Normal 6.4 - 10.5 fL AH Workflow SS Platelets (Bld) [#/Vol] 218 103/mcL Normal 150 - 450 10^3/mcL AH Workflow SS Potassium [Moles/Vol] 4.5 mmol/L Normal 3.5 - 5.0 mEq/L AH ADM SS RBC (Bld) [#/Vol] 4.08 106/mcL Low 4.50 - 6.0 0 10^6/mcL AH Workflow SS Sodium [Moles/Vol] 140 mmol/L Normal 136 - 145 mEq/L AH ADM SS Urea nitrogen [Mass/Vol] 13.0 mg/dL Normal 8.0 - 22.0 mg/dL AH ADM SS Urea nitrogen/Creatinine [Mass ratio] 12.9 ratio Normal 10.0 - 22.0 ratio AH ADM SS WBC (Bld) [#/Vol] 6.8 103/mcL Normal 4.5 - 10.8 10^3/mcL AH Workflow SS .Auto Diffon 06-14-2025 Basophil, Absolute 0.0 10 3/mcL Normal 0.0-0.3 [facility] Comment on above: Performed By: #### A ERNESTO, CBC, ADIFF #### [address] [address] Basophils/100 WBC (Bld) 1.1 % Normal 0.0-2.5 [facility] Comment on above: Performed By: #### A ERNESTO, CBC, ADIFF #### [address] [address] Eosinophil, Absolute 0.1 10 3/mcL Normal 0.0-0.7 [facility] Comment on above: Performed By: #### A ERNESTO, CBC, ADIFF #### [address] [address] Eosinophils/100 WBC (Bld) 3.4 % Normal 0.0-6.0 [facility] Comment on above: Performed By: #### A ERNESTO, CBC, ADIFF #### [address] [address] Lymphocyte, Absolute 1.7 10 3/mcL Normal 0.9-4.3 [facility] Comment on above: Performed By: #### A ERNESTO, CBC, ADIFF #### [address] [address] Lymphocytes/100 WBC (Bld) 38.7 % Normal 20.0-40.0 [facility] Comment on above: Performed By: #### A ERNESTO, CBC, ADIFF #### [address] [address] Monocyte, Absolute 0.8 10 3/mcL Normal 0.1-1.4 [facility] Comment on above: Performed By: #### A ERNESTO, CBC, ADIFF #### [address] [address] Monocytes/100 WBC (Bld) 18.7 % High 2.0-13.0 [facility] Comment on above: Performed By: #### A ERNESTO, CBC, ADIFF #### [address] [address] Neutrophils/100 WBC (Bld) 38.1 % Low 50.0-75.0 [facility] Comment on above: Performed By: #### A ERNESTO, CBC, ADIFF #### [address] [address] .GFRon 06-14-2025 Estimated Glomerular Filtration Rate 74 ml/min/1.73sqm Normal [facility] Comment on above: Result Comment: Stages of Chronic Kidney Disease (CKD) Stage Description eGFR(ml/min/1.73 sq.m.) CKD 1 Normal kidney function or >=90 normal kindney function with possible kidney damage (ex. Proteinuria) CKD 2 Kidney damage with mild loss 60-89 of kidney function CKD 3a Mild to moderate loss of kidney 45-59 function CKD 3b Moderate to severe loss of 30-44 of kindey function CKD 4 Severe loss of kidney function 15-29 CKD 5 Kidney failure <15 Note: (go live 2025) the eGFR calculation was updated to the 2020 CKD-EPI creatinine equation without a race factor to calculate the eGFR results. Performed By: #### A ERNESTO, CBC, ADIFF #### [address] [address] .NEUABSon 06-14-2025 Neutrophil, Absolute 1.7 10 3/mcL Low 2.3-8.1 [facility] Comment on above: Performed By: #### A ERNESTO, CBC, ADIFF #### [address] [address] ABO/Rh (Gel)on 06-14-2025 ABO/Rh Interp Positive Invalid Interpretation Code [facility] Comment on above: Performed By: #### A ERNESTO, CBC, ADIFF #### [facility] [address] [place] [address] ABS (Gel)on 06-14-2025 ABSC Interp (Gel) Negative Normal [facility] Comment on above: Performed By: #### A ERNESTO, CBC, ADIFF #### [address] [address] APTTon 06-14-2025 aPTT Coag (Bld) [Time] 32.7 s Normal 25.0-35.0 [facility] Comment on above: Result Comment: For Heparin anticoagulation therapy, the recommended therapeutic range is: 54-77 seconds (APTT Correlation with Anti-Xa therapeutic range of 0.3-0.7 units/ml). PLEASE REFERENCE THE PHARMACY PROTOCOL FOR DOSING. Performed By: #### G FR, APTT, PRO, CMP #### [place] [address] CBCon 06-14-2025 Erythrocyte distribution width (RBC) [Ratio] 13.7 % Normal 11.5-15.5 [facility] Comment on above: Performed By: #### A ERNESTO, CBC, ADIFF #### [place] [address] Hematocrit (Bld) [Volume fraction] 39.5 % Low 40.0-52.0 [facility] Comment on above: Performed By: #### A ERNESTO, CBC, ADIFF #### [place] [address] Hgb 13.5 G/dL Normal 13.0-17.5 [facility] Comment on above: Performed By: #### A ERNESTO, CBC, ADIFF #### [place] [id number] MCH (RBC) [Entitic mass] 30.9 pg Normal 27.0-33.0 [facility] Comment on above: Performed By: #### A ERNESTO, CBC, ADIFF #### [place] [id number] MCHC 34.3 G/dL Normal 32.0-36.0 [facility] Comment on above: Performed By: #### A ERNESTO, CBC, ADIFF #### [place] [id number] MCV (RBC) [Entitic vol] 90.3 fL Normal 81.0-100.0 [facility] Comment on above: Performed By: #### A ERNESTO, CBC, ADIFF #### [address] [address] Platelet 235 10 3/mcL Normal 150-450 [facility] Comment on above: Performed By: #### A ERNESTO, CBC, ADIFF #### [address] [address] Platelet mean volume (Bld) [Entitic vol] 8.2 fL Normal 6.4-10.5 [facility] Comment on above: Performed By: #### A ERNESTO, CBC, ADIFF #### [address] [address] RBC 4.38 10 6/mcL Low 4.50-6.00 [facility] Comment on above: Performed By: #### A ERNESTO, CBC, ADIFF #### [address] [address] WBC 4.4 10 3/mcL Low 4.5-10.8 [facility] Comment on above: Performed By: #### A ERNESTO, CBC, ADIFF #### [address] [address] CMPon 06-14-2025 Albumin Level 3.9 G/dL Normal 3.2-4.8 [facility] Comment on above: Performed By: #### A ERNESTO, CBC, ADIFF #### [address] [address] Albumin/Globulin [Mass ratio] 1.1 {ratio} Normal 0.9-1.6 [facility] Comment on above: Performed By: #### A ERNESTO, CBC, ADIFF #### [address] [address] ALP [Catalytic activity/Vol] 75 U/L Normal 38-126 [facility] Comment on above: Performed By: #### A ERNESTO, CBC, ADIFF #### [address] [address] ALT [Catalytic activity/Vol] 22 U/L Normal 12-55 [facility] Comment on above: Performed By: #### A ERNESTO, CBC, ADIFF #### [address] [address] AST [Catalytic activity/Vol] 28 U/L Normal 8-34 [facility] Comment on above: Performed By: #### A ERNESTO, CBC, ADIFF #### [address] [address] Bili Total 1.00 mg/dL Normal 0.20-1.20 [facility] Comment on above: Result Comment: Use of this assay is not recommended for patients undergoing treatment with eltrombopag due to the potential for falsely elevated results. Performed By: #### A ERNESTO, CBC, ADIFF #### [place] [id number] BUN/Creatinine Ratio 11.5 ratio Normal 10.0-22.0 [facility] Comment on above: Performed By: #### A ERNESTO, CBC, ADIFF #### [address] [address] Calcium [Mass/Vol] 9.3 mg/dL Normal 8.7-10.4 [facility] Comment on above: Performed By: #### A ERNESTO, CBC, ADIFF #### [address] [address] Chloride [Moles/Vol] 105 mmol/L Normal 98-110 [facility] Comment on above: Performed By: #### A ERNESTO, CBC, ADIFF #### [address] [address] CO2 [Moles/Vol] 32 mmol/L Normal 22-32 [facility] Comment on above: Performed By: #### A ERNESTO, CBC, ADIFF #### [address] [address] Creatinine [Mass/Vol] 1.04 mg/dL Normal 0.60-1.[address] [facility] Comment on above: Result Comment: Test ing performed on iSTAR Medical analyzer using enzymatic creatinine methodology. Performed By: #### A ERNESTO, CBC, ADIFF #### [address] [address] Electrolyte Balance 7.0 mEq/L Normal 4.0-15.0 [facility] Comment on above: Performed By: #### A ERNESTO, CBC, ADIFF #### [address] [address] Globulin 3.5 G/dL Normal 2.5-4.2 [facility] Comment on above: Performed By: #### A ERNESTO, CBC, ADIFF #### [address] [address] Glucose [Mass/Vol] 89 mg/dL Normal 82-115 [facility] Comment on above: Performed By: #### A ERNESTO, CBC, ADIFF #### [address] [address] Potassium [Moles/Vol] 4.4 mmol/L Normal 3.5-5.[address] [facility] Comment on above: Performed By: #### A ERNESTO, CBC, ADIFF #### [address] [address] Sodium [Moles/Vol] 144 mmol/L Normal 136-145 [facility] Comment on above: Performed By: #### A ERNESTO, CBC, ADIFF #### [address] [address] Total Protein 7.4 G/dL Normal 5.7-8.2 [facility] Comment on above: Performed By: #### A ERNESTO, CBC, ADIFF #### [address] [address] Urea nitrogen [Mass/Vol] 12.0 mg/dL Normal 8.0-22.0 [facility] Comment on above: Performed By: #### A ERNESTO, CBC, ADIFF #### [address] [address] LABORATORYOrdered By: Hood Cabello on 06-14-2025 ABO and Rh group Nom (Bld) Blood group O Rh(D) positive Invalid Interpretation Code AH BB Auto SS Blood group antibody screen Ql Negative ABSC (06/14/25 8:29 AM) Normal AH BB Auto SS LABORATORYOrdered By: Garcia Anne on 06-14-2025 Albumin BCP dye [Mass/Vol] 3.9 G/dL Normal 3.2 - 4.8 G/dL Chemistry S Albumin/Globulin [Mass ratio] 1.1 {ratio} Normal 0.9 - 1.6 ratio AH Chemistry S ALP [Catalytic activity/Vol] 75 U/L Normal 38 - 126 U/L AH Chemistry S ALT No additional P-5'-P [Catalytic activity/Vol] 22 U/L Normal 12 - 55 U/L AH Chemistry S AST [Catalytic activity/Vol] 28 U/L Normal 8 - 34 U/L AH Chemistry S Bilirubin [Mass/Vol] 1.00 mg/dL Normal 0.20 - 1.20 mg/dL AH Chemistry S Comment on above: Interpretive Data: U se of this assay is not recommended for patients undergoing treatment with eltrombopag due to the potential for falsely elevated results. Calcium [Mass/Vol] 9.3 mg/dL Normal 8.7 - 10. 4 mg/dL AH Chemistry S Chloride [Moles/Vol] 105 mmol/L Normal 98 - 11 0 mEq/L AH Chemistry S CO2 [Moles/Vol] 32 mmol/L Normal 22 - 32 mEq/L AH Chemistry S Creatinine [Mass/Vol] 1.04 mg/dL Normal 0.60 - 1.40 mg/dL AH Chemistry S Comment on above: Interpretive Data: T esting performed on iSTAR Medical analyzer using enzymatic creatinine methodology. Electrolyte Balance 7.0 mEq/L Normal 4.0 - 15 .0 mEq/L AH Chemistry S Globulin 3.5 G/dL Normal 2.5 - 4.2 G/dL AH Chemistry S Glucose [Mass/Vol] 89 mg/dL Normal 82 - 115 mg/dL AH Chemistry S Potassium [Moles/Vol] 4.4 mmol/L Normal 3.5 - 5.0 mEq/L AH Chemistry S Protein [Mass/Vol] 7.4 G/dL Normal 5.7 - 8.2 G/dL AH Chemistry S Sodium [Moles/Vol] 144 mmol/L Normal 136 - 145 mEq/L AH Chemistry S Urea nitrogen [Mass/Vol] 12.0 mg/dL Normal 8.0 - 22.0 mg/dL AH Chemistry S Urea nitrogen/Creatinine [Mass ratio] 11.5 ratio Normal 10.0 - 22.0 ratio AH Chemistry S LABORATORYOrdered By: SYSTEM SYSTEM on 06-14-2025 aPTT Coag (Bld) [Time] 32.7 s Normal 25.0 - 35.0 seconds [facility] SS Comment on above: Interpretive Data: F or Heparin anticoagulation therapy, the recommended therapeutic range is: 54-77 seconds (APTT Correlation with Anti-Xa therapeutic range of 0.3-0.7 units/ml). PLEASE REFERENCE THE PHARMACY PROTOCOL FOR DOSING. Basophils (Bld) [#/Vol] 0.0 103/mcL Normal 0.0 - 0.3 10^3/mcL AH Workflow SS Basophils/100 WBC (Bld) 1.1 % Normal 0.0 - 2.5 % AH Workflow SS Eosinophils (Bld) [#/Vol] 0.1 103/mcL Normal 0.0 - 0.7 10^3/mcL AH Workflow SS Eosinophils/100 WBC (Bld) 3.4 % Normal 0.0 - 6.0 % AH Workflow SS Erythrocyte distribution width (RBC) [Ratio] 13.7 % Normal 11.5 - 15.5 % AH Workflow SS Estimated Glomerular Filtration Rate 74 ml/min/1.73sqm Invalid Interpretation Code Chemistry S Comment on above: Interpretive Data: Stages of Chronic Kidney Disease (CKD) Stage Description eGFR(ml/min/1.73 sq.m.) CKD 1 Normal kidney function or >=90 normal kindney function with possible kidney damage (ex. Proteinuria) CKD 2 Kidney damage with mild loss 60-89 of kidney function CKD 3a Mild to moderate loss of kidney 45-59 function CKD 3b Moderate to severe loss of 30-44 of kindey function CKD 4 Severe loss of kidney function 15-29 CKD 5 Kidney failure <15 Note: (go live 2025) the eGFR calculation was updated to the 2020 CKD-EPI creatinine equation without a race factor to calculate the eGFR results. Hematocrit (Bld) [Volume fraction] 39.5 % Low 40.0 - 52.0 % Workflow SS Hemoglobin (Bld) [Mass/Vol] 13.5 G/dL Normal 13.0 - 17.5 G/dL AH Workflow SS Lymphocytes (Bld) [#/Vol] 1.7 103/mcL Normal 0.9 - 4.3 10^3/mcL Workflow SS Lymphocytes/100 WBC (Bld) 38.7 % Normal 20.0 - 40.0 % AH Workflow SS MCH (RBC) [Entitic mass] 30.9 pg Normal 27.0 - 33.0 pg AH Workflow SS MCHC 34.3 G/dL Normal 32.0 - 36.0 G/dL Workflow SS MCV (RBC) [Entitic vol] 90.3 fL Normal 81.0 - 100.0 fL Workflow SS Monocytes (Bld) [#/Vol] 0.8 103/mcL Normal 0.1 - 1.4 10^3/mcL Workflow SS Monocytes/100 WBC (Bld) 18.7 % High 2.0 - 13.0 % Workflow SS Neutrophils (Bld) [#/Vol] 1.7 103/mcL Low 2.3 - 8.1 10^3/mcL Workflow SS Neutrophils/100 WBC (Bld) 38.1 % Low 50.0 - 75.0 % Workflow SS Platelet mean volume (Bld) [Entitic vol] 8.2 fL Normal 6.4 - 10.5 fL Workflow SS Platelets (Bld) [#/Vol] 235 103/mcL Normal 150 - 450 10^3/mcL Workflow SS PT Coag (PPP) [Time] 12.5 s Normal 9.0 - 1 4.4 seconds [facility] Comment on above: Interpretive Data: E ffective 06/14/08, Protime results may be affected by some antibiotics (i.e. Ciprofloxacin, Azithromycin, Bactrim) which may potentiate the action of oral anticoagulants, with further increases in Protime/INR. PT International Ratio 1.1 ratio Invalid Interpretation Code [facility] Comment on above: Interpretive Data: Jake nelson [employer] (CHEST, 1991, 102:312S-25S) recommended therapeutic range for oral anticoagulant therapy is: LOW RISK: Prophylaxis of venous thrombosis INR: 2.0-3.0 Treatment of pulmonary embolism 2.0-3.0 Prevention of systemic embolism 2.0-3.0 HIGH RISK: Mechanical prosthetic valves 2.5-3.5 RBC (Bld) [#/Vol] 4.38 106/mcL Low 4.50 - 6.0 0 10^6/mcL Workflow SS WBC (Bld) [#/Vol] 4.4 103/mcL Low 4.5 - 10.8 10^3/mcL Workflow SS PROon 06-14-2025 INR Coag (PPP) [Relative time] 1.1 {INR} Normal [facility] Comment on above: Result Comment: [employer] (CHEST, 1992, 102:312S-25S) recommended therapeutic range for oral anticoagulant therapy is: LOW RISK: Prophylaxis of venous thrombosis INR: 2.0-3.0 Treatment of pulmonary embolism 2.0-3.0 Prevention of systemic embolism 2.0-3.0 HIGH RISK: Mechanical prosthetic valves 2.5-3.5 Performed By: #### G FR, APTT, PRO, CMP #### [facility] [address] [place] [address] PT Coag (PPP) [Time] 12.5 s Normal 9.0-14.4 [facility] Comment on above: Result Comment: Effe ctive 06/14/08, Protime results may be affected by some antibiotics (i.e. Ciprofloxacin, Azithromycin, Bactrim) which may potentiate the action of oral anticoagulants, with further increases in Protime/INR. Performed By: #### G FR, APTT, PRO, CMP #### [facility] [address] [place] [address] [place] - Individual Treatment [place] anon 06-09-2025 [place] - Individual Treatment Plan [facility] [address] [place] [address] [place] - Individual Treatment Plan MR#: [id number] Acct: [id number] Name: FAVIAN PHILLIP Rep #: [id number] : 1945 79 From: Jaqueline Ramirez PCP: Dr. Jose Rey MD Exercise - Initial Assessment Visit Session Number:: 15 Physician Prescribed Exercise Modalities: Treadmill, Rower, Roro Zhangne AD-7, SciFit Stepper, SciFit Pro-II Ergometer and SciFit Lateral [place] Target HR:: 114 Target RPE 12-16:: 12-16 Current RPD:: 11 Maximum Exercise HR:: 96 Resting Blood Pressure: 122/68 Maximum Exercise Blood Pressure: 140/80 Minimum SpO2 with exercise: 94 EKG Type: AV dual paced Nutrition/Wt Mgmt - Initial Visit Session Number:: 15 Weight Management Admit Height:: 5 ft 10 in Admit Weight:: 198 lb Admit BMI:: 28.4 Nutrition/Wt Mgmt - 30-Day Visit Date of Eval: 06/09/25 Session Number:: 15 Weight Management Height: 5 ft 10 in Weight:: 198 lb BMI: 28.4 Nutrition/Wt Mgmt - 60-Day Visit Date of Eval: 06/09/25 Session Number:: 15 Weight Management Weight Assessment:: WC <40 male and Wt stable Height: 5 ft 10 in Weight:: 198 lb BMI: 28.4 Weight Goals Progress:: Progressing (pt attending exercise classes and encouraged to follow healthy diet and exercise outside of class, pt weighing in every friday) Nutrition/Wt Mgmt - 90-Day Visit Session Number:: 15 Weight Management Weight Assessment:: WC <40 male and Wt stable Height: 5 ft 10 in Weight:: 198 lb BMI: 28.4 Weight Goals Progress:: Progressing (pt attending exercise classes and encouraged to follow healthy diet and exercise outside of class, pt weighing in every friday) Nutrition/Wt Mgmt - Final Visit Session Number:: 15 Weight Management Height: 5 ft 10 in Weight:: 198 lb BMI: 28.4 Psychosocial - Initial Assess Visit Session Number:: 15 Problems/Goals History of Emotional Disorders: Depression (Pt is taking medications and undergoes counseling at the [facility]) Psychosocial Goals: 1. Patient is free from overwhelming symtoms of depression (or anxiety, 2. Identifies personal stressors states the strategies for managing, 3. Identifies activities to decrease isolation and/or symptoms of, 4. Improved psychosocial coping skills., 5. Verbalizes coping strategies., 6. Adequate treatment of depression. and 7. Improved Q.O.L. Psychosocial Test Tool Used:: Pulmonary QOL and PHQ-9 Questionnaire PHQ-9 Score: 5 Referral to Behavioral Health PS - Interventions: Yes: Attend Stress Management Classes Intervention/Plan: See List Interventions/Plan:: Assess stressors,coping strategies signs of derpression on admission, Instruct/assist pt to develop coping personal stress Mgt strategies, Refer to Behavioral Health if appropriate, Refer to Physician if appropriate and Instruct patient to recognize signs symptoms of depression Psychosocial - 30-Day Visit Date of Eval: 06/09/25 Session Number:: 15 Problems/Goals History of Emotional Disorders: Depression (Pt is taking medications and undergoes [facility]) Psychosocial Goals: 1. Patient is free from overwhelming symtoms of depression (or anxiety, 2. Identifies personal stressors states the strategies for managing, 3. Identifies activities to decrease isolation and/or symptoms of, 4. Improved psychosocial coping skills., 5. Verbalizes coping strategies., 6. Adequate treatment of depression. and 7. Improved Q.O.L. Psychosocial Test Tool Used:: Pulmonary QOL and PHQ-9 Questionnaire PHQ-9 Score: 5 Referral to Behavioral Health PS - Interventions: Yes: Attend Stress Management Classes Plan Interventions/Plan:: Assess stressors,coping strategies signs of derpression on admission, Instruct/assist pt to develop coping personal stress Mgt strategies, Refer to Behavioral Health if appropriate, Refer to Physician if appropriate and Instruct patient to recognize signs symptoms of depression Psychosocial - 60-Day Visit Date of Eval: 06/09/25 Session Number:: 15 Problems/Goals History of Emotional Disorders: Depression (Pt is taking medications and undergoes counseling at [facility]) Psychosocial Goals: 1. Patient is free from overwhelming symtoms of depression (or anxiety, 2. Identifies personal stressors states the strategies for managing, 3. Identifies activities to decrease isolation and/or symptoms of, 4. Improved psychosocial coping skills., 5. Verbalizes coping strategies., 6. Adequate treatment of depression. and 7. Improved Q.O.L. Psychosocial Test Tool Used:: Pulmonary QOL and PHQ-9 Questionnaire PHQ-9 Score: 5 Referral to Behavioral Health PS - Interventions: Yes: Attend Stress Management Classes Plan Interventions/Plan:: Assess stressors,coping strategies signs of derpression on admission, Instruct/assist pt to develop coping personal stress Mgt strategies, Refer to Behaviora (more content not included)... Normal [facility] Urine Cultureon 05-26-2025 [facility] Urine Culture Urine Culture Urine Culture Streptococcus agalactiae (B) [place] Count 80,000-100,000 Streptococcus agalactiae (B): REACTION Ampicillin Islt SAAD <=0.25 cefTRIAXone Islt SAAD <=0.12 S Clindamycin.induced Susc Islt NEG Linezolid Islt SAAD <=2 S Vancomycin Islt SAAD 0.5 S Normal [facility] Comment on above: Performed By: #### L [id number], L100.0100, [id number], L506.1001 #### [facility] Laboratory [address] [place], [address] Urine cultureOrdered By: Arden Strange on 05-23-2025 Bacteria identified Cx Nom (U) Streptococcus agalactiae (B) Abnormal [facility] [place] - Individual Treatment Pl anon 05-12-2025 [place] - Individual Treatment Plan [facility] Pulmonary Rehab Reports [address] [place] [address] [place] - [place] Treatment Plan MR#: [id number] Acct: [id number] Name: FAVIAN PHILLIP Rep #: [id number] : 1945 79 From: Rogelio Jamison BS, RVT PCP: Dr. Jose Rey MD Exercise - Initial Assessment Visit Session Number:: 5 Physician Prescribed Exercise Modalities: Treadmill, Schwinn Airdyne AD-7 and SciFit Stepper Current METSs:: 3.4 Target HR:: 114 (86-114) Current RPD:: 2 Maximum Exercise HR:: 108 Resting Blood Pressure: 134/70 Maximum Exercise Blood Pressure: 140/70 Minimum SpO2 with exercise: 91 EKG Type: AV duel paced with prolonged AV conduction, rare PAC's Nutrition/Wt Mgmt - Initial Visit Session Number:: 5 Weight Management Admit Height:: 5 ft 10 in Admit Weight:: 195 lb Admit BMI:: 27.9 Nutrition/Wt Mgmt - 30-Day Visit Date of Eval: 05/12/25 Session Number:: 5 Weight Management Height: 5 ft 10 in Weight:: 195 lb BMI: 27.9 Weight Goals Progress:: Progressing (Pt will attend nutrition class. Low sodium heart healthy diet to be encourqed) Nutrition/Wt Mgmt - 60-Day Visit Session Number:: 5 Weight Management Height: 5 ft 10 in Weight:: 195 lb BMI: 27.9 Nutrition/Wt Mgmt - 90-Day Visit Session Number:: 5 Weight Management Height: 5 ft 10 in Weight:: 195 lb BMI: 27.9 Nutrition/Wt Mgmt - Final Visit Session Number:: 5 Weight Management Height: 5 ft 10 in Weight:: 195 lb BMI: 27.9 Psychosocial - Initial Assess Visit Session Number:: 5 Problems/Goals History of Emotional Disorders: Depression Psychosocial Goals: 1. Patient is free from overwhelming symtoms of depression (or anxiety, 2. Identifies personal stressors states the strategies for managing, 3. Identifies activities to decrease isolation and/or symptoms of, 4. Improved psychosocial coping skills., 5. Verbalizes coping strategies., 6. Adequate treatment of depression. and 7. Improved Q.O.L. Psychosocial Test Tool Used:: PHQ-9 Questionnaire PHQ-9 Score: 5 Referral to Behavioral Health PS - Interventions: Yes: Attend Stress Management Classes Intervention/Plan: See List Interventions/Plan:: Assess stressors,coping strategies signs of derpression on admission, Instruct/assist pt to develop coping personal stress Mgt strategies, Refer to Behavioral Health if appropriate, Refer to Physician if appropriate, Instruct patient to recognize signs symptoms of depression and Instruct patient to recog Comments:: Pt is on meds for depression and is in counseling [facility] Psychosocial - 30-Day Visit Date of Eval: 05/12/25 Session Number:: 5 Problems/Goals History of Emotional Disorders: Depression Psychosocial Goals: 1. Patient is free from overwhelming symtoms of depression (or anxiety, 2. Identifies personal stressors states the strategies for managing, 3. Identifies activities to decrease isolation and/or symptoms of, 4. Improved psychosocial coping skills., 5. Verbalizes coping strategies., 6. Adequate treatment of depression. and 7. Improved Q.O.L. Psychosocial Test Tool Used:: PHQ-9 Questionnaire PHQ-9 Score: 5 Referral to Behavioral Health PS - Interventions: Yes: Attend Stress Management Classes Plan Interventions/Plan:: Assess stressors,coping strategies signs of derpression on admission, Instruct/assist pt to develop coping personal stress Mgt strategies, Refer to Behavioral Health if appropriate, Refer to Physician if appropriate, Instruct patient to recognize signs symptoms of depression and Instruct patient to recog Comments:: Pt is on meds for depression and is in counseling at [facility] Psychosocial - 60-Day Visit Session Number:: 5 Problems/Goals History of Emotional Disorders: Depression Psychosocial Goals: 1. Patient is free from overwhelming symtoms of depression (or anxiety, 2. Identifies personal stressors states the strategies for managing, 3. Identifies activities to decrease isolation and/or symptoms of, 4. Improved psychosocial coping skills., 5. Verbalizes coping strategies., 6. Adequate treatment of depression. and 7. Improved Q.O.L. Psychosocial Test Tool Used:: PHQ-9 Questionnaire PHQ-9 Score: 5 Referral to Behavioral Health PS - Interventions: Yes: Attend Stress Management Classes Plan Interventions/Plan:: Assess stressors,coping strategies signs of derpression on admission, Instruct/assist pt to develop coping personal stress Mgt strategies, Refer to Behavioral Health if appropriate, Refer to Physician if appropriate, Instruct patient to recognize signs symptoms of depression and Instruct patient to recog Comments:: Pt is on meds for depression [facility] Psych[facility] - 90-Day Visit Session Number:: 5 Problems/Goals History of Emotional Disorders: Depression Psychosocial Goals: 1. Patient is free from overwhelming symtoms of depression ( (more content not included)... Normal [facility] CT ANGIOGRAPHY NECK W/CONTRA STon 05-05-2025 CT ANGIOGRAPHY NECK W/CONTRAST ORIGINAL EXAMINATION: CTA OF THE NECK 05/05/2025 10:03 am TECHNIQUE: CTA of the neck was performed with the administration of intravenous contrast. Multiplanar reformatted images are provided for review. MIP images are provided for review. Stenosis of the internal carotid arteries measured using NASCET criteria. Automated exposure control, iterative reconstruction, and/or weight based adjustment of the mA/kV was utilized to reduce the radiation dose to as low as reasonably achievable. 3D surface rendering or volume rendering reconstructions were performed. COMPARISON: None. HISTORY: ORDERING SYSTEM PROVIDED HISTORY: Reason for Exam: Stenosis Hx carotid stenosis, monitor for progression. FINDINGS: Bilateral proximal subclavian arteries are patent. There are small noncalcified plaques of proximal right subclavian artery with mild stenosis. There are small-moderate calcified and noncalcified plaques, with moderate focal stenosis of proximal left subclavian artery. Right carotid: The right common carotid artery is patent. The right internal carotid artery is patent. There are moderate calcified plaques at right common carotid bifurcation, with mild-moderate stenosis. There are small calcified noncalcified plaques of proximal right internal carotid artery with 10%-20% stenosis. The right external carotid artery is patent. Left carotid: The left common carotid artery is patent. The left internal carotid artery is patent. There is diffuse intimal thickening of distal left common carotid artery. There is marked noncalcified plaque at proximal left internal carotid artery measuring up to 6 mm. There is severe focal stenosis of proximal left internal carotid artery with 80% focal stenosis. The left external carotid artery is patent. Vertebral arteries: Right vertebral artery is patent. The left vertebral artery is patent. Nonvascular Findings: Anterior oropharynx is obscured by metallic streak artifact and not well-evaluated. Bilateral parotid glands, submandibular glands, and sublingual glands, are grossly normal in morphology. There is partially visualize asymmetric enlargement of the right palatine tonsil, with effacement of the right glossopharyngeal sulcus, with mucosal enlargement at the posterior right tongue base. Epiglottis is normal in thickness. The vocal cords are grossly symmetric. Thyroid gland is normal size with 0.4 cm left lobe cyst. Lung apices demonstrate no consolidation or effusion. There are small bilateral cervical nodes. BONES: No acute osseous abnormality. Osseous structures are intact with degenerative changes. There is C4-C6 ACDF. IMPRESSION: 1. Severe focal stenosis of proximal left internal carotid artery with 80% focal stenosis. 2. Small calcified noncalcified plaques of proximal right internal carotid artery with 10%-20% stenosis. 3. Partially visualized asymmetric enlargement of the right palatine tonsil, with effacement of the right glossopharyngeal sulcus, and mucosal enlargement at the posterior right tongue base. Recommend direct visualization to exclude underlying neoplastic process. Interpreted by: Vasu Shetty Preliminary Report By: Vasu Shetty Electronically signed By Vasu Shetty Dictated Date: 05/05/2025 4:01:34 PM Prelim Date: 05/05/2025 4:20:11 PM Sign Date: 05/05/2025 4:20:11 PM Ordering Provider: LARRY Mireles [facility] [place] - History AND Physicalon 04-14-2025 [place] - History & Physical [facility] Pulmonary Rehab Reports [address] [place] [address] [place] - History Physical MR#: [id number] Acct: [id number] Name: FAVIAN PHILLIP Rep #: [id number] : 1945 79 From: Rogelio Jamison BS, RVT PCP: Dr. Jose Rey MD History of Present Illness General Arrival date:: 04/14/25 Arrival time:: 10:10 Date of Referral:: 03/03/25 Date of Evaluation: 04/14/25 Referring Physician: Dr. Strange Primary Diagnosis: Dyspnea, asthma History of Present Pulmonary Event mMRC Breathless Scale: When is the patient short of breath? Y/N Grade: Description of Breathlessness: 0 I only get breathless with strenuous exercise. 1 I get short of breath when hurrying on level ground or walking up a slight hill. 2 On level ground, I walk slower than people of the same age because of breathless, or have to stop for breath when walking at my own pace. 3 I stop for breath after walking 100 yards or after a few minutes on level ground. 4 I am too breathless to leave the house or I am breathless when dressing. Respiratory Problems: Yes Retain Secretions, Fatigue, Wheezing, Hoarseness, Anxiety, Dyspnea with Activity and Cough with Secretions; No Limited Range of Motion, Chest Pain, Able to Speak in Full Sentences, Dizziness, Ankle Swelling, Panic, Dyspnea at Rest or Dyspnea Lying Down Flat Medications Home Medications sertraline 100 mg tablet 150 mg PO QHS 08/12/19 sildenafil 100 mg tablet (Viagra) 100 mg PO DAILY PRN ed 08/24/20 doxepin 50 mg capsule 50 mg PO QHS 08/22/22 fluticasone fur. 200 mcg-umeclid 62.5 mcg-vilant 25 mcg inhalat.powder (Trelegy Ellipta) 1 inh inhalation QHS 07/22/24 pantoprazole 40 mg tablet,delayed release 40 mg PO BID 07/22/24 metoprolol tartrate 25 mg tablet 12.5 mg (1/2 x 25 mg) PO BID Patient has been out of med, please fill FAHAD #90 tabs 10/05/24 levothyroxine 125 mcg tablet 150 mcg PO DAILY 10/15/24 Allergies Allergies No Known Allergies Allergy (Verified 10/15/24 10:32) Secretions Thick:: Yes Amount/Day:: 2 TSP Cough:: Yes AM: Yes Sleep Disorder Evaluation Hx of Sleep Apnea: Yes Do you snore loudly (louder than talking or can be heard through closed doors)?: No Do you often feel tired/ fatigued/ sleepy during daytime?: No Has anyone observed you stop breathing during sleep?: No History of Hypertension (for STOP score): No STOP Results: Negative Medical Utilization Medical Utilization Number of hospital visits in the last year?: 0 Do you see your physician on a regular schedule?: Yes Advanced Directives Advanced Directives Do you have a Healthcare Power of Systems Librarian?: Yes Living Will: Yes Advance Directives Information Provided: No Advance Directives on File: Yes DNR Order?:: No Past Medical History Covid-19 Screening Physicial Symptoms Other Clinical Concerns Exposure Risk Pertinent Comorbidities 65 years or older:: Yes Has a chronic lung disease or moderate to severe asthma:: Yes Medical History Medical History Alcohol use Anxiety Arthritis Asthma Bicuspid aortic valve BiPAP (biphasic positive airway pressure) dependence BPH (benign prostatic hyperplasia) Cancer Cardiology follow-up encounter COVID-19 (12/2021) Cryptogenic stroke Depression Dilated aortic root Ganglion cyst of left foot Gastric reflux History of echocardiogram History of pain when walking History of stress test History of trigger finger History of trigger finger Hypertension Hypothyroidism Injury of head and neck Left carotid artery stenosis Non-smoker Shortness of breath on exertion Sick sinus syndrome Sinus pause Syncope Wears glasses Wears hearing aid Surgical History Surgical History History of carpal tunnel surgery of left wrist History of carpal tunnel surgery of right wrist History of left heart catheterization (04/21/17) History of loop recorder (01/2017) 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) Hx of arthroscopic knee surgery Hx of cholecystectomy Hx of foot surgery Hx of fusion of cervical spine Hx of repair of left rotator cuff Hx of repair of right rotator cuff Hx of transurethral resection of prostate Social History Smoking History Smoking Status: Never smoker Hx Smoking Exposure: Yes (father smoked) Alcohol Use Alcohol Usage: Yes (occas.) Occupation Occupation (List type of work in comments):: Retired Functioning ADL/IADL Current Ability Current Ability: Independent: Self-Care (e.g.,grooming, dressing, bathing), Independent: Ambulation, Independent: Transfer and Independent: Household tasks (e.g., light meal prep, laundry, shopping) Pt Functioning Prior to Problem Prior Functioning: Self-Care (e.g.,grooming, dressing, bathing): (more content not included)... Normal [facility] [place] - Individual Treatment Pl anon 04-14-2025 [place] - Individual Treatment Plan [facility] Pulmonary Rehab Reports [address] [place] [address] [place] - [place] Treatment Plan MR#: [id number] Acct: [id number] Name: FAVIAN PHILLIP Rep #: [id number] : 1945 79 From: Rogelio Jamison BS, RVT PCP: Dr. Jose Rey MD General Information2 General Information Admitting Diagnosis: Dyspnea, asthma Personal Learning Style/Barriers Personal Learning Style:: Audio/Visual Barriers to Learning: None Stage of change r/t lifestyle modifications: Contemplation Education/Goals [place] Patient Goals: Increase muscle strength: Initial Assessment, Experience less dyspnea: Initial Assessment, Improve energy level: Initial Assessment, Participate in home exercise: Initial Assessment, Improve knowledge of lung disease: Initial Assessment and Improve my quality of life: Initial Assessment Exercise - Initial Assessment Visit Date of Eval: 04/14/25 (initial eval ) Problem/Goals Problems: Deconditioning Goals:: Aerobic exercise 30-60 mins x 12 weeks [36 sessions] Physician Prescribed Exercise Modalities: Treadmill, Rower, Schwinn Airdyne AD-7, SciFit Stepper, eMithilaHaat Pro-II Ergometer and DiViNetworksFit Lateral Credit Balance Specialist Frequency (days/week): 3 Duration (Minutes):: 30-45 Intensity: 60-80% of age predicted maximum heart rate reserve Current METSs:: 2 Target HR:: 114 (86-114) Resting Blood Pressure: 160/84 EKG Type: AV duel-paced rhythm w/ prolonged AV conduction Plan Plan and Plan to Review:: Benefits of exercise, Core components of exercise, How to measure dyspnea level, How to monitor dyspnea level, Exercise intensity, Exercise safety guideline, Home exercise guidelines and Carolyn: 3-4/11-13 Home Exercise Mode: Walking and Other Nutrition/Wt Mgmt - Initial Visit Date of Eval: 04/14/25 (initial eval ) Weight Management Admit Height:: 5 ft 10 in Admit Weight:: 195 lb Admit BMI:: 27.9 Intervention Referral to dietitian:: No Will attend diet classes:: Yes Intervention/Plan: Instruct on ideal BMI set weight loss goal w/patient, Assist pt to ID incorporate diet changes for weight loss by S9, Refer to Structured Weight Loss program as appropriate, Encourage goal of using 250-300dcal per session for weight loss and Other additional plan/interventions Plan Nutrition Plan: Yes: Review BMI or WC identify target wt strategies for wt control, Yes: Nutrition education class:, Yes: Medication education class [Prednisone]:, Yes: Weight control e ducation class:, Yes: Education re: Need for ongoing weight monitoring, Yes: Food diary: and Yes: Physical activity log: Nutrition/Wt Mgmt - 30-Day Weight Management Height: 5 ft 10 in Weight:: 195 lb BMI: 27.9 Nutrition/Wt Mgmt - 60-Day Weight Management Height: 5 ft 10 in Weight:: 195 lb BMI: 27.9 Nutrition/Wt Mgmt - 90-Day Weight Management Height: 5 ft 10 in Weight:: 195 lb BMI: 27.9 Nutrition/Wt Mgmt - Final Weight Management Height: 5 ft 10 in Weight:: 195 lb BMI: 27.9 Psychosocial - Initial Assess Visit Date of Eval: 04/14/25 (initial eval ) Problems/Goals History of Emotional Disorders: Depression (Pt is on meds and does to counseling at [facility]) Psychosocial Goals: 1. Patient is free from overwhelming symtoms of depression (or anxiety, 2. Identifies personal stressors states the strategies for managing, 3. Identifies activities to decrease isolation and/or symptoms of, 4. Improved psychosocial coping skills., 5. Verbalizes coping strategies., 6. Adequate treatment of depression. and 7. Improved Q.O.L. Psychosocial Test Tool Used:: Pulmonary QOL and PHQ-9 Questionnaire PHQ-9 Score: 5 Referral to Behavioral Health PS - Interventions: Yes: Attend Stress Management Classes Intervention/Plan: See List Interventions/Plan:: Assess stressors,coping strategies signs of derpression on admission, Instruct/assist pt to develop coping personal stress Mgt strategies, Refer to Behavioral Health if appropriate, Refer to Physician if appropriate, Instruct patient to recognize signs symptoms of depression, Instruct patient to recog and Other additional plan/intervention Psychosocial - 30-Day Problems/Goals History of Emotional Disorders: Depression (Pt is on meds and does to counseling at [facility]) Psychosocial Goals: 1. Patient is free from overwhelming symtoms of depression (or anxiety, 2. Identifies personal stressors states the strategies for managing, 3. Identifies activities to decrease isolation and/or symptoms of, 4. Improved psychosocial coping skills., 5. Verbalizes coping strategies., 6. Adequate treatment of depression. and 7. Improved Q.O.L. Psychosocial Test Tool Used:: Pulmonary QOL and PHQ-9 Questionnaire PHQ-9 Score: 5 Referral to Behavioral Health PS - Interventions: Yes: Attend Stress Management Classes Plan Interventions/Plan:: Assess stressors,coping strategies signs of derpression on admission, Instruct/a (more content not included)... Normal [facility] PSA,Total- Diagnosticon 05-0 PSA, DIAGNOSTIC 0.54 ng/mL Normal 0.00-4.00 [facility] Comment on above: Result Comment: This test was performed using the [employer] tPSA method. Measured values of a patient??sample can vary depending on the testing procedure used. PSA values determined on patient samples by different testing procedures cannot be used interchangeably. If there is a change in PSA assays while monitoring therapy, sequential testing should be performed to confirm baseline values. Performed By: #### L [id number] #### [facility] [address] [place], [address] Carotid Duplex Ultrasoundon 03-23-2025 Carotid Duplex Ultrasound [facility] [address] [place] [address] Carotid Duplex Ultrasound 03/23/25 0809 MR#: [id number] Acct: [id number] Name: FAVIAN PHILLIP Rep #: [id number] : 1945 79 From: Larry Fitzpatrick MD Attending Dr: Dr. Larry Fitzpatrick MD Status: DE P CLI Ordering Dr: Larry Fitzpatrick MD Date: 03/23/25 Location: [facility] Sex: M C Admitted: Reason For Study Reason For Study: Stenosis Rt. Velocities/BP Lt. Velocities/BP Prox CCA 82.8/15.7 cm/sec. Prox CCA 75.3/15.1 cm/sec. Mid CCA 74.0/14.6 cm/sec. Mid CCA 67.9/16.3 cm/sec. Dist CCA 63.0/15.7 cm/sec. Dist CCA 53.1/15.7 cm/sec. Prox ICA 60.2/15.9 cm/sec. Prox ICA 304.8/101.2 cm/sec. Mid ICA 137.5/35.3 cm/sec. Mid ICA 109.1/27.8 cm/sec. Dist ICA 88.8/27.4 cm/sec. Dist ICA 61.7/17.1 cm/sec. Rt. ICA/CCA = 1.9. Lt. ICA/CCA = 4.9. Prox ECA 65.5/7.8 cm/sec. Prox ECA 66.3/9.1 cm/sec. Rt. Vert. 49.5/13.9 cm/sec. Lt. Vert. 55.6/11.4 cm/sec. Right Extracranial There is homogeneous, smooth atherosclerotic plaque noted in the right common carotid artery. There is heterogeneous, irregular atherosclerotic plaque noted in the right internal carotid artery. The atherosclerotic plaque causes acoustic shadowing. The right internal carotid artery is very tortuous. There is no significant atherosclerotic plaque noted in the right external carotid artery. Antegrade flow is noted in the right vertebral artery. Left Extracranial There is homogeneous, smooth atherosclerotic plaque noted in the left common carotid artery. There is heterogeneous, irregular atherosclerotic plaque noted in the left internal carotid artery. The left internal carotid artery is very tortuous. There is intimal thickening but no significant atherosclerotic plaque noted in the left external carotid artery. Procedure Carotid Duplex 75041. This is a Carotid Duplex examination using B-mode, color flow and specral Doppler. Exam performed in department. Preliminary report given to Dr. Fitzpatrick. VL/Carotid Duplex Ultrasound Interpretation Summary Moderate (50-69%) stenosis right extracranial internal carotid. Severe (>70%) stenosis left extracranial internal carotid. Patent and antegrade vertebrals bilaterally. Ordering Physician: Larry Fitzpatrick Referring Physician: Jose Rey Chi Performed By: Karolina Butt RVT 03/31/251929 Date Larry Fitzpatrick MD CC: Dr. Larry Fitzpatrick MD; Dr. Jose Rey MD Date Dictated: 03/23/25808 Date Transcribed: 03/31/251929 Percussion Tuner: Signed Normal [facility] Absolute lymphocyte countOrd ered By: Jose Rey on 02-07-2025 Lymphocytes Auto (Unsp spec) [#/Vol] 1.81 10*3/uL 0.83-4.51 [facility] Absolute neutrophil countOrd ered By: Jose Rey on 02-07-2025 Neutrophils (Bld) [#/Vol] 2.7 10*3/uL 2.0-7.7 [facility] Anion gap in Serum or Plasma Ordered By: Jose Rey on 02-07-2025 Anion gap [Moles/Vol] 10 mmol/L 5- [facility] Automated lymphocyte count a s percentage of total leukocytesOrdered By: Jose Rey on 02-07-2025 Lymphocytes/100 WBC Auto (Unsp spec) 32.1 % [facility] BUN/creatinine ratioOrdered By: Jose Mendozaok on 02-07-2025 Urea nitrogen/Creatinine [Mass ratio] 16.5 mg/mg 09-19 [facility] Basophil percentageOrdered B y: Jose Rey on 02-07-2025 Basophils/100 WBC (Bld) 0.7 % 0-1 [facility] Bilirubin, totalOrdered By: Jose Rey on 02-07-2025 Bilirubin [Mass/Vol] 0.71 mg/dL 0.00-1.30 [facility] CBC W/Diff, Automatedon 01-29 Absolute Lymph 1.81 X10 3/uL Normal 0.83-4.51 [facility] Comment on above: Performed By: #### L 506.1001, L100.0100, L501.9520, L500.4050 #### [facility] Laboratory [address] [place], [address] Absolute Neut 2.7 X10 3/uL Normal 2.0-7.7 [facility] Comment on above: Performed By: #### L 506.1001, L100.0100, L501.9520, L500.4050 #### [facility] Laboratory [address] [place], [address] Basophils/100 WBC (Bld) 0.7 % Normal 0-1 [facility] Comment on above: Performed By: #### L 506.1001, L100.0100, L501.9520, L500.4050 #### [facility] Laboratory [address] [place], [address] Eosinophils/100 WBC (Bld) 2.1 % Normal 0-5 [facility] Comment on above: Performed By: #### L 506.1001, L100.0100, L501.9520, L500.4050 #### [facility] Laboratory [address] [place], [address] Erythrocyte distribution width (RBC) [Ratio] 13.1 % Normal 11.6-14.6 [facility] Comment on above: Performed By: #### L 506.1001, L100.0100, L501.9520, L500.4050 #### [facility] Laboratory [address] [place], [address] Hematocrit (Bld) [Volume fraction] 42.9 % Normal 40-54 [facility] Comment on above: Performed By: #### L 506.1001, L100.0100, L501.9520, L500.4050 #### [facility] [address] [place], [address] Hemoglobin (Bld) [Mass/Vol] 14.5 g/dL Normal 13.0-16.5 [facility] Comment on above: Performed By: #### L 506.1001, L100.0100, L501.9520, L500.4050 #### [facility] Laboratory [address] [place], [address] IG% 0.400 Normal 0.0-0.9 [facility] Comment on above: Result Comment: IG% - Immature Granulocytes (promyelocytes, myelocytes and metamyelocytes) > 1% indicates that a LEFT SHIFT is Present. Performed By: #### L 506.1001, L100.0100, L501.9520, L500.4050 #### [facility] [address] [place], [address] Lymphocytes/100 WBC (Bld) 32.1 % Normal 19-41 [facility] Comment on above: Performed By: #### L 506.1001, L100.0100, L501.9520, L500.4050 #### [facility] Laboratory [address] [place], [address] MCH (RBC) [Entitic mass] 30.7 pg Normal 27.0-32.0 [facility] Comment on above: Performed By: #### L 506.1001, L100.0100, L501.9520, L500.4050 #### [facility] [address] [place], [address] MCHC (RBC) [Mass/Vol] 33.8 g/dL Normal 32-36 [facility] Comment on above: Performed By: #### L 506.1001, L100.0100, L501.9520, L500.4050 #### [facility] Laboratory [address] [place], [address] MCV (RBC) [Entitic vol] 90.9 fL Normal 80-94 [facility] Comment on above: Performed By: #### L 506.1001, L100.0100, L501.9520, L500.4050 #### [facility] Laboratory [address] [place], [address] Monocytes/100 WBC (Bld) 16.3 % High 0-10 [facility] Comment on above: Performed By: #### L 506.1001, L100.0100, L501.9520, L500.4050 #### [facility] Laboratory [address] [place], [address] Neutrophils/100 WBC (Bld) 48.4 % Normal 47-70 [facility] Comment on above: Performed By: #### L 506.1001, L100.0100, L501.9520, L500.4050 #### [facility] Laboratory [address] [place], [address] Nucleated RBC (Bld) [#/Vol] 0 10*3/uL Normal 0-5 [facility] Comment on above: Performed By: #### L 506.1001, L100.0100, L501.9520, L500.4050 #### [facility] Laboratory [address] [place], [address] Platelet mean volume (Bld) [Entitic vol] 10.0 fL Normal 6.2-12.0 [facility] Comment on above: Performed By: #### L 506.1001, L100.0100, L501.9520, L500.4050 #### [facility] Laboratory [address] [place], [address] Platelets (Bld) [#/Vol] 260 10*3/uL Normal 150-450 [facility] Comment on above: Performed By: #### L 506.1001, L100.0100, L501.9520, L500.4050 #### [facility] Laboratory [address] [place], [address] RBC (Bld) [#/Vol] 4.72 10*6/uL Normal 4.6-6.2 [facility] Comment on above: Performed By: #### L 506.1001, L100.0100, L501.9520, L500.4050 #### [facility] Laboratory [address] [place], [address] RDW SD 43.7 fl Normal 35.1-43.9 [facility] Comment on above: Performed By: #### L 506.1001, L100.0100, L501.9520, L500.4050 #### [facility] Laboratory [address] [place], [address] WBC (Bld) [#/Vol] 5.6 10*3/uL Normal 4.4-11.0 [facility] Comment on above: Performed By: #### L 506.1001, L100.0100, L501.9520, L500.4050 #### [facility] Laboratory [address] [place], [address] Carbon dioxide, total [Moles /volume] in Central venous bloodOrdered By: Jose Rey on 02-07-2025 CO2 [Moles/Vol] 27.3 mmol/L 21.0-32.0 [facility] Chloride assayOrdered By: Aris Rey on 02-07-2025 Chloride [Moles/Vol] 105 mmol/L 98-108 [facility] Comprehensive Metabolic Prof ilon 02-07-2025 Albumin [Mass/Vol] 4.2 g/dL Normal 3.4-4.8 [facility] Comment on above: Performed By: #### L 506.1001, L100.0100, L501.9520, L500.4050 #### [facility] Laboratory [address] [place], [address] Albumin/Globulin [Mass ratio] 1.1 {ratio} Normal 0.9-2.4 [facility] Comment on above: Performed By: #### L 506.1001, L100.0100, L501.9520, L500.4050 #### [facility] Laboratory [address] [place], [address] ALK PHOS 84 U/L Normal 40-129 [facility] Comment on above: Performed By: #### L 506.1001, L100.0100, L501.9520, L500.4050 #### [facility] Laboratory [address] [place], [address] ALT [Catalytic activity/Vol] 23 U/L Normal <=46 [facility] Comment on above: Performed By: #### L 506.1001, L100.0100, L501.9520, L500.4050 #### [facility] Laboratory [address] [place], [address] AST [Catalytic activity/Vol] 28 U/L Normal <=37 [facility] Comment on above: Performed By: #### L 506.1001, L100.0100, L501.9520, L500.4050 #### [facility] Laboratory [address] [place], [address] Bilirubin [Mass/Vol] 0.71 mg/dL Normal 0.00-1.30 [facility] Comment on above: Performed By: #### L 506.1001, L100.0100, L501.9520, L500.4050 #### [facility] Laboratory [address] [place], [address] BUN/CRE 16.5 RATIO Normal 10-20 [facility] Comment on above: Performed By: #### L 506.1001, L100.0100, L501.9520, L500.4050 #### [facility] Laboratory [address] [place], [address] Calcium [Mass/Vol] 9.7 mg/dL Normal 7.6-11.0 [facility] Comment on above: Performed By: #### L 506.1001, L100.0100, L501.9520, L500.4050 #### [facility] Laboratory [address] [place], [address] Chloride [Moles/Vol] 105 mmol/L Normal 98-108 [facility] Comment on above: Performed By: #### L 506.1001, L100.0100, L501.9520, L500.4050 #### [facility] Laboratory [address] [place], [address] CO2 [Moles/Vol] 27.3 mmol/L Normal 21.0-32.0 [facility] Comment on above: Performed By: #### L 506.1001, L100.0100, L501.9520, L500.4050 #### [facility] Laboratory [address] [place], [address] Creatinine [Mass/Vol] 1.05 mg/dL Normal 0.70-1.20 [facility] Comment on above: Performed By: #### L 506.1001, L100.0100, L501.9520, L500.4050 #### [facility] Laboratory [address] [place], [address] GAP 10 Normal 5-15 [facility] Comment on above: Performed By: #### L 506.1001, L100.0100, L501.9520, L500.4050 #### [facility] Laboratory [address] [place], [address] GFR/1.73 sq M.predicted among non-blacks MDRD (S/P/Bld) [Vol rate/Area] 73 mL/min/{1.73_m2} Normal >60 [facility] Comment on above: Result Comment: mL/m in/1.73m2 CKD-EPI Creatinine Equation (2020) Performed By: #### L 506.1001, L100.0100, L501.9520, L500.4050 #### [facility] Laboratory [address] [place], [address] Globulin (S) [Mass/Vol] 3.7 g/dL Normal 2.2-4.2 [facility] Comment on above: Performed By: #### L 506.1001, L100.0100, L501.9520, L500.4050 #### [facility] Laboratory [address] [place], [address] Glucose [Mass/Vol] 74 mg/dL Normal 70-99 [facility] Comment on above: Performed By: #### L 506.1001, L100.0100, L501.9520, L500.4050 #### [facility] Laboratory [address] [place], [address] Potassium [Moles/Vol] 4.2 mmol/L Normal 3.3-5.1 [facility] Comment on above: Performed By: #### L 506.1001, L100.0100, L501.9520, L500.4050 #### [facility] [address] [place], [address] Sodium [Moles/Vol] 142 mmol/L Normal 133-145 [facility] Comment on above: Performed By: #### L 506.1001, L100.0100, L501.9520, L500.4050 #### [facility] [address] [place], [address] T PROT 7.8 g/dL Normal 5.9-8.4 [facility] Comment on above: Performed By: #### L 506.1001, L100.0100, L501.9520, L500.4050 #### [facility] Laboratory [address] [place], [address] Urea nitrogen [Mass/Vol] 17 mg/dL Normal 4-19 [facility] Comment on above: Performed By: #### L 506.1001, L100.0100, L501.9520, L500.4050 #### [facility] Laboratory [address] [place], [address] Eosinophil percentageOrdered By: Jose Rey on 02-07-2025 Eosinophils/100 WBC (Bld) 2.1 % 0-5 [facility] Erythrocyte distribution wid th ratioOrdered By: Jose Betito on 02-07-2025 Erythrocyte distribution width (RBC) [Ratio] 13.1 % 11.6-14.6 [facility] Erythrocyte distribution wid th standard deviationOrdered By: [facility] on 02-07-2025 Erythrocyte distribution width (RBC) [Entitic vol] 43.7 fL 35.1-43.9 [facility] Erythrocyte distribution width (RBC) [Ratio] 43.7 fl 35.1-43.9 [facility] GFR/1.73 sq M.predicted lico g non-blacks MDRD (S/P/Bld) [Vol rate/Area]Ordered By: Jose Rey on 02-07-2025 Estimated GFR (MDRD) Non-Af Amer 73 >60 [facility] Comment on above: mL/min/1.73m2 CKD-EP I Creatinine Equation (2020) Glomerular filtration rate ( GFR) estimation/1.73 sq m using serum, plasma, or whole bOrdered By: Jose Rey on 02-07-2025 GFR/1.73 sq M.predicted among non-blacks MDRD (S/P/Bld) [Vol rate/Area] 73 mL/min/{1.73_m2} >60 [facility] Comment on above: mL/min/1.73m2 CKD-EP I Creatinine Equation (2020) Hematocrit Auto (Bld) [Volum e fraction]Ordered By: Joes Rey on 02-07-2025 Hematocrit (Bld) [Volume fraction] 42.9 % 40-54 [facility] Hemoglobin measurementOrdere d By: Jose Rey on 02-07-2025 Hemoglobin (Bld) [Mass/Vol] 14.5 g/dL 13.0-16.5 [facility] Immature granulocytes/100 WB C Auto (Bld)Ordered By: Jose Rey on 02-07-2025 Immature granulocytes/100 WBC (Bld) 0.400 % 0.0-0.9 [facility] Comment on above: IG% - Immature Granu locytes (promyelocytes, myelocytes and metamyelocytes) > 1% indicates that a LEFT SHIFT is Present. L506.1001on 02-07-2025 Vitamin D 25-OH 24.9 ng/mL Low 30-100 [facility] Comment on above: Result Comment: Jayda min D Status Deficiency: <20 ng/mL (50nmol/L) Insufficiency: 20-30 ng/mL (50-75 nmol/L) Sufficiency: 30-100 ng/mL (75-250 nmol/L) Toxicity: >100 ng/mL (>250 nmol/L) Performed By: #### L 506.1001, L100.0100, L501.9520, L500.4050 #### [facility] Laboratory [address] [place], [address] Laboratory - Chemistry and C hemistry - challengeOrdered By: Jose Rey on 02-07-2025 AST [Catalytic activity/Vol] 28 U/L <38 [facility] Lymphocytes Auto (Unsp spec) [#/Vol]Ordered By: Jose Rey on 02-07-2025 Lymphocytes (Bld) [#/Vol] 1.81 10*3/uL 0.83-4.51 [facility] Lymphocytes/100 WBC Auto (Un sp spec)Ordered By: Jose Rey on 02-07-2025 Lymphocytes/100 WBC (Bld) 32.1 % 19-41 [facility] MCV (mean corpuscular volume ) determinationOrdered By: Jose Rey on 02-07-2025 MCV (RBC) [Entitic vol] 90.9 fL 80-94 [facility] Mean corpuscular hemoglobin (MCH) determinationOrdered By: Jose Rey on 02-07-2025 MCH (RBC) [Entitic mass] 30.7 pg 27.0-32.0 [facility] Mean corpuscular hemoglobin concentration (MCHC) determinationOrdered By: Jose Rey on 02-07-2025 MCHC (RBC) [Mass/Vol] 33.8 g/dL 32-36 [facility] Mean platelet volume determi nationOrdered By: Jose Rey on 02-07-2025 Platelet mean volume (Bld) [Entitic vol] 10.0 fL 6.2-12.0 [facility] Monocyte percentageOrdered B y: Jose Rey on 02-07-2025 Monocytes/100 WBC (Bld) 16.3 % High 0-10 [facility] Neutrophil percentageOrdered By: Jose Rey on 02-07-2025 Neutrophils/100 WBC (Bld) 48.4 % 47-70 [facility] Nucleated red blood cell per centageOrdered By: Jose Rey on 02-07-2025 Nucleated RBC/100 WBC (Bld) [Ratio] 0 % 0-5 [facility] Platelet countOrdered By: Aris Rey on 02-07-2025 Platelets (Bld) [#/Vol] 260 10*3/uL 150-450 [facility] Potassium (Unsp spec) [Mass/ Vol]Ordered By: Jose Rey on 02-07-2025 Potassium [Moles/Vol] 4.2 mmol/L 3.3-5.1 [facility] Potassium measurement (mass/ volume)Ordered By: Jose Rey 02-07-2025 Potassium (Unsp spec) [Mass/Vol] 4.2 mmol/L 3.3-5.1 [facility] RBC Auto (Bld) [#/Vol]Ordere d By: Jose Rey on 02-07-2025 RBC (Bld) [#/Vol] 4.72 10*6/uL 4.6-6.2 [facility] Serum creatinine measurement (mass/volume)Ordered By: Jose Rey on 02-07-2025 Creatinine [Mass/Vol] 1.05 mg/dL 0.70-1.20 [facility] Serum globulin measurementOr dered By: Jose Rey 02-07-2025 Globulin (S) [Mass/Vol] 3.7 g/dL 2.2-4.2 [facility] Serum glucose measurement (m ass/volume)Ordered By: Jose Rey 02-07-2025 Glucose [Mass/Vol] 74 mg/dL 70-99 [facility] Serum or plasma alanine carbajal otransferase (ALT) measurementOrdered By: Jose Rey 02-07-2025 ALT [Catalytic activity/Vol] 23 U/L <47 [facility] Serum or plasma albumin juana urement (mass/volume)Ordered By: Jose Rey 02-07-2025 Albumin [Mass/Vol] 4.2 g/dL 3.4-4.8 [facility] Serum or plasma albumin/glob ulin mass ratioOrdered By: Jose Rey 02-07-2025 Albumin/Globulin [Mass ratio] 1.1 {ratio} 0.9-2.4 [facility] Serum or plasma alkaline katie sphatase measurementOrdered By: Jose Rey 02-07-2025 ALP [Catalytic activity/Vol] 84 U/L 40-129 [facility] Serum or plasma calcium juana urement (mass/volume)Ordered By: Jose Rey 02-07-2025 Calcium [Mass/Vol] 9.7 mg/dL 7.6-11.0 [facility] Serum or plasma urea nitroge n measurement (mass/volume)Ordered By: Jose Rey on 02-07-2025 Urea nitrogen [Mass/Vol] 17 mg/dL 4-19 [facility] Sodium levelOrdered By: Jose Rey on 02-07-2025 Sodium [Moles/Vol] 142 mmol/L 133-145 [facility] TSH DL <= 0.005 mIU/L QnOrde red By: Jose Rey on 02-07-2025 Thyroid Stimulating Hormone (TSH) 0.537 uIU/mL 0.300-4.200 [facility] TSH Qn 0.537 uIU/mL 0.300-4.200 [facility] Thyroid Stim Hormone (TSH)on 02-07-2025 TSH 0.537 uIU/mL Normal 0.300-4.200 [facility] Comment on above: Performed By: #### L 506.1001, L100.0100, L501.9520, L500.4050 #### [facility] Laboratory [address] [place], [place], [id number] Total proteinOrdered By: Jose Rey on 02-07-2025 Protein [Mass/Vol] 7.8 g/dL 5.9-8.4 [facility] Vitamin D, 25-hydroxyOrdered By: Jose Rey on 02-07-2025 Vitamin D 25-Hydroxy 24.9 ng/mL Low 30-100 [facility] Comment on above: Vitamin D StatusDefi ciency: <20 ng/mL (50nmol/L)Insufficiency: 20-30 ng/mL (50-75 nmol/L)Sufficiency: 30-100 ng/mL (75-250 nmol/L)Toxicity: >100 ng/mL (>250 nmol/L) White blood cell (WBC) count Ordered By: Jose Rey on 02-07-2025 WBC (Bld) [#/Vol] 5.6 10*3/uL 4.4-11.0 [facility] Echo Completeon 11-26-2024 Echo Complete [facility] [address] [place] [address] Echo Complete 11/26/24 1052 MR#: [id number] Acct: [id number] Name: FAVIAN PHILLIP Rep #: [id number] : 1945 78 From: Cecilio Aldridge MD Attending Dr: Dr. Pino Strange MD Status: REG CLI Ordering Dr: Pino Strange MD Date: 11/26/24 Location: [facility] Sex: M C Admitted: Reason For Study: SLEEP APNEA Procedure This was a 2D Doppler, Color Flow transthoracic echocardiogram. Myocardial strain analysis was performed in this exam to aid in the assessment of cardiac function. Exam performed in department. Left Ventricle Normal LV size. Moderate eccentric left ventricular hypertrophy. Left ventricular systolic function is normal. The estimated ejection fraction is 62 %. Right Ventricle Normal RV size. ICD or pacer leads identified within the right ventricle. Normal systolic function. Atria Normal left atrium. Normal right atrium. Mitral Valve Normal mitral valve. Tricuspid Valve Normal tricuspid valve. Aortic Valve Mild focal aortic valve calcification. Probable bicuspid. Peak aortic valve gradient 22 mmHg. Mean aortic valve gradient 13 mmHg. Mild (1+) aortic valve insufficiency. Pulmonic Valve Normal pulmonic valve. Great Vessels Calcified aortic root. Mildly dilated aortic root. The pulmonary artery is normal size. Normal inferior vena cava. Pericardium/Pleural No pericardial effusion. MMode/2D Measurements Calculations LVIDd: 4.9 cm IVSd: 1.6 cm LVOT diam: 2.1 cm LVIDs: 3.4 cm LVPWd: 1.3 cm LVOT area: 3.3 cm2 RVDd: 3.9 cm FS: 31.1 % asc Aorta Diam: 4.0 cm LAV(MOD-bp): 55.8 ml LVAd ap4: 24.6 cm2 LAV(MOD-bp) Indexed: 26.8 ml/m2 LVLd ap4: 7.8 cm LAV(MOD-sp2): 56.7 ml EDV(MOD-sp4): 65.2 ml LAV(MOD-sp4): 46.9 ml EDV(sp4-el): 65.8 ml LVAs ap4: 14.3 cm2 LVLs ap4: 7.0 cm ESV(MOD-sp4): 25.0 ml ESV(sp4-el): 24.6 ml EF(MOD-sp4): 61.6 % EF(sp4-el): 62.6 % LVAd ap2: 22.1 cm2 SV(MOD-sp4): 40.2 ml SV(MOD-sp2): 31.5 ml LVLd ap2: 7.7 cm SI(MOD-sp4): 19.3 ml/m2 SI(MOD-sp2): 15.1 ml/m2 EDV(MOD-sp2): 54.2 ml EDV(sp2-el): 53.9 ml LVAs ap2: 12.5 cm2 LVLs ap2: 6.4 cm ESV(MOD-sp2): 22.7 ml ESV(sp2-el): 21.0 ml EF(MOD-sp2): 58.1 % SV(sp4-el): 41.2 ml Ao sinus diam: 4.[address] Junction: 3.7 cm LA dimension(2D): 4.2 cm LA A4 area: 16.9 cm2 RA A4 area: 11.2 cm2 TAPSE: 1.9 cm Time Measurements MV dec time: 0.31 sec Doppler Measurements Calculations MV E max peter: 47.2 cm/sec Lat Peak E' Peter: 5.5 cm/sec Med Peak E' Peter: 4.6 cm/sec MV A max peter: 101.0 cm/sec E/E' lat: 8.5 E/E' med: 10.2 MV E/A: 0.47 MV dec slope: 151.2 cm/sec2 Ao V2 max: 237.8 cm/sec LV V1 max: 105.6 cm/sec Ao max P.7 mmHg LV V1 max P.5 mmHg Ao V2 mean: 176.8 cm/sec LV V1 mean P.7 mmHg Ao mean P.6 mmHg LV V1 mean: 77.0 cm/sec Ao V2 VTI: 48.7 cm LV V1 VTI: 25.4 cm AV (velocity ratio): 0.52 JESSICA(I,D): 1.7 cm2 JESSICA(V,D): 1.5 cm2 SV(LVOT): 84.7 ml PA V2 max: 91.6 cm/sec TR max peter: 239.8 cm/sec TR max P.0 mmHg ECHO/Echo Complete Interpretation Summary Normal LV size. Left ventricular systolic function is normal. Mild focal aortic valve calcification. Mean aortic valve gradient 13 mmHg. The global longitudinal strain is moderately abnormal. The global longitudinal strain = -14.5% (abnormal). Ordering Physician: Pino Strange V Referring Physician: Jose Rey Chi Performed By: Chika Hameed RDCS 11/26/24 1232 Date Cecilio Aldridge MD CC: Dr. Pino Strange MD; Dr. Jose Rey MD Date Dictated: 11/26/24 1052 Date Transcribed: 11/26/24 1232 Percussion Tuner: Signed Normal [facility] Pacemaker Checkon 10-25-2024 Pacemaker Check [facility] [address] [place] [address] Pacemaker Check Date of Service: 10/25/24 1257 MR#: [id number] Acct: [id number] Name: FAVIAN PHILLIP Rep #: [id number] : 1945 From: Vandana Baer Age/Sex: 78/M [place] [facility] [place]: Signed Billing Codes PM Device Codes: 76260 PM Dev Prog Eval, Dual Assessment and Plan Assessment and Plan (1) History of permanent cardiac pacemaker placement: Status: Chronic Comment: 03/09/2018 (2) Sick sinus syndrome: Status: Chronic 10/25/24 1258 Date Vandana Maxwell Signature: Date (if applicable) CC: Normal [facility] Cardiology Visit Reporton Cardiology Visit Report [facility] [place] [address] OFFICE VISIT Date of Service: 10/15/24 MR#: [id number] Acct: [id number] Name: FAVIAN PHILLIP Rep #: [id number] : 1945 Provider: Dr. Cecilio Aldridge MD Age/Sex: 78/M Location: [facility] [place] Status: Signed HPI HPI History of Present Illness Details: FAVIAN PHILLIP, is a 78 M who presents to the office today for a follow-up visit. He is a gentleman with a history of previous syncope and dizziness. As you know he had an exhaustive evaluation with stress test, echocardiogram, cardiac catheterization with demonstrated normal coronary arteries. He has a bicuspid aortic valve. He had an implantable loop recorder placed and developed pauses greater than 3 seconds and subsequently went on to have a dual-chamber pacemaker implanted. It appears to be functioning quite well. He has however not had any chest pain or paroxysmal nocturnal dyspnea or syncope. His physical exam demonstrates clear lung mcginnis regular rate and rhythm and no pedal edema. Intake Vital Signs 09/04/23 08:59 07/23/24 13:13 10/15/24 10:30 Height 5 ft 10 in 5 ft 10 in 5 ft 10 in Weight: 195 lb BMI 27.9 BP 133/78 H Blood Pressure Location Lt brachial Position Sitting Respiration 16 Pulse 59 L Pulse Source Monitor Intake Visit Reasons: 1 y fu w [employer] per [employer] Supervisor Required: No Accompanied by: Self Is patient in pain?: No Allergies No Known Allergies Allergy (Verified 10/15/24 10:32) Medications ???Medication ???Instructions ???Recorded ???Confirmed ???Type sertraline 100 mg tablet 150 mg PO QHS 08/12/19 10/15/24 History sildenafil 100 mg tablet (Viagra) 100 mg PO DAILY PRN ed 08/24/20 10/15/24 History doxepin 50 mg capsule 50 mg PO QHS 08/22/22 10/15/24 History fluticasone fur. 200 mcg-umeclid 1 inh inhalation QHS 07/22/24 10/15/24 History 62.5 mcg-vilant 25 mcg inhalat.powder (Trelegy Ellipta) pantoprazole 40 mg tablet,delayed 40 mg PO BID 07/22/24 10/15/24 History release metoprolol tartrate 25 mg tablet 12.5 mg (1/2 x 25 mg) PO BID 10/05/24 10/15/24 Rx Patient has been out of med, please fill FAHAD #90 tabs levothyroxine 125 mcg tablet 150 mcg PO DAILY 10/15/24 10/15/24 History Have you fallen in the past year?: No PFSH Medical History Alcohol use Anxiety Arthritis Asthma Bicuspid aortic valve BiPAP (biphasic positive airway pressure) dependence BPH (benign prostatic hyperplasia) Cancer Cardiology follow-up encounter COVID-19 (12/2021) Cryptogenic stroke Depression Dilated aortic root Ganglion cyst of left foot Gastric reflux History of echocardiogram History of pain when walking History of stress test History of trigger finger History of trigger finger Hypertension Hypothyroidism Injury of head and neck Left carotid artery stenosis Non-smoker Shortness of breath on exertion Sick sinus syndrome Sinus pause Syncope Wears glasses Wears hearing aid Surgical History History of carpal tunnel surgery of left wrist History of carpal tunnel surgery of right wrist History of left heart catheterization (04/21/17) History of loop recorder (01/2017) 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) Hx of arthroscopic knee surgery Hx of cholecystectomy Hx of foot surgery Hx of fusion of cervical spine Hx of repair of left rotator cuff Hx of repair of right rotator cuff Hx of transurethral resection of prostate Social History Smoking Status: Never smoker substance use type: does not use ROS Const Const: Positive for fatigue; Negative for weakness, headache(s), daytime sleepiness or difficulty sleeping ENT ENT: Negative for headache(s), dizziness or Nosebleed/epistaxis Cardio Chest Pain: No Palpitations: No Edema: None Resp Respiratory: Positive for SOB with activity; Negative for SOB at rest, SOB orthopnea SOB lying down or Cough GI GI: Positive for heartburn; Negative nausea or vomiting Neuro Neuro: Negative for dizziness, lightheadedness, near syncope, headache(s) or weakness Endo Endo: Positive for fatigue Cardiology Exam Const Appearance: cooperative, healthy appearing, no acute distress, well developed and well groomed Nutritional Appearance: average body habitus and well nourished Orientation: alert, awake and oriented x3 Head Head: normal to inspection, normocephalic and atraumatic Ears: hearing grossly normal bilaterally and external ears normal Nose: external nose normal, nares normal, nasal mucous membranes and turbinates normal, septum normal and no nasal discharge Face and S (more content not included)... Normal [facility] Absolute lymphocyte countOrd ered By: Jose Rey on 03-03-2024 Lymphocytes Auto (Unsp spec) [#/Vol] 1.97 10*3/uL 0.83-4.51 [facility] Automated lymphocyte count a s percentage of total leukocytesOrdered By: Jose Rey on 03-03-2024 Lymphocytes/100 WBC Auto (Unsp spec) 33.5 % 19-41 [facility] Basophil percentageOrdered B y: Jose Rey on 03-03-2024 Basophils/100 WBC (Bld) 0.7 % 0-1 [facility] Bilirubin [Mass/Vol] 1.30 mg/dL 0.20-1.00 [facility] Comment on above: For patients on eltr ombopag therapy, use of Dimension [place] TBIL is not recommended. Chloride [Moles/Vol] 108 mmol/L 98-107 [facility] Eosinophils/100 WBC (Bld) 1.4 % 0-5 [facility] Glucose [Mass/Vol] 72 mg/dL 74-106 [facility] Hemoglobin (Bld) [Mass/Vol] 13.8 g/dL 13.0-16.5 [facility] Monocytes/100 WBC (Bld) 15.6 % 0-10 [facility] Neutrophils (Bld) [#/Vol] 2.9 10*3/uL 2.0-7.7 [facility] Neutrophils/100 WBC (Bld) 48.6 % 47-70 [facility] Potassium [Moles/Vol] 4.6 mmol/L 3.5-5.1 [facility] Protein [Mass/Vol] 7.8 g/dL 6.4-8.2 [facility] Sodium [Moles/Vol] 142 mmol/L 136-145 [facility] WBC (Bld) [#/Vol] 5.9 10*3/uL 4.4-11.0 [facility] Determination of erythrocyte mean corpuscular volume (MCV)Ordered By: Jose Rey on 03-03-2024 MCV (RBC) [Entitic vol] 92.9 fL 80-94 [facility] Erythrocyte distribution wid th ratioOrdered By: Jose Betito on 03-03-2024 Erythrocyte distribution width (RBC) [Ratio] 13.2 % 11.6-14.6 [facility] Erythrocyte distribution wid th standard deviationOrdered By: Jose Rey on 03-03-2024 Erythrocyte distribution width (RBC) [Entitic vol] 45.0 fL 35.1-43.9 [facility] Hematocrit Auto (Bld) [Volum e fraction]Ordered By: Jose Rey 03-03-2024 Hematocrit (Bld) [Volume fraction] 42.1 % 40-54 [facility] Immature granulocytes/100 WB C Auto (Bld)Ordered By: Jose Rey 03-03-2024 Immature granulocytes/100 WBC (Bld) 0.200 % 0.0-0.9 [facility] Comment on above: IG% - Immature Granu locytes (promyelocytes, myelocytes and metamyelocytes) > 1% indicates that a LEFT SHIFT is Present. Laboratory - Chemistry and C hemistry - challengeOrdered By: Jose Rey on 03-03-2024 Albumin/Globulin [Mass ratio] 1.0 {ratio} 0.9-2.4 [facility] ALP [Catalytic activity/Vol] 70 U/L 45-117 [facility] ALT [Catalytic activity/Vol] 35 U/L 16-61 [facility] CO2 [Moles/Vol] 29.0 mmol/L 21.0-32.0 [facility] Globulin (S) [Mass/Vol] 4.0 g/dL 2.2-4.2 [facility] Urea nitrogen/Creatinine [Mass ratio] 13.9 mg/mg 10-20 [facility] Laboratory - Hematology and Cell countsOrdered By: Jose Rey on 03-03-2024 MCH (RBC) [Entitic mass] 30.5 pg 27.0-32.0 [facility] MCHC (RBC) [Mass/Vol] 32.8 g/dL 32-36 [facility] Nucleated RBC/100 WBC (Bld) [Ratio] 0 % 0-5 [facility] Platelet mean volume (Bld) [Entitic vol] 10.1 fL 6.2-12.0 [facility] Platelets (Bld) [#/Vol] 238 10*3/uL 150-450 [facility] No Panel InformationOrdered By: Jose Rey on 03-03-2024 Estimated GFR (MDRD) Amer 85 mL/min >60 [facility] Comment on above: GFR Calc Estimated GFR (MDRD) Non-Af Amer 71 mL/min >60 [facility] Comment on above: Non- GFR Calc Vitamin D 25-Hydroxy 36.0 ng/mL [facility] Comment on above: Vitamin D 25(OH) Sta tus Range Deficiency <20 ng/mL (50nmol/L) Insufficiency 20 - 30 ng/mL (50 - 75 nmol/L) Sufficiency 30 - 100 ng/mL (75 - 250 nmol/L) Toxicity >100 ng/mL (>250 nmol/L) RBC Auto (Bld) [#/Vol]Ordere d By: Jose Rey on 03-03-2024 RBC (Bld) [#/Vol] 4.53 10*6/uL 4.6-6.2 [facility] Serum or plasma calcium juana urement (mass/volume)Ordered By: Jose Rey on 03-03-2024 Calcium [Mass/Vol] 9.0 mg/dL 8.5-10.1 [facility] Serum or plasma creatinine m easurement (mass/volume)Ordered By: Jose Rey on 03-03-2024 Creatinine [Mass/Vol] 1.08 mg/dL 0.70-1.30 [facility] Comment on above: The validity of the calculated GFR & GFRAA in patients over 70 years has not been determined. Clinical correlation is essential. Serum or plasma thyroid stim ulating hormone (TSH) measurement (units/volume)Ordered By: Jose Rey on 03-03-2024 TSH Qn 1.24 uIU/mL 0.358-3.74 [facility] Serum or plasma urea nitroge n measurement (mass/volume)Ordered By: Jose Rey on 03-03-2024 Urea nitrogen [Mass/Vol] 15 mg/dL 7-18 [facility] Thin prep Papanicolaou smear with manual screeningOrdered By: Jose Rey on 03-03-2024 Thin prep Papanicolaou smear with manual screening 3.8 g/dL 3.2-5.0 [facility] Thin prep Papanicolaou smear with manual screening 27 U/L 15-37 [facility] Thin prep Papanicolaou smear with manual screening 5 5-15 [facility] No Panel InformationOrdered By: Lior John on 08-28-2023 Prostate Specific Antigen Total 2.17 ng/mL 0.0-4.0 [facility] Comment on above: This test was perfor med using the TPSA assay method [facility]. Values obtained with differentassay methods cannot be used interchangably.When changing PSA assays in the course of monitoring apatient, additional sequential testing should be carriedout to confirm baseline values. Absolute lymphocyte countOrd ered By: Jose Rey on 08-27-2023 Lymphocytes Auto (Unsp spec) [#/Vol] 1.65 10*3/uL 0.83-4.51 [facility] Basophil percentageOrdered B y: Jose Rey on 08-27-2023 Basophils/100 WBC (Bld) 0.5 % 0-1 [facility] Bilirubin [Mass/Vol] 1.40 mg/dL 0.20-1.00 [facility] Comment on above: For patients on eltr ombopag therapy, use of Dim[facility] [place] TBIL is not recommended. Chloride [Moles/Vol] 104 mmol/L 98-107 [facility] Eosinophils/100 WBC (Bld) 1.3 % 0-5 [facility] Glucose [Mass/Vol] 107 mg/dL 74-106 [facility] Comment on above: Fasting Glucose resu lt from 100 to 125 mg/dL suggests IMPAIRED HOMEOSTASIS per A.D.A. criteria. Neutrophils (Bld) [#/Vol] 3.8 10*3/uL 2.0-7.7 [facility] Neutrophils/100 WBC (Bld) 59.7 % 47-70 [facility] Potassium [Moles/Vol] 4.3 mmol/L 3.5-5.1 [facility] Protein [Mass/Vol] 8.0 g/dL 6.4-8.2 [facility] Sodium [Moles/Vol] 135 mmol/L 136-145 [facility] WBC (Bld) [#/Vol] 6.4 10*3/uL 4.4-11.0 [facility] Blood erythrocytes count (nu mber/volume)Ordered By: Jose Rey on 08-27-2023 RBC (Bld) [#/Vol] 4.30 10*6/uL 4.6-6.2 [facility] Blood hemoglobin measurement (mass/volume)Ordered By: Jose Rey on 08-27-2023 Hemoglobin (Bld) [Mass/Vol] 13.6 g/dL 13.0-16.5 [facility] Blood lymphocytes/100 leukoc ytesOrdered By: Jose Rey on 08-27-2023 Lymphocytes/100 WBC (Bld) 26.0 % 19-41 [facility] Blood monocytes/100 leukocyt esOrdered By: Jose Rey on 08-27-2023 Monocytes/100 WBC (Bld) 12.3 % 0-10 [facility] Blood platelet mean volumeOr dered By: Jose Rey on 08-27-2023 Platelet mean volume (Bld) [Entitic vol] 10.0 fL 6.2-12.0 [facility] Determination of erythrocyte mean corpuscular volume (MCV)Ordered By: Jose Rey on 08-27-2023 MCV (RBC) [Entitic vol] 92.8 fL 80-94 [facility] Erythrocyte sedimentation ra teOrdered By: Jose Rey on 08-27-2023 ESR (Bld) [Velocity] 13 mm/h 0-20 [facility] Hematocrit Auto (Bld) [Volum e fraction]Ordered By: Jose Rey on 08-27-2023 Hematocrit (Bld) [Volume fraction] 39.9 % 40-54 [facility] Laboratory - Chemistry and C hemistry - challengeOrdered By: Jose Rey on 08-27-2023 ALP [Catalytic activity/Vol] 76 U/L 45-117 [facility] ALT [Catalytic activity/Vol] 34 U/L 16-61 [facility] CO2 [Moles/Vol] 25.0 mmol/L 21.0-32.0 [facility] Comment on above: Previous reported re sult: 16.0 mmol/LEdited by: RAIN on 08/28/23:0752 AMENDED REPORT 08/28/23 075 CO2 previously reported as: 16.0 L mmol/L Globulin (S) [Mass/Vol] 4.2 g/dL 2.2-4.2 [facility] Comment on above: Previous reported re sult: 7.8 g/dLEdited by: RAIN on 08/28/23:0750 AMENDED REPORT 08/28/23 0750 GLOB previously reported as: 7.8 H g/dL Urea nitrogen/Creatinine [Mass ratio] 9.2 mg/mg 10-20 [facility] Laboratory - Hematology and Cell countsOrdered By: Jose Rey on 08-27-2023 Erythrocyte distribution width (RBC) [Entitic vol] 45.1 fL 35.1-43.9 [facility] Erythrocyte distribution width (RBC) [Ratio] 13.2 % 11.6-14.6 [facility] Immature granulocytes/100 WBC (Bld) 0.200 % 0.0-0.9 [facility] Comment on above: IG% - Immature Granu locytes (promyelocytes, myelocytes and metamyelocytes) > 1% indicates that a LEFT SHIFT is Present. MCH (RBC) [Entitic mass] 31.6 pg 27.0-32.0 [facility] Nucleated RBC/100 WBC (Bld) [Ratio] 0 % 0-5 [facility] MCHC Auto (RBC) [Mass/Vol]Or dered By: Jose Rey on 08-27-2023 MCHC (RBC) [Mass/Vol] 34.1 g/dL 32-36 [facility] No Panel InformationOrdered By: Jose Rey on 08-27-2023 Estimated GFR (MDRD) Amer 76 mL/min >60 [facility] Comment on above: GFR Calc Estimated GFR (MDRD) Non-Af Amer 63 mL/min >60 [facility] Comment on above: Non- GFR Calc Platelets bldOrdered By: Jose Rey on 08-27-2023 Platelets (Bld) [#/Vol] 219 10*3/uL 150-450 [facility] Serum or plasma C reactive p rotein measurement (mass/volume)Ordered By: Jose Rey on 08-27-2023 CRP [Mass/Vol] 8.02 mg/L 0.0-3.0 [facility] Comment on above: C-Reactive Protein ( CRP) provides useful information for thediagnosis, therapy and monitoring of inflammatory processesand associated diseases. For the evaluation of Relative Riskfor Cardiovascular Disease, a High Sensitivity CRP (HSCRP)should be ordered. Serum or plasma albumin juana urement (mass/volume)Ordered By: Jose Rey on 08-27-2023 Albumin [Mass/Vol] 3.8 g/dL 3.2-5.0 [facility] Comment on above: Previous reported re sult: 0.2 g/dLEdited by: RAIN on 08/28/23:0749 AMENDED REPORT 08/28/23 0749 ALB previously reported as: 0.2 L g/dL Serum or plasma albumin/glob ulin mass ratioOrdered By: Jose Rey on 08-27-2023 Albumin/Globulin [Mass ratio] 0.9 {ratio} 0.9-2.4 [facility] Comment on above: Previous reported re sult: 0.0 RATIOEdited by: RAIN on 08/28/23:0750 AMENDED REPORT 08/28/23 0750 A/G previously reported as: 0.0 L RATIO Serum or plasma calcium juana urement (mass/volume)Ordered By: Jose Rey on 08-27-2023 Calcium [Mass/Vol] 9.1 mg/dL 8.5-10.1 [facility] Serum or plasma creatinine m easurement (mass/volume)Ordered By: Jose Rey on 08-27-2023 Creatinine [Mass/Vol] 1.20 mg/dL 0.70-1.30 [facility] Comment on above: The validity of the calculated GFR & GFRAA in patients over 70 years has not been determined. Clinical correlation is essential. Serum or plasma urea nitroge n measurement (mass/volume)Ordered By: Jose Rey on 08-27-2023 Urea nitrogen [Mass/Vol] 11 mg/dL 7-18 [facility] Thin prep Papanicolaou smear with manual screeningOrdered By: Jose Rey on 08-27-2023 Thin prep Papanicolaou smear with manual screening 28 U/L 15-37 [facility] Thin prep Papanicolaou smear with manual screening 6 5-15 [facility] Comment on above: Previous reported re sult: 15 Edited by: RAIN on 08/28/23:0752 AMENDED REPORT 08/28/23 0752 GAP previously reported as: 15 Whole blood hemoglobin A1c/t otal hemoglobin ratio (mass fraction)Ordered By: Jose Rey on 08-27-2023 HbA1c (Bld) [Mass fraction] 5.7 % 3.8-5.6 [facility] Comment on above: Normal < 5.7 % Predi abetic 5.7 - 6.4 % Diabetic >or= 6.5 % Please note range changes. Absolute lymphocyte countOrd ered By: Jose Rey on 08-06-2023 Lymphocytes Auto (Unsp spec) [#/Vol] 1.73 10*3/uL 0.83-4.51 [facility] Basophil percentageOrdered B y: Jose Rey on 08-06-2023 Basophils/100 WBC (Bld) 0.4 % 0-1 [facility] Bilirubin [Mass/Vol] 0.80 mg/dL 0.20-1.00 [facility] Comment on above: For patients on eltr ombopag therapy, use of [facility] [place] TBIL is not recommended. Chloride [Moles/Vol] 105 mmol/L 98-107 [facility] Eosinophils/100 WBC (Bld) 3.8 % 0-5 [facility] Glucose [Mass/Vol] 176 mg/dL 74-106 [facility] Comment on above: Fasting Glucose resu lt greater than or equal to 126 mg/dL suggests DIABETES MELLITUS per A.D.A. criteria. Neutrophils (Bld) [#/Vol] 2.0 10*3/uL 2.0-7.7 [facility] Neutrophils/100 WBC (Bld) 44.7 % 47-70 [facility] Potassium [Moles/Vol] 3.7 mmol/L 3.5-5.1 [facility] Protein [Mass/Vol] 7.5 g/dL 6.4-8.2 [facility] Sodium [Moles/Vol] 140 mmol/L 136-145 [facility] WBC (Bld) [#/Vol] 4.5 10*3/uL 4.4-11.0 [facility] Blood erythrocytes count (nu mber/volume)Ordered By: Jose Rey on 08-06-2023 RBC (Bld) [#/Vol] 4.26 10*6/uL 4.6-6.2 [facility] Blood hemoglobin measurement (mass/volume)Ordered By: Jose Rey on 08-06-2023 Hemoglobin (Bld) [Mass/Vol] 13.8 g/dL 13.0-16.5 [facility] Blood lymphocytes/100 leukoc ytesOrdered By: Jose Rey on 08-06-2023 Lymphocytes/100 WBC (Bld) 38.3 % 19-41 [facility] Blood monocytes/100 leukocyt esOrdered By: Jose Rey on 08-06-2023 Monocytes/100 WBC (Bld) 12.6 % 0-10 [facility] Blood platelet mean volumeOr dered By: Jose Rey on 08-06-2023 Platelet mean volume (Bld) [Entitic vol] 10.0 fL 6.2-12.0 [facility] Determination of erythrocyte mean corpuscular volume (MCV)Ordered By: Jose Rey on 08-06-2023 MCV (RBC) [Entitic vol] 94.8 fL 80-94 [facility] Hematocrit Auto (Bld) [Volum e fraction]Ordered By: Jose Rey on 08-06-2023 Hematocrit (Bld) [Volume fraction] 40.4 % 40-54 [facility] Laboratory - Chemistry and C hemistry - challengeOrdered By: [facility] Betito on 08-06-2023 ALP [Catalytic activity/Vol] 68 U/L 45-117 [facility] ALT [Catalytic activity/Vol] 26 U/L 16-61 [facility] CO2 [Moles/Vol] 29.0 mmol/L 21.0-32.0 [facility] Globulin (S) [Mass/Vol] 4.1 g/dL 2.2-4.2 [facility] Urea nitrogen/Creatinine [Mass ratio] 18.4 mg/mg 10-20 [facility] Laboratory - Hematology and Cell countsOrdered By: Jose Betito on 08-06-2023 Erythrocyte distribution width (RBC) [Entitic vol] 47.0 fL 35.1-43.9 [facility] Erythrocyte distribution width (RBC) [Ratio] 13.5 % 11.6-14.6 [facility] Immature granulocytes/100 WBC (Bld) 0.200 % 0.0-0.9 [facility] Comment on above: IG% - Immature Granu locytes (promyelocytes, myelocytes and metamyelocytes) > 1% indicates that a LEFT SHIFT is Present. MCH (RBC) [Entitic mass] 32.4 pg 27.0-32.0 [facility] Nucleated RBC/100 WBC (Bld) [Ratio] 0 % 0-5 [facility] MCHC Auto (RBC) [Mass/Vol]Or dered By: Jose Rey on 08-06-2023 MCHC (RBC) [Mass/Vol] 34.2 g/dL 32-36 [facility] No Panel InformationOrdered By: Jose Rey on 08-06-2023 Estimated GFR (MDRD) Amer 80 mL/min >60 [facility] Comment on above: GFR Calc Estimated GFR (MDRD) Non-Af Amer 66 mL/min >60 [facility] Comment on above: Non- GFR Calc Thyroid Stimulating Hormone (TSH) 8.97 uIU/mL 0.358-3.74 [facility] Vitamin D 25-Hydroxy 30.3 ng/mL [facility] Comment on above: Vitamin D 25(OH) Sta tus Range Deficiency <20 ng/mL (50nmol/L) Insufficiency 20 - 30 ng/mL (50 - 75 nmol/L) Sufficiency 30 - 100 ng/mL (75 - 250 nmol/L) Toxicity >100 ng/mL (>250 nmol/L) Platelets bldOrdered By: Jose Rey on 08-06-2023 Platelets (Bld) [#/Vol] 227 10*3/uL 150-450 [facility] Serum or plasma albumin juana urement (mass/volume)Ordered By: Jose Rey on 08-06-2023 Albumin [Mass/Vol] 3.4 g/dL 3.2-5.0 [facility] Serum or plasma albumin/glob ulin mass ratioOrdered By: Jose Rey on 08-06-2023 Albumin/Globulin [Mass ratio] 0.8 {ratio} 0.9-2.4 [facility] Serum or plasma calcium juana urement (mass/volume)Ordered By: Jose Rey on 08-06-2023 Calcium [Mass/Vol] 8.6 mg/dL 8.5-10.1 [facility] Serum or plasma creatinine m easurement (mass/volume)Ordered By: Jose Rey on 08-06-2023 Creatinine [Mass/Vol] 1.14 mg/dL 0.70-1.30 [facility] Comment on above: The validity of the calculated GFR & GFRAA in patients over 70 years has not been determined. Clinical correlation is essential. Serum or plasma urea nitroge n measurement (mass/volume)Ordered By: Jose Rey on 08-06-2023 Urea nitrogen [Mass/Vol] 21 mg/dL 7-18 [facility] Thin prep Papanicolaou smear with manual screeningOrdered By: Jose Rey on 08-06-2023 Thin prep Papanicolaou smear with manual screening 22 U/L 15-37 [facility] Thin prep Papanicolaou smear with manual screening 6 5-15 [facility] Culture, urineOrdered By: Aris Rey on 05-26-2023 Bacteria identified Cx Nom (U) Culture exhibits no growth. [facility] XR CHEST 2 VIEW PA+LATon XR CHEST 2 VIEW PA+LAT EXAMINATION: XR C HEST 2 VIEW PA+LAT 12/18/2022 01:46 PM CLINICAL HISTORY: Dyspnea ASSOCIATED DIAGNOSIS: Dyspnea, unspecified type ORDERING PROVIDER: [employer] NOTE: COMPARISON: None FINDINGS: Cardiac device: Right chest implanted dual-chamber permanent cardiac pacemaker with its leads terminating overlying the regions of the right appendage and right ventricle. Cardiomediastinal silhouette: Borderline cardiomegaly with a enlarged left ventricular configuration. Trachea: Midline. Diaphragm: Eventration of the anterior right hemidiaphragm. Lungs and pleura: Lower right pulmonary discoid atelectasis/linear scar. No pulmonary consolidation, pleural effusion or pneumothorax. Osseous structures: Partial visualization of lower cervical posterior spinal fixation hardware and multiple sutures in the right humeral head. IMPRESSION: 1. No acute cardiopulmonary findings. 2. Borderline cardiomegaly with a enlarged left ventricular configuration. 3. Dual-chamber permanent cardiac pacemaker. 4. Lower right pulmonary discoid atelectasis/linear scar. MACRO: None Normal [facility] [employer] [facility] Absolute lymphocyte counton 07-31-2022 Lymphocytes Auto (Unsp spec) [#/Vol] 1.47 10*3/uL 0.83-4.51 [facility] Work Phone: Basophil percentageon 2021 Basophils/100 WBC (Bld) 0.6 % 0-1 [facility] Work Phone: Bilirubin [Mass/Vol] 0.60 mg/dL 0.20-1.00 [facility] Work Phone: Comment on above: For patients on eltr ombopag therapy, use of Dimension [place] TBIL is not recommended. Chloride [Moles/Vol] 106 mmol/L 98-107 [facility] Work Phone: Eosinophils/100 WBC (Bld) 1.7 % 0-5 [facility] Work Phone: Glucose [Mass/Vol] 91 mg/dL 74-106 [facility] Work Phone: Neutrophils (Bld) [#/Vol] 2.6 10*3/uL 2.0-7.7 [facility] Work Phone: Neutrophils/100 WBC (Bld) 49.2 % 47-70 [facility] Work Phone: Potassium [Moles/Vol] 4.6 mmol/L 3.5-5.1 [facility] Work Phone: Protein [Mass/Vol] 7.6 g/dL 6.4-8.2 [facility] Work Phone: [phone] Sodium [Moles/Vol] 141 mmol/L 136-145 [facility] Work Phone: Testosterone [Mass/Vol] 280.12 ng/dL [facility] Work Phone: Comment on above: CENTRAL 90% REFERENC E RANGES MALE AGE <50 197.44 - 669.58 ng/dL MALE AGE > or = 50 187.72 - 684.19 ng/dL FEMALE AGE <50 8.38 - 35.01 ng/dL FEMALE AGE > or = 50 <7.00 - 35.92 ng/dL Effective as of 06/26/21 WBC (Bld) [#/Vol] 5.2 10*3/uL 4.4-11.0 [facility] Work Phone: Blood erythrocytes count (nu mber/volume)on 07-31-2022 RBC (Bld) [#/Vol] 4.48 10*6/uL 4.6-6.2 [facility] Work Phone: Blood hemoglobin measurement (mass/volume)on 07-31-2022 Hemoglobin (Bld) [Mass/Vol] 14.0 g/dL 13.0-16.5 [facility] Work Phone: Blood lymphocytes/100 leukoc yteson 07-31-2022 Lymphocytes/100 WBC (Bld) 28.2 % 19-41 [facility] Work Phone: Blood monocytes/100 leukocyt eson 07-31-2022 Monocytes/100 WBC (Bld) 20.1 % 0-10 [facility] Work Phone: Blood platelet mean volumeon 07-31-2022 Platelet mean volume (Bld) [Entitic vol] 10.2 fL 6.2-12.0 [facility] Work Phone: Determination of erythrocyte mean corpuscular volume (MCV)on 07-31-2022 MCV (RBC) [Entitic vol] 94.4 fL 80-94 [facility] Work Phone: Hematocrit Auto (Bld) [Volum e fraction]on 07-31-2022 Hematocrit (Bld) [Volume fraction] 42.3 % 40-54 [facility] Work Phone: Laboratory - Chemistry and C hemistry - challengeon 07-31-2022 ALP [Catalytic activity/Vol] 68 U/L 45-117 [facility] Work Phone: ALT [Catalytic activity/Vol] 29 U/L 16-61 [facility] Work Phone: CO2 [Moles/Vol] 29.0 mmol/L 21.0-32.0 [facility] Work Phone: Globulin (S) [Mass/Vol] 4.1 g/dL 2.2-4.2 [facility] Work Phone: Urea nitrogen/Creatinine [Mass ratio] 15.2 mg/mg 10-20 [facility] Work Phone: Laboratory - Hematology and Cell countson 07-31-2022 Erythrocyte distribution width (RBC) [Entitic vol] 45.5 fL 35.1-43.9 [facility] Work Phone: Erythrocyte distribution width (RBC) [Ratio] 13.1 % 11.6-14.6 [facility] Work Phone: Immature granulocytes/100 WBC (Bld) 0.200 % 0.0-0.9 [facility] Work Phone: Comment on above: IG% - Immature Granu locytes (promyelocytes, myelocytes and metamyelocytes) > 1% indicates that a LEFT SHIFT is Present. MCH (RBC) [Entitic mass] 31.3 pg 27.0-32.0 [facility] Work Phone: Nucleated RBC/100 WBC (Bld) [Ratio] 0 % 0-5 [facility] Work Phone: MCHC Auto (RBC) [Mass/Vol]on 07-31-2022 MCHC (RBC) [Mass/Vol] 33.1 g/dL 32-36 [facility] Work Phone: No Panel Informationon 07-31 Estimated GFR (MDRD) Amer 95 mL/min >60 [facility] Work Phone: Comment on above: GFR Calc Estimated GFR (MDRD) Non-Af Amer 79 mL/min >60 [facility] Work Phone: Comment on above: Non- GFR Calc Thyroid Stimulating Hormone (TSH) 0.98 uIU/mL 0.358-3.74 [facility] Work Phone: Vitamin D 25-Hydroxy 37.4 ng/mL [facility] Work Phone: Comment on above: Vitamin D 25(OH) Sta tus Range Deficiency <20 ng/mL (50nmol/L) Insufficiency 20 - 30 ng/mL (50 - 75 nmol/L) Sufficiency 30 - 100 ng/mL (75 - 250 nmol/L) Toxicity >100 ng/mL (>250 nmol/L) Platelets bldon 07-31-2022 Platelets (Bld) [#/Vol] 268 10*3/uL 150-450 [facility] Work Phone: Serum or plasma albumin juana urement (mass/volume)on 07-31-2022 Albumin [Mass/Vol] 3.5 g/dL 3.2-5.0 [facility] Work Phone: Serum or plasma albumin/glob ulin mass ratioon 07-31-2022 Albumin/Globulin [Mass ratio] 0.9 {ratio} 0.9-2.4 [facility] Work Phone: Serum or plasma calcium juana urement (mass/volume)on 07-31-2022 Calcium [Mass/Vol] 8.9 mg/dL 8.5-10.1 [facility] Work Phone: Serum or plasma creatinine m easurement (mass/volume)on 07-31-2022 Creatinine [Mass/Vol] 0.99 mg/dL 0.70-1.30 [facility] Work Phone: Comment on above: The validity of the calculated GFR & GFRAA in patients over 70 years has not been determined. Clinical correlation is essential. Serum or plasma urea nitroge n measurement (mass/volume)on 07-31-2022 Urea nitrogen [Mass/Vol] 15 mg/dL 7-18 [facility] Work Phone: Thin prep Papanicolaou smear with manual screeningon 07-31-2022 Thin prep Papanicolaou smear with manual screening 22 U/L 15-37 [facility] Work Phone: Thin prep Papanicolaou smear with manual screening 6 5-15 [facility] Work Phone: Culture, urineon 02-25-2022 Bacteria identified Cx Nom (U) Staphylococcus epidermidis [facility] Work Phone: Absolute lymphocyte counton 01-28-2022 Lymphocytes Auto (Unsp spec) [#/Vol] 1.91 10*3/uL 0.83-4.51 [facility] Work Phone: Basophil percentageon 2021 Basophils/100 WBC (Bld) 0.5 % 0-1 [facility] Work Phone: Bilirubin [Mass/Vol] 0.80 mg/dL 0.20-1.00 [facility] Work Phone: Comment on above: For patients on eltr ombopag therapy, use of Dimension [place] TBIL is not recommended. Chloride [Moles/Vol] 105 mmol/L 98-107 [facility] Work [facility]: Eosinophils/100 WBC (Bld) 3.1 % 0-5 [facility] Work Phone: Glucose [Mass/Vol] 94 mg/dL 74-106 [facility] Work Phone: [phone] Neutrophils (Bld) [#/Vol] 2.7 10*3/uL 2.0-7.7 [facility] Work Phone: [phone] Neutrophils/100 WBC (Bld) 47.4 % 47-70 [facility] Work Phone: [phone] Potassium [Moles/Vol] 4.0 mmol/L 3.5-5.1 [facility] Work Phone: [phone] Protein [Mass/Vol] 7.9 g/dL 6.4-8.2 [facility] Work Phone: [phone] Sodium [Moles/Vol] 139 mmol/L 136-145 [facility] Work Phone: [phone] Testosterone [Mass/Vol] 168.98 ng/dL [facility] Work Phone: [phone] Comment on above: CENTRAL 90% REFERENC E RANGES MALE AGE <50 197.44 - 669.58 ng/dL MALE AGE > or = 50 187.72 - 684.19 ng/dL FEMALE AGE <50 8.38 - 35.01 ng/dL FEMALE AGE > or = 50 <7.00 - 35.92 ng/dL Effective as of 06/26/21 WBC (Bld) [#/Vol] 5.7 10*3/uL 4.4-11.0 [facility] Work Phone: [phone] Blood erythrocytes count (nu mber/volume)on 01-28-2022 RBC (Bld) [#/Vol] 4.55 10*6/uL 4.6-6.2 [facility] Work Phone: [phone] Blood hemoglobin measurement (mass/volume)on 01-28-2022 Hemoglobin (Bld) [Mass/Vol] 14.0 g/dL 13.0-16.5 [facility] Work Phone: Blood lymphocytes/100 leukoc yteson 01-28-2022 Lymphocytes/100 WBC (Bld) 33.3 % 19-41 [facility] Work Phone: Blood monocytes/100 leukocyt eson 01-28-2022 Monocytes/100 WBC (Bld) 15.5 % 0-10 [facility] Work Phone: Blood platelet mean volumeon 01-28-2022 Platelet mean volume (Bld) [Entitic vol] 10.2 fL 6.2-12.0 [facility] Work Phone: Determination of erythrocyte mean corpuscular volume (MCV)on 01-28-2022 MCV (RBC) [Entitic vol] 93.4 fL 80-94 [facility] Work Phone: Hematocrit Auto (Bld) [Volum e fraction]on 01-28-2022 Hematocrit (Bld) [Volume fraction] 42.5 % 40-54 [facility] Work Phone: Laboratory - Chemistry and C hemistry - challengeon 01-28-2022 ALP [Catalytic activity/Vol] 74 U/L 45-117 [facility] Work Phone: ALT [Catalytic activity/Vol] 32 U/L 16-61 [facility] Work Phone: CO2 [Moles/Vol] 30.0 mmol/L 21.0-32.0 [facility] Work Phone: Globulin (S) [Mass/Vol] 4.3 g/dL 2.2-4.2 [facility] Work Phone: Urea nitrogen/Creatinine [Mass ratio] 18.5 mg/mg 10-20 [facility] Work Phone: Laboratory - Hematology and Cell countson 01-28-2022 Erythrocyte distribution width (RBC) [Entitic vol] 46.1 fL 35.1-43.9 [facility] Work Phone: Erythrocyte distribution width (RBC) [Ratio] 13.5 % 11.6-14.6 [facility] Work Phone: Immature granulocytes/100 WBC (Bld) 0.200 % 0.0-0.9 [facility] Work Phone: Comment on above: IG% - Immature Granu locytes (promyelocytes, myelocytes and metamyelocytes) > 1% indicates that a LEFT SHIFT is Present. MCH (RBC) [Entitic mass] 30.8 pg 27.0-32.0 [facility] Work Phone: Nucleated RBC/100 WBC (Bld) [Ratio] 0 % 0-5 [facility] Work Phone: MCHC Auto (RBC) [Mass/Vol]on 01-28-2022 MCHC (RBC) [Mass/Vol] 32.9 g/dL 32-36 [facility] Work Phone: No Panel Informationon 01-28 Estimated GFR (MDRD) Amer 86 mL/min >60 [facility] Work Phone: Comment on above: GFR Calc Estimated GFR (MDRD) Non-Af Amer 71 mL/min >60 [facility] Work Phone: Comment on above: Non- GFR Calc Thyroid Stimulating Hormone (TSH) 2.86 uIU/mL 0.358-3.74 [facility] Work Phone: Vitamin D 25-Hydroxy 31.2 ng/mL [facility] Work Phone: Comment on above: Vitamin D 25(OH) Sta tus Range Deficiency <20 ng/mL (50nmol/L) Insufficiency 20 - 30 ng/mL (50 - 75 nmol/L) Sufficiency 30 - 100 ng/mL (75 - 250 nmol/L) Toxicity >100 ng/mL (>250 nmol/L) Platelets bldon 01-28-2022 Platelets (Bld) [#/Vol] 281 10*3/uL 150-450 [facility] Work Phone: Serum or plasma albumin juana urement (mass/volume)on 01-28-2022 Albumin [Mass/Vol] 3.6 g/dL 3.2-5.0 [facility] Work Phone: Serum or plasma albumin/glob ulin mass ratioon 01-28-2022 Albumin/Globulin [Mass ratio] 0.8 {ratio} 0.9-2.4 [facility] Work Phone: Serum or plasma calcium juana urement (mass/volume)on 01-28-2022 Calcium [Mass/Vol] 9.2 mg/dL 8.5-10.1 [facility] Work Phone: Serum or plasma creatinine m easurement (mass/volume)on 01-28-2022 Creatinine [Mass/Vol] 1.08 mg/dL 0.70-1.30 [facility] Work Phone: Comment on above: The validity of the calculated GFR & GFRAA in patients over 70 years has not been determined. Clinical correlation is essential. Serum or plasma urea nitroge n measurement (mass/volume)on 01-28-2022 Urea nitrogen [Mass/Vol] 20 mg/dL 7-18 [facility] Work Phone: Thin prep Papanicolaou smear with manual screeningon 01-28-2022 Thin prep Papanicolaou smear with manual screening 25 U/L 15-37 [facility] Work Phone: Thin prep Papanicolaou smear with manual screening 4 5-15 [facility] Work Phone: Laboratory - Microbiology an d Antimicrobial susceptibilityon 12-05-2021 SARS-CoV-2 (COVID-19) RNA ARIANNE+probe Ql (Unsp spec) Detected Not Detect [facility] Work Phone: Comment on above: Normal Reference Ran ge: Not DetectedMethod:(RT-PCR) real-time reverse transcriptase PCRLuminex TROY Instrument*The Food and Drug Administration (FDA) has issued an Emergency Use Authorization (EAU) for the TROY SARS-CoV-2 Assay for the rapid detection of the virus that causes COVID-19. This test has been validated, but the [facility] this validation is [facility].*Negative results do not preclude infection and should not be used as the sole basis for treatment or patient management. Optimum specimen types and timing for peak viral levels during infections caused by SARS-CoV-2 have not been determined. Collection of multiple specimens from the same patient may be necessary to detect the virus. The possibility of a false negative result should be considered if the patient has clinical presentation or has had recent exposure. No Panel Informationon 12-05 Influenza Types A,B Direct FA ([facility]) [facility] Work Phone: Otheron 11-27-2006 CONVERTED ELECTRONIC SIGNATURE RACHID RAMIREZ M.D., PATHOLOGIST (Electronic signature on file) Final Signed Out: 11/27/2006 15:48 [facility] CONVERTED FINAL DIAGNOSIS INTERVERTEBRAL DISC, EXCISION - FIBROCARTILAGE WITH DEGENERATIVE CHANGES. [facility] CONVERTED ORDERING PROVIDER Ordering Provider: JAZIEL VELASQUEZ [facility] Vital Signs Date Time Vital Sign Value Performing Clinician Claytoni robbiy 08-15-2025 09:09-0400 Body height 177.[address] Jose Rey MD Work Phone: [facility] 08-15-2025 09:09-0400 Body mass index (BMI) [Ratio] 27.1 kg/m2 Dr. Jose Rey MD Work Phone: [facility] 08-15-2025 09:09-0400 Body weight 85.[address] Jose Rey MD Work Phone: [facility] 07-08-2025 07:26-0400 Body height 177.[address] Jose Rey MD Work Phone: [facility] 07-08-2025 07:26-0400 Body mass index (BMI) [Ratio] 28.4 kg/m2 Dr. Jose Rey MD Work Phone: [facility] 07-08-2025 07:26-0400 Body weight 89.[address] Jose Rey MD Work Phone: [facility] 06-09-2025 08:48-0400 Body height 177.[address] Jose Rey MD Work Phone: [phone])557-130182 [place] [address] 06-09-2025 08:48-0400 Body mass index (BMI) [Ratio] 28.4 kg/m2 Dr. Jose Rey MD Work Phone: [phone] [place] [address] 06-09-2025 08:48-0400 Body weight 89.[address] Jose Rey MD Work Phone: [phone])350-567574 [place] [address] 05-12-2025 07:46-0400 Body height 177.[address] Jose Rey MD Work Phone: [phone])940-488274 [place] [address] 05-12-2025 07:46-0400 Body mass index (BMI) [Ratio] 27.9 kg/m2 Dr. Jose Rey MD Work Phone: [phone] [place] [address] 05-12-2025 07:46-0400 Body weight 88.[address] Jose Rey MD Work Phone: [phone])094-013774 [place] [address] 04-14-2025 11:23-0400 Body mass index (BMI) [Ratio] 27.9 kg/m2 Dr. Jose Rey MD Work Phone: [phone])299-928274 [place] [address] 04-14-2025 11:22-0400 Body height 177.[address] Jose Rey MD Work Phone: [phone])677-301374 [place] [address] 04-14-2025 11:22-0400 Body weight 88.[address] Jose Rey MD Work Phone: [phone])810-105082 [place] [address] 04-14-2025 10:32-0400 Diastolic blood pressure 84 mm[Hg] Dr. Jose Rey MD Work Phone: [phone])530-267874 [place] [address] 04-14-2025 10:32-0400 Heart rate 60 /min Dr. Jose Rey MD Work Phone: [phone] [place] [address] 04-14-2025 10:32-0400 SaO2% (BldA) [Mass fraction] 91 % Dr. Jose Rey MD Work Phone: [phone])[phone] [place] [address] 04-14-2025 10:32-0400 Systolic blood pressure 160 mm[Hg] Dr. Jose Rye MD Work Phone: [facility] 01-04-2022 10:22-0500 Body height 177.[address] Jose Rey Work Phone: [facility] Work Phone: 01-04-2022 10:22-0500 Body mass index (BMI) [Ratio] 28.3 kg/m2 Dr. Jose Rey Work Phone: [facility] Work Phone: 01-04-2022 10:22-0500 Body temperature 96.2 [degF] Dr. Jose Rey Work Phone: [facility] Work Phone: 01-04-2022 10:22-0500 Body weight 89.[address] Jose Rey Work Phone: [facility] Work Phone: 01-04-2022 10:22-0500 Diastolic blood pressure 81 mm[Hg] Dr. Jose Rey Work Phone: [facility] Work Phone: 01-04-2022 10:22-0500 Heart rate 59 /min Dr. Jose Rey Work Phone: [facility] Work Phone: 01-04-2022 10:22-0500 Respiratory rate 14 /min Dr. Jose Rey Work Phone: [facility] Work Phone: 01-04-2022 10:22-0500 SaO2% (BldA) [Mass fraction] 96 % Dr. Jose Rey Work Phone: [facility] Work Phone: 01-04-2022 10:22-0500 Systolic blood pressure 145 mm[Hg] Dr. Jose Rey Work Phone: [facility] Work Phone: 12-08-2021 16:02-0500 Body temperature 98 [degF] Dr. Jose Rey Work Phone: [facility] Work Phone: 12-08-2021 16:02-0500 Diastolic blood pressure 98 mm[Hg] Dr. Jose Rey Work Phone: [facility] Work Phone: 12-08-2021 16:02-0500 Heart rate 79 /min Dr. Jose Rey Work Phone: [facility] Work Phone: 12-08-2021 16:02-0500 Respiratory rate 16 /min Dr. Jose Rey Work Phone: [facility] Work Phone: 12-08-2021 16:02-0500 SaO2% (BldA) [Mass fraction] 98 % Dr. Jose Rey Work Phone: [facility] Work Phone: 12-08-2021 16:02-0500 Systolic blood pressure 132 mm[Hg] Dr. Jose Rey Work Phone: [facility] Work Phone: 12-08-2021 14:27-0500 Body mass index (BMI) [Ratio] 27.1 kg/m2 Dr. Jose Rey Work Phone: [facility] Work Phone: 12-08-2021 14:27-0500 Body weight 88.[address] Jose Rey Work Phone: [facility] Work Phone: 03-30-2021 09:36-0400 Body mass index (BMI) [Ratio] 27.3 kg/m2 Dr. Jose Rey Work Phone: [facility] Work Phone: Encounters Encounter Date Encounter Type Care Provider Facility Start: 10-19-2025 ambulatory [facility] Facility:[facility] Start: 10-05-2025 ambulatory Jose Rey Facility:[facility] Start: 09-14-2025 End: 09-14-20[facility] Start: 09-10-2025 ambulatory Pino Little ty:[facility] Start: 08-23-2025 End: 08-23-[address] Jose Rey MD Work Phone: -[facility] Start: 08-23-2025 End: 08-23-[address] Cecilio Aldridge MD -[facility] Work Phone: Start: 08-22-2025 End: 08-22-2025 Patient encounter procedure Vandana Guaman -[facility] Work Phone: Start: 08-22-2025 End: 08-22-[address] Jose Rey MD Work Phone: -[facility] Start: 08-10-2025 End: 08-10-[address] Jose Rey MD Work Phone: -Laboratory Phy Office 3rd Flr Start: 08-10-2025 End: 08-10-[address] Jose Rey MD -Laboratory Phy Office 3rd Flr Start: 08-10-2025 End: 08-10-2025 ambulatory Jose Rey Facility:[facility] Start: 08-03-2025 End: 08-30-[address] Pino Strange MD -Pulmonary Rehab Work Phone: Start: 08-03-[address] Aashish Strange MD -Pulmonary Rehab Work Phone: Start: 08-03-2025 End: 08-30-[address] Jose Rey MD Work Phone: -Pulmonary Rehab Start: 07-29-2025 End: 07-31-[address] Jsoe Rey MD Work Phone: -Pulmonary Rehab Start: 07-29-2025 End: 07-31-[address] Pino Strange MD -Pulmonary Rehab Work Phone: Start: 07-11-[address] Aashish Strange MD -Pulmonary Rehab Work Phone: Start: 06-22-2025 End: 06-22-[address] Jose Rey MD Work Phone: -[facility] Start: 06-22-2025 End: 06-22-[address] Cecilio Aldridge MD -[facility] Work Phone: Start: 06-16-2025 End: 06-17-2025 Evaluation and management of inpatient LARRY FITZPATRICK MD [facility] Start: 06-14-2025 End: 06-14-2025 Admission to [facility] LARRY FITZPATRICK MD [facility] Start: 06-14-2025 End: 06-14-2025 ambulatory LARRY FITZPATRICK MD Facility:[facility] Start: 06-13-2025 End: 06-30-[address] Jose Rey MD Work Phone: -Pulmonary Rehab Start: 06-13-2025 End: 06-30-[address] Pino Strange MD -Pulmonary Rehab Work Phone: Start: 05-27-2025 End: 05-30-[address] Jose Rey MD Work Phone: -Pulmonary Rehab Start: 05-27-2025 End: 05-30-[address] Pino Strange MD -Pulmonary Rehab Work Phone: Start: 05-05-2025 End: 05-05-[address] CATE REY MD Facility:[facility] Start: 05-05-2025 End: 05-05-2025 Patient encounter procedure LARRY FITZPATRICK MD [facility] Start: 04-22-2025 End: 04-30-[address] Jose Rey MD Work Phone: [facility] Work Phone: Start: 04-22-2025 End: 04-30-[address] Pino Strange MD -Pulmonary Rehab Work Phone: Start: 04-18-[address] Aashish Strange MD -Pulmonary Rehab Work Phone: Start: 04-14-2025 End: 04-14-[address] Jose Rey MD Work Phone: [facility] Work Phone: Start: 04-14-2025 End: 04-14-[address] Pino Strange MD -Pulmonary Rehab Work Phone: Start: 04-14-2025 End: 04-14-2025 ambulatory Pino Strange Facility:[facility] Start: 04-04-2025 End: 04-04-[address] Jose Rey MD Work Phone: [facility] Work Phone: Start: 04-04-2025 End: 04-04-2025 Patient encounter procedure Dominique Rhodes -Laboratory Work Phone: Start: 04-04-2025 End: 04-04-2025 ambulatory Dominique [place] Facility:[facility] Start: 03-23-2025 End: 03-23-[address] Jose Rey MD Work Phone: [facility] Work Phone: Start: 03-23-2025 End: 03-23-[address] Larry Fitzpatrick MD -Cardiovascular Services Work Phone: Start: 03-23-2025 End: 03-23-2025 ambulatory Jose Rey Facility:[facility] Start: 02-07-2025 End: 02-07-[address] Jose Rey MD Work Phone: [facility] Work Phone: Start: 02-07-2025 End: 02-07-[address] Jose Rey MD -Laboratory, Phy Office 3rd Flr Start: 02-07-2025 End: 02-07-2025 ambulatory Jose Chi Betito Facility:[facility] Start: 12-22-2024 End: 12-22-2024 ambulatory Jose Chi Betito Facility:[facility] Start: 12-22-2024 End: 12-22-[address] Cecilio Aldridge MD -[facility] Work Phone: Start: 11-26-2024 ambulatory Jose Chi Betito Facility:[facility] Start: 11-26-2024 Non-patient / Non-visit Dr. Rigo SHIELDS [facility] Start: 11-26-2024 End: 11-26-[address] Pino Strange MD -Cardiovascular Services Work Phone: Start: 11-26-2024 End: 11-26-2024 ambulatory Jose Chi Betito Facility:[facility] Start: 10-25-2024 End: 10-25-2024 ambulatory Jose Chi Betito Facility:[facility] Start: 10-25-2024 End: 10-25-[address] Cecilio Aldridge MD -[facility] Work Phone: Start: 10-15-2024 End: 10-15-2024 ambulatory Jose Chi Betito Facility:[facility] Start: 03-03-2024 End: 03-03-[address] Jose Rey Work Phone: [facility] Work Phone: Start: 03-03-2024 End: 03-03-[address] Jose Rey Work Phone: [facility]-Laboratory, Phy Office 3rd Flr Start: 12-24-2023 End: 12-24-[address] Jose Rey Work Phone: [facility] Work Phone: Start: 12-24-2023 End: 12-24-[address] Jose Rey Work Phone: [facility] Work Phone: Start: 08-28-2023 End: 08-28-2023 ambulatory [facility] Work Phone: Start: 08-28-2023 End: 08-28-2023 [facility] Start: 08-27-2023 End: 08-27-2023 ambulatory [facility] Work Phone: Start: 08-27-2023 End: 08-27-2023 [facility] Start: 08-06-2023 End: 08-06-2023 ambulatory [facility] Work Phone: Start: 08-06-2023 End: 08-06-2023 [facility] Start: 05-26-2023 End: 05-26-[address] Jose Rey Work Phone: [facility] Work Phone: Start: 05-26-2023 End: 05-26-[address] Jose Rey [facility] Phone[facility] Work Phone: Start: 03-05-2023 End: 03-05-[address] Jose Rey Work Phone: [facility] Work Phone: Start: 02-18-2023 End: 02-18-[address] Jose Rey Work Phone: [facility] Work Phone: Start: 02-18-2023 End: 02-18-[address] [facility] Start: 12-18-2022 End: 12-18-2022 ambulatory ELEANOR WASHBURN Facility:[facility] Start: 11-27-2022 End: 11-27-[address] oJse Rey Work Phone: [facility] Start: 07-31-2022 End: 07-31-[address] Jose Rey Work Phone: [facility] Work Phone: Start: 07-31-2022 End: 07-31-[address] Jose Rey [facility] Start: 06-14-2022 End: 06-14-[address] Jose Rey Work Phone: [facility] Start: 03-06-2022 End: 03-06-[address] Jose Rey Work Phone: [facility] Start: 02-25-2022 End: 02-25-[address] Jose Rey [facility] Start: 02-04-2022 Non-patient / Non-visit Dr. Aris Rey Work Phone: [facility] Start: 02-04-2022 End: 02-04-[address] Jose Rey [facility] Start: 01-28-2022 End: 01-28-[address] Jose Rey [facility] Start: 01-04-2022 End: 01-04-2022 Emergency department patient visit Dr. Jose Rey Work Phone: [facility]-Emergency Department Start: 12-08-2021 End: 12-08-[address] Jose Rey Work Phone: [facility]-Medical Surgical 3 Outp Start: 12-05-2021 End: 12-05-[address] Jose Rey Work Phone: [facility]-Pulmonary Services/Neurology Start: 11-28-2021 End: 11-28-[address] Jose Rey Work Phone: [facility] Start: 11-26-2006 End: 11-26-2006 Patient encounter procedure Jaziel Deborah Velasquez Work Phone: [facility] Start: 11-26-2006 Results Only Jaziel Velasquez Work Phone: [facility] Procedures Date Procedure Procedure Detail Performing Clinician Start: 08-10-2025 Vitamin D, 25-hydroxy measurement Dr. Aris Rey MD Work Phone: Comment on above: Vitamin D StatusDeficiency: <20 ng/mL (5 0nmol/L)Insufficiency: 20-30 ng/mL (50-75 nmol/L)Sufficiency: 30-100 ng/mL (75-250 nmol/L)Toxicity: >100 ng/mL (>250 nmol/L) Start: 05-23-[address] Jose Rey MD Work Phone: Start: 04-04-2025 Assay of prostate specific antigen total Dr. Jose Rey MD Work Phone: Comment on above: This test was performed using the [employer] tPSA method. Measured values of a patient sample can vary depending on the testing procedure used. PSA values determined on patient samples by different testing procedures cannot be used interchangeably. If there is a change in PSA assays while monitoring therapy, sequential testing should be performed to confirm baseline values. Start: 02-07-2025 Vitamin D, 25-hydroxy measurement Dr. Aris Rey MD Work Phone: Comment on above: Vitamin D StatusDeficiency: <20 ng/mL (5 0nmol/L)Insufficiency: 20-30 ng/mL (50-75 nmol/L)Sufficiency: 30-100 ng/mL (75-250 nmol/L)Toxicity: >100 ng/mL (>250 nmol/L) Start: 05-26-[address] Jose Rey Work Phone: Start: 02-25-2022 X-ray of lumbar spine, two or three views Dr. Jose Rey Work Phone: Start: 02-25-[address] Jose Rey Work Phone: Start: 12-05-2021 Influenza Types A,B Direct FA (SAAD) Dr. Jose Rey Work Phone: Start: 12-05-2021 End: 12-05-2021 Respiratory syncytial virus antigen assay Dr. Jose Rey Work Phone: Start: 03-04-2016 Colonoscopy LARRY FITZPATRICK MD Start: 11-26-2006 CONVERTED SURGICAL PATHOLOGY [facility] Work Phone: Acquired trigger finger (disorder) LARRY FITZPATRICK MD Acquired trigger finger (disorder) LARRY FITZPATRICK MD Comment on above: X6 FINGERS Cardiac pacemaker, d evice (physical object) LARRY FITZPATRICK MD Comment on above: Kanmu MODEL L111 SERIAL 3431 10 Cervical laminectomy LARRY GREENBERG MD Cervical laminectomy LARRY GREENBERG MD Comment on above: plate in neck c2-3 Cholecystectomy LARRY FITZPATRICK MD Cholecystectomy LARRY FITZPATRICK MD Comment on above: removal Colonic polypectomy LARRY PEREZ MD Entire carpal canal (body structure) LARRY FITZPATRICK MD Entire carpal canal (body structure) LARRY FITZPATRICK MD Comment on above: RIGHT AND LEFT Esophagogastroduodenoscopy B ANN FITZPATRICK MD Fused structure (mor phologic abnormality) LARRY FITZPATRICK MD Comment on above: "fusion of verebrae" Fused structure (mor phologic abnormality) LARRY FITZPATRICK MD Comment on above: "fusion of verebrae" CERVICAL History of repair of musculotendinous cuff of shoulder LARRY FITZPATRIKC MD Comment on above: RIGHT AND LEFT Knee region structur e (body structure) LARRY FITZPATRICK MD Comment on above: surgery on knee Knee region structur e (body structure) LARRY FITZPATRICK MD Comment on above: surgery on knee RIGHT Laparoscopic cholecystectomy LARRY FITZPATRICK MD Transurethral prostatectomy LARRY FITZPATRICK MD Plan of Treatment Date Care Activity Detail Author Start: 01-04-2022 Simple repair scalp/neck/ax/genit/trunk 2.5cm/< RPR S/N/AX/GEN/TRNK 2.5CM/< [facility] Work Phone: Start: 08-01-2020 Influenza vaccination INFLUENZA (#1) [facility] Start: 2012 ADVANCE DIRECTIVE DISCUSSION ADVANCE DIRECTIVE DISCUSSION [facility] Start: 2012 PNEUMOVAX AGE 65 AND OVER WITH 5YR LOOKBACK (#1) PNEUMOVAX AGE 65 AND OVER WITH 5YR LOOKBACK (#1) [facility] Start: 1997 SHINGRIX VACCINE (1 of 2) MORALES GRIX VACCINE (1 of 2) [facility] Start: 1997 Tuberculosis screening COLOREC TEDDY CANCER SCREENING,SEE MODIFIER [facility] Start: 1992 DIABETES SCREEN DIABETES SCREEN [facility] Start: 1982 LIPID SCREEN LIPID SCREEN [facility] Start: 1966 Urine microalbumin profile DTAP,TDAP,TD (1 - Tdap) [facility] Start: 1965 HEPATITIS C SCREENING HEPATITIS C [facility] Patient Education ED Laceration, Hand: All Closures [facility] Work Phone: Patient referral [facility] Work Phone: Payers Date Payer Category Payer Medicare [id number] 2025 Private Health Insurance [id number] 2024 Self-pay [id number] 2023 Private Health Insurance [id number] 2016 Unknown [id number] 2012 Medicare [id number] 1947 Unknown [id number] 2.16. [id number] 1947 Unknown [id number] 2.16. 840.1.694650.3.579.2.627 1947 Unknown [id number] 2.16. 840.1.829201.3.579.2.627 Unknown [id number] 2.16.8 40.1.923484.3.579.2.462 Unknown [id number] 2.16.8 40.1.850936.3.579.2.462 Unknown [id number] 2.16.8 40.1.636730.3.579.2.462 Unknown [id number] 2.16.8 40.1.535419.3.579.2.462 Unknown [id number] 2.16.8 40.1.859141.3.579.2.462 Unknown [id number] 2.16.8 40.1.210543.3.579.2.462 Unknown [id number] 2.16.8 40.1.412931.3.579.2.462 Unknown [id number] 2.16.8 40.1.064126.3.579.2.462 Unknown [id number] 2.16.8 40.1.818756.3.579.2.462 Unknown [id number] 2.16.8 40.1.786456.3.579.2.462 Unknown [id number] 2.16.8 40.1.409673.3.579.2.462 Unknown [id number] 2.16.8 40.1.268922.3.579.2.462 Unknown [id number] 2.16.8 40.1.523855.3.579.2.462 Unknown [id number] 2.16.8 40.1.339801.3.579.2.462 Unknown [id number] 2.16.8 40.1.657790.3.579.2.462 Unknown [id number] 2.16.8 40.1.044519.3.579.2.462 Unknown [id number] 2.16.8 40.1.900436.3.579.2.462 Unknown [id number] 2.16.8 40.1.879830.3.579.2.462 Unknown [id number] 2.16.8 40.1.315868.3.579.2.462 Unknown [id number] 2.16.8 40.1.295064.3.579.2.462 Unknown [id number] 2.16.8 40.1.432010.3.579.2.462 Unknown [id number] 2.16.8 40.1.682477.3.579.2.462 Unknown [id number] 2.16.8 40.1.416764.3.579.2.462 Unknown [id number] 2.16.8 40.1.716526.3.579.2.462 Unknown [id number] 2.16.8 40.1.206775.3.579.2.462 Social History Date Type Detail [facility] Sex Assigned At Not on file [facility] Start: 01-04-2022 End: 10-20-2023 Tobacco smoking status NHIS Unknown if ever smoked [facility] Start: 05-25-2018 None [facility] Start: 03-23-2021 Non-smoker [facility] Start: 1945 Sex Assigned At Male [facility] Start: 07-22-2024 End: 04-14-2025 Tobacco smoking status NHIS Never smoked tobacco (finding) [facility] Start: 02-13-2016 End: 02-17-2025 Sex Male (finding) [facility] Sexual Orientation [facility] Sex Male [facility] Medical Equipment Procedure Code Equipment Code Equipment Origin al Text Equipment Identifier Dates [employer] FDA Start: 03-09-2016 [employer] FDA Start: 03-09-2016 [employer] FDA Start: 03-09-2016 [employer] FDA Start: 03-09-2016 [employer] FDA Start: 03-09-2016 [employer] FDA Start: 03-09-2016 [employer] FDA Start: 03-09-2016 [employer] FDA Start: 03-09-2016 [employer] FDA Start: 03-09-2016 [employer] FDA Start: 03-09-2016 [employer] FDA Start: 03-09-2016 [employer] FDA Start: 03-09-2016 [employer] FDA Start: 03-09-2016 [employer] FDA Start: 03-09-2016 [employer] FDA Start: 03-09-2016 [employer] FDA Start: 03-09-2016 [employer] FDA Start: 03-09-2016 [employer] FDA Start: 03-09-2016 [employer] FDA Start: 03-09-2016 [employer] FDA Start: 03-09-2016 [employer] FDA Start: 03-09-2016 [employer] FDA Start: 03-09-2016 [employer] FDA Start: 03-09-2016 [employer] FDA Start: 03-09-2016 [employer] FDA Start: 03-09-2016 [employer] FDA Start: 03-09-2016 [employer] FDA Start: 03-09-2016 [employer] FDA Start: 03-09-2016 [employer] FDA Start: 03-09-2016 [employer] FDA Start: 03-09-2016 [employer] FDA Start: 03-09-2016 [employer] FDA Start: 03-09-2016 [employer] FDA Start: 03-09-2016 [employer] FDA Start: 03-09-2016 [employer] FDA Start: 03-09-2016 [employer] FDA Start: 03-09-2016 [employer] FDA Start: 03-09-2016 [employer] FDA Start: 03-09-2016 [employer] FDA Start: 03-09-2016 [employer] FDA Start: 03-09-2016 [employer] FDA Start: 03-09-2016 [employer] FDA Start: 03-09-2016 [employer] FDA Start: 03-09-2016 [employer] FDA Start: 03-09-2016 [employer] FDA Start: 03-09-2016 [employer] FDA Start: 03-09-2016 [employer] FDA Start: 03-09-2016 [employer] FDA Start: 03-09-2016 [employer] FDA Start: 03-09-2016 [employer] FDA Start: 03-09-2016 [employer] FDA Start: 03-09-2016 [employer] FDA Start: 03-09-2016 [employer] FDA Start: 03-09-2016 [employer] FDA Start: 03-09-2016 [employer] FDA Start: 03-09-2016 [employer] FDA Start: 03-09-2016 [employer] FDA Start: 03-09-2016 [employer] FDA Start: 03-09-2016 [employer] FDA Start: 03-09-2016 [employer] FDA Start: 03-09-2016 [employer] FDA Start: 03-09-2016 [employer] FDA Start: 03-09-2016 [employer] FDA Start: 03-09-2016 [employer] FDA Start: 03-09-2016 [employer] FDA Start: 03-09-2016 [employer] FDA Start: 03-09-2016 Mental Status Date Assessment Result Facility 12-08-2021 Cognitive function Voice/Name;To uch/Shaking;L ight Pain;Deep Pain [facility] Work Phone: Clinical Notes 03-09-2018 to 08-22-2025 Note Date & Type Note Facility 08-22-2025 Procedure note [facility] 06-17-2025 Hospital Discharge instructions Patient Education 06/17/2025 10:15:43 8- Incision Care (10/2022)(CUSTOM) Incision Care General Information about how to care for your Incision Always follow your surgeon s specific recommendations about incision care exactly. Keep incision clean and dry. Do not put salves, ointments or powder on the incision unless your surgeon has instructed you to. If you have a dressing over your incision, change it as directed by your healthcare professional Avoid touching your incision. Hands carry germs that can cause infections. When your surgeon gives you permission to shower, gently wash, DO NOT RUB your incision, with mild soap and water. You can use liquid or bar soap. Use a new/clean washcloth and towel on your incision every day. Avoid irritation to the incision. Wear loose fitting clothing. Do not remove the tape strips (steri strips) until told to do so. They will fall off on their own. Do not expose your incision to sunlight. After washing your hands, check your incision daily to make sure it is healing normally. The incision is staying together There is no drainage or only small amounts of clear or bloody drainage The skin around the incision may be slightly red which goes away over time You may notice some soreness, tenderness, tingling, numbness, bruising and itching around the site. Notify your Surgeon if: Your incision shows signs of an infection such as skin very painful, red, warm and/or swollen around the incision, Drainage that is foul smelling or looks like pus or If you have an elevated temperature with the above symptoms The incision begins to come apart You have large amounts of blood or fluid oozing from the incision. Make sure you have a follow-up appointment with your surgeon. Call to reschedule if you are unable to make the appointment time that was scheduled for you. Instructions: Wash your chest incision first. Wash your arm incision second. Wash your leg incisions last. Clean the rest of your body after your incisions are washed. Rinse your body well before leaving the shower. Dry gently with a clean towel. Do not use creams, lotions, powder, or salves on incisions. Please dress in clean, loose-fitting clothes. Incision Care Video Document Released: 11/17/2006 Document Revised: 11/03/2013 Document Reviewed: 11/18/2014 ExitCare Patient Information 2015 [employer]. This information is not intended to replace advice given to you by your health care provider. Make sure you discuss any questions you have with your health care provider. 06/17/2025 10:15:08 8- Carotid Endarterectomy 01/2020(CUSTOM) CAROTID ENDARTERECTOMY Discharge Instructions 1.Please call the office the day after you are discharged to schedule a 2-week follow-up appointment at if it is not already scheduled. 2.Discomfort, swelling and bruising are expected at the incision site. Call the office if bleeding is noted at the incision site. Take the medication as listed on your discharge summary sheet. 3.You may not drive for 2 weeks. 4.Dressing Care/Incision Care: You may shower with the dressing in place Remove the gauze dressing after 3 days, leaving the steri-strips in place Steri-strips remain in place for 7-10 days or until they fall off on their own You may shower with steri-strips using soap and water 5.You will be given a prescription for pain medication when you are discharged from the hospital. See your medication summary sheet. 6.Resume your normal diet. 7.Call your primary physician to schedule an appointment for blood pressure and cholesterol checks. 8.If you have any concerns after regular office hours, you can reach the doctor by calling . WATCH FOR SIGNS OF INFECTION Call your doctor at if you have signs of an infection A temperature above 100.5 . Redness or swelling. Increased pain. Foul odor or drainage. SEEK IMMEDIATE MEDICAL CARE (call 087) IF: You experience stroke symptoms such as weakness or numbness on one side, temporary loss of vision or ability to speak or you develop a severe headache. Follow all instructions given to you by your doctor. Follow Up Care 05/27/2025 13:37:09 With:LARRY FITZPATRICK Address: [facility] [address] [place] [id number] Business (1) When:1-2 days With:CATE REY Address: [facility]ULT [facility]/[address] [place] [address] Business (1) When:1-2 days [facility] 06-17-2025 Note Discharge Instructions Thank you for allowing [facility] to assist you with your healthcare needs. The following is important discharge information regarding your hospital visit. Your Care Team CATE REY MD What to do next Follow Up Appointments Follow Up with LARRY FITZPATRICK When:Within 1-2 days Where:[facility] [address] [id number] Business (1) Follow Up with CATE REY When:Within 1-2 days Where:[facility] [address] [place] [address] Business (1) The Following Activity and Diet Have Been Ordered for You No qualifying data available. No qualifying data available. The Following Equipment Has Been Ordered for You No qualifying data available. The Following Treatments Have Been Ordered for You Discharge Labs No qualifying data available. Discharge Radiology No qualifying data available. Other Therapies No qualifying data available. Post Acute Orders No qualifying data available. Someone Will Contact You Regarding These Home Health Referrals No home referrals have been ordered for you. No one will call you. Allergies NKA Medications Please ask your primary doctor or pharmacist before taking any other medication not listed, including over the counter drugs, herbal medications, vitamins and or supplements as they may interact with your home medications. What How Much When Instructions Last Dose Unchanged albuterol (albuterol MDI (90 mcg/ inh) CFC free inhalation aerosol) 2 puff(s) by inhalation Every 4 hours as needed for as needed for wheezing Unchanged budesonide/ formoterol/ glycopyrrolate (Breztri Aerosphere 160 mcg-9 mcg-4.8 mcg/ inh inhalation aerosol) 2 puff(s) by inhalation Two (2) times a day not to exceed 4 inhalations/ day Unchanged doxepin (doxepin 50 mg oral capsule) 1 cap by mouth Daily at bedtime Unchanged levothyroxine (levothyroxine 150 mcg (0.15 mg) oral tablet) 1 tab(s) by mouth Once a day (in the morning) Unchanged metoprolol (Lopressor 25mg--USE metoprolol tartrate 25 mg oral tablet) 0.5 tab(s) by mouth Two (2) times a day Unchanged multivitamin (Multiple Vitamins oral tablet) 1 tab(s) by mouth Once a day (in the morning) Unchanged pantoprazole (pantoprazole 40 mg oral enteric coated tablet) 1 tab(s) by mouth Two (2) times a day Unchanged sertraline (sertraline 100 mg oral tablet) 1 tab(s) by mouth Daily at bedtime Please take this list to your next doctor s visit. Bring all medications you take, including over the counter medications, herbals and other supplements with you to your doctor s visit. Patients and families are reminded to discard old lists and to update any records with all medication providers or retail pharmacies. Education Materials Incision Care General Information about how to care for your Incision Always follow your surgeon s specific recommendations about incision care exactly. Keep incision clean and dry. Do not put salves, ointments or powder on the incision unless your surgeon has instructed you to. If you have a dressing over your incision, change it as directed by your healthcare professional Avoid touching your incision. Hands carry germs that can cause infections. When your surgeon gives you permission to shower, gently wash, DO NOT RUB your incision, with mild soap and water. You can use liquid or bar soap. Use a new/clean washcloth and towel on your incision every day. Avoid irritation to the incision. Wear loose fitting clothing. Do not remove the tape strips (steri strips) until told to do so. They will fall off on their own. Do not expose your incision to sunlight. After washing your hands, check your incision daily to make sure it is healing normally. The incision is staying together There is no drainage or only small amounts of clear or bloody drainage The skin around the incision may be slightly red which goes away over time You may notice some soreness, tenderness, tingling, numbness, bruising and itching around the site. Notify your Surgeon if: Your incision shows signs of an infection such as skin very painful, red, warm and/or swollen around the incision, Drainage that is foul smelling or looks like pus or If you have an elevated temperature with the above symptoms The incision begins to come apart You have large amounts of blood or fluid oozing from the incision. Make sure you have a follow-up appointment with your surgeon. Call to reschedule if you are unable to make the appointment time that was scheduled for you. Instructions: Wash your chest incision first. Wash your arm incision second. Wash your leg incisions last. Clean the rest of your body after your incisions are washed. Rinse your body well before leaving the shower. Dry gently with a clean towel. Do not use creams, lotions, powder, or salves on incisions. Please dress in clean, loose-fitting clothes. Incision Care Video Document Released: 11/17/2006 Document Revised: 11/03/2013 Document Reviewed: 11/18/2014 [employer] Patient Information 2015 [facility]. This information is not intended to replace advice given to you by your health care provider. Make sure you discuss any questions you have with your health care provider. CAROTID ENDARTERECTOMY Discharge Instructions 1. Please call the office the day after you are discharged to schedule a 2-week follow-up appointment at if it is not already scheduled. 2. Discomfort, swelling and bruising are expected at the incision site. Call the office if bleeding is noted at the incision site. Take the medication as listed on your discharge summary sheet. 3. You may not drive for 2 weeks. 4. Dressing Care/Incision Care: You may shower with the dressing in place Remove the gauze dressing after 3 days, leaving the steri-strips in place Steri-strips remain in place for 7-10 days or until they fall off on their own You may shower with steri-strips using soap and water 5. You will be given a prescription for pain medication when you are discharged from the hospital. See your medication summary sheet. 6. Resume your normal diet. 7. Call your primary physician to schedule an appointment for blood pressure and cholesterol checks. 8. If you have any concerns after regular office hours, you can reach the doctor by calling . WATCH FOR SIGNS OF INFECTION Call your doctor at if you have signs of an infection A temperature above 100.5 . Redness or swelling. Increased pain. Foul odor or drainage. SEEK IMMEDIATE MEDICAL CARE (call [phone]) IF: You experience stroke symptoms such as weakness or numbness on one side, temporary loss of vision or ability to speak or you develop a severe headache. Follow all instructions given to you by your doctor. Additional Information VACCINATE! IT SAVES LIVES! Members of the community who have not yet received the COVID-19 vaccine and would like to receive it can visit one of [facility] vaccine clinics. There are many vaccine clinic locations within the [facility]. For locations and available times, please visit [email or web address] It is important to note that some COVID mobile vaccine clinics are held outdoors and may be canceled in rainy or stormy conditions. To learn more about pediatric vaccinations (ages 5-11), we invite you to visit the [facility] webpage. [email or web address] To learn more about the COVID-19 vaccine, we invite you to visit the CDC website for a list of frequently asked questions.https://www.cdc.gov/coronav irus/2019-ncov/vaccines/faq.html [facility] Patient Portal Access Instructions: Stay connected with your healthcare team and access your personal medical information anytime with the [facility] Patient Portal. Please follow the directions below to create your [facility] [facility] account: 1.Access the email account you provided upon registration to the hospital/physician office.2.Look for an invitation email from [facility].3.Open the email and access the invitation link: [facility] [place].4.Fill in the required mcginnis to create your account. To access your account, visit [email or web address]. Click the blue button labeled "Access Patient Portal" and then log in with the username and password that you created in the steps above. You will be able to view your test results, lab results, a summary of your visits, upcoming appointments and more. There is also a convenient messaging option where you can send secure messages to your provider. In addition, you will have the ability to download any documents or summaries to your computer and/or send the information securely to a physician. Remember that your healthcare information is confidential, so carefully consider who you will allow to register on the [employer] Patient Portal for access to your information. You can also access the [employer] Patient Portal on the [facility]. Simply click on "Patient Portal" and then log into your account. If you would like to receive a full copy of your medical records, please contact the [facility] Medical Records Department by calling [phone], Friday through Friday between 8 a.m. and 4:30 p.m. HOW TO SAFELY DISPOSE OF PRESCRIPTION MEDICATIONS Please use one of the following methods to safely dispose of your unused medications. 1.Use a drug disposal kit: the drug disposal pouch allows you to safely discard your old and unused drugs. Ask your nurse to give you one when you are discharged.2.Visit a local take-back location: Many local pharmacies and police departments have programs that collect old and unwanted prescription drugs. Call your local pharmacy or go to http://bit.[employer]/5Y2Xc4x to find one close to you.3.Make use of household items: Use cat litter or old coffee grounds to dispose medications if other options are not available. Mix your drugs with these household products, seal them in an airtight container and throw it into the garbage. Call [facility]: [phone] to be sure your drugs can be disposed of in this way. Some medicines may require a different approach.4.Never flush your medications down the toilet. IF YOU HAVE BEEN PRESCRIBED AN OPIOID FOR PAIN If you have been prescribed an opioid (such as hydrocodone, oxycodone or morphine), it is critical to understand the possible side effects and risks of opioid pain medications. Even when taken as directed, opioids can have several side effects including: Tolerance, meaning you might need to take more of a medication for the same pain relief. Nausea, vomiting and/or constipation. Sleepiness, dizziness, dry mouth, confusion, depression or itching. Physical dependence, meaning you have withdrawal symptoms when a medication is stopped, can develop within a few days. KNOW YOUR RESPONSIBILITIES It is important to know exactly how much and how often to take the opioid pain medications you are prescribed. Never take opioids in higher amounts or more often than prescribed. Do not combine opioids with alcohol or other drugs that cause drowsiness, such as benzodiazepines, also known as benzos, including diazepam and alprazolam, muscle relaxants or sleep aids. Never sell or share prescription opioids. This is illegal. Store opioids in a secure place and out of reach of others (including children, family, friends and visitors). The last page of this document has been signed and retained as a CHART COPY. Signatures Patient Education Materials 8- Incision Care (10/2022)(CUSTOM) 8- Carotid Endarterectomy 01/2020(CUSTOM) Medication Leaflets My discharge plan and instructions have been reviewed and explained to me and I,FAVIAN PHILLIP understand my current condition and have read and understand these discharge instructions. I have received a written copy of the plan/instructions. If I have questions, I am aware that I should contact my doctor. 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 Patient location: Monitored bed. Assessment Postanesthesia assessment Vitals: Vital signs from flowsheet : Vital Signs 06/17/2025 7:45 EDT Heart Rate Monitored 64 bpm 06/17/2025 7:45 EDT Apical Heart Rate 72 bpm Reason For Taking VItal Signs Routine 06/17/2025 7:17 EDT Peripheral Pulse Rate 71 bpm Respiratory Rate 18 br/min 06/17/2025 7:10 EDT Heart Rate Monitored 60 bpm 06/17/2025 7:10 EDT Systolic Blood Pressure Non-Invasive 138 mmHg Diastolic Blood Pressure Non-Invasive 79 mmHg Mean Arterial Pressure (NBP) 97 mmHg 06/17/2025 7:10 EDT Temperature Oral 36.4 DegC Respiratory Rate 18 br/min Reason For Taking VItal Signs Routine 06/17/2025 4:58 EDT Heart Rate Monitored 63 bpm 06/17/2025 4:58 EDT Reason For Taking VItal Signs Routine 06/17/2025 3:52 EDT Heart Rate Monitored 60 bpm 06/17/2025 3:52 EDT Systolic Blood Pressure Non-Invasive 102 mmHg Diastolic Blood Pressure Non-Invasive 54 mmHg LOW Mean Arterial Pressure (NBP) 67 mmHg 06/17/2025 3:52 EDT Temperature Oral 36.7 DegC Respiratory Rate 18 br/min Reason For Taking VItal Signs Routine 06/16/2025 23:29 EDT Temperature Oral 36.7 DegC Heart Rate Monitored 60 bpm Respiratory Rate 18 br/min Systolic Blood Pressure Non-Invasive 103 mmHg Diastolic Blood Pressure Non-Invasive 64 mmHg Mean Arterial Pressure (NBP) 76 mmHg Blood Pressure Method Automatic Blood Pressure Location Left arm Blood Pressure Cuff Size Medium Reason For Taking VItal Signs Routine 06/16/2025 23:00 EDT Heart Rate Monitored 61 bpm 06/16/2025 22:49 EDT Heart Rate Monitored 60 bpm 06/16/2025 21:30 EDT Heart Rate Monitored 61 bpm 06/16/2025 21:30 EDT Respiratory Rate 18 br/min Systolic Blood Pressure Non-Invasive 110 mmHg Diastolic Blood Pressure Non-Invasive 61 mmHg Mean Arterial Pressure (NBP) 75 mmHg Reason For Taking VItal Signs Routine 06/16/2025 21:00 EDT Heart Rate Monitored 60 bpm 06/16/2025 21:00 EDT Systolic Blood Pressure Non-Invasive 97 mmHg Diastolic Blood Pressure Non-Invasive 63 mmHg Mean Arterial Pressure (NBP) 72 mmHg 06/16/2025 20:30 EDT Heart Rate Monitored 60 bpm 06/16/2025 20:30 EDT Systolic Blood Pressure Non-Invasive 95 mmHg Diastolic Blood Pressure Non-Invasive 61 mmHg Mean Arterial Pressure (NBP) 71 mmHg 06/16/2025 20:00 EDT Systolic Blood Pressure Non-Invasive 113 mmHg Diastolic Blood Pressure Non-Invasive 63 mmHg Mean Arterial Pressure (NBP) 76 mmHg 06/16/2025 20:00 EDT Heart Rate Monitored 65 bpm 06/16/2025 19:30 EDT Heart Rate Monitored 60 bpm 06/16/2025 19:30 EDT Temperature Oral 36.9 DegC Respiratory Rate 18 br/min Systolic Blood Pressure Non-Invasive 113 mmHg Diastolic Blood Pressure Non-Invasive 63 mmHg Mean Arterial Pressure (NBP) 76 mmHg Reason For Taking VItal Signs Routine 06/16/2025 19:00 EDT Heart Rate Monitored 60 bpm 06/16/2025 19:00 EDT Systolic Blood Pressure Non-Invasive 108 mmHg Diastolic Blood Pressure Non-Invasive 97 mmHg HI Mean Arterial Pressure (NBP) 103 mmHg 06/16/2025 18:50 EDT Peripheral Pulse Rate 64 bpm Respiratory Rate 18 br/min 06/16/2025 18:00 EDT Heart Rate Monitored 60 bpm 06/16/2025 18:00 EDT Systolic Blood Pressure Non-Invasive 117 mmHg Diastolic Blood Pressure Non-Invasive 70 mmHg Mean Arterial Pressure (NBP) 85 mmHg 06/16/2025 17:30 EDT Heart Rate Monitored 60 bpm 06/16/2025 17:30 EDT Respiratory Rate 14 br/min Systolic Blood Pressure Non-Invasive 116 mmHg Diastolic Blood Pressure Non-Invasive 68 mmHg Mean Arterial Pressure (NBP) 82 mmHg Reason For Taking VItal Signs Routine 06/16/2025 17:00 EDT Heart Rate Monitored 60 bpm 06/16/2025 17:00 EDT Systolic Blood Pressure Non-Invasive 122 mmHg Diastolic Blood Pressure Non-Invasive 66 mmHg Mean Arterial Pressure (NBP) 82 mmHg 06/16/2025 16:30 EDT Heart Rate Monitored 60 bpm 06/16/2025 16:30 EDT Systolic Blood Pressure Non-Invasive 126 mmHg Diastolic Blood Pressure Non-Invasive 72 mmHg Mean Arterial Pressure (NBP) 87 mmHg 06/16/2025 16:00 EDT Heart Rate Monitored 60 bpm 06/16/2025 16:00 EDT Systolic Blood Pressure Non-Invasive 119 mmHg Diastolic Blood Pressure Non-Invasive 67 mmHg Mean Arterial Pressure (NBP) 82 mmHg 06/16/2025 15:47 EDT Apical Heart Rate 61 bpm 06/16/2025 15:30 EDT Heart Rate Monitored 61 bpm 06/16/2025 15:30 EDT Temperature Oral 36.8 DegC Respiratory Rate 14 br/min Systolic Blood Pressure Non-Invasive 118 mmHg Diastolic Blood Pressure Non-Invasive 69 mmHg Mean Arterial Pressure (NBP) 85 mmHg Reason For Taking VItal Signs Routine 06/16/2025 15:00 EDT Heart Rate Monitored 60 bpm 06/16/2025 15:00 EDT Systolic Blood Pressure Non-Invasive 126 mmHg Diastolic Blood Pressure Non-Invasive 65 mmHg Mean Arterial Pressure (NBP) 81 mmHg 06/16/2025 14:58 EDT Heart Rate Monitored 60 bpm 06/16/2025 14:58 EDT Respiratory Rate 12 br/min LOW 06/16/2025 14:45 EDT Heart Rate Monitored 60 bpm 06/16/2025 14:45 EDT Respiratory Rate 16 br/min Systolic Blood Pressure Non-Invasive 130 mmHg Diastolic Blood Pressure Non-Invasive 69 mmHg Mean Arterial Pressure (NBP) 87 mmHg 06/16/2025 14:30 EDT Heart Rate Monitored 60 bpm 06/16/2025 14:30 EDT Respiratory Rate 16 br/min Systolic Blood Pressure Non-Invasive 136 mmHg Diastolic Blood Pressure Non-Invasive 72 mmHg Mean Arterial Pressure (NBP) 88 mmHg 06/16/2025 14:15 EDT Heart Rate Monitored 60 bpm 06/16/2025 14:15 EDT Respiratory Rate 16 br/min Systolic Blood Pressure Non-Invasive 138 mmHg Diastolic Blood Pressure Non-Invasive 74 mmHg Mean Arterial Pressure (NBP) 90 mmHg 06/16/2025 14:00 EDT Heart Rate Monitored 60 bpm Respiratory Rate 12 br/min LOW 06/16/2025 14:00 EDT Systolic Blood Pressure Non-Invasive 144 mmHg HI Diastolic Blood Pressure Non-Invasive 73 mmHg Mean Arterial Pressure (NBP) 93 mmHg 06/16/2025 13:52 EDT Heart Rate Monitored 60 bpm Respiratory Rate 14 br/min 06/16/2025 13:52 EDT Temperature Oral 36.8 DegC Systolic Blood Pressure Non-Invasive 139 mmHg Diastolic Blood Pressure Non-Invasive 73 mmHg Mean Arterial Pressure (NBP) 90 mmHg Reason For Taking VItal Signs Admission 06/16/2025 13:45 EDT Heart Rate Monitored 60 bpm bpm 06/16/2025 13:40 EDT Heart Rate Monitored 60 bpm bpm Respiratory Rate - Anes 19 br/min br/min 06/16/2025 13:35 EDT Heart Rate Monitored 60 bpm bpm Respiratory Rate - Anes 23 br/min br/min 06/16/2025 13:30 EDT Heart Rate Monitored 60 bpm bpm Respiratory Rate - Anes 8 br/min br/min 06/16/2025 13:25 EDT Temperature (Route Not Specified) 35.87 DegC DegC Heart Rate Monitored 90 bpm bpm Respiratory Rate - Anes 8 br/min br/min 06/16/2025 13:20 EDT Temperature (Route Not Specified) 35.78 DegC DegC Heart Rate Monitored 90 bpm bpm Respiratory Rate - Anes 8 br/min br/min 06/16/2025 13:15 EDT Temperature (Route Not Specified) 35.66 DegC DegC Heart Rate Monitored 91 bpm bpm Respiratory Rate - Anes 8 br/min br/min 06/16/2025 13:10 EDT Temperature (Route Not Specified) 35.52 DegC DegC Heart Rate Monitored 90 bpm bpm Respiratory Rate - Anes 12 br/min br/min 06/16/2025 13:05 EDT Temperature (Route Not Specified) 35.46 DegC DegC Heart Rate Monitored 90 bpm bpm Respiratory Rate - Anes 12 br/min br/min 06/16/2025 13:01 EDT Systolic Blood Pressure Non-Invasive 129 mmHg mmHg Diastolic Blood Pressure Non-Invasive 89 mmHg mmHg 06/16/2025 13:00 EDT Temperature (Route Not Specified) 35.46 DegC DegC Heart Rate Monitored 90 bpm bpm Respiratory Rate - Anes 12 br/min br/min 06/16/2025 12:55 EDT Temperature (Route Not Specified) 35.39 DegC DegC Heart Rate Monitored 91 bpm bpm Respiratory Rate - Anes 12 br/min br/min 06/16/2025 12:50 EDT Temperature (Route Not Specified) 35.3 DegC DegC Heart Rate Monitored 89 bpm bpm Respiratory Rate - Anes 12 br/min br/min 06/16/2025 12:45 EDT Temperature (Route Not Specified) 35.29 DegC DegC Heart Rate Monitored 90 bpm bpm Respiratory Rate - Anes 12 br/min br/min 06/16/2025 12:40 EDT Temperature (Route Not Specified) 35.4 DegC DegC Heart Rate Monitored 89 bpm bpm Respiratory Rate - Anes 12 br/min br/min 06/16/2025 12:35 EDT Temperature (Route Not Specified) 35.49 DegC DegC Heart Rate Monitored 90 bpm bpm Respiratory Rate - Anes 12 br/min br/min 06/16/2025 12:30 EDT Temperature (Route Not Specified) 35.51 DegC DegC Heart Rate Monitored 91 bpm bpm Respiratory Rate - Anes 12 br/min br/min 06/16/2025 12:25 EDT Temperature (Route Not Specified) 35.5 DegC DegC Heart Rate Monitored 90 bpm bpm Respiratory Rate - Anes 12 br/min br/min 06/16/2025 12:20 EDT Temperature (Route Not Specified) 35.52 DegC DegC Heart Rate Monitored 90 bpm bpm Respiratory Rate - Anes 12 br/min br/min 06/16/2025 12:15 EDT Temperature (Route Not Specified) 35.55 DegC DegC Heart Rate Monitored 95 bpm bpm Respiratory Rate - Anes 12 br/min br/min 06/16/2025 12:10 EDT Temperature (Route Not Specified) 35.55 DegC DegC Heart Rate Monitored 93 bpm bpm Respiratory Rate - Anes 12 br/min br/min 06/16/2025 12:05 EDT Temperature (Route Not Specified) 35.52 DegC DegC Heart Rate Monitored 90 bpm bpm Respiratory Rate - Anes 12 br/min br/min 06/16/2025 12:01 EDT Systolic Blood Pressure Non-Invasive 118 mmHg mmHg Diastolic Blood Pressure Non-Invasive 83 mmHg mmHg 06/16/2025 12:00 EDT Heart Rate Monitored 90 bpm bpm Respiratory Rate - Anes 12 br/min br/min 06/16/2025 11:59 EDT Systolic Blood Pressure Non-Invasive 114 mmHg mmHg Diastolic Blood Pressure Non-Invasive 82 mmHg mmHg 06/16/2025 11:58 EDT Systolic Blood Pressure Non-Invasive 88 mmHg mmHg Diastolic Blood Pressure Non-Invasive 69 mmHg mmHg 06/16/2025 11:55 EDT Heart Rate Monitored 90 bpm bpm (Modified) Respiratory Rate - Anes 12 br/min br/min Systolic Blood Pressure Non-Invasive 92 mmHg mmHg Diastolic Blood Pressure Non-Invasive 70 mmHg mmHg 06/16/2025 11:51 EDT Systolic Blood Pressure Non-Invasive 104 mmHg mmHg Diastolic Blood Pressure Non-Invasive 77 mmHg mmHg 06/16/2025 11:50 EDT Heart Rate Monitored 69 bpm bpm Respiratory Rate - Anes 12 br/min br/min 06/16/2025 11:49 EDT Systolic Blood Pressure Non-Invasive 100 mmHg mmHg Diastolic Blood Pressure Non-Invasive 71 mmHg mmHg 06/16/2025 11:45 EDT Heart Rate Monitored 63 bpm bpm Systolic Blood Pressure Non-Invasive 135 mmHg mmHg Diastolic Blood Pressure Non-Invasive 94 mmHg mmHg 06/16/2025 10:55 EDT Peripheral Pulse Rate 60 bpm Respiratory Rate 18 br/min Systolic Blood Pressure Non-Invasive 147 mmHg HI Diastolic Blood Pressure Non-Invasive 75 mmHg Mean Arterial Pressure (NBP) 92 mmHg 06/16/2025 9:12 EDT Temperature Temporal Artery 36.4 DegC Peripheral Pulse Rate 61 bpm Respiratory Rate 20 br/min Systolic Blood Pressure Non-Invasive 128 mmHg Diastolic Blood Pressure Non-Invasive 78 mmHg , Oxygen Therapy : Oxygen Therapy & Oxygenation Information 06/17/2025 7:17 EDT Oxygen Saturation 95 % 06/17/2025 7:10 EDT Oxygen Therapy Room air Oxygen Saturation 95 % 06/17/2025 6:43 EDT Oxygen Therapy Room air Oxygen Activity Room air Oxygen Flow Rate 0 L/min 06/17/2025 3:52 EDT Oxygen Therapy Room air Oxygen Saturation 95 % 06/16/2025 23:29 EDT Oxygen Therapy Room air Oxygen Saturation 95 % 06/16/2025 21:30 EDT Oxygen Saturation 92 % LOW 06/16/2025 21:30 EDT Oxygen Therapy Room air 06/16/2025 21:00 EDT Oxygen Saturation 91 % LOW 06/16/2025 20:30 EDT Oxygen Saturation 91 % LOW 06/16/2025 20:00 EDT Oxygen Saturation 93 % 06/16/2025 19:30 EDT Oxygen Saturation 92 % LOW 06/16/2025 19:30 EDT Oxygen Therapy Room air 06/16/2025 19:00 EDT Oxygen Saturation 96 % 06/16/2025 18:50 EDT Oxygen Saturation 95 % 06/16/2025 18:00 EDT Oxygen Saturation 95 % 06/16/2025 17:30 EDT Oxygen Saturation 95 % 06/16/2025 17:30 EDT Oxygen Therapy Nasal cannula 0L-6L Oxygen Flow Rate 2 L/min 06/16/2025 17:00 EDT Oxygen Saturation 92 % LOW 06/16/2025 16:30 EDT Oxygen Saturation 93 % 06/16/2025 16:00 EDT Oxygen Saturation 94 % 06/16/2025 15:30 EDT Oxygen Saturation 92 % LOW 06/16/2025 15:30 EDT Oxygen Therapy Nasal cannula 0L-6L Oxygen Flow Rate 2 L/min 06/16/2025 15:00 EDT Oxygen Saturation 91 % LOW 06/16/2025 14:58 EDT Oxygen Saturation 90 % LOW 06/16/2025 14:58 EDT Oxygen Therapy Nasal cannula 0L-6L Oxygen Flow Rate 2 L/min 06/16/2025 14:55 EDT Oxygen Therapy Nasal cannula 0L-6L Oxygen Activity Oxygen On Oxygen Flow Rate 4 L/min 06/16/2025 14:45 EDT Oxygen Saturation 91 % LOW 06/16/2025 14:30 EDT Oxygen Saturation 91 % LOW 06/16/2025 14:15 EDT Oxygen Saturation 93 % 06/16/2025 14:15 EDT FiO2 4 % Oxygen Therapy Nasal cannula 0L-6L 06/16/2025 14:00 EDT Oxygen Saturation 98 % 06/16/2025 13:52 EDT Oxygen Saturation 91 % LOW 06/16/2025 13:52 EDT FiO2 4 % Oxygen Therapy Nasal cannula 0L-6L 06/16/2025 13:45 EDT Oxygen Saturation 99.3 % % 06/16/2025 13:40 EDT Oxygen Saturation 97.6 % % 06/16/2025 13:35 EDT Oxygen Saturation 99.8 % % 06/16/2025 13:30 EDT Oxygen Saturation 96.9 % % 06/16/2025 13:25 EDT Oxygen Saturation 96.4 % % 06/16/2025 13:20 EDT Oxygen Saturation 96.7 % % 06/16/2025 13:15 EDT Oxygen Saturation 97.6 % % 06/16/2025 13:10 EDT Oxygen Saturation 98.2 % % 06/16/2025 13:05 EDT Oxygen Saturation 98.6 % % 06/16/2025 13:00 EDT Oxygen Saturation 98 % % 06/16/2025 12:55 EDT Oxygen Saturation 97.9 % % 06/16/2025 12:50 EDT Oxygen Saturation 97.8 % % 06/16/2025 12:45 EDT Oxygen Saturation 98 % % 06/16/2025 12:40 EDT Oxygen Saturation 98 % % 06/16/2025 12:35 EDT Oxygen Saturation 98.2 % % 06/16/2025 12:30 EDT Oxygen Saturation 97.9 % % 06/16/2025 12:25 EDT Oxygen Saturation 98.7 % % 06/16/2025 12:20 EDT Oxygen Saturation 98.1 % % 06/16/2025 12:15 EDT Oxygen Saturation 98 % % 06/16/2025 12:10 EDT Oxygen Saturation 98.9 % % 06/16/2025 12:05 EDT Oxygen Saturation 98.6 % % 06/16/2025 12:00 EDT Oxygen Saturation 97.6 % % 06/16/2025 11:55 EDT Oxygen Saturation 98.6 % % 06/16/2025 11:50 EDT Oxygen Saturation 97.3 % % 06/16/2025 11:45 EDT Oxygen Saturation 95.2 % % 06/16/2025 10:55 EDT Oxygen Therapy Room air Oxygen Saturation 93 % 06/16/2025 9:12 EDT Oxygen Therapy Room air Oxygen Saturation 95 % . Mental status: at preoperative baseline. Respiratory function: respirations are non-labored, Stable. Respiratory support: none. CV function: Stable. Cardiovascular support: none. Pain: Satisfactory. Nausea status: Satisfactory. Postoperative hydration status: within normal limits. Notes: Patient is sufficiently recovered from anesthesia to participate in the evaluation. No follow-up care needed. No complications post-anesthesia.. This is a late entry documentation due to involvement in patient care and inability to document prior Digitally Signed by YOANDY CASTILLO MD on 06/17/2025 09:16 AM [facility] 06-17-2025 Anesthesiology Consult note Patient: FAVIAN PHILLIP Age: 79 years Sex: Male : 1945 Associated Diagnoses: None Author: YOANDY CASTILLO MD Preoperative Information Greater than 6 hours Anesthesia history Patient's history: negative. Family's history: negative. History of Present Illness Patient is a 79-year-old male with a past medical history of carotid artery stenosis (left internal carotid artery 80% stenosis, right internal carotid artery with 10-20% stenosis), bicuspid aortic valve chronic obstructive sleep apnea, sick sinus syndrome, TIA, asthma, anxiety, arthritis, BPH, depression, dilated aortic root, GERD, hypertension, hypothyroidism, scheduled for left carotid endarterectomy Review of Systems Ear/Nose/Mouth/Throat: Negative except as documented in history of present illness. Respiratory: Negative except as documented in history of present illness. Cardiovascular: Negative except as documented in history of present illness. Gastrointestinal: Negative except as documented in history of present illness. Genitourinary: Negative except as documented in history of present illness. Endocrine: Negative except as documented in history of present illness. Musculoskeletal: Negative except as documented in history of present illness. Integumentary: Negative except as documented in history of present illness. Neurologic: Negative except as documented in history of present illness. Health Status Allergies: Allergic Reactions (Selected) NKA, Allergies (1) ActiveSeverityReaction NKANone Documented Current medications: (Selected) Inpatient Medications Ordered [facility] Aspirin: 81 mg, 1 tab(s), Oral, qDayM Dextrose 5%/Sod Chloride 0.45%/10mEq per L Potassium Chloride 1,000 mL: 100 mL/hr, Intravenous Dilaudid: 0.5 mg, 0.5 mL, IV Push, q3h, PRN: Pain, scale 7-10 DuoNeb 0.5 mg - 2.5 mg/3 mL inhalation soln: 3 mL, Inhalation, QIDRT Heparin 10,000 units/mL: 10,000 unit(s), 1 mL, mL/hr, Miscellaneous, PREOP pharm Metoprolol Tartrate 25 mg oral tablet: 12.5 mg, 1 EA, Oral, BID Multiple Vitamins oral tablet: 1 tab(s), Oral, qAM NS 1,000 mL: 20 mL/hr, Intravenous [place] 325- 5 mg oral tablet: 1 tab(s), Oral, q4h, PRN: Pain, scale 4-6 Tylenol: 650 mg, 2 tab(s), Oral, q4h, PRN: Pain, scale 1-3 Tylenol: 650 mg, 2 tab(s), Oral, q4h, PRN: Temperature greater than 38.6 degrees C Vasotec: 1.25 mg, 1 mL, IV Push, q6h, PRN: Systolic BP: See order comments Zofran: 4 mg, 2 mL, IV Push, q4h, PRN: Nausea/Vomiting Zofran: 4 mg, 2 mL, IV Push, q6h, PRN: Nausea albuterol 2.5 mg/3 mL (0.083%) inhalation solution: 2.5 mg, 3 mL, Inhalation, q4hRT, PRN: Wheezing budesonide 0.25 mg/2 mL inhalation suspension: 250 mcg, 2 mL, Inhalation, BIDRT doxepin 50 mg oral capsule: 50 mg, 1 cap(s), Oral, qHS levothyroxine: 150 mcg, 1 tab(s), Oral, qAM pantoprazole: 40 mg, 1 tab(s), Oral, BID sertraline: 100 mg, 1 tab(s), Oral, qHS Documented Medications Documented Breztri Aerosphere 160 mcg-9 mcg-4.8 mcg/inh inhalation aerosol: 2 puff(s), Inhalation, BID, not to exceed 4 inhalations/day, 5.9 gram(s), 0 Refill(s) Lopressor 25mg--USE metoprolol tartrate 25 mg oral tablet: 12.5 mg, 0.5 tab(s), Oral, BID, 0 Refill(s) Multiple Vitamins oral tablet: 1 tab(s), Oral, qAM, 0 Refill(s) albuterol MDI (90 mcg/inh) CFC free inhalation aerosol: 2 puff(s), Inhalation, q4h, PRN: as needed for wheezing, 8.5 gram(s), 0 Refill(s) doxepin 50 mg oral capsule: 50 mg, 1 cap(s), Oral, qHS, 30 cap(s), 0 Refill(s) levothyroxine 150 mcg (0.15 mg) oral tablet: 150 mcg, 1 tab(s), Oral, qAM, 60 tab(s), 0 Refill(s) pantoprazole 40 mg oral enteric coated tablet: 40 mg, 1 tab(s), Oral, BID, 60 tab(s), 0 Refill(s) sertraline 100 mg oral tablet: 100 mg, 1 tab(s), Oral, qHS, 30 tab(s), 0 Refill(s), Medications (20) Active Scheduled: (10) albuterol - ipratropium 2.5 mg-0.5 mg/3 mL Inhal Ludy UD 3 mL, Inhalation, QIDRT aspirin 81 mg Chewable 81 mg 1 tab(s), Oral, qDayM budesonide 0.25 mg/2 mL Susp UD 250 mcg 2 mL, Inhalation, BIDRT doxepin 50 mg Capsule 50 mg 1 cap(s), Oral, qHS heparin 10,000 unit(s) 1 mL, Miscellaneous, PREOP pharm levothyroxine 150 mcg tablet 150 mcg 1 tab(s), Oral, qAM metoprolol tartrate 12.5 mg (HALF-TAB) 12.5 mg 1 EA, Oral, BID multivitamin tablet 1 tab(s), Oral, qAM pantoprazole 40 mg EC tablet 40 mg 1 tab(s), Oral, BID sertraline 100 mg tablet 100 mg 1 tab(s), Oral, qHS Continuous: (2) D5/0.45%NACL + KCL 10 mEq/L 1,000 mL 1,000 mL, Intravenous, 100 mL/hr NS (0.9% nacl) 1,000 mL 1,000 mL, Intravenous, 20 mL/hr PRN: (8) acetaminophen 325 mg Tablet 650 mg 2 tab(s), Oral, q4h acetaminophen 325 mg Tablet 650 mg 2 tab(s), Oral, q4h acetaminophen-HYDROcodone 325-5 mg tablet 1 tab(s), Oral, q4h albuterol 0.083% Soln UD (2.5mg/3 mL) 2.5 mg 3 mL, Inhalation, q4hRT enalaprilat 1.25 mg/mL (2 mL) vial 1.25 mg 1 mL, IV Push, q6h HYDROmorphone 0.5 mg/0.5 mL syringe 0.5 mg 0.5 mL, IV Push, q3h ondansetron 2 mg/ 1 mL 2 mL INJ 4 mg 2 mL, IV Push, q6h ondansetron 2 mg/ 1 mL 2 mL INJ 4 mg 2 mL, IV Push, q4h Problem list: Medical Colon polyps / SNOMED CT [id number] / Confirmed Hypothyroidism / SNOMED CT 77160547 / Confirmed Inflammation of prostate / SNOMED CT 16307797 / Confirmed, Active Problems (34) Acid reflux Acquired trigger finger Anxiety Aortic valve, bicuspid Arthritis Asthma At risk for complication of anesthesia At risk for falls Benign colon polyp Bilateral carotid artery stenosis BiPAP (biphasic positive airway pressure) dependence BPH (benign prostatic hyperplasia) Cancer of skin of face Cardiac pacemaker Cervical vertebral fusion Colon polyps Cryptogenic stroke Depression Dilated aortic root Esophageal dilatation Hearing aid High blood pressure History of 2019 novel coronavirus disease (COVID-19) History of kidney stones Hypothyroidism Inflammation of prostate Migraines SLY (obstructive sleep apnea) Sleep apnea SOBOE (shortness of breath on exertion) SSS (sick sinus syndrome) Syncope Urinary tract infection Wears glasses Histories Past Medical History: Active Hypothyroidism (48239399) Inflammation of prostate (07578353) Colon polyps ([id number] ) Family History: COPD - Chronic obstructive pulmonary disease Father () Crohn disease Mother () Mental retardation 23-AUG-2014 16:43:04<$> Sister () Lung disease 29-May-2016 02:38:43<$> Mother () Sister () Procedure history: Colonoscopy ([id number]) on 03/04/2016 at 70 Years. Fusion ([id number]). Comments: 06/14/2025 8:45 MAISHA Bates CERVICAL 02/28/2016 13:59 MAISHA LYON fusion of verebrae Knee ([id number]). Comments: 06/14/2025 8:47 MAISHA Bates RIGHT 02/28/2016 13:59 MAISHA LYON surgery on knee Laparoscopic cholecystectomy (17258126). Carpal tunnel ([id number]). Comments: 06/14/2025 8:46 MAISHA Bates RIGHT AND LEFT Trigger finger ([id number]). Comments: 06/14/2025 8:46 MAISHA Bates X6 FINGERS Cardiac pacemaker ([id number]). Comments: 06/14/2025 8:47 MAISAH Bates Kanmu MODEL L111 SERIAL 304806 Esophagogastroduodenoscopy ([id number]). History of repair of rotator cuff ([id number]). Comments: 06/14/2025 8:45 MAISHA Bates RIGHT AND LEFT Cholecystectomy (31082476). Colonic polypectomy (371385078). TURP - Transurethral resection of prostate (232397012). Cervical laminectomy (4825600928). Comments: 06/16/2025 9:18 MAISHA Frausto plate in neck c2-3 Gallbladder excision (246120269). Comments: 06/16/2025 9:20 MAISHA Frausto removal Social History: Social & Psychosocial Habits Alcohol 06/14/2025 Use: Current Type: Beer, Wine Frequency: 1-2 times per week Substance Abuse 06/14/2025 Use: Never Tobacco 06/14/2025 Tobacco Use: Never (less than 100 in l Home/Environment 06/14/2025 Living situation: Home/Independent Safe place to go: Yes Domestic Concerns None Lives In Single level home Current Home Treatments BIPAP Special Services and Community Resources None Spouse Name ANIL Marital Status of Patient if Patient Independent Adult: Nutrition/Health 06/14/2025 Appetite Good Eating Difficulties None Physical Examination Vital Signs 06/17/2025 7:45 EDT Heart Rate Monitored 64 bpm 06/17/2025 7:45 EDT Apical Heart Rate 72 bpm Reason For Taking VItal Signs Routine 06/17/2025 7:17 EDT Peripheral Pulse Rate 71 bpm Respiratory Rate 18 br/min 06/17/2025 7:10 EDT Heart Rate Monitored 60 bpm 06/17/2025 7:10 EDT Systolic Blood Pressure Non-Invasive 138 mmHg Diastolic Blood Pressure Non-Invasive 79 mmHg Mean Arterial Pressure (NBP) 97 mmHg 06/17/2025 7:10 EDT Temperature Oral 36.4 DegC Respiratory Rate 18 br/min Reason For Taking VItal Signs Routine 06/17/2025 4:58 EDT Heart Rate Monitored 63 bpm 06/17/2025 4:58 EDT Reason For Taking VItal Signs Routine 06/17/2025 3:52 EDT Heart Rate Monitored 60 bpm 06/17/2025 3:52 EDT Systolic Blood Pressure Non-Invasive 102 mmHg Diastolic Blood Pressure Non-Invasive 54 mmHg LOW Mean Arterial Pressure (NBP) 67 mmHg 06/17/2025 3:52 EDT Temperature Oral 36.7 DegC Respiratory Rate 18 br/min Reason For Taking VItal Signs Routine 06/16/2025 23:29 EDT Temperature Oral 36.7 DegC Heart Rate Monitored 60 bpm Respiratory Rate 18 br/min Systolic Blood Pressure Non-Invasive 103 mmHg Diastolic Blood Pressure Non-Invasive 64 mmHg Mean Arterial Pressure (NBP) 76 mmHg Blood Pressure Method Automatic Blood Pressure Location Left arm Blood Pressure Cuff Size Medium Reason For Taking VItal Signs Routine 06/16/2025 23:00 EDT Heart Rate Monitored 61 bpm 06/16/2025 22:49 EDT Heart Rate Monitored 60 bpm 06/16/2025 21:30 EDT Heart Rate Monitored 61 bpm 06/16/2025 21:30 EDT Respiratory Rate 18 br/min Systolic Blood Pressure Non-Invasive 110 mmHg Diastolic Blood Pressure Non-Invasive 61 mmHg Mean Arterial Pressure (NBP) 75 mmHg Reason For Taking VItal Signs Routine 06/16/2025 21:00 EDT Heart Rate Monitored 60 bpm 06/16/2025 21:00 EDT Systolic Blood Pressure Non-Invasive 97 mmHg Diastolic Blood Pressure Non-Invasive 63 mmHg Mean Arterial Pressure (NBP) 72 mmHg 06/16/2025 20:30 EDT Heart Rate Monitored 60 bpm 06/16/2025 20:30 EDT Systolic Blood Pressure Non-Invasive 95 mmHg Diastolic Blood Pressure Non-Invasive 61 mmHg Mean Arterial Pressure (NBP) 71 mmHg 06/16/2025 20:00 EDT Systolic Blood Pressure Non-Invasive 113 mmHg Diastolic Blood Pressure Non-Invasive 63 mmHg Mean Arterial Pressure (NBP) 76 mmHg 06/16/2025 20:00 EDT Heart Rate Monitored 65 bpm 06/16/2025 19:30 EDT Heart Rate Monitored 60 bpm 06/16/2025 19:30 EDT Temperature Oral 36.9 DegC Respiratory Rate 18 br/min Systolic Blood Pressure Non-Invasive 113 mmHg Diastolic Blood Pressure Non-Invasive 63 mmHg Mean Arterial Pressure (NBP) 76 mmHg Reason For Taking VItal Signs Routine 06/16/2025 19:00 EDT Heart Rate Monitored 60 bpm 06/16/2025 19:00 EDT Systolic Blood Pressure Non-Invasive 108 mmHg Diastolic Blood Pressure Non-Invasive 97 mmHg HI Mean Arterial Pressure (NBP) 103 mmHg 06/16/2025 18:50 EDT Peripheral Pulse Rate 64 bpm Respiratory Rate 18 br/min 06/16/2025 18:00 EDT Heart Rate Monitored 60 bpm 06/16/2025 18:00 EDT Systolic Blood Pressure Non-Invasive 117 mmHg Diastolic Blood Pressure Non-Invasive 70 mmHg Mean Arterial Pressure (NBP) 85 mmHg 06/16/2025 17:30 EDT Heart Rate Monitored 60 bpm 06/16/2025 17:30 EDT Respiratory Rate 14 br/min Systolic Blood Pressure Non-Invasive 116 mmHg Diastolic Blood Pressure Non-Invasive 68 mmHg Mean Arterial Pressure (NBP) 82 mmHg Reason For Taking VItal Signs Routine 06/16/2025 17:00 EDT Heart Rate Monitored 60 bpm 06/16/2025 17:00 EDT Systolic Blood Pressure Non-Invasive 122 mmHg Diastolic Blood Pressure Non-Invasive 66 mmHg Mean Arterial Pressure (NBP) 82 mmHg 06/16/2025 16:30 EDT Heart Rate Monitored 60 bpm 06/16/2025 16:30 EDT Systolic Blood Pressure Non-Invasive 126 mmHg Diastolic Blood Pressure Non-Invasive 72 mmHg Mean Arterial Pressure (NBP) 87 mmHg 06/16/2025 16:00 EDT Heart Rate Monitored 60 bpm 06/16/2025 16:00 EDT Systolic Blood Pressure Non-Invasive 119 mmHg Diastolic Blood Pressure Non-Invasive 67 mmHg Mean Arterial Pressure (NBP) 82 mmHg 06/16/2025 15:47 EDT Apical Heart Rate 61 bpm 06/16/2025 15:30 EDT Heart Rate Monitored 61 bpm 06/16/2025 15:30 EDT Temperature Oral 36.8 DegC Respiratory Rate 14 br/min Systolic Blood Pressure Non-Invasive 118 mmHg Diastolic Blood Pressure Non-Invasive 69 mmHg Mean Arterial Pressure (NBP) 85 mmHg Reason For Taking VItal Signs Routine 06/16/2025 15:00 EDT Heart Rate Monitored 60 bpm 06/16/2025 15:00 EDT Systolic Blood Pressure Non-Invasive 126 mmHg Diastolic Blood Pressure Non-Invasive 65 mmHg Mean Arterial Pressure (NBP) 81 mmHg 06/16/2025 14:58 EDT Heart Rate Monitored 60 bpm 06/16/2025 14:58 EDT Respiratory Rate 12 br/min LOW 06/16/2025 14:45 EDT Heart Rate Monitored 60 bpm 06/16/2025 14:45 EDT Respiratory Rate 16 br/min Systolic Blood Pressure Non-Invasive 130 mmHg Diastolic Blood Pressure Non-Invasive 69 mmHg Mean Arterial Pressure (NBP) 87 mmHg 06/16/2025 14:30 EDT Heart Rate Monitored 60 bpm 06/16/2025 14:30 EDT Respiratory Rate 16 br/min Systolic Blood Pressure Non-Invasive 136 mmHg Diastolic Blood Pressure Non-Invasive 72 mmHg Mean Arterial Pressure (NBP) 88 mmHg 06/16/2025 14:15 EDT Heart Rate Monitored 60 bpm 06/16/2025 14:15 EDT Respiratory Rate 16 br/min Systolic Blood Pressure Non-Invasive 138 mmHg Diastolic Blood Pressure Non-Invasive 74 mmHg Mean Arterial Pressure (NBP) 90 mmHg 06/16/2025 14:00 EDT Heart Rate Monitored 60 bpm Respiratory Rate 12 br/min LOW 06/16/2025 14:00 EDT Systolic Blood Pressure Non-Invasive 144 mmHg HI Diastolic Blood Pressure Non-Invasive 73 mmHg Mean Arterial Pressure (NBP) 93 mmHg 06/16/2025 13:52 EDT Heart Rate Monitored 60 bpm Respiratory Rate 14 br/min 06/16/2025 13:52 EDT Temperature Oral 36.8 DegC Systolic Blood Pressure Non-Invasive 139 mmHg Diastolic Blood Pressure Non-Invasive 73 mmHg Mean Arterial Pressure (NBP) 90 mmHg Reason For Taking VItal Signs Admission 06/16/2025 13:45 EDT Heart Rate Monitored 60 bpm bpm 06/16/2025 13:40 EDT Heart Rate Monitored 60 bpm bpm Respiratory Rate - Anes 19 br/min br/min 06/16/2025 13:35 EDT Heart Rate Monitored 60 bpm bpm Respiratory Rate - Anes 23 br/min br/min 06/16/2025 13:30 EDT Heart Rate Monitored 60 bpm bpm Respiratory Rate - Anes 8 br/min br/min 06/16/2025 13:25 EDT Temperature (Route Not Specified) 35.87 DegC DegC Heart Rate Monitored 90 bpm bpm Respiratory Rate - Anes 8 br/min br/min 06/16/2025 13:20 EDT Temperature (Route Not Specified) 35.78 DegC DegC Heart Rate Monitored 90 bpm bpm Respiratory Rate - Anes 8 br/min br/min 06/16/2025 13:15 EDT Temperature (Route Not Specified) 35.66 DegC DegC Heart Rate Monitored 91 bpm bpm Respiratory Rate - Anes 8 br/min br/min 06/16/2025 13:10 EDT Temperature (Route Not Specified) 35.52 DegC DegC Heart Rate Monitored 90 bpm bpm Respiratory Rate - Anes 12 br/min br/min 06/16/2025 13:05 EDT Temperature (Route Not Specified) 35.46 DegC DegC Heart Rate Monitored 90 bpm bpm Respiratory Rate - Anes 12 br/min br/min 06/16/2025 13:01 EDT Systolic Blood Pressure Non-Invasive 129 mmHg mmHg Diastolic Blood Pressure Non-Invasive 89 mmHg mmHg 06/16/2025 13:00 EDT Temperature (Route Not Specified) 35.46 DegC DegC Heart Rate Monitored 90 bpm bpm Respiratory Rate - Anes 12 br/min br/min 06/16/2025 12:55 EDT Temperature (Route Not Specified) 35.39 DegC DegC Heart Rate Monitored 91 bpm bpm Respiratory Rate - Anes 12 br/min br/min 06/16/2025 12:50 EDT Temperature (Route Not Specified) 35.3 DegC DegC Heart Rate Monitored 89 bpm bpm Respiratory Rate - Anes 12 br/min br/min 06/16/2025 12:45 EDT Temperature (Route Not Specified) 35.29 DegC DegC Heart Rate Monitored 90 bpm bpm Respiratory Rate - Anes 12 br/min br/min 06/16/2025 12:40 EDT Temperature (Route Not Specified) 35.4 DegC DegC Heart Rate Monitored 89 bpm bpm Respiratory Rate - Anes 12 br/min br/min 06/16/2025 12:35 EDT Temperature (Route Not Specified) 35.49 DegC DegC Heart Rate Monitored 90 bpm bpm Respiratory Rate - Anes 12 br/min br/min 06/16/2025 12:30 EDT Temperature (Route Not Specified) 35.51 DegC DegC Heart Rate Monitored 91 bpm bpm Respiratory Rate - Anes 12 br/min br/min 06/16/2025 12:25 EDT Temperature (Route Not Specified) 35.5 DegC DegC Heart Rate Monitored 90 bpm bpm Respiratory Rate - Anes 12 br/min br/min 06/16/2025 12:20 EDT Temperature (Route Not Specified) 35.52 DegC DegC Heart Rate Monitored 90 bpm bpm Respiratory Rate - Anes 12 br/min br/min 06/16/2025 12:15 EDT Temperature (Route Not Specified) 35.55 DegC DegC Heart Rate Monitored 95 bpm bpm Respiratory Rate - Anes 12 br/min br/min 06/16/2025 12:10 EDT Temperature (Route Not Specified) 35.55 DegC DegC Heart Rate Monitored 93 bpm bpm Respiratory Rate - Anes 12 br/min br/min 06/16/2025 12:05 EDT Temperature (Route Not Specified) 35.52 DegC DegC Heart Rate Monitored 90 bpm bpm Respiratory Rate - Anes 12 br/min br/min 06/16/2025 12:01 EDT Systolic Blood Pressure Non-Invasive 118 mmHg mmHg Diastolic Blood Pressure Non-Invasive 83 mmHg mmHg 06/16/2025 12:00 EDT Heart Rate Monitored 90 bpm bpm Respiratory Rate - Anes 12 br/min br/min 06/16/2025 11:59 EDT Systolic Blood Pressure Non-Invasive 114 mmHg mmHg Diastolic Blood Pressure Non-Invasive 82 mmHg mmHg 06/16/2025 11:58 EDT Systolic Blood Pressure Non-Invasive 88 mmHg mmHg Diastolic Blood Pressure Non-Invasive 69 mmHg mmHg 06/16/2025 11:55 EDT Heart Rate Monitored 90 bpm bpm (Modified) Respiratory Rate - Anes 12 br/min br/min Systolic Blood Pressure Non-Invasive 92 mmHg mmHg Diastolic Blood Pressure Non-Invasive 70 mmHg mmHg 06/16/2025 11:51 EDT Systolic Blood Pressure Non-Invasive 104 mmHg mmHg Diastolic Blood Pressure Non-Invasive 77 mmHg mmHg 06/16/2025 11:50 EDT Heart Rate Monitored 69 bpm bpm Respiratory Rate - Anes 12 br/min br/min 06/16/2025 11:49 EDT Systolic Blood Pressure Non-Invasive 100 mmHg mmHg Diastolic Blood Pressure Non-Invasive 71 mmHg mmHg 06/16/2025 11:45 EDT Heart Rate Monitored 63 bpm bpm Systolic Blood Pressure Non-Invasive 135 mmHg mmHg Diastolic Blood Pressure Non-Invasive 94 mmHg mmHg 06/16/2025 10:55 EDT Peripheral Pulse Rate 60 bpm Respiratory Rate 18 br/min Systolic Blood Pressure Non-Invasive 147 mmHg HI Diastolic Blood Pressure Non-Invasive 75 mmHg Mean Arterial Pressure (NBP) 92 mmHg 06/16/2025 9:12 EDT Temperature Temporal Artery 36.4 DegC Peripheral Pulse Rate 61 bpm Respiratory Rate 20 br/min Systolic Blood Pressure Non-Invasive 128 mmHg Diastolic Blood Pressure Non-Invasive 78 mmHg Vital Signs (last 24 hrs) Last Charted Temp Oral36.4 DegC (JUN 17 07:10) Heart Rate Sszrivskg67 bpm (JUN 17 07:45) AEP869 mmHg (JUN 17 07:10) DBP79 mmHg (JUN 17 07:10) BMI28.04 (JUN 16 14:51) General: Alert and oriented. Airway: Normal temporomandibular joint mobility, Normal mouth, Normal throat, Normal neck range of motion, Trachea midline. Mallampati classification: II (soft palate, fauces, uvula visible). Head: Normocephalic. Dentition Evaluation: Intact, Own teeth, Denies loose/chipped teeth. Neck: Supple. Respiratory: Lungs are clear to auscultation, Respirations are non-labored. Cardiovascular: Normal rate, Regular rhythm, No murmur. Heart Sounds: Normal. Gastrointestinal: Soft. Musculoskeletal Normal range of motion. Integumentary: Intact, Warm, Dry. Neurologic: Alert, Oriented. Review / Management Results review: Labs (Last four charted values) WBC 6.8(JUN 17) Hgb L 12.6(JUN 17) Hct L 36.5(JUN 17) Plt 218(JUN 17) Na 140(JUN 17) K 4.5(JUN 17) CO2 26(JUN 17) Cl 105(JUN 17) Cr 1.01(JUN 17) BUN 13.0(JUN 17) Glucose H 176(JUN 17) Ca L 8.3(JUN 17) . Assessment and Plan [place] [employer] (ASA) physical status classification: Class III. Anesthetic Preoperative Plan Premedication: intravenous. Anesthetic technique: General. Induction: intravenously. Maintenance airway: Oral endotracheal tube. Special techniques: Warming device. Special Monitoring: Arterial line. Postoperative pain management: Per surgeon. Risks discussed: nausea, vomiting, headache, sore throat, dental injury, hypotension, allergic reaction, serious complications. Informed consent: signed by patient. Beta Jessica: Beta Jessica Taken Within 24 Hrs. I have personally seen, examined, and evaluated the patient on the encounter date. I have reviewed the CHILD CARE LEADER s documentation and agree with the CHILD CARE LEADER s findings and plan as documented, unless otherwise stated. After completion of focused history and physical examination, anesthetic options with their inherent risks and benefits were discussed. Common minor and rare but serious or potentially life-threatening complications were included in this discussion(Specific items discussed: nausea, sore throat, dysphagia, heart problems, lung problems, strokes, heart attacks, intraoperative recall and ). All of the patient's questions were answered. The patient verbalizes understanding of the agreed upon anesthetic plan and agrees to proceed. This is a late entry documentation due to involvement in patient care and inability to document prior to the start of the anesthetic. I completed my preoperative assessment, discussion of anesthetic plan and risks with the patient prior to this documentation. However, I was not able to complete the documentation until a later time. Digitally Signed by YOANDY CASTILLO MD on 06/17/2025 09:15 AM [facility] 06-16-2025 Respiratory therapy [facility] Progress note Respiratory Therapy Evaluation Entered On: 06/16/2025 15:05 EDT Performed On: 06/16/2025 15:05 EDT by Camrel Rivera RRT Respiratory Therapy Evaluation Chest X-Ray : Clear/none available/older than 3 days Respiratory Pattern (RT) : RR 10-20 BPM, Regular pattern Breath Sounds (RT) : Clear to auscultation Cough (RT) : Strong, non-productive Level of Activity : Temporarily non-ambulatory Mental Status : Alert, oriented and cooperative Carmel Rivera RRT - 06/16/2025 15:09 EDT Respiratory Therapy Evaluation Score : 6 Carmel Rivera RRT - 06/16/2025 15:11 EDT RT Evaluation Steps : Chart review completed, Assessment completed: RR, HR, Auscultation, Cough, Patient Interview completed Respiratory Evaluation Triage Score : (0-5) Freq: Q4RT prn Iraj RiveraSuze Luna BIOLOGY TEACHER - 06/16/2025 15:09 EDT RT Assessment [Frequency/Schedule] : Therapeutic interchange, discontinue future evaluations (Comment: pt takes Breztri at home and has asthma [Iraj RiveraKenzilove Luna BIOLOGY TEACHER - 06/16/2025 15:11 EDT] ) Pulmonary Status : Chronic pulmonary disease Miguel Carmel Luna BIOLOGY TEACHER - 06/16/2025 15:11 EDT Surgical Status : General surgery (Comment: pt had LICE done [Miguel Carmel Luna BIOLOGY TEACHER - 06/16/2025 15:09 EDT] ) Miguel Carmel Luna BIOLOGY TEACHER - 06/16/2025 15:09 EDT Digitally Signed by MiguelCarmel maciel BIOLOGY TEACHER on 06/16/2025 03:11 PM [facility] 06-16-2025 Note Exam Date Time Procedure Performing Provider Status 06/16/25 3:05 PM Electrocardiogram - EKG - CV MILE ENGLISH MD; Auth (Verified) ECG Final Report ATRIAL-VENTRICULAR DUAL-PACED RHYTHM Electronic Signature: MILE ENGLISH MD 06/17/2025 18:15:47 [id number] Evaluation + Plan note Diagnostic Tests Pending * Hematocrit (poc) 06/16/25 * Glucose (poc) 06/16/25 * Blood Gas Panel (poc) 06/16/25 * Sodium (poc) 06/16/25 * Potassium (poc) 06/16/25 * Chloride (poc) 06/16/25 * Ca Ionized (poc) 06/16/25 * Hemoglobin (poc) 06/16/25 * Hematocrit (poc) 06/16/25 * Blood Gas Panel (poc) 06/16/25 * Sodium (poc) 06/16/25 * Potassium (poc) 06/16/25 * Chloride (poc) 06/16/25 * Ca Ionized (poc) 06/16/25 * Hemoglobin (poc) 06/16/25 * Hematocrit (poc) 06/16/25 * Glucose (poc) 06/16/25 * Blood Gas Panel (poc) 06/16/25 * Sodium (poc) 06/16/25 * Potassium (poc) 06/16/25 * Chloride (poc) 06/16/25 * Ca Ionized (poc) 06/16/25 * Hemoglobin (poc) 06/16/25 * Glucose (poc) 06/16/25 * Blood Gas Panel (poc) 06/16/25 * Sodium (poc) 06/16/25 * Potassium (poc) 06/16/25 * Chloride (poc) 06/16/25 * Ca Ionized (poc) 06/16/25 * Hemoglobin (poc) 06/16/25 * Hematocrit (poc) 06/16/25 * Glucose (poc) 06/16/25 * Blood Gas Panel (poc) 06/16/25 * Sodium (poc) 06/16/25 * Potassium (poc) 06/16/25 * Chloride (poc) 06/16/25 * Ca Ionized (poc) 06/16/25 * Hemoglobin (poc) 06/16/25 * Hematocrit (poc) 06/16/25 * Glucose (poc) 06/16/25 [facility] 06-05-2025 Note* Exam Date Time Procedure Performing Provider Status 05/05/25 10:[address] Angiography Neck w/ Contrast VASU SHETTY MD; Auth (Verified) [id number] ORIGINAL EXAMINATION: CTA OF THE NECK 05/05/2025 10:03 am TECHNIQUE: CTA of the neck was performed with the administration of intravenous contrast. Multiplanar reformatted images are provided for review. MIP images are provided for review. Stenosis of the internal carotid arteries measured using NASCET criteria. Automated exposure control, iterative reconstruction, and/or weight based adjustment of the mA/kV was utilized to reduce the radiation dose to as low as reasonably achievable. 3D surface rendering or volume rendering reconstructions were performed. COMPARISON: None. HISTORY: ORDERING SYSTEM PROVIDED HISTORY: Reason for Exam: Stenosis Hx carotid stenosis, monitor for progression. FINDINGS: Bilateral proximal subclavian arteries are patent. There are small noncalcified plaques of proximal right subclavian artery with mild stenosis. There are small-moderate calcified and noncalcified plaques, with moderate focal stenosis of proximal left subclavian artery. Right carotid: The right common carotid artery is patent. The right internal carotid artery is patent. There are moderate calcified plaques at right common carotid bifurcation, with mild-moderate stenosis. There are small calcified noncalcified plaques of proximal right internal carotid artery with 10%-20% stenosis. The right external carotid artery is patent. Left carotid: The left common carotid artery is patent. The left internal carotid artery is patent. There is diffuse intimal thickening of distal left common carotid artery. There is marked noncalcified plaque at proximal left internal carotid artery measuring up to 6 mm. There is severe focal stenosis of proximal left internal carotid artery with 80% focal stenosis. The left external carotid artery is patent. Vertebral arteries: Right vertebral artery is patent. The left vertebral artery is patent. Nonvascular Findings: Anterior oropharynx is obscured by metallic streak artifact and not well-evaluated. Bilateral parotid glands, submandibular glands, and sublingual glands, are grossly normal in morphology. There is partially visualize asymmetric enlargement of the right palatine tonsil, with effacement of the right glossopharyngeal sulcus, with mucosal enlargement at the posterior right tongue base. Epiglottis is normal in thickness. The vocal cords are grossly symmetric. Thyroid gland is normal size with 0.4 cm left lobe cyst. Lung apices demonstrate no consolidation or effusion. There are small bilateral cervical nodes. BONES: No acute osseous abnormality. Osseous structures are intact with degenerative changes. There is C4-C6 ACDF. IMPRESSION: 1. Severe focal stenosis of proximal left internal carotid artery with 80% focal stenosis. 2. Small calcified noncalcified plaques of proximal right internal carotid artery with 10%-20% stenosis. 3. Partially visualized asymmetric enlargement of the right palatine tonsil, with effacement of the right glossopharyngeal sulcus, and mucosal enlargement at the posterior right tongue base. Recommend direct visualization to exclude underlying neoplastic process. Interpreted by: Vasu Shetty Preliminary Report By: Vasu Shetty Electronically signed By Vasu Shetty Dictated Date: 05/05/2025 4:01:34 PM Prelim Date: 05/05/2025 4:20:11 PM Sign Date: 05/05/2025 4:20:11 PM Ordering Provider: [place] [id number] Evaluation note* Diagnosis Onset Date Resolution Status History of permanent cardiac pacemaker placement March 09, 2018 chronic Sick sinus syndrome [facility] Work Phone: [phone]) 493-378204-09-2018 Evaluation note* Diagnosis Onset Date Resolution Status Admit Date History of permanent cardiac pacemaker placement March 09, 2018 chronic October 25, 2 024 11:03am Sick sinus syndrome chronic Novem 2023 11:03am [facility] Work Phone: [phone] 479-653904-09-2018 Evaluation note* Diagnosis Onset Date Resolution Status Admit Date History of permanent cardiac pacemaker placement March 09, 2018 chronic August 22, 2025 3:56pm Sick sinus syndrome chronic Septe mber 2024 3:56pm [facility] Work Phone: Evaluation + Plan note No data available for this section [facility] Evaluation + Plan note Future Appointments [facility] Evaluation noteNo assessment information available [facility] Work Phone: History and physical note* MAISHA Rosa: PERFORM Event Display: History and Physical Scanned Authored Date: [id number] [facility] Hospital Discharge instructions No data available for this section [facility] Progress note No data available for this section [facility] Reason for referral (narrative)No reason for referral [facility]: Chief Complaint and Reason for Visit Chief Complaint 3 mos remote PPM f/u VIRAL SYMPTOMS COVID POS LAC Congenital insufficiency of aortic valve 3 mos remote PPM f/u Reason for Visit History of permanent cardiac pacemaker placement Sick sinus syndrome Chief Complaint 3 mos remote PPM f/u Reason for Visit History of permanent cardiac pacemaker placement Sick sinus syndrome Chief Complaint 3 mos remote PPM f/u Occlusion and stenosis of bilateral carotid arteri Reason for Visit History of permanent cardiac pacemaker placement Sick sinus syndrome Chief Complaint Occlusion and stenos is of bilateral carotid arteri REMOTE CHECK Reason for Visit History of permanent cardiac pacemaker placement Sick sinus syndrome Chief Complaint Pacer Check Remote Pacer Check Remote Chief Complaint Admit Date Pacer Check Remote October 25, 2024 9:00am Annual in-clinic check October 25 11:03am CSA November 26, 2024 10:42am Pacer Check Remote December 22, 2024 3 :01am Reason for Visit Admit Date History of permanent cardiac pacemaker p lacement October 25, 2024 11:03am Sick sinus syndrome October 25, 2024 11:03am Chief Complaint Admit Date Pacer Check Remote December 22, 2024 3 :01am STENOSIS March 23, 2025 8:0 2am Chief Complaint Admit Date Pacer Check Remote December 22, 2024 3 :01am Pacer Check Remote March 23, 2025 3:0 0am STENOSIS March 23, 2025 8:0 2am Chief Complaint Admit Date Pacer Check Remote December 22, 2024 3 :01am Pacer Check Remote March 23, 2025 3:0 0am STENOSIS March 23, 2025 8:0 2am dyspnea April 14, 2025 9:59a m Asthma, Dyspnea April 18, 2025 10:58 am Chief Complaint Admit Date Pacer Check Remote March 23, 2025 3:0 0am STENOSIS March 23, 2025 8:0 2am dyspnea April 14, 2025 9:59a m Asthma, Dyspnea April 22, 2025 10:00 am Chief Complaint Admit Date Pacer Check Remote March 23, 2025 3:0 0am STENOSIS March 23, 2025 8:0 2am dyspnea April 14, 2025 9:59a m Asthma, Dyspnea April 22, 2025 10:00 am Asthma, Dyspnea May 27, 2025 10:0 0am Chief Complaint Admit Date Pacer Check Remote March 23, 2025 3:0 0am STENOSIS March 23, 2025 8:0 2am dyspnea April 14, 2025 9:59a m Asthma, Dyspnea April 22, 2025 10:00 am Asthma, Dyspnea May 27, 2025 10:0 0am Asthma, Dyspnea June 13, 2025 10:0 0am Chief Complaint Admit Date Pacer Check Remote March 23, 2025 3:0 0am STENOSIS March 23, 2025 8:0 2am dyspnea April 14, 2025 9:59a m Asthma, Dyspnea April 22, 2025 10:00 am Asthma, Dyspnea May 27, 2025 10:0 0am Asthma, Dyspnea June 13, 2025 10:0 0am Pacer Check Remote June 22, 2025 3:56 am Asthma, Dyspnea July 11, 2025 9: 45am Chief Complaint Admit Date dyspnea April 14, 2025 9:59a m Asthma, Dyspnea April 22, 2025 10:00 am Asthma, Dyspnea May 27, 2025 10:0 0am Asthma, Dyspnea June 13, 2025 10:0 0am Pacer Check Remote June 22, 2025 3:56 am Asthma, Dyspnea July 29, 2025 9: 30am Chief Complaint Admit Date Asthma, Dyspnea May 27, 2025 10:0 0am Asthma, Dyspnea June 13, 2025 10:0 0am Pacer Check Remote June 22, 2025 3:56 am Asthma, Dyspnea July 29, 2025 9: 30am Asthma, Dyspnea August 03, 2025 7:43am PACER UPDATE W/ Kanmu Septem 2024 3:56pm Reason for Visit Admit Date History of permanent cardiac pacemaker p lacement August 22, 2025 3:56pm Sick sinus syndrome August 22, 2025 3:56pm Chief Complaint Admit Date Asthma, Dyspnea May 27, 2025 10:0 0am Asthma, Dyspnea June 13, 2025 10:0 0am Pacer Check Remote June 22, 2025 3:56 am Asthma, Dyspnea July 29, 2025 9: 30am Asthma, Dyspnea August 03, 2025 7:43am PACER UPDATE W/ Kanmu Septem 2024 3:56pm Pacer Check Remote August 23, 2025 9:00am Family History No Family History Records Found Relationship Condition Age at Onset Recorded Date/T ag Unknown Family History?COPD Unknown May 9:08am Family History?Hypertension, - Unknown May 25, 2018 9:08am Advance Directives No Advanced Directives Records Found Advance Directive Response Recorded Date/ Time Advance Directives Yes May 25 8:09am Living Will Yes January 04 12:25pm Power of Systems Librarian Yes January 04, 2022 12:25pm Advance Directive Response Recorded Date/ Time Advance Directives Yes May 25 8:09am Living Will Yes November 05 8:05pm Power of Systems Librarian Yes November 05, 2023 8:05pm Advance Directive Response Recorded Date/ Time Living Will Yes November 05 8:05pm Do you have a Healthcare Power of Systems Librarian? Yes November 05, 2023 8:05pm Advance Directives Yes May 25 8:09am Advance Directive Response Recorded Date/ Time Advance Directives Yes May 25 8:09am Advance Directive Response Recorded Date/ Time Advance Directives on File Yes March 312024 10:25am Living Will Yes April 14, 2025 1 0:25am Do you have a Healthcare Power of Systems Librarian? Yes April 14, 2025 10:25am Advance Directives Yes May 25 8:09am Summary Purpose Additional Source Comments Source Comments (unrecognize d section and content) In the event this informatio n is protected by the Federal Confidentiality of Alcohol and Drug Abuse Patient Records regulations: The Federal rules restrict any use of the information to criminally investigate or prosecute any alcohol or drug abuse patient.[facility] Goals (unrecognized section and content) Goals may be documented in a n alternate sectionGoals may be documented in an alternate sectionGoals may be documented in an alternate sectionGoals may be documented in an alternate sectionGoals may be documented in an alternate sectionGoals may be documented in an alternate sectionGoals may be documented in an alternate sectionGoals may be documented in an alternate sectionGoals may be documented in an alternate sectionGoals may be documented in an alternate sectionGoals may be documented in an alternate sectionGoals may be documented in an alternate sectionGoals may be documented in an alternate sectionGoals may be documented in an alternate section No data available for this sectionGoals may be documented in an alternate section No data available for this section No data available for this sectionGoals may be documented in an alternate sectionGoals may be documented in an alternate sectionGoals may be documented in an alternate sectionGoals may be documented in an alternate sectionGoals may be documented in an alternate sectionGoals may be documented in an alternate sectionGoals may be documented in an alternate section (unrecognized sect ion and content) No Status Records FoundNo Status Records FoundNo Status Records FoundNo Status Records Found INFORMATION SOURCE (unrecogn ized section and content) DATE CREATED AUTHOR 12/24/2022 [facility] [employer] [facility] DATE CREATED AUTHOR AUTHOR'S ORGANIZ ATION 05/08/2025 [facility] DATE CREATED AUTHOR AUTHOR'S ORGANIZ ATION 07/16/2025 [facility] DATE CREATED AUTHOR AUTHOR'S ORGANIZ ATION 10/02/2025 [facility] Care Teams (unrecognized sec tion and content) Team Status: Active Member Role Status Dates Dr. Jose Rey MD Family Provider Active Dr. Jose Rey MD Primary Care Provider Active Team Status: Inactive Member Role Status Dates Dr. Jose Rey MD Primary Care Provider Active Vandana Guaman Active Dr. Cecilio Aldridge MD Attending Provider, Referring Pro vider Active Team Status: Inactive Member Role Status Dates Dr. Jose Rey MD Primary Care Provider Active Dr. Larry Fitzpatrick MD Attending Provider Active Team Status: Inactive Member Role Status Dates Dr. Jose Rey MD Primary Care Provider, Attending Provider Active Team Status: Active Member Role Status Dates Dr. Jose Rey MD Primary Care Provider Active Dr. Lior John MD Attending Provider, Referr ing Provider Active Team Status: Inactive Member Role Status Dates Dr. Jose Rey MD Primary Care Provider Active Dr. Lior John MD Attending Provider, Referr ing Provider Active Team Status: Inactive Member Role Status Dates Dr. Jose Rey MD Primary Care Provider Active Dr. Cecilio Aldridge MD Attending Provider, Referring Pro vider Active Team Status: Inactive Member Role Status Dates Dr. Jose Rey MD Primary Care Provider Active Dr. Cecilio Aldridge MD Attending Provider Active Team Status: Inactive Member Role Status Dates Dr. Jose Rey MD Primary Care Provider Active Start: October 25, 2024 End: October 25, 2024 Dr. Cecilio Aldridge MD Attending Provider Active S tart: October 25, 2024 End: October 25, 2024 Team Status: Inactive Member Role Status Dates Dr. Jose Rey MD Primary Care Provider Active Start: October 25, 2024 End: October 25, 2024 Dr. Cecilio Aldridge MD Attending Provider Active S tart: October 25, 2024 End: October 25, 2024 Dr. Cecilio Aldridge MD Referring Provider Active S tart: October 25, 2024 End: October 25, 2024 Team Status: Inactive Member Role Status Dates Dr. Jose Rey MD Primary Care Provider Active Start: November 26, 2024 End: November 26, 2024 Dr. Pino Strange MD Attending Provider Active Start: November 26, 2024 End: November 26, 2024 Dr. Pino Strange MD Referring Provider Active Start: November 26, 2024 End: November 26, 2024 Team Status: Active Member Role Status Dates Dr. Jose Rey MD Primary Care Provider Active Start: November 26, 2024 Dr. Cecilio Aldridge MD Attending Provider Active S tart: November 26, 2024 Team Status: Inactive Member Role Status Dates Dr. Jose Rey MD Primary Care Provider Active Start: December 22, 2024 End: December 22, 2024 Dr. Cecilio Aldridge MD Attending Provider Active S tart: December 22, 2024 End: December 22, 2024 Team Status: Inactive Member Role Status Dates Dr. Jose Rey MD Primary Care Provider Active Start: February 07, 2025 End: February 07, 2025 Dr. Jose Rey MD Attending Provider Active Start: February 07, 2025 End: February 07, 2025 Team Status: Active Member Role Status Dates Dr. Jose Rey MD Primary Care Provider Active Team Status: Inactive Member Role Status Dates Dr. Jose Rey MD Primary Care Provider Active Start: March 23, 2025 End: March 23, 2025 Dr. Larry Fitzpatrick MD Attending Provider Active Start: March 23, 2025 End: March 23, 2025 Dr. Larry Fitzpatrick MD Referring Provider Active Start: March 23, 2025 End: March 23, 2025 Team Status: Inactive Member Role Status Dates Dr. Jose Rey MD Primary Care Provider Active Start: March 23, 2025 End: March 23, 2025 Dr. Cecilio Aldridge MD Attending Provider Active S tart: March 23, 2025 End: March 23, 2025 Team Status: Inactive Member Role Status Dates Dr. Jose Rey MD Primary Care Provider Active Start: April 04, 2025 End: April 04, 2025 Dominique Rhodes Attending Provider Active Start : April 04, 2025 End: April 04, 2025 Dominique Rhodes Referring Provider Active Start : April 04, 2025 End: April 04, 2025 Team Status: Inactive Member Role Status Dates Dr. Jose Rey MD Primary Care Provider Active Start: April 14, 2025 End: April 14, 2025 Dr. Pino Strange MD Attending Provider Active Start: April 14, 2025 End: April 14, 2025 Dr. Pino Strange MD Referring Provider Active Start: April 14, 2025 End: April 14, 2025 Team Status: Active Member Role Status Dates Dr. Jose Rey MD Primary Care Provider Active Start: April 18, 2025 Dr. Pino Strange MD Attending Provider Active Start: April 18, 2025 Dr. Pino Strange MD Referring Provider Active Start: April 18, 2025 Team Status: Inactive Member Role Status Dates Dr. Jose Rey MD Primary Care Provider Active Start: April 22, 2025 End: April 30, 2025 Dr. Pino Strange MD Attending Provider Active Start: April 22, 2025 End: April 30, 2025 Dr. Pino Strange MD Referring Provider Active Start: April 22, 2025 End: April 30, 2025 Team Status: Active Member Role/Relationship Status Dates Dr. Jose Rey MD Primary Care Provider Active Team Status: Inactive Member Role/Relationship Status Dates Dr. Jose Rey MD Primary Care Provider Active Start: February 07, 2025 End: February 07, 2025 Dr. Jose Rey MD Attending Provider Active Start: February 07, 2025 End: February 07, 2025 Team Status: Inactive Member Role/Relationship Status Dates Dr. Jose Rey MD Primary Care Provider Active Start: March 23, 2025 End: March 23, 2025 Dr. Cecilio Aldridge MD Attending Provider Active S tart: March 23, 2025 End: March 23, 2025 Team Status: Inactive Member Role/Relationship Status Dates Dr. Jose Rey MD Primary Care Provider Active Start: March 23, 2025 End: March 23, 2025 Dr. Larry Fitzpatrick MD Attending Provider Active Start: March 23, 2025 End: March 23, 2025 Dr. Larry Fitzpatrick MD Referring Provider Active Start: March 23, 2025 End: March 23, 2025 Team Status: Inactive Member Role/Relationship Status Dates Dr. Jose Rey MD Primary Care Provider Active Start: April 04, 2025 End: April 04, 2025 Dominique Stovalling Attending Provider Active Start : April 04, 2025 End: April 04, 2025 Dominique Stovalling Referring Provider Active Start : April 04, 2025 End: April 04, 2025 Team Status: Inactive Member Role/Relationship Status Dates Dr. Jose Rey MD Primary Care Provider Active Start: April 14, 2025 End: April 14, 2025 Dr. Pino Strange MD Attending Provider Active Start: April 14, 2025 End: April 14, 2025 Dr. Pino Strange MD Referring Provider Active Start: April 14, 2025 End: April 14, 2025 Team Status: Inactive Member Role/Relationship Status Dates Dr. Jose Rey MD Primary Care Provider Active Start: April 22, 2025 End: April 30, 2025 Dr. Pino Strange MD Attending Provider Active Start: April 22, 2025 End: April 30, 2025 Dr. Pino Strange MD Referring Provider Active Start: April 22, 2025 End: April 30, 2025 Team Status: Inactive Member Role/Relationship Status Dates Dr. Jose Rey MD Primary Care Provider Active Start: May 27, 2025 End: May 30, 2025 Dr. Pino Strange MD Attending Provider Active Start: May 27, 2025 End: May 30, 2025 Dr. Pino Strange MD Referring Provider Active Start: May 27, 2025 End: May 30, 2025 Team Status: Inactive Member Role/Relationship Status Dates Dr. Jose Rey MD Primary Care Provider Active Start: March 23, 2025 End: March 23, 2025 Dr. Cecilio Aldridge MD Attending Provider Active S tart: March 23, 2025 End: March 23, 2025 Team Status: Inactive Member Role/Relationship Status Dates Dr. Jose Rey MD Primary Care Provider Active Start: March 23, 2025 End: March 23, 2025 Dr. Larry Fitzpatrick MD Attending Provider Active Start: March 23, 2025 End: March 23, 2025 Dr. Larry Fitzpatrick MD Referring Provider Active Start: March 23, 2025 End: March 23, 2025 Team Status: Inactive Member Role/Relationship Status Dates Dr. Jose Rey MD Primary Care Provider Active Start: April 04, 2025 End: April 04, 2025 Dominique Stovalling Attending Provider Active Start : April 04, 2025 End: April 04, 2025 Dominique Stovalling Referring Provider Active Start : April 04, 2025 End: April 04, 2025 Team Status: Inactive Member Role/Relationship Status Dates Dr. Jose Rey MD Primary Care Provider Active Start: April 14, 2025 End: April 14, 2025 Dr. Pino Strange MD Attending Provider Active Start: April 14, 2025 End: April 14, 2025 Dr. Pino Strange MD Referring Provider Active Start: April 14, 2025 End: April 14, 2025 Team Status: Inactive Member Role/Relationship Status Dates Dr. Jose Rey MD Primary Care Provider Active Start: April 22, 2025 End: April 30, 2025 Dr. Pino Strange MD Attending Provider Active Start: April 22, 2025 End: April 30, 2025 Dr. Pino Strange MD Referring Provider Active Start: April 22, 2025 End: April 30, 2025 Team Status: Inactive Member Role/Relationship Status Dates Dr. Jose Rey MD Primary Care Provider Active Start: May 27, 2025 End: May 30, 2025 Dr. Pino Strange MD Attending Provider Active Start: May 27, 2025 End: May 30, 2025 Dr. Pino Strange MD Referring Provider Active Start: May 27, 2025 End: May 30, 2025 Team Status: Inactive Member Role/Relationship Status Dates Dr. Jose Rey MD Primary Care Provider Active Start: June 13, 2025 End: June 30, 2025 Dr. Pino Strange MD Attending Provider Active Start: June 13, 2025 End: June 30, 2025 Dr. Pino Strange MD Referring Provider Active Start: June 13, 2025 End: June 30, 2025 Team Status: Inactive Member Role/Relationship Status Dates Dr. Jose Rey MD Primary Care Provider Active Start: June 22, 2025 End: June 22, 2025 Dr. Cecilio Aldridge MD Attending Provider Active S tart: June 22, 2025 End: June 22, 2025 Team Status: Active Member Role/Relationship Status Dates Dr. Jose Rey MD Primary Care Provider Active Start: July 11, 2025 Dr. Pino Strange MD Attending Provider Active Start: July 11, 2025 Dr. Pino Strange MD Referring Provider Active Start: July 11, 2025 Team Status: Inactive Member Role/Relationship Status Dates Dr. Jose Rey MD Primary Care Provider Active Start: April 04, 2025 End: April 04, 2025 Dominique Stovalling Attending Provider Active Start : April 04, 2025 End: April 04, 2025 Dominique Stovalling Referring Provider Active Start : April 04, 2025 End: April 04, 2025 Team Status: Inactive Member Role/Relationship Status Dates Dr. Jose Rey MD Primary Care Provider Active Start: April 14, 2025 End: April 14, 2025 Dr. Pino Strange MD Attending Provider Active Start: April 14, 2025 End: April 14, 2025 Dr. Pino Strange MD Referring Provider Active Start: April 14, 2025 End: April 14, 2025 Team Status: Inactive Member Role/Relationship Status Dates Dr. Jose Rey MD Primary Care Provider Active Start: April 22, 2025 End: April 30, 2025 Dr. Pino Strange MD Attending Provider Active Start: April 22, 2025 End: April 30, 2025 Dr. Pino Strange MD Referring Provider Active Start: April 22, 2025 End: April 30, 2025 Team Status: Inactive Member Role/Relationship Status Dates Dr. Jose Rey MD Primary Care Provider Active Start: May 27, 2025 End: May 30, 2025 Dr. Pino Strange MD Attending Provider Active Start: May 27, 2025 End: May 30, 2025 Dr. Pino Strange MD Referring Provider Active Start: May 27, 2025 End: May 30, 2025 Team Status: Inactive Member Role/Relationship Status Dates Dr. Jose Rey MD Primary Care Provider Active Start: June 13, 2025 End: June 30, 2025 Dr. Pino Strange MD Attending Provider Active Start: June 13, 2025 End: June 30, 2025 Dr. Pino Strange MD Referring Provider Active Start: June 13, 2025 End: June 30, 2025 Team Status: Inactive Member Role/Relationship Status Dates Dr. Jose Rey MD Primary Care Provider Active Start: June 22, 2025 End: June 22, 2025 Dr. Cecilio Aldridge MD Attending Provider Active S tart: June 22, 2025 End: June 22, 2025 Dr. Cecilio Aldridge MD Referring Provider Active S tart: June 22, 2025 End: June 22, 2025 Team Status: Inactive Member Role/Relationship Status Dates Dr. Jose Rey MD Primary Care Provider Active Start: July 29, 2025 End: July 31, 2025 Dr. Pino Strange MD Attending Provider Active Start: July 29, 2025 End: July 31, 2025 Dr. Pino Strange MD Referring Provider Active Start: July 29, 2025 End: July 31, 2025 Team Status: Active Member Role/Relationship Status Dates Dr. Jose Rey MD Primary care physician Active Team Status: Inactive Member Role/Relationship Status Dates Dr. Jose Rey MD Primary care physician Active Start: May 27, 2025 End: May 30, 2025 Dr. Pino Strange MD Attending physician Active Start: May 27, 2025 End: May 30, 2025 Dr. Pino Strange MD Referring Provider Active Start: May 27, 2025 End: May 30, 2025 Team Status: Inactive Member Role/Relationship Status Dates Dr. Jose Rey MD Primary care physician Active Start: June 13, 2025 End: June 30, 2025 Dr. Pino Strange MD Attending physician Active Start: June 13, 2025 End: June 30, 2025 Dr. Pino Strange MD Referring Provider Active Start: June 13, 2025 End: June 30, 2025 Team Status: Inactive Member Role/Relationship Status Dates Dr. Jose Rey MD Primary care physician Active Start: June 22, 2025 End: June 22, 2025 Dr. Cecilio Aldridge MD Attending physician Active Start: June 22, 2025 End: June 22, 2025 Dr. Cecilio Aldridge MD Referring Provider Active S tart: June 22, 2025 End: June 22, 2025 Team Status: Inactive Member Role/Relationship Status Dates Dr. Jose Rey MD Primary care physician Active Start: July 29, 2025 End: July 31, 2025 Dr. Pino Strange MD Attending physician Active Start: July 29, 2025 End: July 31, 2025 Dr. Pino Strange MD Referring Provider Active Start: July 29, 2025 End: July 31, 2025 Team Status: Active Member Role/Relationship Status Dates Dr. Jose Rey MD Primary care physician Active Start: August 03, 2025 Dr. Pino Strange MD Attending physician Active Start: August 03, 2025 Dr. Pino Strange MD Referring Provider Active Start: August 03, 2025 Team Status: Inactive Member Role/Relationship Status Dates Dr. Jose Rey MD Primary care physician Active Start: August 10, 2025 End: August 10, 2025 Dr. Jose Rey MD Attending physician Active Start: August 10, 2025 End: August 10, 2025 Team Status: Inactive Member Role/Relationship Status Dates Dr. Jose Rey MD Primary care physician Active Start: August 22, 2025 End: August 22, 2025 Dr. Jose Rey MD Referring Provider Active Start: August 22, 2025 End: August 22, 2025 Vandana Guaman Attending physician Active Start: August 22, 2025 End: August 22, 2025 Team Status: Inactive Member Role/Relationship Status Dates Dr. Jose Rey MD Primary care physician Active Start: August 03, 2025 End: August 30, 2025 Dr. Pino Strange MD Attending physician Active Start: August 03, 2025 End: August 30, 2025 Dr. Pino Strange MD Referring Provider Active Start: August 03, 2025 End: August 30, 2025 Team Status: Active Member Role/Relationship Status Dates Dr. Jose Rey MD Primary care physician Active Start: August 23, 2025 Dr. Cecilio Aldridge MD Attending physician Active Start: August 23, 2025 Team Status: Inactive Member Role/Relationship Status Dates Dr. Jose Rey MD Primary care physician Active Start: August 23, 2025 End: August 23, 2025 Dr. Cecilio Aldridge MD Attending physician Active Start: August 23, 2025 End: August 23, 2025 FOR RECORDS PERTAINING TO PATIENTS WHO ARE OR HAVE BEEN ENROLLED IN A CHEMICAL DEPENDENCY/SUBSTANCEABUSE PROGRAM, SOME INFORMATION MAY BE OMITTED. This clinical summary was aggregated from multiple sources. Caution should be exercised in using it in the provision of clinical care. This summary normalizes information from multiple sources, and as a consequence, information in this document may materially change the coding, format and clinical context of patient data. In addition, data may be omitted in some cases. CLINICAL DECISIONS SHOULD BE BASED ON THE PRIMARY CLINICAL RECORDS. [employer] provides no warranty or guarantee of the accuracy or completeness of information in this document.
--- NOTE | 2025-10-05 13:41 | NEURO ---
NCS and/or EMG Patient Report Ordering Doctor: Jose Cisse Chi DATE OF SERVICE: 10/05/25 Will presents for electrodiagnostic testing of the upper limbs. He reports pain and tingling in both hands. Electrodiagnostic findings: Median motor nerve demonstrates normal distal latency, amplitude and conduction velocity bilaterally. Normal ulnar motor response bilaterally. Normal median ulnar F–waves. Prolonged median sensory latency at the wrist bilaterally. Normal ulnar and radial sensory sponsors. Needle EMG testing was performed in the upper limbs. All muscles tested showed no evidence of denervation with normal motor unit action potentials. Electrodiagnostic impression: This is an abnormal study in the upper limbs 1. 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 2 No electrodiagnostic evidence is noted for cervical radiculopathy Multi [facility] Codes Neurology Neurology Interp Codes: 59763-35 Musc test done w/n test comp (interp) (2) and 59267-33 Nrv cndj test 9-10 studies (interp)
== END | disposition home or self-care (01) ==
LOC: PSN 06:47
PROVIDERS: PCP Family Medicine Geriatric Medicine; Referring Provider Family Medicine Geriatric Medicine; Visit Provider Family Medicine Geriatric Medicine
DX: M62.81 Muscle weakness (generalized) (principal); M62.838 Other muscle spasm
CPT/HCPCS: 95886; 95911

== ENCOUNTER → 2025-10-19 | Outpatient (CLI) | payer MEDICARE, OTHER, SELFPAY ==
[2025-08-15 09:09] VITALS: BMI 27.1
--- OUTSIDE RECORDS SUMMARY | 2025-10-19 07:04 | XMS RPT_ITS | CCD ---
Author Organization [facility] Care Team Providers Care Hydrometer Calibrator Name Role Phone Jose Rey Chi Primary Care Provider Betito, Dr. Jose Smith Primary Care Provider Dr. Cecilio Aldridge Attending [...] Attending Provider Dr. Cecilio Aldridge Referring Provider [phone] Betito SHIELDS, Dr. Jose Smith Primary Care Provider Dr. Cecilio Aldridge MD Attending Provider Luis Carlos SHIELDS, Dr. Hernandes Referring Provider Alie SHIELDS, Dr. Pino Matias Attending Provider Alie SHIELDS, Dr. Pino Matias Referring Provider Betito SHIELDS, Dr. Jose Smith Attending Provider Betito SHIELDS, Dr. Jose Smith Primary Care Provider [phone] Luis Carlos SHIELDS, Dr. Hernandes Attending Provider Tati SHIELDS, Dr. Larry Mike Attending Provider Tati SHIELDS, Dr. Larry Mike Referring Provider Brimson, Dominique Attending Provider Brimson, Dominique Referring Provider Alie SHIELDS, Dr. Pino Matias Attending Provider Alie SHIELDS, Dr. Pino Matias Referring Provider [phone] Betito SHIELDS, Dr. Jose Smith Primary Care Provider Luis Carlos SHIELDS, Dr. Hernandes Attending Provider [phone] BETITO SHIELDS, DR ESPOSITO Primary Care Physician BETITO SHIELDS, DR ESPOSITO Primary Care Unavailable TATI SHIELDS, LARRY Mike Attending Unavailable Betito SHIELDS, Dr. Jose Smith Primary Care Provider TATI SHIELDS, LARRY Mike Attending Unavailable BETITO SHIELDS, DR ESPOSITO Primary Care Unavailable TATI SHIELDS, LARRY Mike Admitting Unavailable TATI SHIELDS, LARRY Mike Consulting Unavailable LARRY FITZPATRICK MD Attending Unavailable BETITO SHIELDS, DR ESPOSITO Primary Care Unavailable YOANDY CASTILLO MD Consulting Unavailabl e Betito SHIELDS, Dr. Jose Smith Primary Care Provider Luis Carlos SHIELDS, Dr. Hernandes Attending Provider Luis Carlos SHIELDS, Dr. Hernandes Referring Provider Betito SHIELDS, Dr. Jose Smith Primary Care Physician Alie SHIELDS, Dr. Pino Matias Attending Physician [phone] Alie SHIELDS, Dr. Pino Matias Referring Provider Luis Carlos SHIELDS, Dr. Hernandes Attending Physician Betito SHIELDS, Dr. Jose Smith Attending Physician Betito SHIELDS, Dr. oJse Smith Referring Provider Vandana Guaman Attending Physician Unavailable Betito, Jose Chi Primary Care Unavailable Luis Carlos, Cecilio Referring Unavailable Luis CarlosGustaboTempe Attending Unavailable Betito, Jose Chi Primary Care Unavailable Luis Carlos [place] Attending Unavailable Betito, Jose Chi Primary Care Unavailable Luis CarlosCecilio Attending Unavailable Betito, Jose Chi Primary Care Unavailable Luis CarlosCecilio Referring Unavailable Cecilio Aldridge Attending Unavailable Sibilia, Pino V Attending Unavailable Sibilia, Pino V Referring Unavailable Betito, Jose Chi Primary Care Unavailable Betito, Jose Chi Primary Care Unavailable Sibilia, Pino V Referring Unavailable Sibilia, Pino V Attending Unavailable Betito, Jose Chi Referring Unavailable Betito, Jose Chi Attending Unavailable Betito, Jose Chi Primary Care Unavailable Betito, Jose Chi Referring Unavailable Betito, Jose Chi Attending Unavailable Betito, Jose Chi Primary Care Unavailable Betito, Jose Chi Referring Unavailable Lida Portillo Attending Unavailable Betito, Jose Chi Consulting Unavailable Betito, Jose Chi Primary Care Unavailable Betito, Jose Chi Primary Care Unavailable Luis Carlos Cecilio Attending Unavailable Betito, Jose Chi Attending Unavailable Betito, Jose Chi Primary Care Unavailable Brimson, Dominique Referring Unavailable Brimson, Dominique Attending Unavailable Betito, Jose Chi Primary Care Unavailable Sibilia, Pino V Attending Unavailable Sibilia, Pino V Referring Unavailable Betito, Jose Chi Primary Care Unavailable Betito, Jose Chi Primary Care Unavailable Betito, Jose Chi Attending Unavailable Betito, Jose Chi Primary Care Unavailable Larry Fitzpatrick Referring Unavailable Larry Fitzpatrick Attending Unavailable Sibilia, Pino V Referring Unavailable [...] Unavailable Betito, Jose Chi Primary Care Unavailable Pino Strange V Attending Unavailable SibPino mendoza V Referring Unavailable Betito, Jose Chi Primary Care Unavailable Luis CarlosCecilio almanza Attending Unavailable Luis Carlos, [place] Referring Unavailable Betito, Jose Chi Referring Unavailable Luis Carlos, [place] Attending Unavailable Betito, Jose Chi Primary Care Unavailable Luis Carlos, [place] Referring Unavailable Luis Carlos, [place] Attending Unavailable Betito, Jose Chi Primary Care Unavailable Luis CarlosGustaboTempe Attending Unavailable Betito, Jose Chi Primary Care Unavailable Medications Current Medications Medication Drug Class(es) [...] Date: 02/28/16 Status: Ordered Repeat number: 1 Evktcgrtldz-Tcmqptqnp-Wud anter (13 sources) Start: 07-22-2024 Start: 07-22-2024 [...] March 30, 2021 August 23, 2021 1:13pm [id number] 200 actuat albuterol 0.09 mg/actuat metered dose [...] August 23, 2021 1:15pm Start: 03-11-2016 End: 08-23-2021 take 1 puff(s) by inhalation once daily [...] Onset: 5 Chronic Other aftercare (1 source) prison (current) use of aspirin; 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] Onset: 5 Episodic [...] Results Test Name Value Interpretation Reference Range Facility NCS and/or EMG Patienton NCS and/or EMG Patient [facility] Pulmonary Services/Neurology [address] [place] [address] MR#: [id number] Acct: [id number] Name: FAVIAN PHILLIP Rep #: [id number] : 1945 79 From: Lida Portillo MD Referring Dr: Jose Rey MD Status: [facility] Location: [facility] Date: 10/05/25 Sex: M C NCS and/or EMG Patient Report Ordering Doctor: Jose Rey Chi DATE OF SERVICE: 10/05/25 Favian presents for electrodiagnostic testing of the upper limbs. He reports pain and tingling in both hands. Electrodiagnostic findings: Median motor nerve demonstrates normal distal latency, amplitude and conduction velocity bilaterally. Normal ulnar motor response bilaterally. Normal median ulnar F???waves. Prolonged median sensory latency at the wrist bilaterally. Normal ulnar and radial sensory sponsors. Needle EMG testing was performed in the upper limbs. All muscles tested showed no evidence of denervation with normal motor unit action potentials. Electrodiagnostic impression: This is an abnormal study in the upper limbs 1. 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 2 No electrodiagnostic evidence is noted for cervical radiculopathy Multi Select Codes Neurology Neurology Interp Codes: 06807-91 Musc test done w/n test comp (interp) (2) and 63444-74 Nrv cndj test 9-10 studies (interp) 10/05/25 1344 Date Lida Portillo MD CC: Dr. Lida Portillo MD; Dr. Jose Rey MD Date Dictated: 10/05/251340 Date Transcribed: 10/05/251340 Senior Windows Systems Engineer: AA Signed Normal [facility] Protein Electroph, Son 09-16 Albumin [Mass/Vol] 3.5 g/dL Normal 2.9-4.4 [facility] Comment on above: Performed By: #### L 500.4050, L100.0100, L501.9520, L506.1001 #### [facility] [address] [place], [address] Albumin/Globulin [Mass ratio] 0.9 {ratio} Normal 0.7-1.7 [facility] Comment on above: Performed By: #### L 500.4050, L100.0100, L501.9520, L506.1001 #### [facility] [address] [place], [address] ALPHA-1 GLOBUL 0.2 g/dL Normal 0.0-0.4 [facility] Comment on above: Performed By: #### L 500.4050, L100.0100, L501.9520, L506.1001 #### [facility] [address] [place], [address] ALPHA-2 GLOBUL 0.6 g/dL Normal 0.4-1.0 [facility] Comment on above: Performed By: #### L 500.4050, L100.0100, L501.9520, L506.1001 #### [facility] [address] [place], [address] BETA GLOBULIN 1.2 g/dL Normal 0.7-1.3 [facility] Comment on above: Performed By: #### L 500.4050, L100.0100, L501.9520, L506.1001 #### [facility] [address] [place], [address] GAMMA GLOBULIN 1.8 g/dL Normal 0.4-1.8 [facility] Comment on above: Performed By: #### L 500.4050, L100.0100, L501.9520, L506.1001 #### [facility] [address] [place], [address] Globulin (S) [Mass/Vol] 3.9 g/dL Normal 2.2-3.[address] [facility] Comment on above: Performed By: #### L 500.4050, L100.0100, L501.9520, L506.1001 #### [facility] [address] [place], [address] INTERPRETATION Comment Normal . 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 Performed By: #### L 500.4050, L100.0100, L501.9520, L506.1001 #### [facility] [address] [place], [address] M-SPIKE Not Observed Normal Not Observed [facility] Comment on above: Performed By: #### L 500.4050, L100.0100, L501.9520, L506.1001 #### [facility] [address] [place], [address] NOTE: Comment Normal . [facility] Comment on above: Result Comment: The SPE pattern appears unremarkable. Evidence of monoclonal protein is not apparent. Performed at: [address] [id number] Orthotist: Yoandy Olivas PhD, Phone: [phone] Performed By: #### L 500.4050, L100.0100, L501.9520, L506.1001 #### [facility] [address] [place], [address] Protein [Mass/Vol] 7.4 g/dL Normal 6.0-8.5 [facility] Comment on above: Performed By: #### L 500.4050, L100.0100, L501.9520, L506.1001 #### [facility] [address] [place], [address] CBC W/Diff, Automatedon 08-31-2024 Absolute Lymph 1.85 X10 3/uL Normal 0.83-4.51 [facility] Comment on above: Performed By: #### L 500.4050, L100.0100, L501.9520, L506.1001 #### [facility] [address] [place], [address] Absolute Neut 3.4 X10 3/uL Normal 2.0-7.7 [facility] Comment on above: Performed By: #### L 500.4050, L100.0100, L501.9520, L506.1001 #### [facility] [address] [place], [address] Basophils/100 WBC (Bld) 0.7 % Normal 0-[address] [facility] Comment on above: Performed By: #### L 500.4050, L100.0100, L501.9520, L506.1001 #### [facility] [address] [place], [address] Eosinophils/100 WBC (Bld) 2.3 % Normal 0-5 [facility] Comment on above: Performed By: #### L 500.4050, L100.0100, L501.9520, L506.1001 #### [facility] [address] [place], [address] Erythrocyte distribution width (RBC) [Ratio] 13.1 % Normal 11.6-14.6 [facility] Comment on above: Performed By: #### L 500.4050, L100.0100, L501.9520, L506.1001 #### [facility] [address] [place], [address] Hematocrit (Bld) [Volume fraction] 39.1 % Low 40-54 [facility] Comment on above: Performed By: #### L 500.4050, L100.0100, L501.9520, L506.1001 #### [facility] [address] [place], [address] Hemoglobin (Bld) [Mass/Vol] 13.3 g/dL Normal 13.0-16.5 [facility] Comment on above: Performed By: #### L 500.4050, L100.0100, L501.9520, L506.1001 #### [facility] [address] [place], [address] IG% 0.200 Normal 0.0-0.9 [facility] Comment on above: Result Comment: IG% - Immature Granulocytes (promyelocytes, myelocytes and metamyelocytes) > 1% indicates that a LEFT SHIFT is Present. Performed By: #### L 500.4050, L100.0100, L501.9520, L506.1001 #### [facility] [address] [place], [address] Lymphocytes/100 WBC (Bld) 30.2 % Normal 19-41 [facility] Comment on above: Performed By: #### L 500.4050, L100.0100, L501.9520, L506.1001 #### [facility] [address] [place], [address] MCH (RBC) [Entitic mass] 30.6 pg Normal 27.0-32.0 [facility] Comment on above: Performed By: #### L 500.4050, L100.0100, L501.9520, L506.1001 #### [facility] [address] [place], [address] MCHC (RBC) [Mass/Vol] 34.0 g/dL Normal 32-36 [facility] Comment on above: Performed By: #### L 500.4050, L100.0100, L501.9520, L506.1001 #### [facility] [address] [place], [address] MCV (RBC) [Entitic vol] 90.1 fL Normal 80-[address] [facility] Comment on above: Performed By: #### L 500.4050, L100.0100, L501.9520, L506.1001 #### [facility] [address] [place], [address] Monocytes/100 WBC (Bld) 11.4 % High 0-[address] [facility] Comment on above: Performed By: #### L 500.4050, L100.0100, L501.9520, L506.1001 #### [facility] [address] [place], [address] Neutrophils/100 WBC (Bld) 55.2 % Normal 47-70 [facility] Comment on above: Performed By: #### L 500.4050, L100.0100, L501.9520, L506.1001 #### [facility] [address] [place], [address] Nucleated RBC (Bld) [#/Vol] 0 10*3/uL Normal 0-5 [facility] Comment on above: Performed By: #### L 500.4050, L100.0100, L501.9520, L506.1001 #### [facility] [address] [place], [address] Platelet mean volume (Bld) [Entitic vol] 10.1 fL Normal 6.2-12.0 [facility] Comment on above: Performed By: #### L 500.4050, L100.0100, L501.9520, L506.1001 #### [facility] [address] [place], [address] Platelets (Bld) [#/Vol] 272 10*3/uL Normal 150-450 [facility] Comment on above: Performed By: #### L 500.4050, L100.0100, L501.9520, L506.1001 #### [facility] [address] [place], [address] RBC (Bld) [#/Vol] 4.34 10*6/uL Low 4.6-6.2 [facility] Comment on above: Performed By: #### L 500.4050, L100.0100, L501.9520, L506.1001 #### [facility] [address] [place], [address] RDW SD 43.4 fl Normal 35.1-43.9 [facility] Comment on above: Performed By: #### L 500.4050, L100.0100, L501.9520, L506.1001 #### [facility] [address] [place], [address] WBC (Bld) [#/Vol] 6.1 10*3/uL Normal 4.4-11.0 [facility] Comment on above: Performed By: #### L 500.4050, L100.0100, L501.9520, L506.1001 #### [facility] [address] [place], [address] Comprehensive Metabolic [facility] 09-14-2025 Albumin [Mass/Vol] 4.2 g/dL Normal 3.4-4.8 [facility] Comment on above: Performed By: #### L 500.4050, L100.0100, L501.9520, L506.1001 #### [facility] [address] [place], [address] Albumin/Globulin [Mass ratio] 1.1 {ratio} Normal 0.9-2.4 [facility] Comment on above: Performed By: #### L 500.4050, L100.0100, L501.9520, L506.1001 #### [facility] [address] [place], [address] ALK PHOS 81 U/L Normal 40-129 [facility] Comment on above: Performed By: #### L 500.4050, L100.0100, L501.9520, L506.1001 #### [facility] [address] [place], [address] ALT [Catalytic activity/Vol] 24 U/L Normal <=46 [facility] Comment on above: Performed By: #### L 500.4050, L100.0100, L501.9520, L506.1001 #### [facility] [address] [place], [address] AST [Catalytic activity/Vol] 34 U/L Normal <=37 [facility] Comment on above: Result Comment: Hemo lysis present, Results??could be affected. ?? Performed By: #### L 500.4050, L100.0100, L501.9520, L506.1001 #### [facility] [address] [place], [address] Bilirubin [Mass/Vol] 0.67 mg/dL Normal 0.00-1.30 [facility] Comment on above: Performed By: #### L 500.4050, L100.0100, L501.9520, L506.1001 #### [facility] [address] [place], [address] BUN/CRE 18.7 RATIO Normal 10-20 [facility] Comment on above: Performed By: #### L 500.4050, L100.0100, L501.9520, L506.1001 #### [facility] [address] [place], [address] Calcium [Mass/Vol] 9.5 mg/dL Normal 7.6-11.0 [facility] Comment on above: Performed By: #### L 500.4050, L100.0100, L501.9520, L506.1001 #### [facility] [address] [place], [address] Chloride [Moles/Vol] 104 mmol/L Normal 98-108 [facility] Comment on above: Performed By: #### L 500.4050, L100.0100, L501.9520, L506.1001 #### [facility] [address] [place], [address] CO2 [Moles/Vol] 26.4 mmol/L Normal 21.0-32.0 [facility] Comment on above: Performed By: #### L 500.4050, L100.0100, L501.9520, L506.1001 #### [facility] [address] [place], [address] Creatinine [Mass/Vol] 0.99 mg/dL Normal 0.70-1.20 [facility] Comment on above: Performed By: #### L 500.4050, L100.0100, L501.9520, L506.1001 #### [facility] [address] [place], [address] GAP 10 Normal 5-15 [facility] Comment on above: Performed By: #### L 500.4050, L100.0100, L501.9520, L506.1001 #### [facility] [address] [place], [address] GFR/1.73 sq M.predicted among non-blacks MDRD (S/P/Bld) [Vol rate/Area] 79 mL/min/{1.73_m2} Normal >60 [facility] Comment on above: Result Comment: mL/m in/1.73m2 CKD-EPI Creatinine Equation (2020) Performed By: #### L 500.4050, L100.0100, L501.9520, L506.1001 #### [facility] [address] [place], [address] Globulin (S) [Mass/Vol] 3.8 g/dL Normal 2.2-4.2 [facility] Comment on above: Performed By: #### L 500.4050, L100.0100, L501.9520, L506.1001 #### [facility] [address] [place], [address] Glucose [Mass/Vol] 90 mg/dL Normal 70-99 [facility] Comment on above: Performed By: #### L 500.4050, L100.0100, L501.9520, L506.1001 #### [facility] [address] [place], [address] Potassium [Moles/Vol] 4.0 mmol/L Normal 3.3-5.1 [facility] Comment on above: Result Comment: Hemo lysis present, Results??could be affected. ?? Performed By: #### L 500.4050, L100.0100, L501.9520, L506.1001 #### [facility] [address] [place], [address] Sodium [Moles/Vol] 141 mmol/L Normal 133-145 [facility] Comment on above: Performed By: #### L 500.4050, L100.0100, L501.9520, L506.1001 #### [facility] [address] [place], [address] T PROT 8.0 g/dL Normal 5.9-8.4 [facility] Comment on above: Performed By: #### L 500.4050, L100.0100, L501.9520, L506.1001 #### [facility] [address] [place], [address] Urea nitrogen [Mass/Vol] 19 mg/dL Normal 4-19 [facility] Comment on above: Performed By: #### L 500.4050, L100.0100, L501.9520, L506.1001 #### [facility] [address] [place], [address] Thyroid Stim Hormone (TSH)on 09-14-2025 TSH 0.286 uIU/mL Low 0.300-4.200 [facility] Comment on above: Performed By: #### L 500.4050, L100.0100, L501.9520, L506.1001 #### [facility] [address] [place], [address] Vitamin B12on 09-14-2025 Cobalamin (Vitamin B12) [Mass/Vol] 330 pg/mL Normal 180-914 [facility] Comment on above: Performed By: #### L 500.4050, L100.0100, L501.9520, L506.1001 #### [facility] [address] [place], [address] Pacemaker Checkon 08-22-2025 Pacemaker Check [facility] [place] [facility] [address] [place] [address] Pacemaker Check Date of Service: 08/22/251803 MR#: [id number] Acct: [id number] Name: PATI PHILLIPGLENNYSEJAL MANDA Rep #: [id number] : 1945 From: Vandana Guaman Age/Sex: 79/M [place] [facility] [place]: Signed Billing Codes PM Device Codes: 74083 PM Dev Prog Eval, Dual Assessment and Plan Assessment and Plan (1) Sick sinus syndrome: Status: Chronic (2) History of permanent cardiac pacemaker placement: Status: Chronic Comment: 03/09/2018 08/22/251803 Date Vandana Maxwell Signature: Date (if applicable) CC: Normal [facility] [place] - Individual Treatment Pl anon 08-15-2025 [place] - Individual Treatment Plan [facility] Pulmonary Rehab Reports [address] [place] [address] [place] - Individual Treatment Plan MR#: [id number] Acct: [id number] Name: FAVIAN PHILLIP Rep #: [id number] : 1945 79 From: Rogelio Jamison BS, RVT PCP: Dr. Jose Rey MD Exercise - Initial Assessment Visit Session Number:: 24 Physician Prescribed Exercise Modalities: Treadmill, [employer]ESS [employer] AD-7 and SciFit Stepper Current METSs:: 6.4 [...] for depression and in counseling at the [facility]) Psychosocial Test Tool Used:: PHQ-9 Questionnaire PHQ-9 [...] for depression and in counseling at the [facility]) Psychosocial Test Tool Used:: PHQ-9 Questionnaire PHQ-9 [...] for depression and in counseling at the [facility]) Psychosocial Test Tool Used:: PHQ-9 Questionnaire PHQ-9 [...] for depression and in counseling at the [facility]) Psychosocial Test Tool Used:: PHQ-9 Questionnaire PHQ-9 [...] for depression and in counseling at the [facility]) Psychosocial Test Tool Used:: PHQ-9 Questionnaire PHQ-9 Score: 5 Referral to Behavioral Health PS - Interventions: Yes: Attend Stress Management Classes Plan Interventions/Plan:: Assess stressors,coping strategies signs of derpression on admission, Instruct/assist pt to develop coping personal stre (more content not included)... Normal [facility] Absolute lymphocyte countOrd ered By: Jose Rey on 08-10-2025 Lymphocytes Auto (Unsp spec) [#/Vol] 1.93 10*3/uL 0.83-4.51 [facility] Absolute neutrophil countOrd ered By: Jose Rey on 08-10-2025 Neutrophils (Bld) [#/Vol] 2.6 10*3/uL 2.0-7.7 [facility] Anion gap in Serum or Plasma Ordered By: Jose Rey on 08-10-2025 Anion gap [Moles/Vol] 8 mmol/L 5- [facility] Automated lymphocyte count a s percentage of total leukocytesOrdered By: Jose Rey on 08-10-2025 Lymphocytes/100 WBC Auto (Unsp spec) 34.9 % - [facility] BUN/creatinine ratioOrdered By: Jose Rey on 08-10-2025 Urea nitrogen/Creatinine [Mass ratio] 19.5 mg/mg 10- [facility] Basophil percentageOrdered B y: Jose Rey on 08-10-2025 Basophils/100 WBC (Bld) 0.5 % 0-[address] [facility] Bilirubin, totalOrdered By: Jose Rey on 08-10-2025 Bilirubin [Mass/Vol] 0.64 mg/dL 0.00-1.30 [facility] CBC W/Diff, Automatedon 08-01 Absolute Lymph 1.93 X10 3/uL Normal 0.83-4.51 [facility] Comment on above: Performed By: #### L 500.4050, L100.0100, L501.9520, L506.1001 #### [facility] [address] [place], [address] Absolute Neut 2.6 X10 3/uL Normal 2.0-7.7 [facility] Comment on above: Performed By: #### L 500.4050, L100.0100, L501.9520, L506.1001 #### [facility] [address] [place], [address] Basophils/100 WBC (Bld) 0.5 % Normal 0-[address] [facility] Comment on above: Performed By: #### L 500.4050, L100.0100, L501.9520, L506.1001 #### [facility] [address] [place], [address] Eosinophils/100 WBC (Bld) 2.2 % Normal 0-5 [facility] Comment on above: Performed By: #### L 500.4050, L100.0100, L501.9520, L506.1001 #### [facility] [address] [place], [address] Erythrocyte distribution width (RBC) [Ratio] 13.1 % Normal 11.6-14.6 [facility] Comment on above: Performed By: #### L 500.4050, L100.0100, L501.9520, L506.1001 #### [facility] [address] [place], [address] Hematocrit (Bld) [Volume fraction] 38.1 % Low 40-54 [facility] Comment on above: Performed By: #### L 500.4050, L100.0100, L501.9520, L506.1001 #### [facility] [address] [place], [address] Hemoglobin (Bld) [Mass/Vol] 12.9 g/dL Low 13.0-16.5 [facility] Comment on above: Performed By: #### L 500.4050, L100.0100, L501.9520, L506.1001 #### [facility] [address] [place], [address] IG% 0.200 Normal 0.0-0.9 [facility] Comment on above: Result Comment: IG% - Immature Granulocytes (promyelocytes, myelocytes and metamyelocytes) > 1% indicates that a LEFT SHIFT is Present. Performed By: #### L 500.4050, L100.0100, L501.9520, L506.1001 #### [facility] [address] [place], [address] Lymphocytes/100 WBC (Bld) 34.9 % Normal 19-41 [facility] Comment on above: Performed By: #### L 500.4050, L100.0100, L501.9520, L506.1001 #### [facility] [address] [place], [address] MCH (RBC) [Entitic mass] 31.3 pg Normal 27.0-32.0 [facility] Comment on above: Performed By: #### L 500.4050, L100.0100, L501.9520, L506.1001 #### [facility] [address] [place], [address] MCHC (RBC) [Mass/Vol] 33.9 g/dL Normal 32-36 [facility] Comment on above: Performed By: #### L 500.4050, L100.0100, L501.9520, L506.1001 #### [facility] [address] [place], [address] MCV (RBC) [Entitic vol] 92.5 fL Normal 80-[address] [facility] Comment on above: Performed By: #### L 500.4050, L100.0100, L501.9520, L506.1001 #### [facility] [address] [place], [address] Monocytes/100 WBC (Bld) 15.6 % High 0-[address] [facility] Comment on above: Performed By: #### L 500.4050, L100.0100, L501.9520, L506.1001 #### [facility] [address] [place], [address] Neutrophils/100 WBC (Bld) 46.6 % Low 47-70 [facility] Comment on above: Performed By: #### L 500.4050, L100.0100, L501.9520, L506.1001 #### [facility] [address] [place], [address] Nucleated RBC (Bld) [#/Vol] 0 10*3/uL Normal 0-5 [facility] Comment on above: Performed By: #### L 500.4050, L100.0100, L501.9520, L506.1001 #### [facility] [address] [place], [address] Platelet mean volume (Bld) [Entitic vol] 10.2 fL Normal 6.2-12.0 [facility] Comment on above: Performed By: #### L 500.4050, L100.0100, L501.9520, L506.1001 #### [facility] [address] [place], [address] Platelets (Bld) [#/Vol] 268 10*3/uL Normal 150-450 [facility] Comment on above: Performed By: #### L 500.4050, L100.0100, L501.9520, L506.1001 #### [facility] [address] [place], [address] RBC (Bld) [#/Vol] 4.12 10*6/uL Low 4.6-6.2 [facility] Comment on above: Performed By: #### L 500.4050, L100.0100, L501.9520, L506.1001 #### [facility] [address] [place], [address] RDW SD 44.4 fl High 35.1-43.9 [facility] Comment on above: Performed By: #### L 500.4050, L100.0100, L501.9520, L506.1001 #### [facility] [address] [place], [address] WBC (Bld) [#/Vol] 5.5 10*3/uL Normal 4.4-11.0 [facility] Comment on above: Performed By: #### L 500.4050, L100.0100, L501.9520, L506.1001 #### [facility] [address] [place], [address] Carbon dioxide, total [Moles /volume] in Central venous bloodOrdered By: Jose Rey on 08-10-2025 CO2 [Moles/Vol] 25.7 mmol/L 21.0-32.0 [facility] Chloride assayOrdered By: Aris Rey on 08-10-2025 Chloride [Moles/Vol] 106 mmol/L 98-108 [facility] Comprehensive Metabolic Prof ilon 08-10-2025 Albumin [Mass/Vol] 4.1 g/dL Normal 3.4-4.8 [facility] Comment on above: Performed By: #### L 500.4050, L100.0100, L501.9520, L506.1001 #### [facility] [address] [place], [address] Albumin/Globulin [Mass ratio] 1.2 {ratio} Normal 0.9-2.4 [facility] Comment on above: Performed By: #### L 500.4050, L100.0100, L501.9520, L506.1001 #### [facility] [address] [place], [address] ALK PHOS 85 U/L Normal 40-129 [facility] Comment on above: Performed By: #### L 500.4050, L100.0100, L501.9520, L506.1001 #### [facility] [address] [place], [address] ALT [Catalytic activity/Vol] 18 U/L Normal <=46 [facility] Comment on above: Performed By: #### L 500.4050, L100.0100, L501.9520, L506.1001 #### [facility] [address] [place], [address] AST [Catalytic activity/Vol] 31 U/L Normal <=37 [facility] Comment on above: Result Comment: Hemo lysis present, Results??could be affected. ?? Performed By: #### L 500.4050, L100.0100, L501.9520, L506.1001 #### [facility] [address] [place], [address] Bilirubin [Mass/Vol] 0.64 mg/dL Normal 0.00-1.30 [facility] Comment on above: Performed By: #### L 500.4050, L100.0100, L501.9520, L506.1001 #### [facility] [address] [place], [address] BUN/CRE 19.5 RATIO Normal 10-20 [facility] Comment on above: Performed By: #### L 500.4050, L100.0100, L501.9520, L506.1001 #### [facility] [address] [place], [address] Calcium [Mass/Vol] 9.0 mg/dL Normal 7.6-11.0 [facility] Comment on above: Performed By: #### L 500.4050, L100.0100, L501.9520, L506.1001 #### [facility] [address] [place], [address] Chloride [Moles/Vol] 106 mmol/L Normal 98-108 [facility] Comment on above: Performed By: #### L 500.4050, L100.0100, L501.9520, L506.1001 #### [facility] [address] [place], [address] CO2 [Moles/Vol] 25.7 mmol/L Normal 21.0-32.0 [facility] Comment on above: Performed By: #### L 500.4050, L100.0100, L501.9520, L506.1001 #### [facility] [address] [place], [address] Creatinine [Mass/Vol] 1.01 mg/dL Normal 0.70-1.20 [facility] Comment on above: Performed By: #### L 500.4050, L100.0100, L501.9520, L506.1001 #### [facility] [address] [place], [address] GAP 8 Normal 5-15 [facility] Comment on above: Performed By: #### L 500.4050, L100.0100, L501.9520, L506.1001 #### [facility] [address] [place], [address] GFR/1.73 sq M.predicted among non-blacks MDRD (S/P/Bld) [Vol rate/Area] 77 mL/min/{1.73_m2} Normal >60 [facility] Comment on above: Result Comment: mL/m in/1.73m2 CKD-EPI Creatinine Equation (2020) Performed By: #### L 500.4050, L100.0100, L501.9520, L506.1001 #### [facility] [address] [place], [address] Globulin (S) [Mass/Vol] 3.3 g/dL Normal 2.2-4.2 [facility] Comment on above: Performed By: #### L 500.4050, L100.0100, L501.9520, L506.1001 #### [facility] [address] [place], [address] Glucose [Mass/Vol] 97 mg/dL Normal 70-99 [facility] Comment on above: Performed By: #### L 500.4050, L100.0100, L501.9520, L506.1001 #### [facility] [address] [place], [address] Potassium [Moles/Vol] 4.5 mmol/L Normal 3.3-5.1 [facility] Comment on above: Result Comment: Hemo lysis present, Results??could be affected. ?? Performed By: #### L 500.4050, L100.0100, L501.9520, L506.1001 #### [facility] [address] [place], [address] Sodium [Moles/Vol] 140 mmol/L Normal 133-145 [facility] Comment on above: Performed By: #### L 500.4050, L100.0100, L501.9520, L506.1001 #### [facility] [address] [place], [address] T PROT 7.4 g/dL Normal 5.9-8.4 [facility] Comment on above: Performed By: #### L 500.4050, L100.0100, L501.9520, L506.1001 #### [facility] [address] [place], [address] Urea nitrogen [Mass/Vol] 20 mg/dL High 4-19 [facility] Comment on above: Performed By: #### L 500.4050, L100.0100, L501.9520, L506.1001 #### [facility] [place], [address] Eosinophil percentageOrdered By: [facility] on 08-10-2025 Eosinophils/100 WBC (Bld) 2.2 % 0-5 [facility] Erythrocyte distribution wid th ratioOrdered By: [facility] on 08-10-2025 Erythrocyte distribution width (RBC) [Ratio] 13.1 % 11.6-14.6 [facility] Erythrocyte distribution wid th standard deviationOrdered By: [facility] on 08-10-2025 Erythrocyte distribution width (RBC) [Ratio] 44.4 fl High 35.1-43.9 [facility] Glomerular filtration rate ( GFR) estimation/1.73 sq m using serum, plasma, or whole bOrdered By: [facility] on 08-10-2025 GFR/1.73 sq M.predicted among non-blacks MDRD (S/P/Bld) [Vol rate/Area] 77 mL/min/{1.73_m2} >60 [facility] Comment on above: mL/min/1.73m2 CKD-EP I Creatinine Equation (2020) Hematocrit Auto (Bld) [Volum e fraction]Ordered By: [facility] 08-10-2025 Hematocrit (Bld) [Volume fraction] 38.1 % Low 40-54 [facility] Hemoglobin measurementOrdere d By: [facility] 08-10-2025 Hemoglobin (Bld) [Mass/Vol] 12.9 g/dL Low 13.0-16.5 [facility] Immature granulocytes/100 WB C Auto (Bld)[facility] Immature granulocytes/100 WBC (Bld) 0.200 % 0.0-0.9 [facility] Comment on above: IG% - Immature Granu locytes (promyelocytes, myelocytes and metamyelocytes) > 1% indicates that a LEFT SHIFT is Present. Laboratory - Chemistry and C hemistry - challengeOrdered By: [facility] 08-10-2025 AST [Catalytic activity/Vol] 31 U/L <38 [facility] Comment on above: Hemolysis present, R esults could be affected. MCV (mean corpuscular volume ) determinationOrdered By: Jose Rey on 08-10-2025 MCV (RBC) [Entitic vol] 92.5 fL 80-94 [facility] Mean corpuscular hemoglobin (MCH) determinationOrdered By: Jose Betito on 08-10-2025 MCH (RBC) [Entitic mass] 31.3 pg 27.0-32.0 [facility] Mean corpuscular hemoglobin concentration (MCHC) determinationOrdered By: Jose Rey on 08-10-2025 MCHC (RBC) [Mass/Vol] 33.9 g/dL 32-36 [facility] Mean platelet volume determi nationOrdered By: Jose Rey on 08-10-2025 Platelet mean volume (Bld) [Entitic vol] 10.2 fL 6.2-12.0 [facility] Monocyte percentageOrdered B y: Jose Rey on 08-10-2025 Monocytes/100 WBC (Bld) 15.6 % High 0-[address] [facility] Neutrophil percentageOrdered By: Jose Rey on 08-10-2025 Neutrophils/100 WBC (Bld) 46.6 % Low 47-70 [facility] Nucleated red blood cell per centageOrdered By: Jose Betito on 08-10-2025 Nucleated RBC/100 WBC (Bld) [Ratio] 0 % 0-5 [facility] Platelet countOrdered By: Aris Rey on 08-10-2025 Platelets (Bld) [#/Vol] 268 10*3/uL 150-450 [facility] Potassium measurement (mass/ volume)Ordered By: Jose Rey on 08-10-2025 Potassium (Unsp spec) [Mass/Vol] 4.5 mmol/L 3.3-5.1 [facility] Comment on above: Hemolysis present, R esults could be affected. RBC Auto (Bld) [#/Vol]Ordere d By: Jose Rey on 08-10-2025 RBC (Bld) [#/Vol] 4.12 10*6/uL Low 4.6-6.2 [facility] Serum creatinine measurement (mass/volume)Ordered By: Jose Rey on 08-10-2025 Creatinine [Mass/Vol] 1.01 mg/dL 0.70-1.20 [facility] Serum globulin measurementOr dered By: Jose Rey on 08-10-2025 Globulin (S) [Mass/Vol] 3.3 g/dL 2.2-4.[address] [facility] Serum glucose measurement (m ass/volume)Ordered By: Jose Rey on 08-10-2025 Glucose [Mass/Vol] 97 mg/dL 70-99 [facility] Serum or plasma alanine carbajal otransferase (ALT) measurementOrdered By: Jose Rey on 08-10-2025 ALT [Catalytic activity/Vol] 18 U/L <47 [facility] Serum or plasma albumin juana urement (mass/volume)Ordered By: Jose Rey on 08-10-2025 Albumin [Mass/Vol] 4.1 g/dL 3.4-4.8 [facility] Serum or plasma albumin/glob ulin mass ratioOrdered By: Jose Rey 08-10-2025 Albumin/Globulin [Mass ratio] 1.2 {ratio} 0.9-2.4 [facility] Serum or plasma alkaline katie sphatase measurementOrdered By: Jose Rey on 08-10-2025 ALP [Catalytic activity/Vol] 85 U/L 40-129 [facility] Serum or plasma calcium juana urement (mass/volume)Ordered By: Jose Rey on 08-10-2025 Calcium [Mass/Vol] 9.0 mg/dL 7.6-11.0 [facility] Serum or plasma urea nitroge n measurement (mass/volume)Ordered By: Jose Rey on 08-10-2025 Urea nitrogen [Mass/Vol] 20 mg/dL High 4-19 [facility] Sodium levelOrdered By: Jose Rey on 08-10-2025 Sodium [Moles/Vol] 140 mmol/L 133-145 [facility] TSH DL <= 0.005 mIU/L QnOrde red By: Jose Rey on 08-10-2025 TSH Qn 0.068 uIU/mL Low 0.300-4.200 [facility] Thyroid Stim Hormone (TSH)on 08-10-2025 TSH 0.068 uIU/mL Low 0.300-4.200 [facility] Comment on above: Performed By: #### L 500.4050, L100.0100, L501.9520, L506.1001 #### [facility] [address] [place], [address] Total proteinOrdered By: Jose Rey on 08-10-2025 Protein [Mass/Vol] 7.4 g/dL 5.9-8.4 [facility] Vitamin D,25 Hydroxyon 08-10 Vitamin D 25-OH 25.2 ng/mL Low 30-100 [facility] Comment on above: Result Comment: Jayda min D Status Deficiency: <20 ng/mL (50nmol/L) Insufficiency: 20-30 ng/mL (50-75 nmol/L) Sufficiency: 30-100 ng/mL (75-250 nmol/L) Toxicity: >100 ng/mL (>250 nmol/L) Performed By: #### L 500.4050, L100.0100, L501.9520, L506.1001 #### [facility] [address] [place], [address] White blood cell (WBC) count Ordered By: Jose Rey on 08-10-2025 WBC (Bld) [#/Vol] 5.5 10*3/uL 4.4-11.0 [facility] [place] - Individual Treatment Pl anon 08-05-2025 [place] - Individual Treatment Plan [facility] Pulmonary Rehab Reports [address] [place] [address] [place] - Individual Treatment Plan MR#: [id number] Acct: [id number] Name: FAVIAN PHILLIP Rep #: [id number] : 1945 79 From: Jaqueline Ramirez PCP: [...] depression and is in [facility] the [facility]) Psychosocial Goals: 1. Patient is free from [...] depression and is in counseling at the [facility]) Psychosocial Goals: 1. Patient is free from [...] depression and is in counseling at the [facility]) Psychosocial Goals: 1. Patient is free from [...] depression and is in counseling at the [facility]) Psychosocial Goals: 1. Patient is free from overwhelming symtoms of depression (or anxiety, 2. Identifies perso (more content not included)... Normal [facility] [place] - Individual Treatment Pl anon 07-08-2025 [place] - Individual Treatment Plan [facility] Pulmonary Rehab Reports [address] [place] [address] [place] - Individual Treatment Plan MR#: [id number] Acct: [id number] Name: FAVIAN PHILLIP Rep #: [id number] : 1945 79 From: Rogelio Jamison BS, RVT PCP: Dr. Jose Rey MD Exercise - Initial Assessment Visit Session Number:: 17 Physician Prescribed Exercise Modalities: Treadmill, Schwinsada Airdyne AD-7 and FilterSureFit Stepper Current METSs:: 4.4 Target HR:: 114 [...] for depression and in counseling at the [facility]) Psychosocial Goals: 1. Patient is free from [...] recog Comments:: Pt to attend stress management [facility] Psychosocial - 30-Day Visit Date of Eval: 07/08/25 Session Number:: 17 Problems/Goals History of Emotional Disorders: Depression (Pt is on meds for depression and in counseling at the [facility]) Psychosocial Goals: 1. Patient is free from [...] recog Comments:: Pt to attend stress management [facility] Psychosocial - 60-Day Visit Session Number:: 17 Problems/Goals History of Emotional Disorders: Depression (Pt is on meds for depression and in counseling at the [facility]) Psychosocial Goals: 1. Patient is free from [...] if appropriate, I (more content not included)... [facility] Final Surgical Pathology Rep [facility] 06-20-2025 Final Surgical Pathology Report . Pathology Reports Accession: Collected Date/Time: Received Date/Time: Pathologist: [id number] 06/16/2025 12:46 EDT 06/17/2025 07:01 VIVEKT SATYHA SHAVER MD Final Surgical Pathology Report DIAGNOSIS: LEFT CAROTID, ENDARTERECTOMY SPECIMEN: - PARTIALLY CALCIFIED ATHEROSCLEROTIC PLAQUE AND INTIMAL TISSUE IDENTIFIED CLINICAL INFORMATION: Procedure: LEFT CAROTID ENDARTERECTOMY Preoperative diagnosis: LEFT CAROTID ARTERY STENOSIS Postoperative diagnosis: LEFT CAROTID ARTERY STENOSIS SPECIMEN: A LEFT CAROTID ARTERY PLAQUE GROSS DESCRIPTION: All parts labelled with patient name and [id number] Received in formalin and designated L carotid artery plaque is a savage bifurcated cylindrical portion of tissue that has been previously incised longitudinally, 2.7 x 1.5 x 1.0 cm. Cut section reveals that approximately 75% of the tissue contains a savage soft plaque.. RS-1 Alice Resendiz, Pathologists ' Twisting Frame Changer (ASCP) Performed by Alice Resendiz MICROSCOPIC DESCRIPTION: The microscopic examination is performed, except in the case of Gross Only. Verified by Pathology Report verified by [facility] SATHYA SHAVER Sign out Date: 06/20/2025 15:09 Performing Lab: [address] Pathology Dept Disclaimer If ancillary studies were utilized, the following Laboratory Developed Test (LDT) disclaimer will apply: Under CLIA requirements, [facility] Pathology Laboratory is qualified to perform high complexity testing. For all ancillary stains, positive and negative controls stain appropriately. Performance characteristics of immunohistochemical and chromogenic in-situ hybridization tests have been determined by [facility] Pathology Laboratory. These tests are used for clinical purposes, They should not be regarded as investigational or for research. Normal [facility] .Auto Diffon 06-17-2025 Basophil, Absolute 0.0 10 3/mcL Normal 0.0-0.[address] [facility] Comment on above: Performed By: #### A ERNESTO, ADIFF, CBC, GFR, BMP #### [address] [address] Basophils/100 WBC (Bld) 0.5 % Normal 0.0-2.5 A [facility] Comment on above: Performed By: #### A ERNESTO, ADIFF, CBC, GFR, BMP #### [address] [address] Eosinophil, Absolute 0.0 10 3/mcL Normal 0.0-0.7 [facility] Comment on above: Performed By: #### A ERNESTO, ADIFF, CBC, GFR, BMP #### [address] [address] Eosinophils/100 WBC (Bld) 0.0 % Normal 0.0-6.0 [facility] Comment on above: Performed By: #### A ERNESTO, ADIFF, CBC, GFR, BMP #### [address] [address] Lymphocyte, Absolute 1.0 10 3/mcL Normal 0.9-4.3 [facility] Comment on above: Performed By: #### A ERNESTO, ADIFF, CBC, GFR, BMP #### [address] [address] Lymphocytes/100 WBC (Bld) 14.5 % Low 20.0-40.0 [facility] Comment on above: Performed By: #### A ERNESTO, ADIFF, CBC, GFR, BMP #### [address] [address] Monocyte, Absolute 0.8 10 3/mcL Normal 0.1-1.[address] [facility] Comment on above: Performed By: #### A ERNESTO, ADIFF, CBC, GFR, BMP #### [address] [address] Monocytes/100 WBC (Bld) 12.2 % Normal 2.0-13.0 [facility] Comment on above: Performed By: #### A ERNESTO, ADIFF, CBC, GFR, BMP #### [address] [address] Neutrophils/100 WBC (Bld) 72.8 % Normal 50.0-75.0 [facility] Comment on above: Performed By: #### A ERNESTO, ADIFF, CBC, GFR, BMP #### [address] [address] .GFRon 06-17-2025 Estimated Glomerular Filtration Rate 77 ml/min/1.73sqm [facility] Comment on above: Result Comment: Stages [...] A ERNESTO, ADIFF, CBC, GFR, BMP #### [address] [address] .NEUABSon 06-17-2025 Neutrophil, Absolute 4.9 10 3/mcL Normal 2.3-8.1 [facility] Comment on above: Performed By: #### A ERNESTO, ADIFF, CBC, GFR, BMP #### [address] [address] BMPon 06-17-2025 BUN/Creatinine Ratio 12.9 ratio Normal 10.0-22.[address] [facility] Comment on above: Performed By: #### A ERNESTO, ADIFF, CBC, GFR, BMP #### [address] [address] Calcium [Mass/Vol] 8.3 mg/dL Low 8.7-10.4 [facility] Comment on above: Performed By: #### A ERNESTO, ADIFF, CBC, GFR, BMP #### [address] [address] Chloride [Moles/Vol] 105 mmol/L Normal 98-[address] [facility] Comment on above: Performed By: #### A ERNESTO, ADIFF, CBC, GFR, BMP #### [address] [address] CO2 [Moles/Vol] 26 mmol/L Normal 22-32 [facility] Comment on above: Performed By: #### A ERNESTO, ADIFF, CBC, GFR, BMP #### [address] [address] Creatinine [Mass/Vol] 1.01 mg/dL Normal 0.60-1.40 [facility] Comment on above: Result Comment: Test ing performed on MideoMe analyzer using enzymatic creatinine methodology. Performed By: #### A ERNESTO, ADIFF, CBC, GFR, BMP #### [address] [address] Electrolyte Balance 9.0 mEq/L Normal 4.0-15.0 [facility] Comment on above: Performed By: #### A ERNESTO, ADIFF, CBC, GFR, BMP #### [place] [id number] Glucose [Mass/Vol] 176 mg/dL High 82-115 [facility] Comment on above: Performed By: #### A ERNESTO, ADIFF, CBC, GFR, BMP #### [place] [address] Potassium [Moles/Vol] 4.5 mmol/L Normal 3.5-5.0 [facility] Comment on above: Performed By: #### A ERNESTO, ADIFF, CBC, GFR, BMP #### [address] [address] Sodium [Moles/Vol] 140 mmol/L Normal 136-145 [facility] Comment on above: Performed By: #### A ERNESTO, ADIFF, CBC, GFR, BMP #### [place] [id number] Urea nitrogen [Mass/Vol] 13.0 mg/dL Normal 8.0-22.0 [facility] Comment on above: Performed By: #### A ERNESTO, ADIFF, CBC, GFR, BMP #### [address] [address] CBCon 06-17-2025 Erythrocyte distribution width (RBC) [Ratio] 14.0 % Normal 11.5-15.5 [facility] Comment on above: Performed By: #### A ERNESTO, ADIFF, CBC, GFR, BMP #### [address] [address] Hematocrit (Bld) [Volume fraction] 36.5 % Low 40.0-52.0 [facility] Comment on above: Performed By: #### A ERNESTO, ADIFF, CBC, GFR, BMP #### [place] [address] Hgb 12.6 G/dL Low 13.0-17.5 [facility] Comment on above: Performed By: #### A ERNESTO, ADIFF, CBC, GFR, BMP #### [place] [address] MCH (RBC) [Entitic mass] 31.0 pg Normal 27.0-33.0 [facility] Comment on above: Performed By: #### A ERNESTO, ADIFF, CBC, GFR, BMP #### [place] [address] MCHC 34.6 G/dL Normal 32.0-36.0 [facility] Comment on above: Performed By: #### A ERNESTO, ADIFF, CBC, GFR, BMP #### [place] [address] MCV (RBC) [Entitic vol] 89.5 fL Normal 81.0-100.0 [facility] [facility] Comment on above: Performed By: #### A ERNESTO, ADIFF, CBC, GFR, BMP #### [place] [address] Platelet 218 10 3/mcL Normal 150-450 [facility] Comment on above: Performed By: #### A ERNESTO, ADIFF, CBC, GFR, BMP #### [place] [address] Platelet mean volume (Bld) [Entitic vol] 8.6 fL Normal 6.4-10.5 [facility] Comment on above: Performed By: #### A ERNESTO, ADIFF, CBC, GFR, BMP #### [place] [address] RBC 4.08 10 6/mcL Low 4.50-6.00 [facility] Comment on above: Performed By: #### A ERNESTO, ADIFF, CBC, GFR, BMP #### [place] [address] WBC 6.8 10 3/mcL Normal 4.5-10.8 [facility] Comment on above: Performed By: #### A ERNESTO, ADIFF, CBC, GFR, BMP #### [place] [id number] [place] [address] LABORATORYOrdered By: SYSTEM SYSTEM on 06-17-2025 Basophils (Bld) [#/Vol] 0.0 103/mcL Normal 0.0 - 0.3 10^3/mcL AH Workflow SS Basophils/100 WBC (Bld) 0.5 % Normal 0.0 - 2.5 % AH Workflow SS Calcium [Mass/Vol] 8.3 mg/dL Low 8.7 - 10. 4 mg/dL AH ADM SS Chloride [Moles/Vol] 105 mmol/L Normal 98 - 11 0 mEq/L AH ADM SS CO2 [Moles/Vol] 26 mmol/L Normal 22 - 32 mEq/L AH ADM SS Creatinine [Mass/Vol] 1.01 mg/dL Normal 0.60 - 1.40 mg/dL AH ADM SS Comment on above: Interpretive Data: T esting performed on MideoMe analyzer using enzymatic creatinine methodology. Electrolyte Balance [...] 176 mg/dL High 82 - 115 mg/dL ADM SS Hematocrit (Bld) [Volume fraction] 36.5 [...] 140 mmol/L Normal 136 - 145 mEq/L ADM SS Urea nitrogen [Mass/Vol] 13.0 mg/dL Normal 8.0 - 22.0 mg/dL ADM SS Urea nitrogen/Creatinine [Mass ratio] 12.9 ratio Normal 10.0 - 22.0 ratio AH ADM SS WBC (Bld) [#/Vol] 6.8 103/mcL Normal 4.5 - 10.8 10^3/mcL AH Workflow SS .Auto Diffon 06-14-2025 Basophil, Absolute 0.0 10 3/mcL Normal 0.0-0.[address] [facility] Comment on above: Performed By: #### A ERNESTO, CBC, ADIFF #### [address] [address] Basophils/100 WBC (Bld) 1.1 % Normal 0.0-2.5 [facility] Comment on above: Performed By: #### A ERNESTO, CBC, ADIFF #### [address] [address] Eosinophil, Absolute 0.1 10 3/mcL Normal 0.0-0.7 [facility] Comment on above: Performed By: #### A ERNESTO, CBC, ADIFF #### [address] [address] Eosinophils/100 WBC (Bld) 3.4 % Normal 0.0-6.0 [facility] Comment on above: Performed By: #### A ERNESTO, CBC, ADIFF #### [address] [address] Lymphocyte, Absolute 1.7 10 3/mcL Normal 0.9-4.3 [facility] Comment on above: Performed By: #### A ERNESTO, CBC, ADIFF #### [address] [address] Lymphocytes/100 WBC (Bld) 38.7 % Normal 20.0-40.0 [facility] Comment on above: Performed By: #### A ERNESTO, CBC, ADIFF #### [address] [address] Monocyte, Absolute 0.8 10 3/mcL Normal 0.1-1.[address] [facility] Comment on above: Performed By: #### A ERNESTO, CBC, ADIFF #### [address] [address] Monocytes/100 WBC (Bld) 18.7 % High 2.0-13.0 [facility] Comment on above: Performed By: #### A ERNESTO, CBC, ADIFF #### [address] [address] Neutrophils/100 WBC (Bld) 38.1 % Low 50.0-75.0 [facility] Comment on above: Performed By: #### A ERNESTO, CBC, ADIFF #### [address] [address] .GFRon 06-14-2025 Estimated Glomerular Filtration Rate 74 ml/min/1.73sqm Normal [facility] Comment on above: Result Comment: Stages [...] By: #### A ERNESTO, CBC, ADIFF #### [address] [address] .NEUABSon 06-14-2025 Neutrophil, Absolute 1.7 10 3/mcL Low 2.3-8.1 [facility] Comment on above: Performed By: #### A ERNESTO, CBC, ADIFF #### [address] [address] ABO/Rh (Gel)on 06-14-2025 ABO/Rh Interp Positive Invalid Interpretation Code [facility] Comment on above: Performed By: #### A ERNESTO, CBC, ADIFF #### [address] [address] ABS (Gel)on 06-14-2025 ABSC Interp (Gel) Negative Normal [facility] Comment on above: Performed By: #### A ERNESTO, CBC, ADIFF #### [place] [address] APTTon 06-14-2025 aPTT Coag (Bld) [Time] 32.7 s Normal 25.0-35.0 [facility] Comment on above: Result Comment: For Heparin anticoagulation therapy, the recommended therapeutic range is: 54-77 seconds (APTT Correlation with Anti-Xa therapeutic range of 0.3-0.7 units/ml). PLEASE REFERENCE THE PHARMACY PROTOCOL FOR DOSING. Performed By: #### G FR, APTT, PRO, CMP #### [place] [address] CBCon 06-14-2025 Erythrocyte distribution width (RBC) [Ratio] 13.7 % Normal 11.5-15.5 [facility] Comment on above: Performed By: #### A ERNESTO, CBC, ADIFF #### [place] [address] Hematocrit (Bld) [Volume fraction] 39.5 % Low 40.0-52.0 [facility] Comment on above: Performed By: #### A ERNETSO, CBC, ADIFF #### [place] [address] Hgb 13.5 G/dL Normal 13.0-17.5 [facility] Comment on above: Performed By: #### A ERNESTO, CBC, ADIFF #### [place] [address] MCH (RBC) [Entitic mass] 30.9 pg Normal 27.0-33.0 [facility] Comment on above: Performed By: #### A ERNESTO, CBC, ADIFF #### [place] [address] MCHC 34.3 G/dL Normal 32.0-36.0 [facility] Comment on above: Performed By: #### A ERNESTO, CBC, ADIFF #### [place] [id number] MCV (RBC) [Entitic vol] 90.3 fL Normal 81.0-100.0 [facility] Comment on above: Performed By: #### A ERNESTO, CBC, ADIFF #### [place] [id number] Platelet 235 10 3/mcL Normal 150-450 [facility] Comment on above: Performed By: #### A ERNESTO, CBC, ADIFF #### [place] [id number] Platelet mean volume (Bld) [Entitic vol] 8.2 fL Normal 6.4-10.5 [facility] Comment on above: Performed By: #### A ERNESTO, CBC, ADIFF #### [place] [id number] RBC 4.38 10 6/mcL Low 4.50-6.00 [facility] Comment on above: Performed By: #### A ERNESTO, CBC, ADIFF #### [place] [id number] WBC 4.4 10 3/mcL Low 4.5-10.8 [facility] Comment on above: Performed By: #### A ERNESTO, CBC, ADIFF #### [place] [id number] CMPon 06-14-2025 Albumin Level 3.9 G/dL Normal 3.2-4.8 [facility] Comment on above: Performed By: #### A ERNESTO, CBC, ADIFF #### [place] [id number] Albumin/Globulin [Mass ratio] 1.1 {ratio} Normal 0.9-1.6 [facility] Comment on above: Performed By: #### A ERNESTO, CBC, ADIFF #### [place] [id number] ALP [Catalytic activity/Vol] 75 U/L Normal 38-126 [facility] Comment on above: Performed By: #### A ERNESTO, CBC, ADIFF #### [place] [id number] ALT [Catalytic activity/Vol] 22 U/L Normal 12-55 [facility] Comment on above: Performed By: #### A ERNESTO, CBC, ADIFF #### [place] [id number] AST [Catalytic activity/Vol] 28 U/L Normal 8-34 [facility] Comment on above: Performed By: #### A ERNESTO, CBC, ADIFF #### [address] [address] Bili Total 1.00 mg/dL Normal 0.20-1.20 [facility] Comment on above: Result Comment: Use of this assay is not recommended for patients undergoing treatment with eltrombopag due to the potential for falsely elevated results. Performed By: #### A ERNESTO, CBC, ADIFF #### [address] [address] BUN/Creatinine Ratio 11.5 ratio Normal 10.0-22.[address] [facility] Comment on above: Performed By: #### A ERNESTO, CBC, ADIFF #### [address] [address] Calcium [Mass/Vol] 9.3 mg/dL Normal 8.7-10.4 [facility] Comment on above: Performed By: #### A ERNESTO, CBC, ADIFF #### [address] [address] Chloride [Moles/Vol] 105 mmol/L Normal 98-[address] [facility] Comment on above: Performed By: #### A ERNESTO, CBC, ADIFF #### [address] [address] CO2 [Moles/Vol] 32 mmol/L Normal 22-32 [facility] Comment on above: Performed By: #### A ERNESTO, CBC, ADIFF #### [address] [address] Creatinine [Mass/Vol] 1.04 mg/dL Normal 0.60-1.40 [facility] Comment on above: Result Comment: Test ing performed on MideoMe analyzer using enzymatic creatinine methodology. Performed By: #### A ERNESTO, CBC, ADIFF #### [address] [address] Electrolyte Balance 7.0 mEq/L Normal 4.0-15.0 [facility] Comment on above: Performed By: #### A ERNESTO, CBC, ADIFF #### [address] [address] Globulin 3.5 G/dL Normal 2.5-4.2 [facility] Comment on above: Performed By: #### A ERNESTO, CBC, ADIFF #### [place] [address] [place] [address] Glucose [Mass/Vol] 89 mg/dL Normal 82-115 [facility] Comment on above: Performed By: #### A ERNESTO, CBC, ADIFF #### [address] [address] Potassium [Moles/Vol] 4.4 mmol/L Normal 3.5-5.0 [facility] Comment on above: Performed By: #### A ERNESTO, CBC, ADIFF #### [address] [address] Sodium [Moles/Vol] 144 mmol/L Normal 136-145 [facility] Comment on above: Performed By: #### A ERNESTO, CBC, ADIFF #### [address] [address] Total Protein 7.4 G/dL Normal 5.7-8.2 [facility] Comment on above: Performed By: #### A ERNESTO, CBC, ADIFF #### [address] [address] Urea nitrogen [Mass/Vol] 12.0 mg/dL Normal 8.0-22.0 [facility] Comment on above: Performed By: #### A ERNESTO, CBC, ADIFF #### [address] [address] LABORATORYOrdered By: Hood Cabello on 06-14-2025 ABO [...] above: Interpretive Data: T esting performed on MideoMe analyzer using enzymatic creatinine methodology. Electrolyte Balance [...] 0.0 103/mcL Normal 0.0 - 0.3 10^3/mcL Workflow SS Basophils/100 WBC (Bld) 1.1 % Normal 0.0 - 2.5 % AH Workflow SS Eosinophils (Bld) [#/Vol] 0.1 103/mcL Normal 0.0 - 0.7 10^3/mcL Workflow SS Eosinophils/100 WBC (Bld) 3.4 % Normal 0.0 - 6.0 % Workflow SS Erythrocyte distribution width (RBC) [Ratio] 13.7 % Normal 11.5 - 15.5 % Workflow SS Estimated Glomerular Filtration Rate 74 [...] 13.5 G/dL Normal 13.0 - 17.5 G/dL Workflow SS Lymphocytes (Bld) [#/Vol] 1.7 103/mcL Normal 0.9 - 4.3 10^3/mcL Workflow SS Lymphocytes/100 WBC (Bld) 38.7 % Normal 20.0 - 40.0 % Workflow SS MCH (RBC) [Entitic mass] 30.9 [...] s Normal 9.0 - 1 4.4 seconds [facility] Comment on above: Interpretive Data: E ffective 06/14/08, Protime results may be affected by some antibiotics (i.e. Ciprofloxacin, Azithromycin, Bactrim) which may potentiate the action of oral anticoagulants, with further increases in Protime/INR. PT International Ratio 1.1 ratio Invalid Interpretation Code [facility] Comment on above: Interpretive Data: Jake nelson [employer] (CHEST, 1991, 102:312S-25S) [...] Coag (PPP) [Relative time] 1.1 {INR} Normal [facility] Comment on above: Result Comment: [employer] (CHEST, 1991, 102:312S-25S) recommended therapeutic range for oral anticoagulant therapy is: LOW RISK: Prophylaxis of venous thrombosis INR: 2.0-3.0 Treatment of pulmonary embolism 2.0-3.0 Prevention of systemic embolism 2.0-3.0 HIGH RISK: Mechanical prosthetic valves 2.5-3.5 Performed By: #### G FR, APTT, PRO, CMP #### [address] [address] PT Coag (PPP) [Time] 12.5 s Normal 9.0-14.[address] [facility] Comment on above: Result Comment: Effe ctive 06/14/08, Protime results may be affected by some antibiotics (i.e. Ciprofloxacin, Azithromycin, Bactrim) which may potentiate the action of oral anticoagulants, with further increases in Protime/INR. Performed By: #### G FR, APTT, PRO, CMP #### [address] [address] [place] - Individual Treatment Pl kt 06-09-2025 [place] - Individual Treatment Plan [facility] Pulmonary Rehab Reports [address] [place] [address] [place] - Individual Treatment Plan MR#: [id number] Acct: [id number] Name: FAVIAN PHILLIP Rep #: [id number] : 1945 79 From: Jaqueline Ramirez PCP: Dr. Jose Rey MD Exercise - Initial Assessment Visit Session Number:: 15 Physician Prescribed Exercise Modalities: Treadmill, Rower, Schwsethn Airdyne AD-7, SciFit Stepper, SciFit Pro-II Ergometer and FilterSureFit Lateral [place] Target HR:: 114 Target RPE 12-16:: 12-16 [...] taking medications and undergoes counseling at the [facility]) Psychosocial Goals: 1. Patient is free from [...] taking medications and undergoes counseling at the [facility]) Psychosocial Goals: 1. Patient is free from [...] taking medications and undergoes counseling at the [facility]) Psychosocial Goals: 1. Patient is free from [...] to Behaviora (more content not included)... Normal [facility] Urine Cultureon 05-26-2025 [facility] Urine Culture Urine Culture Urine Culture Streptococcus agalactiae (B) [place] Count 80,000-100,000 Streptococcus agalactiae (B): REACTION Ampicillin Islt SAAD <=0.25 cefTRIAXone Islt SAAD <=0.12 S Clindamycin.induced Susc Islt NEG Linezolid Islt SAAD <=2 S Vancomycin Islt SAAD 0.5 S Normal [facility] Comment on above: Performed By: #### L 500.4050, L100.0100, L501.9520, L506.1001 #### [facility] Laboratory [address] [place], [address] Urine cultureOrdered By: Arden Strange on 05-23-2025 Bacteria identified Cx Nom (U) Streptococcus agalactiae (B) Abnormal [facility] [place] - Individual Treatment Pl anon 05-12-2025 [place] - Individual Treatment Plan [facility] Pulmonary Rehab Reports [address] [place] [address] [place] - Individual Treatment Plan MR#: [id number] Acct: [id number] Name: FAVIAN PHILLIP Rep #: [id number] : 1945 79 From: Rogelio Jamison BS, [...] depression and is in counseling at the [facility] Psychosocial - 30-Day Visit Date of Eval: [...] Questionnaire PHQ-9 Score: 5 Referral to Behavioral [facility] PS - Interventions: Yes: Attend Stress Management [...] depression and is in counseling at the [facility] Psychosocial - 60-Day Visit Session Number:: 5 [...] depression and is in counseling at the [facility] Psychosocial - 90-Day Visit Session Number:: 5 Problems/Goals History of Emotional Disorders: Depression Psychosocial Goals: 1. Patient is free from overwhelming symtoms of depression ( (more content not included)... Normal [facility] CT ANGIOGRAPHY NECK W/CONTRA STon 05-05-2025 CT [...] 05/05/2025 4:20:11 PM Ordering Provider: LARRY Mireles [facility] [place] - History AND Physicalon 04-14-2025 [place] - History & Physical [facility] Pulmonary Rehab Reports [address] [place] [address] [place] - History Physical MR#: [id number] Acct: [id number] Name: FAVIAN PHILLIP Rep #: [id number] : 1945 79 From: Rogelio Jamison BS, [...] Do you have a Healthcare Power of Hay Buckler?: Yes Living Will: Yes Advance Directives Information [...] dressing, bathing): (more content not included)... Normal [facility] [place] - Individual Treatment Pl anon 04-14-2025 [place] - Individual Treatment Plan [facility] Pulmonary Rehab Reports [address] [place] [address] [place] - Individual Treatment Plan MR#: [id number] Acct: [id number] Name: FAVIAN PHILLIP Rep #: [id number] : 1945 79 From: Rogelio Jamison BS, RVT PCP: Dr. Jose Rey MD General Information2 General Information Admitting Diagnosis: Dyspnea, asthma Personal Learning Style/Barriers Personal Learning Style:: Audio/Visual Barriers to Learning: None Stage of change r/t lifestyle modifications: Contemplation Education/Goals [place] Patient Goals: Increase muscle strength: Initial Assessment, [...] Treadmill, Rower, Schwinn Airdyne AD-7, SciFit Stepper, Turbine Pro-II Ergometer and FilterSureFit Lateral Academic Program Specialist Frequency (days/week): 3 Duration (Minutes):: 30-45 [...] meds and does to counseling at the MI) Psychosocial Goals: 1. Patient is free from [...] meds and does to counseling at the MI) Psychosocial Goals: 1. Patient is free from [...] admission, Instruct/a (more content not included)... Normal [facility] PSA,Total- Diagnosticon 05-0 5-2024 PSA, DIAGNOSTIC 0.54 ng/mL Normal 0.00-4.00 [facility] Comment on above: Result Comment: This test [...] values. Performed By: #### L 501.9940 #### [facility] [address] [place], [address] Carotid Duplex Ultrasoundon 03-23-2025 Carotid Duplex Ultrasound [facility] [address] [place] [address] Carotid Duplex Ultrasound 03/23/25 0809 MR#: [id number] Acct: [id number] Name: FAVIAN PHILLIP Rep #: [id number] : 1945 79 From: Larry Fitzpatrick MD Attending Dr: Dr. Larry Fitzpatrick MD Status: DE P CLI Ordering Dr: Larry Fitzpatrick MD Date: 03/23/25 Location: [facility] Sex: M C Admitted: Reason [...] left external carotid artery. Procedure Carotid Duplex 53995. This is a Carotid Duplex examination using [...] MD Date Dictated: 03/23/25808 Date Transcribed: 03/31/251929 Senior Windows Systems Engineer: Signed Normal [facility] Absolute lymphocyte countOrd ered By: Jose Rey on 02-07-2025 Lymphocytes Auto (Unsp spec) [#/Vol] 1.81 10*3/uL 0.83-4.51 [facility] Absolute neutrophil countOrd ered By: Jose Betito on 02-07-2025 Neutrophils (Bld) [#/Vol] 2.7 10*3/uL 2.0-7.7 [facility] Anion gap in Serum or Plasma Ordered By: Jose Rey on 02-07-2025 Anion gap [Moles/Vol] 10 mmol/L 5- [facility] Automated lymphocyte count a s percentage of total leukocytesOrdered By: Jose Rey on 02-07-2025 Lymphocytes/100 WBC Auto (Unsp spec) 32.1 % - [facility] BUN/creatinine ratioOrdered By: [facility] 02-07-2025 Urea nitrogen/Creatinine [Mass ratio] 16.5 mg/mg 10- [facility] Basophil percentageOrdered B y: Jose Rey on 02-07-2025 Basophils/100 WBC (Bld) 0.7 % 0-[address] [facility] Bilirubin, totalOrdered By: Jose Rey on 02-07-2025 Bilirubin [Mass/Vol] 0.71 mg/dL 0.00-1.30 [facility] CBC W/Diff, Automatedon 01-29 0-2024 Absolute Lymph 1.81 X10 3/uL Normal 0.83-4.51 [facility] Comment on above: Performed By: #### L 500.4050, L100.0100, L501.9520, L506.1001 #### [facility] [address] [place], [address] Absolute Neut 2.7 X10 3/uL Normal 2.0-7.7 [facility] Comment on above: Performed By: #### L 500.4050, L100.0100, L501.9520, L506.1001 #### [facility] [address] [place], [address] Basophils/100 WBC (Bld) 0.7 % Normal 0-[address] [facility] Comment on above: Performed By: #### L 500.4050, L100.0100, L501.9520, L506.1001 #### [facility] [address] [place], [address] Eosinophils/100 WBC (Bld) 2.1 % Normal 0-5 [facility] Comment on above: Performed By: #### L 500.4050, L100.0100, L501.9520, L506.1001 #### [facility] [address] [place], [address] Erythrocyte distribution width (RBC) [Ratio] 13.1 % Normal 11.6-14.6 [facility] Comment on above: Performed By: #### L 500.4050, L100.0100, L501.9520, L506.1001 #### [facility] [address] [place], [address] Hematocrit (Bld) [Volume fraction] 42.9 % Normal 40-54 [facility] Comment on above: Performed By: #### L 500.4050, L100.0100, L501.9520, L506.1001 #### [facility] [address] [place], [address] Hemoglobin (Bld) [Mass/Vol] 14.5 g/dL Normal 13.0-16.5 [facility] Comment on above: Performed By: #### L 500.4050, L100.0100, L501.9520, L506.1001 #### [facility] [address] [place], [address] IG% 0.400 Normal 0.0-0.9 [facility] Comment on above: Result Comment: IG% - Immature Granulocytes (promyelocytes, myelocytes and metamyelocytes) > 1% indicates that a LEFT SHIFT is Present. Performed By: #### L 500.4050, L100.0100, L501.9520, L506.1001 #### [facility] [address] [place], [address] Lymphocytes/100 WBC (Bld) 32.1 % Normal 19-41 [facility] Comment on above: Performed By: #### L 500.4050, L100.0100, L501.9520, L506.1001 #### [facility] [address] [place], [address] MCH (RBC) [Entitic mass] 30.7 pg Normal 27.0-32.0 [facility] Comment on above: Performed By: #### L 500.4050, L100.0100, L501.9520, L506.1001 #### [facility] [address] [place], [address] MCHC (RBC) [Mass/Vol] 33.8 g/dL Normal 32-36 [facility] Comment on above: Performed By: #### L 500.4050, L100.0100, L501.9520, L506.1001 #### [facility] [address] [place], [address] MCV (RBC) [Entitic vol] 90.9 fL Normal 80-94 [facility] Comment on above: Performed By: #### L 500.4050, L100.0100, L501.9520, L506.1001 #### [facility] [address] [place], [address] Monocytes/100 WBC (Bld) 16.3 % High 0-10 [facility] Comment on above: Performed By: #### L 500.4050, L100.0100, L501.9520, L506.1001 #### [facility] [address] [place], [address] Neutrophils/100 WBC (Bld) 48.4 % Normal 47-70 [facility] Comment on above: Performed By: #### L 500.4050, L100.0100, L501.9520, L506.1001 #### [facility] [address] [place], [address] Nucleated RBC (Bld) [#/Vol] 0 10*3/uL Normal 0-5 [facility] Comment on above: Performed By: #### L 500.4050, L100.0100, L501.9520, L506.1001 #### [facility] [address] [place], [address] Platelet mean volume (Bld) [Entitic vol] 10.0 fL Normal 6.2-12.0 [facility] Comment on above: Performed By: #### L 500.4050, L100.0100, L501.9520, L506.1001 #### [facility] [address] [place], [address] Platelets (Bld) [#/Vol] 260 10*3/uL Normal 150-450 [facility] Comment on above: Performed By: #### L 500.4050, L100.0100, L501.9520, L506.1001 #### [facility] [address] [place], [address] RBC (Bld) [#/Vol] 4.72 10*6/uL Normal 4.6-6.2 [facility] Comment on above: Performed By: #### L 500.4050, L100.0100, L501.9520, L506.1001 #### [facility] [address] [place], [address] RDW SD 43.7 fl Normal 35.1-43.9 [facility] Comment on above: Performed By: #### L 500.4050, L100.0100, L501.9520, L506.1001 #### [facility] [address] [place], [address] WBC (Bld) [#/Vol] 5.6 10*3/uL Normal 4.4-11.0 [facility] Comment on above: Performed By: #### L 500.4050, L100.0100, L501.9520, L506.1001 #### [facility] [address] [place], [address] Carbon dioxide, total [Moles /volume] in Central venous bloodOrdered By: Jose Rey on 02-07-2025 CO2 [Moles/Vol] 27.3 mmol/L 21.0-32.0 [facility] Chloride assayOrdered By: Aris Rey on 02-07-2025 Chloride [Moles/Vol] 105 mmol/L 98-108 [facility] Comprehensive Metabolic Prof ilon 02-07-2025 Albumin [Mass/Vol] 4.2 g/dL Normal 3.4-4.8 [facility] Comment on above: Performed By: #### L 500.4050, L100.0100, L501.9520, L506.1001 #### [facility] [address] [place], [address] Albumin/Globulin [Mass ratio] 1.1 {ratio} Normal 0.9-2.4 [facility] Comment on above: Performed By: #### L 500.4050, L100.0100, L501.9520, L506.1001 #### [facility] [address] [place], [address] ALK PHOS 84 U/L Normal 40-129 [facility] Comment on above: Performed By: #### L 500.4050, L100.0100, L501.9520, L506.1001 #### [facility] [address] [place], [address] ALT [Catalytic activity/Vol] 23 U/L Normal <=46 [facility] [facility] Comment on above: Performed By: #### L 500.4050, L100.0100, L501.9520, L506.1001 #### [facility] [address] [place], [address] AST [Catalytic activity/Vol] 28 U/L Normal <=37 [facility] Comment on above: Performed By: #### L 500.4050, L100.0100, L501.9520, L506.1001 #### [facility] [address] [place], [address] Bilirubin [Mass/Vol] 0.71 mg/dL Normal 0.00-1.30 [facility] Comment on above: Performed By: #### L 500.4050, L100.0100, L501.9520, L506.1001 #### [facility] [address] [place], [address] BUN/CRE 16.5 RATIO Normal 10-20 [facility] Comment on above: Performed By: #### L 500.4050, L100.0100, L501.9520, L506.1001 #### [facility] [address] [place], [address] Calcium [Mass/Vol] 9.7 mg/dL Normal 7.6-11.0 [facility] Comment on above: Performed By: #### L 500.4050, L100.0100, L501.9520, L506.1001 #### [facility] [address] [place], [address] Chloride [Moles/Vol] 105 mmol/L Normal 98-108 [facility] Comment on above: Performed By: #### L 500.4050, L100.0100, L501.9520, L506.1001 #### [facility] [address] [place], [address] CO2 [Moles/Vol] 27.3 mmol/L Normal 21.0-32.0 [facility] Comment on above: Performed By: #### L 500.4050, L100.0100, L501.9520, L506.1001 #### [facility] [address] [place], [address] Creatinine [Mass/Vol] 1.05 mg/dL Normal 0.70-1.20 [facility] Comment on above: Performed By: #### L 500.4050, L100.0100, L501.9520, L506.1001 #### [facility] [address] [place], [address] GAP 10 Normal 5-15 [facility] Comment on above: Performed By: #### L 500.4050, L100.0100, L501.9520, L506.1001 #### [facility] [address] [place], [address] GFR/1.73 sq M.predicted among non-blacks MDRD (S/P/Bld) [Vol rate/Area] 73 mL/min/{1.73_m2} Normal >60 [facility] Comment on above: Result Comment: mL/m in/1.73m2 CKD-EPI Creatinine Equation (2020) Performed By: #### L 500.4050, L100.0100, L501.9520, L506.1001 #### [facility] [address] [place], [address] Globulin (S) [Mass/Vol] 3.7 g/dL Normal 2.2-4.2 [facility] Comment on above: Performed By: #### L 500.4050, L100.0100, L501.9520, L506.1001 #### [facility] [address] [place], [address] Glucose [Mass/Vol] 74 mg/dL Normal 70-99 [facility] Comment on above: Performed By: #### L 500.4050, L100.0100, L501.9520, L506.1001 #### [facility] [address] [place], [address] Potassium [Moles/Vol] 4.2 mmol/L Normal 3.3-5.1 [facility] Comment on above: Performed By: #### L 500.4050, L100.0100, L501.9520, L506.1001 #### [facility] [address] [place], [address] Sodium [Moles/Vol] 142 mmol/L Normal 133-145 [facility] Comment on above: Performed By: #### L 500.4050, L100.0100, L501.9520, L506.1001 #### [facility] [address] [place], [address] T PROT 7.8 g/dL Normal 5.9-8.4 [facility] Comment on above: Performed By: #### L 500.4050, L100.0100, L501.9520, L506.1001 #### [facility] [address] [place], [address] Urea nitrogen [Mass/Vol] 17 mg/dL Normal 4-19 [facility] Comment on above: Performed By: #### L 500.4050, L100.0100, L501.9520, L506.1001 #### [facility] [address] [place], [address] Eosinophil percentageOrdered By: Jose Betito on 02-07-2025 Eosinophils/100 WBC (Bld) 2.1 % 0-5 [facility] Erythrocyte distribution wid th ratioOrdered By: [facility] on 02-07-2025 Erythrocyte distribution width (RBC) [Ratio] 13.1 % 11.6-14.6 [facility] Erythrocyte distribution wid th standard deviationOrdered By: [facility] on 02-07-2025 Erythrocyte distribution width (RBC) [Entitic vol] 43.7 fL 35.1-43.9 [facility] Erythrocyte distribution width (RBC) [Ratio] 43.7 fl 35.1-43.9 [facility] GFR/1.73 sq M.predicted lico g non-blacks MDRD (S/P/Bld) [Vol rate/Area]Ordered By: Jose Rey on 02-07-2025 Estimated GFR (MDRD) Non-Af Amer 73 >60 [facility] Comment on above: mL/min/1.73m2 CKD-EP I Creatinine Equation (2020) Glomerular filtration rate ( GFR) estimation/1.73 sq m using serum, plasma, or whole bOrdered By: Jose Rey on 02-07-2025 GFR/1.73 sq M.predicted among non-blacks MDRD (S/P/Bld) [Vol rate/Area] 73 mL/min/{1.73_m2} >60 [facility] Comment on above: mL/min/1.73m2 CKD-EP I Creatinine Equation (2020) Hematocrit Auto (Bld) [Volum e fraction]Ordered By: Jose Rey on 02-07-2025 Hematocrit (Bld) [Volume fraction] 42.9 % 40-54 [facility] Hemoglobin measurementOrdere d By: Jose Rey on 02-07-2025 Hemoglobin (Bld) [Mass/Vol] 14.5 g/dL 13.0-16.5 [facility] Immature granulocytes/100 WB C Auto (Bld)Ordered By: Jose Rey on 02-07-2025 Immature granulocytes/100 WBC (Bld) 0.400 % 0.0-0.9 [facility] Comment on above: IG% - Immature Granu locytes (promyelocytes, myelocytes and metamyelocytes) > 1% indicates that a LEFT SHIFT is Present. L506.1001on 02-07-2025 Vitamin D 25-OH 24.9 ng/mL Low 30-100 [facility] Comment on above: Result Comment: Jayda min D Status Deficiency: <20 ng/mL (50nmol/L) Insufficiency: 20-30 ng/mL (50-75 nmol/L) Sufficiency: 30-100 ng/mL (75-250 nmol/L) Toxicity: >100 ng/mL (>250 nmol/L) Performed By: #### L 500.4050, L100.0100, L501.9520, L506.1001 #### [facility] [address] [place], [address] Laboratory - Chemistry and C hemistry - challengeOrdered By: Jose Rey on 02-07-2025 AST [Catalytic activity/Vol] 28 U/L <38 [facility] Lymphocytes Auto (Unsp spec) [#/Vol]Ordered By: Jose Rey on 02-07-2025 Lymphocytes (Bld) [#/Vol] 1.81 10*3/uL 0.83-4.51 [facility] Lymphocytes/100 WBC Auto (Un sp spec)Ordered By: Jose Rey on 02-07-2025 Lymphocytes/100 WBC (Bld) 32.1 % 19-41 [facility] MCV (mean corpuscular volume ) determinationOrdered By: Jose Rey on 02-07-2025 MCV (RBC) [Entitic vol] 90.9 fL 80-[address] [facility] Mean corpuscular hemoglobin (MCH) determinationOrdered By: Jose Rey on 02-07-2025 MCH (RBC) [Entitic mass] 30.7 pg 27.0-32.0 [facility] Mean corpuscular hemoglobin concentration (MCHC) determinationOrdered By: Jose Rey on 02-07-2025 MCHC (RBC) [Mass/Vol] 33.8 g/dL 32-36 [facility] Mean platelet volume determi nationOrdered By: Jose Rey on 02-07-2025 Platelet mean volume (Bld) [Entitic vol] 10.0 fL 6.2-12.0 [facility] Monocyte percentageOrdered B y: Jose Rey on 02-07-2025 Monocytes/100 WBC (Bld) 16.3 % High 0-[address] [facility] Neutrophil percentageOrdered By: Jose Rey on 02-07-2025 Neutrophils/100 WBC (Bld) 48.4 % 47-70 [facility] Nucleated red blood cell per centageOrdered By: Jose Rey on 02-07-2025 Nucleated RBC/100 WBC (Bld) [Ratio] 0 % 0-5 [facility] Platelet countOrdered By: Aris Rey on 02-07-2025 Platelets (Bld) [#/Vol] 260 10*3/uL 150-450 [facility] Potassium (Unsp spec) [Mass/ Vol]Ordered By: Jose Rey on 02-07-2025 Potassium [Moles/Vol] 4.2 mmol/L 3.3-5.1 [facility] Potassium measurement (mass/ volume)Ordered By: Jose Rey on 02-07-2025 Potassium (Unsp spec) [Mass/Vol] 4.2 mmol/L 3.3-5.1 [facility] RBC Auto (Bld) [#/Vol]Ordere d By: Jose Rey on 02-07-2025 RBC (Bld) [#/Vol] 4.72 10*6/uL 4.6-6.2 [facility] Serum creatinine measurement (mass/volume)Ordered By: Jose Rey on 02-07-2025 Creatinine [Mass/Vol] 1.05 mg/dL 0.70-1.20 [facility] Serum globulin measurementOr dered By: Jose Rey 02-07-2025 Globulin (S) [Mass/Vol] 3.7 g/dL 2.2-4.[address] [facility] Serum glucose measurement (m ass/volume)Ordered By: Jose Rey 02-07-2025 Glucose [Mass/Vol] 74 mg/dL 70-99 [facility] Serum or plasma alanine carbajal otransferase (ALT) measurementOrdered By: Jose Rey 02-07-2025 ALT [Catalytic activity/Vol] 23 U/L <47 [facility] Serum or plasma albumin juana urement (mass/volume)Ordered By: Jose Rey 02-07-2025 Albumin [Mass/Vol] 4.2 g/dL 3.4-4.8 [facility] Serum or plasma albumin/glob ulin mass ratioOrdered By: Jose Rey 02-07-2025 Albumin/Globulin [Mass ratio] 1.1 {ratio} 0.9-2.4 [facility] Serum or plasma alkaline katie sphatase measurementOrdered By: Jose Rey 02-07-2025 ALP [Catalytic activity/Vol] 84 U/L 40-129 [facility] Serum or plasma calcium juana urement (mass/volume)Ordered By: Jose Rey 02-07-2025 Calcium [Mass/Vol] 9.7 mg/dL 7.6-11.0 [facility] Serum or plasma urea nitroge n measurement (mass/volume)Ordered By: Jose Rey on 02-07-2025 Urea nitrogen [Mass/Vol] 17 mg/dL 4-19 [facility] Sodium levelOrdered By: Jose Rey on 02-07-2025 Sodium [Moles/Vol] 142 mmol/L 133-145 [facility] TSH DL <= 0.005 mIU/L QnOrde red By: Jose Rey on 02-07-2025 Thyroid Stimulating Hormone (TSH) 0.537 uIU/mL 0.300-4.200 [facility] TSH Qn 0.537 uIU/mL 0.300-4.200 [facility] Thyroid Stim Hormone (TSH)on 02-07-2025 TSH 0.537 uIU/mL Normal 0.300-4.200 [facility] Comment on above: Performed By: #### L 500.4050, L100.0100, L501.9520, L506.1001 #### [facility] [address] [place], [address] Total proteinOrdered By: Jose Rey on 02-07-2025 Protein [Mass/Vol] 7.8 g/dL 5.9-8.4 [facility] Vitamin D, 25-hydroxyOrdered By: Jose Rey on 02-07-2025 Vitamin D 25-Hydroxy 24.9 ng/mL Low 30-100 [facility] Comment on above: Vitamin D StatusDefi ciency: <20 ng/mL (50nmol/L)Insufficiency: 20-30 ng/mL (50-75 nmol/L)Sufficiency: 30-100 ng/mL (75-250 nmol/L)Toxicity: >100 ng/mL (>250 nmol/L) White blood cell (WBC) count Ordered By: Jose Rey on 02-07-2025 WBC (Bld) [#/Vol] 5.6 10*3/uL 4.4-11.0 [facility] Echo Completeon 11-26-2024 Echo Complete [facility] [address] [place] [address] Echo Complete 11/26/24 1052 MR#: [id number] Acct: [id number] Name: FAVIAN PHILLIP Rep #: [id number] : 1945 78 From: Cecilio Aldridge MD Attending Dr: Dr. Pino Strange MD Status: REG CLI Ordering Dr: Pino Strange MD Date: 11/26/24 Location: [facility] Sex: M C Admitted: Reason [...] Jose Rey Chi Performed By: Chika Hameed IRENA 11/26/24 1232 Date Cecilio Aldridge MD CC: Dr. Pino Strange MD; Dr. 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 [address] [place] [address] Pacemaker Check Date of Service: 10/25/24 1257 MR#: [id number] Acct: [id number] Name: FAVIAN PHILLIP Rep #: [id number] : 1945 From: Vandana Guaman Age/Sex: 78/M [place] [facility] [place]: Signed Billing Codes PM Device Codes: 75660 PM Dev Prog Eval, Dual Assessment and Plan Assessment and Plan (1) History of permanent cardiac pacemaker placement: Status: Chronic Comment: 03/09/2018 (2) Sick sinus syndrome: Status: Chronic 10/25/24 1258 Date Vandana Maxwell Signature: Date (if applicable) CC: Normal [facility] Cardiology Visit Reporton Cardiology Visit Report [facility]. [address] [place] [address] OFFICE VISIT Date of Service: 10/15/24 MR#: [id number] Acct: [id number] Name: FAVIAN PHILLIP Rep #: [id number] : 1945 Provider: Dr. 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 Normal [facility] Absolute lymphocyte countOrd ered By: Jose Rey on 03-03-2024 Lymphocytes Auto (Unsp spec) [#/Vol] 1.97 10*3/uL 0.83-4.51 [facility] Automated lymphocyte count a s percentage of total leukocytesOrdered By: Jose Rey on 03-03-2024 Lymphocytes/100 WBC Auto (Unsp spec) 33.5 % 19-41 [facility] Basophil percentageOrdered B y: Jose Rey on 03-03-2024 Basophils/100 WBC (Bld) 0.7 % 0-[address] [facility] Bilirubin [Mass/Vol] 1.30 mg/dL 0.20-1.00 [facility] Comment on above: For patients on eltr ombopag therapy, use of Dimension Valentine TBIL is not recommended. Chloride [Moles/Vol] 108 mmol/L 98-107 [facility] Eosinophils/100 WBC (Bld) 1.4 % 0-5 [facility] Glucose [Mass/Vol] 72 mg/dL 74-106 [facility] Hemoglobin (Bld) [Mass/Vol] 13.8 g/dL 13.0-16.5 [facility] Monocytes/100 WBC (Bld) 15.6 % 0-[address] [facility] Neutrophils (Bld) [#/Vol] 2.9 10*3/uL 2.0-7.7 [facility] Neutrophils/100 WBC (Bld) 48.6 % 47-70 [facility] Potassium [Moles/Vol] 4.6 mmol/L 3.5-5.1 [facility] Protein [Mass/Vol] 7.8 g/dL 6.4-8.2 [facility] Sodium [Moles/Vol] 142 mmol/L 136-145 [facility] WBC (Bld) [#/Vol] 5.9 10*3/uL 4.4-11.0 [facility] Determination of erythrocyte mean corpuscular volume (MCV)Ordered By: Jose Rey on 03-03-2024 MCV (RBC) [Entitic vol] 92.9 fL 80-94 [facility] Erythrocyte distribution wid th ratioOrdered By: Jose Rey on 03-03-2024 Erythrocyte distribution width (RBC) [Ratio] 13.2 % 11.6-14.6 [facility] Erythrocyte distribution wid th standard deviationOrdered By: Jose Rey on 03-03-2024 Erythrocyte distribution width (RBC) [Entitic vol] 45.0 fL 35.1-43.9 [facility] Hematocrit Auto (Bld) [Volum e fraction]Ordered By: Jose Rey on 03-03-2024 Hematocrit (Bld) [Volume fraction] 42.1 % 40-54 [facility] Immature granulocytes/100 WB C Auto (Bld)Ordered By: Jose Rey on 03-03-2024 Immature granulocytes/100 WBC (Bld) 0.200 % 0.0-0.9 [facility] Comment on above: IG% - Immature Granu locytes (promyelocytes, myelocytes and metamyelocytes) > 1% indicates that a LEFT SHIFT is Present. Laboratory - Chemistry and C hemistry - challengeOrdered By: Jose Rey on 03-03-2024 Albumin/Globulin [Mass ratio] 1.0 {ratio} 0.9-2.4 [facility] ALP [Catalytic activity/Vol] 70 U/L 45-117 [facility] ALT [Catalytic activity/Vol] 35 U/L 16-61 [facility] CO2 [Moles/Vol] 29.0 mmol/L 21.0-32.0 [facility] Globulin (S) [Mass/Vol] 4.0 g/dL 2.2-4.[address] [facility] Urea nitrogen/Creatinine [Mass ratio] 13.9 mg/mg 10-20 [facility] - Hematology and Cell countsOrdered By: Jose Rey on 03-03-2024 MCH (RBC) [Entitic mass] 30.5 pg 27.0-32.0 [facility] MCHC (RBC) [Mass/Vol] 32.8 g/dL 32-36 [facility] Nucleated RBC/100 WBC (Bld) [Ratio] 0 % 0-5 [facility] Platelet mean volume (Bld) [Entitic vol] 10.1 fL 6.2-12.0 [facility] Platelets (Bld) [#/Vol] 238 10*3/uL 150-450 [facility] No Panel InformationOrdered By: Jose Rey on 03-03-2024 Estimated GFR (MDRD) Amer 85 mL/min >60 [facility] Comment on above: GFR Calc Estimated GFR (MDRD) Non-Af Amer 71 mL/min >60 [facility] Comment on above: Non- GFR Calc Vitamin D 25-Hydroxy 36.0 ng/mL [facility] Comment on above: Vitamin D 25(OH) Sta tus Range Deficiency <20 ng/mL (50nmol/L) Insufficiency 20 - 30 ng/mL (50 - 75 nmol/L) Sufficiency 30 - 100 ng/mL (75 - 250 nmol/L) Toxicity >100 ng/mL (>250 nmol/L) RBC Auto (Bld) [#/Vol]Ordere d By: Jose Rey on 03-03-2024 RBC (Bld) [#/Vol] 4.53 10*6/uL 4.6-6.2 [facility] Serum or plasma calcium juana urement (mass/volume)Ordered By: Jose Rey on 03-03-2024 Calcium [Mass/Vol] 9.0 mg/dL 8.5-10.1 [facility] Serum or plasma creatinine m easurement (mass/volume)Ordered By: Jose Rey on 03-03-2024 Creatinine [Mass/Vol] 1.08 mg/dL 0.70-1.30 [facility] Comment on above: The validity of the calculated GFR & GFRAA in patients over 70 years has not been determined. Clinical correlation is essential. Serum or plasma thyroid stim ulating hormone (TSH) measurement (units/volume)Ordered By: Jose Rey on 03-03-2024 TSH Qn 1.24 uIU/mL 0.358-3.74 [facility] Serum or plasma urea nitroge n measurement (mass/volume)Ordered By: Jose Rey on 03-03-2024 Urea nitrogen [Mass/Vol] 15 mg/dL 7-18 [facility] Thin prep Papanicolaou smear with manual screeningOrdered By: Jose Rey on 03-03-2024 Thin prep Papanicolaou smear with manual screening 3.8 g/dL 3.2-5.0 [facility] Thin prep Papanicolaou smear with manual screening 27 U/L 15-37 [facility] Thin prep Papanicolaou smear with manual screening 5 5-15 [facility] No Panel InformationOrdered By: Lior John on 08-28-2023 Prostate Specific Antigen Total 2.17 ng/mL 0.0-4.0 [facility] Comment on above: This test was perfor med using the TPSA assay method [facility]. Values obtained with differentassay methods cannot be used interchangably.When changing PSA assays in the course of monitoring apatient, additional sequential testing should be carriedout to confirm baseline values. Absolute lymphocyte countOrd ered By: Jose Rey on 08-27-2023 Lymphocytes Auto (Unsp spec) [#/Vol] 1.65 10*3/uL 0.83-4.51 [facility] Basophil percentageOrdered B y: Jose Rey on 08-27-2023 Basophils/100 WBC (Bld) 0.5 % 0-[address] [facility] Bilirubin [Mass/Vol] 1.40 mg/dL 0.20-1.00 [facility] Comment on above: For patients on eltr ombopag therapy, use of Dimension Valentine TBIL is not recommended. Chloride [Moles/Vol] 104 mmol/L 98-107 [facility] Eosinophils/100 WBC (Bld) 1.3 % 0-5 [facility] Glucose [Mass/Vol] 107 mg/dL 74-106 [facility] Comment on above: Fasting Glucose resu lt from 100 to 125 mg/dL suggests IMPAIRED HOMEOSTASIS per A.D.A. criteria. Neutrophils (Bld) [#/Vol] 3.8 10*3/uL 2.0-7.7 [facility] Neutrophils/100 WBC (Bld) 59.7 % 47-70 [facility] Potassium [Moles/Vol] 4.3 mmol/L 3.5-5.1 [facility] Protein [Mass/Vol] 8.0 g/dL 6.4-8.2 [facility] Sodium [Moles/Vol] 135 mmol/L 136-145 [facility] WBC (Bld) [#/Vol] 6.4 10*3/uL 4.4-11.0 [facility] Blood erythrocytes count (nu mber/volume)Ordered By: Jose Rey on 08-27-2023 RBC (Bld) [#/Vol] 4.30 10*6/uL 4.6-6.2 [facility] Blood hemoglobin measurement (mass/volume)Ordered By: Jose Rey on 08-27-2023 Hemoglobin (Bld) [Mass/Vol] 13.6 g/dL 13.0-16.5 [facility] Blood lymphocytes/100 leukoc ytesOrdered By: Jose Rey on 08-27-2023 Lymphocytes/100 WBC (Bld) 26.0 % 19-41 [facility] Blood monocytes/100 leukocyt esOrdered By: Jose Rey on 08-27-2023 Monocytes/100 WBC (Bld) 12.3 % 0-[address] [facility] Blood platelet mean volumeOr dered By: Jose Rey on 08-27-2023 Platelet mean volume (Bld) [Entitic vol] 10.0 fL 6.2-12.0 [facility] Determination of erythrocyte mean corpuscular volume (MCV)Ordered By: Jose Rey on 08-27-2023 MCV (RBC) [Entitic vol] 92.8 fL 80-[address] [facility] Erythrocyte sedimentation ra teOrdered By: Jose Rey on 08-27-2023 ESR (Bld) [Velocity] 13 mm/h 0-20 [facility] Hematocrit Auto (Bld) [Volum e fraction]Ordered By: Jose Rey on 08-27-2023 Hematocrit (Bld) [Volume fraction] 39.9 % 40-54 [facility] - Chemistry and C hemistry - challengeOrdered By: Jose Rey on 08-27-2023 ALP [Catalytic activity/Vol] 76 U/L 45-117 [facility] ALT [Catalytic activity/Vol] 34 U/L 16-61 [facility] CO2 [Moles/Vol] 25.0 mmol/L 21.0-32.0 [facility] Comment on above: Previous reported re sult: 16.0 mmol/LEdited by: RAIN on 08/28/23:0752 AMENDED REPORT 08/28/23 075 CO2 previously reported as: 16.0 L mmol/L Globulin (S) [Mass/Vol] 4.2 g/dL 2.2-4.[address] [facility] Comment on above: Previous reported re sult: 7.8 g/dLEdited by: RAIN on 08/28/23:0750 AMENDED REPORT 08/28/23 0750 GLOB previously reported as: 7.8 H g/dL Urea nitrogen/Creatinine [Mass ratio] 9.2 mg/mg 10-20 [facility] - Hematology and Cell countsOrdered By: Jose Rey on 08-27-2023 Erythrocyte distribution width (RBC) [Entitic vol] 45.1 fL 35.1-43.9 [facility] Erythrocyte distribution width (RBC) [Ratio] 13.2 % 11.6-14.6 [facility] Immature granulocytes/100 WBC (Bld) 0.200 % 0.0-0.9 [facility] Comment on above: IG% - Immature Granu locytes (promyelocytes, myelocytes and metamyelocytes) > 1% indicates that a LEFT SHIFT is Present. MCH (RBC) [Entitic mass] 31.6 pg 27.0-32.0 [facility] Nucleated RBC/100 WBC (Bld) [Ratio] 0 % 0-5 [facility] MCHC Auto (RBC) [Mass/Vol]Or dered By: Jose Rey on 08-27-2023 MCHC (RBC) [Mass/Vol] 34.1 g/dL 32-36 [facility] No Panel InformationOrdered By: Jose Rey on 08-27-2023 Estimated GFR (MDRD) Amer 76 mL/min >60 [facility] Comment on above: GFR Calc Estimated GFR (MDRD) Non-Af Amer 63 mL/min >60 [facility] Comment on above: Non- GFR Calc Platelets bldOrdered By: Jose Rey on 08-27-2023 Platelets (Bld) [#/Vol] 219 10*3/uL 150-450 [facility] Serum or plasma C reactive p rotein measurement (mass/volume)Ordered By: Jose Rey on 08-27-2023 CRP [Mass/Vol] 8.02 mg/L 0.0-3.0 [facility] Comment on above: C-Reactive Protein ( CRP) provides useful information for thediagnosis, therapy and monitoring of inflammatory processesand associated diseases. For the evaluation of Relative Riskfor Cardiovascular Disease, a High Sensitivity CRP (HSCRP)should be ordered. Serum or plasma albumin juana urement (mass/volume)Ordered By: Jose Rey on 08-27-2023 Albumin [Mass/Vol] 3.8 g/dL 3.2-5.0 [facility] Comment on above: Previous reported re sult: 0.2 g/dLEdited by: RAIN on 08/28/23:0749 AMENDED REPORT 08/28/23 0749 ALB previously reported as: 0.2 L g/dL Serum or plasma albumin/glob ulin mass ratioOrdered By: Jose Rey on 08-27-2023 Albumin/Globulin [Mass ratio] 0.9 {ratio} 0.9-2.4 [facility] Comment on above: Previous reported re sult: 0.0 RATIOEdited by: RAIN on 08/28/23:0750 AMENDED REPORT 08/28/23 0750 A/G previously reported as: 0.0 L [facility]ATIO Serum or plasma calcium juana urement (mass/volume)Ordered By: Jose Rey on 08-27-2023 Calcium [Mass/Vol] 9.1 mg/dL 8.5-10.1 [facility] Serum or plasma creatinine m easurement (mass/volume)Ordered By: Jose Rey on 08-27-2023 Creatinine [Mass/Vol] 1.20 mg/dL 0.70-1.30 [facility] Comment on above: The validity of the calculated GFR & GFRAA in patients over 70 years has not been determined. Clinical correlation is essential. Serum or plasma urea nitroge n measurement (mass/volume)Ordered By: Jose Rey on 08-27-2023 Urea nitrogen [Mass/Vol] 11 mg/dL 7-18 [facility] Thin prep Papanicolaou smear with manual screeningOrdered By: Jose Rey on 08-27-2023 Thin prep Papanicolaou smear with manual screening 28 U/L 15-37 [facility] Thin prep Papanicolaou smear with manual screening 6 5-15 [facility] Comment on above: Previous reported re sult: 15 Edited by: RAIN on 08/28/23:0752 AMENDED REPORT 08/28/23 0752 GAP previously reported as: 15 Whole blood hemoglobin A1c/t otal hemoglobin ratio (mass fraction)Ordered By: Jose Rey on 08-27-2023 HbA1c (Bld) [Mass fraction] 5.7 % 3.8-5.6 [facility] Comment on above: Normal < 5.7 % Predi abetic 5.7 - 6.4 % Diabetic >or= 6.5 % Please note range changes. Absolute lymphocyte countOrd ered By: Jose Rey on 08-06-2023 Lymphocytes Auto (Unsp spec) [#/Vol] 1.73 10*3/uL 0.83-4.51 [facility] Basophil percentageOrdered B y: Jose Rey on 08-06-2023 Basophils/100 WBC (Bld) 0.4 % 0-[address] [facility] Bilirubin [Mass/Vol] 0.80 mg/dL 0.20-1.00 [facility] Comment on above: For patients on eltr ombopag therapy, use of Dimension Valentine TBIL is not recommended. Chloride [Moles/Vol] 105 mmol/L 98-107 [facility] Eosinophils/100 WBC (Bld) 3.8 % 0-5 [facility] Glucose [Mass/Vol] 176 mg/dL 74-106 [facility] Comment on above: Fasting Glucose resu lt greater than or equal to 126 mg/dL suggests DIABETES MELLITUS per A.D.A. criteria. Neutrophils (Bld) [#/Vol] 2.0 10*3/uL 2.0-7.7 [facility] Neutrophils/100 WBC (Bld) 44.7 % 47-70 [facility] Potassium [Moles/Vol] 3.7 mmol/L 3.5-5.1 [facility] Protein [Mass/Vol] 7.5 g/dL 6.4-8.2 [facility] Sodium [Moles/Vol] 140 mmol/L 136-145 [facility] WBC (Bld) [#/Vol] 4.5 10*3/uL 4.4-11.0 [facility] Blood erythrocytes count (nu mber/volume)Ordered By: Jose Rey on 08-06-2023 RBC (Bld) [#/Vol] 4.26 10*6/uL 4.6-6.2 [facility] Blood hemoglobin measurement (mass/volume)Ordered By: Jose Rey on 08-06-2023 Hemoglobin (Bld) [Mass/Vol] 13.8 g/dL 13.0-16.5 [facility] Blood lymphocytes/100 leukoc ytesOrdered By: Jose Rey on 08-06-2023 Lymphocytes/100 WBC (Bld) 38.3 % 19-41 [facility] Blood monocytes/100 leukocyt esOrdered By: Jose Rey on 08-06-2023 Monocytes/100 WBC (Bld) 12.6 % 0-10 [facility] Blood platelet mean volumeOr dered By: Jose Rey on 08-06-2023 Platelet mean volume (Bld) [Entitic vol] 10.0 fL 6.2-12.0 [facility] Determination of erythrocyte mean corpuscular volume (MCV)Ordered By: Jose Rey on 09-06-2023 MCV (RBC) [Entitic vol] 94.8 fL 80-[address] [facility] Hematocrit Auto (Bld) [Volum e fraction]Ordered By: Jose Rey on 08-06-2023 Hematocrit (Bld) [Volume fraction] 40.4 % 40-54 [facility] Laboratory - Chemistry and C hemistry - challengeOrdered By: Jose Rey on 08-06-2023 ALP [Catalytic activity/Vol] 68 U/L 45-117 [facility] ALT [Catalytic activity/Vol] 26 U/L 16-61 [facility] CO2 [Moles/Vol] 29.0 mmol/L 21.0-32.0 [facility] Globulin (S) [Mass/Vol] 4.1 g/dL 2.2-4.[address] [facility] Urea nitrogen/Creatinine [Mass ratio] 18.4 mg/mg 10-20 [facility] Laboratory - Hematology and Cell countsOrdered By: Jose Rey on 08-06-2023 Erythrocyte distribution width (RBC) [Entitic vol] 47.0 fL 35.1-43.9 [facility] Erythrocyte distribution width (RBC) [Ratio] 13.5 % 11.6-14.6 [facility] Immature granulocytes/100 WBC (Bld) 0.200 % 0.0-0.9 [facility] Comment on above: IG% - Immature Granu locytes (promyelocytes, myelocytes and metamyelocytes) > 1% indicates that a LEFT SHIFT is Present. MCH (RBC) [Entitic mass] 32.4 pg 27.0-32.0 [facility] Nucleated RBC/100 WBC (Bld) [Ratio] 0 % 0-5 [facility] MCHC Auto (RBC) [Mass/Vol]Or dered By: Jose Rey on 08-06-2023 MCHC (RBC) [Mass/Vol] 34.2 g/dL 32-36 [facility] No Panel InformationOrdered By: Jose Rey on 08-06-2023 Estimated GFR (MDRD) Amer 80 mL/min >60 [facility] Comment on above: GFR Calc Estimated GFR (MDRD) Non-Af Amer 66 mL/min >60 [facility] Comment on above: Non- GFR Calc Thyroid Stimulating Hormone (TSH) 8.97 uIU/mL 0.358-3.74 [facility] Vitamin D 25-Hydroxy 30.3 ng/mL [facility] Comment on above: Vitamin D 25(OH) Sta tus Range Deficiency <20 ng/mL (50nmol/L) Insufficiency 20 - 30 ng/mL (50 - 75 nmol/L) Sufficiency 30 - 100 ng/mL (75 - 250 nmol/L) Toxicity >100 ng/mL (>250 nmol/L) Platelets bldOrdered By: Jose Rey on 08-06-2023 Platelets (Bld) [#/Vol] 227 10*3/uL 150-450 [facility] Serum or plasma albumin juana urement (mass/volume)Ordered By: Jose Rey on 08-06-2023 Albumin [Mass/Vol] 3.4 g/dL 3.2-5.0 [facility] Serum or plasma albumin/glob ulin mass ratioOrdered By: Jose Rey on 08-06-2023 Albumin/Globulin [Mass ratio] 0.8 {ratio} 0.9-2.4 [facility] Serum or plasma calcium juana urement (mass/volume)Ordered By: Jose Rey on 08-06-2023 Calcium [Mass/Vol] 8.6 mg/dL 8.5-10.1 [facility] Serum or plasma creatinine m easurement (mass/volume)Ordered By: Jose Rey on 08-06-2023 Creatinine [Mass/Vol] 1.14 mg/dL 0.70-1.30 [facility] Comment on above: The validity of the calculated GFR & GFRAA in patients over 70 years has not been determined. Clinical correlation is essential. Serum or plasma urea nitroge n measurement (mass/volume)Ordered By: Jose Rey on 08-06-2023 Urea nitrogen [Mass/Vol] 21 mg/dL 7-18 [facility] Thin prep Papanicolaou smear with manual screeningOrdered By: Jose Rey on 08-06-2023 Thin prep Papanicolaou smear with manual screening 22 U/L 15-37 [facility] Thin prep Papanicolaou smear with manual screening 6 5-15 [facility] Culture, urineOrdered By: Aris Rey on 05-26-2023 Bacteria identified Cx Nom (U) Culture exhibits no growth. [facility] XR CHEST 2 VIEW PA+LATon XR CHEST [...] discoid atelectasis/linear scar. MACRO: None Normal [facility] Absolute lymphocyte counton 07-31-2022 Lymphocytes Auto (Unsp spec) [#/Vol] 1.47 10*3/uL 0.83-4.51 [facility] Work Phone: Basophil percentageon 2021 Basophils/100 WBC (Bld) 0.6 % 0-[address] [facility] Work Phone: Bilirubin [Mass/Vol] 0.60 mg/dL 0.20-1.00 [facility] Work Phone: Comment on above: For patients on eltr ombopag therapy, use of Dimension Valentine TBIL is not recommended. Chloride [Moles/Vol] 106 mmol/L 98-107 [facility] Work Phone: Eosinophils/100 WBC (Bld) 1.7 % 0-5 [facility] Work Phone: Glucose [Mass/Vol] 91 mg/dL 74-106 [facility] Work Phone: Neutrophils (Bld) [#/Vol] 2.6 10*3/uL 2.0-7.7 [facility] Work Phone: Neutrophils/100 WBC (Bld) 49.2 % 47-70 [facility] Work Phone: Potassium [Moles/Vol] 4.6 mmol/L 3.5-5.1 [facility] Work Phone: Protein [Mass/Vol] 7.6 g/dL 6.4-8.2 [facility] Work Phone: Sodium [Moles/Vol] 141 mmol/L 136-145 [facility] Work Phone: Testosterone [Mass/Vol] 280.12 ng/dL [facility] Work Phone: Comment on above: CENTRAL 90% REFERENC E RANGES MALE AGE <50 197.44 - 669.58 ng/dL MALE AGE > or = 50 187.72 - 684.19 ng/dL FEMALE AGE <50 8.38 - 35.01 ng/dL FEMALE AGE > or = 50 <7.00 - 35.92 ng/dL Effective as of 06/26/21 WBC (Bld) [#/Vol] 5.2 10*3/uL 4.4-11.0 [facility] Work Phone: Blood erythrocytes count (nu mber/volume)on 07-31-2022 RBC (Bld) [#/Vol] 4.48 10*6/uL 4.6-6.2 [facility] Work Phone: Blood hemoglobin measurement (mass/volume)on 07-31-2022 Hemoglobin (Bld) [Mass/Vol] 14.0 g/dL 13.0-16.5 [facility] Work Phone: Blood lymphocytes/100 leukoc yteson 07-31-2022 Lymphocytes/100 WBC (Bld) 28.2 % 19-41 [facility] Work Phone: Blood monocytes/100 leukocyt eson 07-31-2022 Monocytes/100 WBC (Bld) 20.1 % 0-[address] [facility] Work Phone: Blood platelet mean volumeon 07-31-2022 Platelet mean volume (Bld) [Entitic vol] 10.2 fL 6.2-12.0 [facility] Work Phone: Determination of erythrocyte mean corpuscular volume (MCV)on 07-31-2022 MCV (RBC) [Entitic vol] 94.4 fL 80-[address] [facility] Work Phone: Hematocrit Auto (Bld) [Volum e fraction]on 07-31-2022 Hematocrit (Bld) [Volume fraction] 42.3 % 40-54 [facility] Work Phone: Laboratory - Chemistry and C hemistry - challengeon 07-31-2022 ALP [Catalytic activity/Vol] 68 U/L 45-117 [facility] Work Phone: ALT [Catalytic activity/Vol] 29 U/L 16-61 [facility] Work Phone: CO2 [Moles/Vol] 29.0 mmol/L 21.0-32.0 [facility] Work Phone: Globulin (S) [Mass/Vol] 4.1 g/dL 2.2-4.[address] [facility] Work Phone: Urea nitrogen/Creatinine [Mass ratio] 15.2 mg/mg 10-20 [facility] Work Phone: Laboratory - Hematology and Cell countson 07-31-2022 Erythrocyte distribution width (RBC) [Entitic vol] 45.5 fL 35.1-43.9 [facility] Work Phone: Erythrocyte distribution width (RBC) [Ratio] 13.1 % 11.6-14.6 [facility] Work Phone: Immature granulocytes/100 WBC (Bld) 0.200 % 0.0-0.9 [facility] Work Phone: Comment on above: IG% - Immature Granu locytes (promyelocytes, myelocytes and metamyelocytes) > 1% indicates that a LEFT SHIFT is Present. MCH (RBC) [Entitic mass] 31.3 pg 27.0-32.0 [facility] Work Phone: Nucleated RBC/100 WBC (Bld) [Ratio] 0 % 0-5 [facility] Work Phone: MCHC Auto (RBC) [Mass/Vol]on 07-31-2022 MCHC (RBC) [Mass/Vol] 33.1 g/dL 32-36 [facility] Work Phone: No Panel Informationon 07-31 Estimated GFR (MDRD) Amer 95 mL/min >60 [facility] Work Phone: Comment on above: GFR Calc Estimated GFR (MDRD) Non-Af Amer 79 mL/min >60 [facility] Work Phone: Comment on above: Non- GFR Calc Thyroid Stimulating Hormone (TSH) 0.98 uIU/mL 0.358-3.74 [facility] Work Phone: Vitamin D 25-Hydroxy 37.4 ng/mL [facility] Work Phone: Comment on above: Vitamin D 25(OH) Sta tus Range Deficiency <20 ng/mL (50nmol/L) Insufficiency 20 - 30 ng/mL (50 - 75 nmol/L) Sufficiency 30 - 100 ng/mL (75 - 250 nmol/L) Toxicity >100 ng/mL (>250 nmol/L) Platelets bldon 07-31-2022 Platelets (Bld) [#/Vol] 268 10*3/uL 150-450 [facility] Work Phone: Serum or plasma albumin juana urement (mass/volume)on 07-31-2022 Albumin [Mass/Vol] 3.5 g/dL 3.2-5.0 [facility] Work Phone: Serum or plasma albumin/glob ulin mass ratioon 07-31-2022 Albumin/Globulin [Mass ratio] 0.9 {ratio} 0.9-2.4 [facility] Work Phone: Serum or plasma calcium juana urement (mass/volume)on 07-31-2022 Calcium [Mass/Vol] 8.9 mg/dL 8.5-10.1 [facility] Work Phone: Serum or plasma creatinine m easurement (mass/volume)on 07-31-2022 Creatinine [Mass/Vol] 0.99 mg/dL 0.70-1.30 [facility] Work Phone: Comment on above: The validity of the calculated GFR & GFRAA in patients over 70 years has not been determined. Clinical correlation is essential. Serum or plasma urea nitroge n measurement (mass/volume)on 07-31-2022 Urea nitrogen [Mass/Vol] 15 mg/dL 7-18 [facility] Work Phone: Thin prep Papanicolaou smear with manual screeningon 07-31-2022 Thin prep Papanicolaou smear with manual screening 22 U/L 15-37 [facility] Work Phone: Thin prep Papanicolaou smear with manual screening 6 5-15 [facility] Work Phone: Culture, urineon 02-25-2022 Bacteria identified Cx Nom (U) Staphylococcus epidermidis [facility] Work Phone: Absolute lymphocyte counton 01-28-2022 Lymphocytes Auto (Unsp spec) [#/Vol] 1.91 10*3/uL 0.83-4.51 [facility] Work Phone: Basophil percentageon 2021 Basophils/100 WBC (Bld) 0.5 % 0-[address] [facility] Work Phone: Bilirubin [Mass/Vol] 0.80 mg/dL 0.20-1.00 [facility] Work Phone: Comment on above: For patients on eltr ombopag therapy, use of Dimension Valentine TBIL is not recommended. Chloride [Moles/Vol] 105 mmol/L 98-[address] [facility] Work Phone: [phone] Eosinophils/100 WBC (Bld) 3.1 % 0-5 [facility] Work Phone: [phone] Glucose [Mass/Vol] 94 mg/dL 74-106 [facility]: [phone] Neutrophils (Bld) [#/Vol] 2.7 10*3/uL 2.0-7.7 [facility] Work Phone: [phone] Neutrophils/100 WBC (Bld) 47.4 % 47-70 [facility] Work Phone: [phone] Potassium [Moles/Vol] 4.0 mmol/L 3.5-5.[address] [facility] Work Phone: [phone] Protein [Mass/Vol] 7.9 g/dL 6.4-8.2 [facility] Work Phone: [phone] Sodium [Moles/Vol] 139 mmol/L 136-145 [facility] Work Phone: [phone] Testosterone [Mass/Vol] 168.98 ng/dL [facility] Work Phone: [phone] Comment on above: CENTRAL 90% REFERENC E RANGES MALE AGE <50 197.44 - 669.58 ng/dL MALE AGE > or = 50 187.72 - 684.19 ng/dL FEMALE AGE <50 8.38 - 35.01 ng/dL FEMALE AGE > or = 50 <7.00 - 35.92 ng/dL Effective as of 06/26/21 WBC (Bld) [#/Vol] 5.7 10*3/uL 4.4-11.0 [facility] Work Phone: [phone] Blood erythrocytes count (nu mber/volume)on 01-28-2022 RBC (Bld) [#/Vol] 4.55 10*6/uL 4.6-6.2 [facility] Work Phone: Blood hemoglobin measurement (mass/volume)on 01-28-2022 Hemoglobin (Bld) [Mass/Vol] 14.0 g/dL 13.0-16.5 [facility] Work Phone: Blood lymphocytes/100 leukoc yteson 01-28-2022 Lymphocytes/100 WBC (Bld) 33.3 % 19-41 [facility] Work Phone: Blood monocytes/100 leukocyt eson 01-28-2022 Monocytes/100 WBC (Bld) 15.5 % 0-[address] [facility] Work Phone: Blood platelet mean volumeon 01-28-2022 Platelet mean volume (Bld) [Entitic vol] 10.2 fL 6.2-12.0 [facility] Work Phone: Determination of erythrocyte mean corpuscular volume (MCV)on 01-28-2022 MCV (RBC) [Entitic vol] 93.4 fL 80-[address] [facility] Work Phone: Hematocrit Auto (Bld) [Volum e fraction]on 01-28-2022 Hematocrit (Bld) [Volume fraction] 42.5 % 40-54 [facility] Work Phone: Laboratory - Chemistry and C hemistry - challengeon 01-28-2022 ALP [Catalytic activity/Vol] 74 U/L 45-117 [facility] Work Phone: ALT [Catalytic activity/Vol] 32 U/L 16-61 [facility] Work Phone: CO2 [Moles/Vol] 30.0 mmol/L 21.0-32.0 [facility] Work Phone: Globulin (S) [Mass/Vol] 4.3 g/dL 2.2-4.[address] [facility] Work Phone: Urea nitrogen/Creatinine [Mass ratio] 18.5 mg/mg 10-20 [facility] Work Phone: Laboratory - Hematology and Cell countson 01-28-2022 Erythrocyte distribution width (RBC) [Entitic vol] 46.1 fL 35.1-43.9 [facility] Work Phone: Erythrocyte distribution width (RBC) [Ratio] 13.5 % 11.6-14.6 [facility] Work Phone: Immature granulocytes/100 WBC (Bld) 0.200 % 0.0-0.9 [facility] Work Phone: Comment on above: IG% - Immature Granu locytes (promyelocytes, myelocytes and metamyelocytes) > 1% indicates that a LEFT SHIFT is Present. MCH (RBC) [Entitic mass] 30.8 pg 27.0-32.0 [facility] Work Phone: Nucleated RBC/100 WBC (Bld) [Ratio] 0 % 0-5 [facility] Work Phone: MCHC Auto (RBC) [Mass/Vol]on 01-28-2022 MCHC (RBC) [Mass/Vol] 32.9 g/dL 32-36 [facility] Work Phone: No Panel Informationon 01-28 Estimated GFR (MDRD) Amer 86 mL/min >60 [facility] Work Phone: Comment on above: GFR Calc Estimated GFR (MDRD) Non-Af Amer 71 mL/min >60 [facility] Work Phone: Comment on above: Non- GFR Calc Thyroid Stimulating Hormone (TSH) 2.86 uIU/mL 0.358-3.74 [facility] Work Phone: Vitamin D 25-Hydroxy 31.2 ng/mL [facility] Work Phone: Comment on above: Vitamin D 25(OH) Sta tus Range Deficiency <20 ng/mL (50nmol/L) Insufficiency 20 - 30 ng/mL (50 - 75 nmol/L) Sufficiency 30 - 100 ng/mL (75 - 250 nmol/L) Toxicity >100 ng/mL (>250 nmol/L) Platelets bldon 01-28-2022 Platelets (Bld) [#/Vol] 281 10*3/uL 150-450 [facility] Work Phone: Serum or plasma albumin juana urement (mass/volume)on 01-28-2022 Albumin [Mass/Vol] 3.6 g/dL 3.2-5.0 [facility] Work Phone: Serum or plasma albumin/glob ulin mass ratioon 01-28-2022 Albumin/Globulin [Mass ratio] 0.8 {ratio} 0.9-2.4 [facility] Work Phone: Serum or plasma calcium juana urement (mass/volume)on 01-28-2022 Calcium [Mass/Vol] 9.2 mg/dL 8.5-10.1 [facility] Work Phone: Serum or plasma creatinine m easurement (mass/volume)on 01-28-2022 Creatinine [Mass/Vol] 1.08 mg/dL 0.70-1.30 [facility] Work Phone: Comment on above: The validity of the calculated GFR & GFRAA in patients over 70 years has not been determined. Clinical correlation is essential. Serum or plasma urea nitroge n measurement (mass/volume)on 01-28-2022 Urea nitrogen [Mass/Vol] 20 mg/dL 7-18 [facility] Work Phone: Thin prep Papanicolaou smear with manual screeningon 01-28-2022 Thin prep Papanicolaou smear with manual screening 25 U/L 15-37 [facility] Work Phone: Thin prep Papanicolaou smear with manual screening 4 5-15 [facility] Work Phone: Laboratory - Microbiology an d Antimicrobial susceptibilityon 12-05-2021 SARS-CoV-2 (COVID-19) RNA ARIANNE+probe Ql (Unsp spec) Detected Not Detect [facility] Work Phone: Comment on above: Normal Reference Ran ge: Not DetectedMethod:(RT-PCR) real-time reverse transcriptase PCRLuminex TROY Instrument*The Food and Drug Administration (FDA) has issued an Emergency Use Authorization (EAU) for the TROY SARS-CoV-2 Assay for the rapid detection of the virus that causes COVID-19. This test has been validated, but the [facility] independent review of this validation is pending.*Negative [...] Informationon 12-05 Influenza Types A,B Direct FA ([facility]) [facility] Work Phone: Otheron 11-27-2006 CONVERTED ELECTRONIC SIGNATURE RACHID RAMIREZ M.D., PATHOLOGIST (Electronic signature on file) Final Signed Out: 11/27/2006 15:48 [facility] CONVERTED FINAL DIAGNOSIS INTERVERTEBRAL DISC, EXCISION - FIBROCARTILAGE WITH DEGENERATIVE CHANGES. [facility] CONVERTED ORDERING PROVIDER Ordering Provider: JAZIEL VELASQUEZ [facility] Vital Signs Date Time Vital Sign Value Performing Clinician Julián grossman 08-15-2025 09:09-0400 Body height 177.[address] Jose Rey MD Work Phone: [facility] 08-15-2025 09:09-0400 Body mass index (BMI) [Ratio] 27.1 kg/m2 Dr. Jose Rey MD Work Phone: [facility] 08-15-2025 09:09-0400 Body weight 85.[address] Jose Rey MD Work Phone: [facility] 07-08-2025 07:26-0400 Body height 177.[address] Jose Rey MD Work Phone: [facility] 07-08-2025 07:26-0400 Body mass index (BMI) [Ratio] 28.4 kg/m2 Dr. Jose Rey MD Work Phone: [facility] 07-08-2025 07:26-0400 Body weight 89.[address] Jose Rey MD Work Phone: [facility] 06-09-2025 08:48-0400 Body height 177.[address] Jose Rey MD Work Phone: [phone] [place] [address] 06-09-2025 08:48-0400 Body mass index (BMI) [Ratio] 28.4 kg/m2 Dr. Jose Rey MD Work Phone: [phone] [place] [address] 06-09-2025 08:48-0400 Body weight 89.[address] Jose Rey MD Work Phone: [phone] [place] [address] 05-12-2025 07:46-0400 Body height 177.[address] Jose Rey MD Work Phone: [phone] [place] [address] 05-12-2025 07:46-0400 Body mass index (BMI) [Ratio] 27.9 kg/m2 Dr. Jose Rey MD Work Phone: [phone] [place] [address] 05-12-2025 07:46-0400 Body weight 88.[address] Jose Rey MD Work Phone: [phone] [place] [address] 04-14-2025 11:23-0400 Body mass index (BMI) [Ratio] 27.9 kg/m2 Dr. Jose Rey MD Work Phone: [phone] [place] [address] 04-14-2025 11:22-0400 Body height 177.[address] Jose Rey MD Work Phone: [phone] [place] [address] 04-14-2025 11:22-0400 Body weight 88.[address] Jose Rey MD Work Phone: [phone] [place] [address] 04-14-2025 10:32-0400 Diastolic blood pressure 84 mm[Hg] Dr. Jose Rey MD Work Phone: [phone] [place] [address] 04-14-2025 10:32-0400 Heart rate 60 /min Dr. Jose Rey MD Work Phone: [phone] [place] [address] 04-14-2025 10:32-0400 SaO2% (BldA) [Mass fraction] 91 % Dr. Jose Rey MD Work Phone: [phone] [place] [address] 04-14-2025 10:32-0400 Systolic blood pressure 160 mm[Hg] Dr. Jose Rey MD Work Phone: [facility] 01-04-2022 10:22-0500 Body height 177.[address] Jose Rey Work Phone: [facility] Work Phone: 01-04-2022 10:22-0500 Body mass index (BMI) [Ratio] 28.3 kg/m2 Dr. Jose Rey Work Phone: [facility] Work Phone: 01-04-2022 10:22-0500 Body temperature 96.2 [degF] Dr. Jose Rey Work Phone: [facility] Work Phone: 01-04-2022 10:22-0500 Body weight 89.[address] Jose Rey Work Phone: [facility] Work Phone: 01-04-2022 10:22-0500 Diastolic blood pressure 81 mm[Hg] Dr. Jose Rey Work Phone: [facility] Work Phone: 01-04-2022 10:22-0500 Heart rate 59 /min Dr. Jose Rey Work Phone: [facility] Work Phone: 01-04-2022 10:22-0500 Respiratory rate 14 /min Dr. Jose Rey Work Phone: [facility] Work Phone: 01-04-2022 10:22-0500 SaO2% (BldA) [Mass fraction] 96 % Dr. Jose Rey Work Phone: [facility] Work Phone: 01-04-2022 10:22-0500 Systolic blood pressure 145 mm[Hg] Dr. Jose Rey Work Phone: [facility] Work Phone: 12-08-2021 16:02-0500 Body temperature 98 [degF] Dr. Jose Rey Work Phone: [facility] Work Phone: 12-08-2021 16:02-0500 Diastolic blood pressure 98 mm[Hg] Dr. Jose Rey Work Phone: [facility] Work Phone: 12-08-2021 16:02-0500 Heart rate 79 /min Dr. Jose Rey Work Phone: [facility] Work Phone: 12-08-2021 16:02-0500 Respiratory rate 16 /min Dr. Jose Rey Work Phone: [facility] Work Phone: 12-08-2021 16:02-0500 SaO2% (BldA) [Mass fraction] 98 % Dr. Jose Rey Work Phone: [facility] Work Phone: 12-08-2021 16:02-0500 Systolic blood pressure 132 mm[Hg] Dr. Jose Rey Work Phone: [facility] Work Phone: 12-08-2021 14:27-0500 Body mass index (BMI) [Ratio] 27.1 kg/m2 Dr. Jose Rey Work Phone: [facility] Work Phone: 12-08-2021 14:27-0500 Body weight 88.[address] Jose Rey Work Phone: [facility] Work Phone: 03-30-2021 09:36-0400 Body mass index (BMI) [Ratio] 27.3 kg/m2 Dr. Jose Rey Work Phone: [facility] Work Phone: Encounters Encounter Date Encounter Type Care Provider Facility Start: 10-19-2025 ambulatory Jose Chi Betito Facility:[facility] Start: 10-05-2025 ambulatory Jose Chi Betito Facility:[facility] Start: 10-05-2025 ambulatory Jose Rey Facility:[facility] Start: 09-14-2025 End: 09-14-2025 [facility]ulatory [facility] Facility:[facility] Start: 09-10-2025 ambulatory Jose Luis Betito Facility:[facility] Start: 08-23-2025 End: 08-23-[address] Jose Rey MD Work Phone: -[facility] Start: 08-23-2025 End: 08-23-[address] Cecilio Aldridge MD -[facility] Work Phone: Start: 08-22-2025 End: 08-22-2025 Patient encounter procedure Vandana Guaman -[facility] Work Phone: Start: 08-22-2025 End: 08-22-[address] Jose Rey MD Work Phone: -[facility] Start: 08-10-2025 End: 08-10-[address] Jose Rey MD Work Phone: -Laboratory Phy Office 3rd Flr Start: 08-10-2025 End: 08-10-[address] Jose Rey MD -Laboratory Phy Office 3rd Flr Start: 08-10-2025 End: 08-10-2025 ambulatory Jose Luis Rey Facility:[facility] Start: 08-03-2025 End: 08-30-[address] Pino Strange MD -Pulmonary Rehab Work Phone: Start: 08-03-[address] Aashish Strange MD -Pulmonary Rehab Work Phone: Start: 08-03-2025 End: 08-30-[address] Jose Rey MD Work Phone: -Pulmonary Rehab Start: 07-29-2025 End: 07-31-[address] Jose Rey MD Work Phone: -Pulmonary Rehab Start: 07-29-2025 End: 07-31-[address] Pino Strange MD -Pulmonary Rehab Work Phone: Start: 07-11-[address] Aashish Strange MD -Pulmonary Rehab Work Phone: Start: 06-22-2025 End: 06-22-[address] Jose Rey MD Work Phone: -[facility] Start: 06-22-2025 End: 06-22-[address] Cecilio Aldridge MD -[facility] Work Phone: Start: 06-16-2025 End: 06-17-2025 Evaluation and management of inpatient LARRY FITZPATRICK MD [facility] Start: 06-14-2025 End: 06-14-2025 Admission to [facility] LARRY FITZPATRICK MD [facility] Start: 06-14-2025 End: 06-14-2025 ambulatory LARRY FITZPATRICK MD Facility: Start: 06-13-2025 End: 06-30-[address] Jose Rey MD Work Phone: -Pulmonary Rehab Start: 06-13-2025 End: 06-30-[address] Pino Strange MD -Pulmonary Rehab Work Phone: Start: 05-27-2025 End: 05-30-[address] Jose Rey MD Work Phone: -Pulmonary Rehab Start: 05-27-2025 End: 05-30-[address] Pino Strange MD -Pulmonary Rehab Work Phone: Start: 05-05-2025 End: 05-05-[address] CATE REY MD Facility:[facility] Start: 05-05-2025 End: 05-05-2025 Patient encounter procedure LARRY FITZPATRICK MD [facility] Start: 04-22-2025 End: 04-30-[address] Jose Rey MD Work Phone: [facility] Work Phone: Start: 04-22-2025 End: 04-30-[address] Pino Strange MD -Pulmonary Rehab Work Phone: Start: 04-18-[address] Aashish Strange MD -Pulmonary Rehab Work Phone: Start: 04-14-2025 End: 04-14-[address] Jose Rey MD Work Phone: [facility] Work Phone: Start: 04-14-2025 End: 04-14-[address] Pino Strange MD -Pulmonary Rehab Work Phone: Start: 04-14-2025 End: 04-14-2025 ambulatory Pino Strange Facility:[facility] Start: 04-04-2025 End: 04-04-[address] Jose Rey MD Work Phone: [facility] Work Phone: Start: 04-04-2025 End: 04-04-2025 Patient encounter procedure Dominique Rhodes -Laboratory Work Phone: Start: 04-04-2025 End: 04-04-2025 ambulatory Dominique Brimson Facility:[facility] Start: 03-23-2025 End: 03-23-[address] Jose Rey MD Work Phone: [facility] Work Phone: Start: 03-23-2025 End: 03-23-[address] Larry Fitzpatrick MD -Cardiovascular Services Work Phone: Start: 03-23-2025 End: 03-23-2025 ambulatory Jose Rey Facility:[facility] Start: 02-07-2025 End: 02-07-[address] Jose Rey MD Work Phone: [facility] Work Phone: Start: 02-07-2025 End: 02-07-[address] Jose Rey MD -Laboratory, Phy Office 3rd Flr Start: 02-07-2025 End: 02-07-2025 ambulatory Jose Chi Betito Facility:[facility] Start: 12-22-2024 End: 12-22-2024 ambulatory Jose Chi Betito Facility:[facility] Start: 12-22-2024 End: 12-22-[address] Cecilio Aldridge MD -[facility] Work Phone: Start: 11-26-2024 ambulatory Jose Chi [facility] Facility:[facility] Start: 11-26-2024 Non-patient / Non-visit Dr. Rigo [facility] Start: 11-26-2024 End: 11-26-[address] Pino Strange MD -Cardiovascular Services Work Phone: Start: 11-26-2024 End: 11-26-2024 ambulatory [facility] Facility:[facility] Start: 10-25-2024 End: 10-25-2024 ambulatory Cecilio Aldridge Facility:[facility] Start: 10-25-2024 End: 10-25-[address] Cecilio Aldridge MD -[facility] Work Phone: Start: 10-15-2024 End: 10-15-2024 ambulatory Jose Chi Betito Facility:[facility] Start: 03-03-2024 End: 03-03-[address] Jose Rey Work Phone: [facility] Work Phone: Start: 03-03-2024 End: 03-03-[address] Jose Rey Work Phone: [facility]-Laboratory, Phy Office 3rd Flr Start: 12-24-2023 End: 12-24-[address] Jose Rey Work Phone: [facility] Work Phone: Start: 12-24-2023 End: 12-24-[address] Jose Rey Work Phone: [facility] Work Phone: Start: 08-28-2023 End: 08-28-2023 ambulatory [facility] Work Phone: Start: 08-28-2023 End: 08-28-2023 [facility] Start: 08-27-2023 End: 08-27-2023 ambulatory [facility] Work Phone: Start: 08-27-2023 End: 08-27-2023 [facility] Start: 08-06-2023 End: 08-06-2023 ambulatory [facility] Work Phone: Start: 08-06-2023 End: 08-06-2023 [facility] Start: 05-26-2023 End: 05-26-[address] Jose Rey Work Phone: [facility] Work Phone: Start: 05-26-2023 End: 05-26-[address] Jose Rey [facility] Work [facility]: Start: 03-05-2023 End: 03-05-[address] Jose Rey Work Phone: [facility] Work Phone: Start: 02-18-2023 End: 02-18-[address] Jose Rey Work Phone: [facility] Work Phone: Start: 02-18-2023 End: 02-18-[address] Jose Rey [facility] Start: 12-18-2022 End: 12-18-2022 ambulatory ELEANOR ALEXVER Facility:[facility] Start: 11-27-2022 End: 11-27-[address] Jose Rey Work Phone: [facility] Start: 07-31-2022 End: 07-31-[address] Jose Rey Work Phone: [facility] Work Phone: Start: 07-31-2022 End: 07-31-[address] Jose Rey [facility] Start: 06-14-2022 End: 06-14-[address] Jose Rey Work Phone: [facility] Start: 03-06-2022 End: 03-06-[address] Jose Rey Work Phone: [facility] Start: 02-25-2022 End: 02-25-[address] Jose [facility] Start: 02-04-2022 Non-patient / Non-visit Dr. Aris Rey Work Phone: [facility] Start: 02-04-2022 End: 02-04-[address] Jose Rey [facility] Start: 01-28-2022 End: 01-28-[address] Jose Rey [facility] Start: 01-04-2022 End: 01-04-2022 Emergency department patient visit Dr. Jose Rey Work Phone: [facility]-Emergency Department Start: 12-08-2021 End: 12-08-[address] Jose Rey Work Phone: [facility]-Medical Surgical 3 Outp Start: 12-05-2021 End: 12-05-[address] Jose Rey Work Phone: [facility]-Pulmonary Services/Neurology Start: 11-28-2021 End: 11-28-[address] Jose Rey Work Phone: [facility] Start: 11-26-2006 End: 11-26-2006 Patient encounter procedure Jaziel Deborah Velasquez Work Phone: [facility] Start: 11-26-2006 Results Only Jaziel Velasquez Work Phone: [facility] Procedures Date Procedure Procedure Detail Performing Clinician [...] FITZPATRICK MD Start: 11-26-2006 CONVERTED SURGICAL PATHOLOGY [facility] Work Phone: Acquired trigger finger (disorder) LARRY FITZPATRICK MD Acquired trigger finger (disorder) LARRY FITZPATRICK MD Comment on above: X6 FINGERS Cardiac pacemaker, d evice (physical object) LARRY FITZPATRICK MD Comment on above: [employer] SCIENTIFIC MODEL L111 SERIAL 3431 10 Cervical laminectomy [...] abnormality) LARRY FITZPATRICK MD Comment on above: fusion of verebrae Fused structure (mor phologic abnormality) LARRY FITZPATRICK MD Comment on above: fusion of verebrae CERVICAL History of repair of musculotendinous cuff of shoulder LARRY FITZPATRICK MD Comment on above: RIGHT [...] Simple repair scalp/neck/ax/genit/trunk 2.5cm/< RPR S/N/AX/GEN/TRNK 2.5CM/< [facility] Work Phone: Start: 08-01-2020 Influenza vaccination INFLUENZA (#1) [facility] Start: 2012 ADVANCE DIRECTIVE DISCUSSION ADVANCE DIRECTIVE DISCUSSION [facility] Start: 2012 PNEUMOVAX AGE 65 AND OVER WITH 5YR LOOKBACK (#1) PNEUMOVAX AGE 65 AND OVER WITH 5YR LOOKBACK (#1) [facility] Start: 1997 SHINGRIX VACCINE (1 of 2) MORALES GRIX VACCINE (1 of 2) [facility] Start: 1997 Tuberculosis screening COLOREC TEDDY CANCER SCREENING,SEE MODIFIER [facility] Start: 1992 DIABETES SCREEN DIABETES SCREEN [facility] Start: 1982 LIPID SCREEN LIPID SCREEN [facility] Start: 1966 Urine microalbumin profile DTAP,TDAP,TD (1 - Tdap) [facility] Start: 1965 HEPATITIS C SCREENING HEPATITIS C SC REENING [facility] Patient Education ED Laceration, Hand: All Closures [facility] Work Phone: Patient referral [facility] Work Phone: Payers Date Payer Category Payer Medicare [id number] 2025 Private Health Insurance [id number] 2024 Self-pay [id number] 2023 Private Health Insurance [id number] 2016 Unknown [id number] 2012 Medicare [id number] 1947 Unknown [id number] 2.16. 840.1.333060.3.579.2.627 1947 Unknown [id number] 2.16. 840.1.428911.3.579.2.627 1947 Unknown [id number] 2.16. 840.1.060907.3.579.2.627 Unknown [id number] 2.16.8 40.1.615014.3.579.2.462 Unknown [id number] 2.16.8 40.1.554426.3.579.2.462 Unknown [id number] 2.16.8 40.1.851652.3.579.2.462 Unknown [id number] 2.16.8 40.1.331878.3.579.2.462 Unknown [id number] 2.16.8 40.1.212448.3.579.2.462 Unknown [id number] 2.16.8 40.1.895469.3.579.2.462 Unknown [id number] 2.16.8 40.1.971402.3.579.2.462 Unknown [id number] 2.16.8 40.1.130252.3.579.2.462 Unknown [id number] 2.16.8 40.1.544042.3.579.2.462 Unknown [id number] 2.16.8 40.1.695721.3.579.2.462 Unknown [id number] 2.16.8 40.1.037208.3.579.2.462 Unknown [id number] 2.16.8 40.1.342780.3.579.2.462 Unknown [id number] 2.16.8 40.1.128472.3.579.2.462 Unknown [id number] 2.16.8 40.1.606694.3.579.2.462 Unknown [id number] 2.16.8 40.1.136504.3.579.2.462 Unknown [id number] 2.16.8 40.1.535990.3.579.2.462 Unknown [id number] 2.16.8 40.1.048999.3.579.2.462 Unknown [id number] 2.16.8 40.1.554836.3.579.2.462 Unknown [id number] 2.16.8 40.1.830895.3.579.2.462 Unknown [id number] 2.16.8 40.1.711121.3.579.2.462 Unknown [id number] 2.16.8 40.1.412538.3.579.2.462 Unknown [id number] 2.16.8 40.1.694216.3.579.2.462 Unknown [id number] 2.16.8 40.1.705653.3.579.2.462 Unknown [id number] 2.16.8 40.1.761851.3.579.2.462 Unknown [id number] 2.16.8 40.1.397207.3.579.2.462 Unknown [id number] 2.16.8 40.1.359651.3.579.2.462 Social History Date Type Detail Facility [facility] Sex Assigned At Not on file [facility] Start: 01-04-2022 End: 10-20-2023 Tobacco smoking status NHIS Unknown if ever smoked [facility] Start: 05-25-2018 None [facility] Start: 03-23-2021 Non-smoker [facility] Start: 1945 Sex Assigned At Male [facility] Start: 07-22-2024 End: 04-14-2025 Tobacco smoking status NHIS Never smoked tobacco (finding) [facility] Start: 02-13-2016 End: 02-17-2025 Sex Male (finding) [facility] Sexual Orientation [facility] Male [facility] Medical Equipment Procedure Code Equipment Code Equipment Origin al Text Equipment Identifier Dates [employer] FDA Start: 03-09-2016 [employer] FDA Start: 03-09-2016 [employer] FDA Start: 03-09-2016 [employer] FDA Start: 03-09-2016 [employer] FDA Start: 03-09-2016 [employer] FDA Start: 03-09-2016 [employer] FDA Start: 03-09-2016 [employer] FDA Start: 03-09-2016 [employer] FDA Start: 03-09-2016 [employer] FDA Start: 03-09-2016 [employer] FDA Start: 03-09-2016 [employer] FDA Start: 03-09-2016 [employer] FDA Start: 03-09-2016 [employer] FDA Start: 03-09-2016 [employer] FDA Start: 03-09-2016 [employer] FDA Start: 03-09-2016 [employer] FDA Start: 03-09-2016 [employer] FDA Start: 03-09-2016 [employer] FDA Start: 03-09-2016 [employer] FDA Start: 03-09-2016 [employer] FDA Start: 03-09-2016 [employer] FDA Start: 03-09-2016 [employer] FDA Start: 03-09-2016 [employer] FDA Start: 03-09-2016 [employer] FDA Start: 03-09-2016 [employer] FDA Start: 03-09-2016 [employer] FDA Start: 03-09-2016 [employer] FDA Start: 03-09-2016 [employer] FDA Start: 03-09-2016 [employer] FDA Start: 03-09-2016 [employer] FDA Start: 03-09-2016 [employer] FDA Start: 03-09-2016 [employer] FDA Start: 03-09-2016 [employer] FDA Start: 03-09-2016 [employer] FDA Start: 03-09-2016 [employer] FDA Start: 03-09-2016 [employer] FDA Start: 03-09-2016 [employer] FDA Start: 03-09-2016 [employer] FDA Start: 03-09-2016 [employer] FDA Start: 03-09-2016 [employer] FDA Start: 03-09-2016 [employer] FDA Start: 03-09-2016 [employer] FDA Start: 03-09-2016 [employer] FDA Start: 03-09-2016 [employer] FDA Start: 03-09-2016 [employer] FDA Start: 03-09-2016 [employer] FDA Start: 03-09-2016 [employer] FDA Start: 03-09-2016 [employer] FDA Start: 03-09-2016 [employer] FDA Start: 03-09-2016 [employer] FDA Start: 03-09-2016 [employer] FDA Start: 03-09-2016 [employer] FDA Start: 03-09-2016 [employer] FDA Start: 03-09-2016 [employer] FDA Start: 03-09-2016 [employer] FDA Start: 03-09-2016 [employer] FDA Start: 03-09-2016 [employer] FDA Start: 03-09-2016 [employer] FDA Start: 03-09-2016 [employer] FDA Start: 03-09-2016 [employer] FDA Start: 03-09-2016 [employer] FDA Start: 03-09-2016 [employer] FDA Start: 03-09-2016 [employer] FDA Start: 03-09-2016 [employer] FDA Start: 03-09-2016 [employer] FDA Start: 03-09-2016 Mental Status Date Assessment Result Facility 12-08-2021 Cognitive function Voice/Name;To uch/Shaking;L ight Pain;Deep Pain [facility] Work Phone: Clinical Notes 03-09-2018 to 08-22-2025 Note Date & Type Note Facility 08-22-2025 Procedure note [facility] 06-17-2025 Hospital Discharge instructions Patient Education 06/17/2025 [...] Document Reviewed: 11/18/2014 ExitCare Patient Information 2015 [employer]. This information is not intended to replace [...] or drainage. SEEK IMMEDIATE MEDICAL CARE (call 034) IF: You experience stroke symptoms such as weakness or numbness on one side, temporary loss of vision or ability to speak or you develop a severe headache. Follow all instructions given to you by your doctor. Follow Up Care 05/27/2025 13:37:09 With:LARRY FITZPATRICK Address: [facility] [address] [place] [phone] Business (1) When:1-2 days With:CATE REY Address: [facility]/[address] [place] [address] Business (1) When:1-2 days [facility] 06-17-2025 Note Discharge Instructions Thank you for allowing [facility] to assist you with your healthcare needs. The following is important discharge information regarding your hospital visit. Your Care Team CATE REY MD What to do next Follow Up Appointments Follow Up with LARRY FITZPATRICK When:Within 1-2 days Where:[facility] [address] [place] [phone] Business (1) Follow Up with CATE REY When:Within 1-2 days Where:[facility]/[address] [place] [address] Business (1) The Following Activity and Diet [...] Document Reviewed: 11/18/2014 ExitCare Patient Information 2015 [employer]. This information is not intended to replace [...] or drainage. SEEK IMMEDIATE MEDICAL CARE (call 381) IF: You experience stroke symptoms such as [...] to receive it can visit one of [facility] vaccine clinics. There are many vaccine clinic locations within the [facility]. For locations and available times, please visit [email or web address] It is important to note that some COVID mobile vaccine clinics are held outdoors and may be canceled in rainy or stormy conditions. To learn more about pediatric vaccinations (ages 5-11), we invite you to visit the [facility] webpage. [email or web address] To learn more about the COVID-19 vaccine, we invite you to visit the CDC website for a list of frequently asked questions.https://www.cdc.gov/coronav irus/2019-ncov/vaccines/faq.html [facility] Patient Portal Access Instructions: Stay connected with your healthcare team and access your personal medical information anytime with the [facility] Patient Portal. Please follow the directions below to create your [facility] account: 1.Access the email account you provided upon registration to the hospital/physician office.2.Look for an invitation email from [facility].3.Open the email and access the invitation link: Accept Invitation to [facility].4.Fill in the required [email or web address] to create your account. To access your account, visit [email or web address]. Click the blue button labeled Access Patient Portal and then log in with the username [...] you will allow to register on the [facility] Patient Portal for access to your information. You can also access the [facility] Patient Portal on the [facility] duncan. Simply click on Patient Portal and then log into your account. If you would like to receive a full copy of your medical records, please contact the [facility] Medical Records Department by calling [phone], Friday through Friday between 8 a.m. and [...] Call your local pharmacy or go to http://bit.ly/1Z8Aj4v to find one close to you.3.Make use of household items: Use cat litter or old coffee grounds to dispose medications if other options are not available. Mix your drugs with these household products, seal them in an airtight container and throw it into the garbage. Call [facility]: [phone] to be sure your drugs can be [...] aware that I should contact my doctor. 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 Tobacco Signature: __ Date/Time: Relationship to Patient: Witness Name/Signature: Date/Time: [facility] 06-17-2025 Anesthesiology Consult note Patient: FAVIAN PHILLIP [...] YOANDY CASTILLO MD on 06/17/2025 09:16 AM [facility] 06-17-2025 Anesthesiology Consult note Patient: FAVIAN PHILLIP [...] Documented Current medications: (Selected) Inpatient Medications Ordered [facility] Aspirin: 81 mg, 1 tab(s), Oral, [...] qAM NS 1,000 mL: 20 mL/hr, Intravenous [place]ord 325- 5 mg oral tablet: 1 tab(s), [...] list: Medical Colon polyps / SNOMED CT [id number] / Confirmed Hypothyroidism / SNOMED CT 67884005 / Confirmed 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 Fusion (70849535). Comments: 06/14/2025 8:45 MAISHA Bates CERVICAL 02/28/2016 13:59 MAISHA LYON fusion of verebrae Knee (026242035). Comments: 06/14/2025 8:47 MAISHA Bates RIGHT 02/28/2016 13:59 MAISHA LYON surgery on knee Laparoscopic cholecystectomy (20297783). Carpal tunnel (663707615). Comments: 06/14/2025 8:46 MAISHA Bates RIGHT AND LEFT Trigger finger (7893483873). Comments: 06/14/2025 8:46 MAISHA Bates X6 FINGERS Cardiac pacemaker (02778118). Comments: 06/14/2025 8:47 MAISHA Bates [employer] MODEL L111 SERIAL [id number] Esophagogastroduodenoscopy (715060487). History of repair of rotator cuff (2734252052). Comments: 06/14/2025 8:45 MAISHA Bates RIGHT AND LEFT Cholecystectomy (38084348). Colonic polypectomy (941183779). TURP - Transurethral resection of prostate (277518885). Cervical laminectomy (6970293011). Comments: 06/16/2025 9:18 MAISHA Frausto plate in neck c2-3 Gallbladder excision (879052004). Comments: 06/16/2025 9:20 MAISHA Frausto removal Social [...] Oral36.4 DegC (JUN 17 07:10) Heart Rate Fqyuhacyk85 bpm (JUN 17 07:45) BLI632 mmHg (JUN 17 07:10) DBP79 mmHg (JUN [...] L 8.3(JUN 17) . Assessment and Plan [place] [employer] Anesthesiologists (ASA) physical status classification: [...] the encounter date. I have reviewed the JETTING MACHINE OPERATOR s documentation and agree with the JETTING MACHINE OPERATOR s findings and plan as documented, unless [...] YOANDY CASTILLO MD on 06/17/2025 09:15 AM [facility] 06-16-2025 Respiratory therapy Hospital Progress note Respiratory Therapy Evaluation Entered On: 06/16/2025 15:05 EDT Performed On: 06/16/2025 15:05 EDT by Carmel Rivera RRT Respiratory Therapy Evaluation Chest X-Ray [...] Triage Score : (0-5) Freq: Q4RT prn Carmel Rivera SAFETY PROFESSIONAL - 06/16/2025 15:09 EDT RT Assessment [Frequency/Schedule] : Therapeutic interchange, discontinue future evaluations (Comment: pt takes Breztri at home and has asthma [Carmel Rivera SAFETY PROFESSIONAL - 06/16/2025 15:11 EDT] ) Pulmonary Status : Chronic pulmonary disease MiguelCarmel maciel SAFETY PROFESSIONAL - 06/16/2025 15:11 EDT Surgical Status : General surgery (Comment: pt had LICE done [Carmel Rivera SAFETY PROFESSIONAL - 06/16/2025 15:09 EDT] ) Carmel Rivera SAFETY PROFESSIONAL - 06/16/2025 15:09 EDT Digitally Signed by Carmel Rivera SAFETY PROFESSIONAL on 06/16/2025 03:11 PM [facility] 06-16-2025 Note Exam Date Time Procedure Performing Provider Status 06/16/25 3:05 PM Electrocardiogram - EKG - CV MILE ENGLISH MD; Auth (Verified) ECG Final Report ATRIAL-VENTRICULAR DUAL-PACED RHYTHM Electronic Signature: MILE ENGLISH MD 06/17/2025 18:15:47 [id number] Evaluation + Plan note Diagnostic Tests Pending [...] Hematocrit (poc) 06/16/25 * Glucose (poc) 06/16/25 [facility] 06-05-2025 Note* Exam Date Time Procedure Performing Provider Status 05/05/25 10:[address] Angiography Neck w/ Contrast VASU SHETTY MD; Auth (Verified) [id number] ORIGINAL EXAMINATION: CTA OF THE NECK 05/05/2025 [...] Sign Date: 05/05/2025 4:20:11 PM Ordering Provider: [facility]04-09-2018 Evaluation note* Diagnosis Onset Date Resolution Status History of permanent cardiac pacemaker placement March 09, 2018 chronic Sick sinus syndrome [facility] Work Phone: 1(786) 119-723104-09-2018 Evaluation note* Diagnosis Onset Date Resolution Status Admit Date History of permanent cardiac pacemaker placement March 09, 2018 chronic October 25, 2 024 11:03am Sick sinus syndrome chronic Novem 2023 11:03am [facility] Work Phone: 1(765) 768-358204-09-2018 Evaluation note* Diagnosis Onset Date Resolution Status Admit Date History of permanent cardiac pacemaker placement March 09, 2018 chronic August 22, 2025 3:56pm Sick sinus syndrome chronic Septe mber 2024 3:56pm [facility] Work Phone: Evaluation + Plan note No data available for this section [facility] Evaluation + Plan note Future Appointments [facility] Evaluation noteNo assessment information available [facility] Work Phone: History and physical note* MAISHA Rosa: PERFORM Event Display: History and Physical Scanned Authored Date: [id number] [facility] Hospital Discharge instructions No data available for this section [facility] Progress note No data available for this section [facility] Reason for referral (narrative)No reason for referral information [facility] Work Phone: Chief Complaint and Reason for [...] August 03, 2025 7:43am PACER UPDATE W/ ParQnow Septem 2024 3:56pm Reason for Visit Admit [...] August 03, 2025 7:43am PACER UPDATE W/ ParQnow Septem 2024 3:56pm Pacer Check Remote August [...] Will Yes January 04 12:25pm Power of Hay Buckler Yes January 04, 2022 12:25pm Advance Directive Response Recorded Date/ Time Advance Directives Yes May 25 8:09am Living Will Yes November 05 8:05pm Power of Hay Buckler Yes November 05, 2023 8:05pm Advance Directive Response Recorded Date/ Time Living Will Yes November 05 8:05pm Do you have a Healthcare Power of Hay Buckler? Yes November 05, 2023 8:05pm Advance Directives Yes May 25 8:09am Advance Directive Response Recorded Date/ Time Advance Directives Yes May 25 8:09am Advance Directive Response Recorded Date/ Time Advance Directives on File Yes March 312024 10:25am Living Will Yes April 14, 2025 1 0:25am Do you have a Healthcare Power of Hay Buckler? Yes April 14, 2025 10:25am Advance Directives Yes May 25 8:09am Summary Purpose Additional Source Comments Source Comments (unrecognize d section and content) In the event this informatio n is protected by the Federal Confidentiality of Alcohol and Drug Abuse Patient Records regulations: The Federal rules restrict any use of the information to criminally investigate or prosecute any alcohol or drug abuse patient.[facility] Goals (unrecognized section and content) Goals may [...] and content) DATE CREATED AUTHOR 12/24/2022 [employer] [facility] DATE CREATED AUTHOR AUTHOR'S ORGANIZ ATION 05/08/2025 [facility] DATE CREATED AUTHOR AUTHOR'S ORGANIZ ATION 07/16/2025 [facility] DATE CREATED AUTHOR AUTHOR'S ORGANIZ ATION 10/06/2025 [facility] Care Teams (unrecognized sec tion and content) Team Status: Active Member Role Status Dates Dr. Jose Rey MD Family Provider Active Dr. Joes Rey MD Primary Care Provider Active Team [...] 04, 2025 End: April 04, 2025 Dominique Brimson Attending Provider Active Start : April 04, 2025 End: April 04, 2025 Dominique Brimson Referring Provider Active Start : April 04, [...] BE BASED ON THE PRIMARY CLINICAL RECORDS. [facility]. provides no warranty or guarantee of the accuracy or completeness of information in this document.
--- NOTE | 2025-10-19 09:42 | NEURO ---
NCS and/or EMG Patient Report Ordering Doctor: Jose Cisse Chi DATE OF SERVICE: 10/19/25 Will presents for electrodiagnostic testing of the lower limbs. Reports sharp shooting pain in both feet and ankles. Electrodiagnostic findings: Peroneal motor nerve demonstrates normal distal latency and amplitude with normal conduction velocity. Tibial motor response within normal limits bilaterally. Sensory responses are normal. Normal tibial and peroneal F?wave. Borderline prolonged H?reflex bilaterally. Needle EMG testing was performed the lower limbs. All muscles tested showed no evidence of denervation with normal motor unit action potentials. Electrodiagnostic impression: This is an essentially normal study in the lower limbs. There is no electrodiagnostic evidence for lumbosacral radiculopathy or peripheral polyneuropathy. If symptoms persist, may consider nerve biopsy to evaluate for small fiber neuropathy. Multi Select Codes Neurology Neurology Interp Codes: 59608-86 Musc test done w/n test comp (interp) (2) and 99838-98 Nrv cndj test 11-12 studies (interp)
== END | disposition home or self-care (01) ==
LOC: PSN 07:00
PROVIDERS: PCP Family Medicine Geriatric Medicine; Referring Provider Family Medicine Geriatric Medicine; Visit Provider Family Medicine Geriatric Medicine
DX: M62.81 Muscle weakness (generalized) (principal); M62.838 Other muscle spasm
CPT/HCPCS: 95886; 95912